=== PATIENT | female | born 1950 | race Caucasian/White ===

== ENCOUNTER → 2019-08-25 07:18 | Outpatient (CLI) | payer MEDICARE, OTHER, SELFPAY ==
--- NOTE | 2019-08-25 07:25 | CT_ITS ---
STUDY: CT BRAIN WITHOUT CONTRAST REASON FOR EXAM: Female, 69 years old patient with change in vision, headache and near syncope one week ago. RADIATION DOSAGE (If Supplied By Facility): CTDIvol = ( 44.99 ) mGy, DLP = ( 812.98 ) mGycm TECHNIQUE: Transaxial CT imaging of the brain was performed without administration of intravenous contrast material. Multiplanar reformations are submitted for interpretation. Individualized dose optimization techniques were used for this CT. COMPARISON: No relevant priors. FINDINGS: Normal soft tissue structures. Normal calvarium. Normal size ventricles and extra-axial spaces for the patient''s age. Normal white matter tracts of the cerebral hemispheres. There are small punctate calcifications of the basal ganglia which are seen in the aging brain as a normal variant. Normal brainstem. Normal cerebellum. There is no intracranial hemorrhage. There is mild atherosclerotic calcification of the intracranial arteries. Normal visualized paranasal sinuses. CT/Brain/Head without Contrast IMPRESSION: No CT evidence of acute intracranial hemorrhage. Electronically Signed: Fay Sr MD at 8:01 EST , Service support ,
== END ==
PROVIDERS: Family Provider Student in an Organized Health Care Education/Training Program; PCP Student in an Organized Health Care Education/Training Program; Referring Provider Nurse Practitioner Family; Visit Provider Nurse Practitioner Family
DX: H53.9 Unspecified visual disturbance (principal); R51 Headache
CPT/HCPCS: 70450

== ENCOUNTER 2020-07-18 15:00 | Outpatient (RCR) | payer MEDICARE, OTHER, SELFPAY ==
--- NOTE | 2020-05-09 15:07 | HP.PTEVAL_ITS ---
Patient's Visit Information LELA SHETH is a 70 year old F referred to Physical Therapy by Dr. Rory Russo DO with a diagnosis of R TKR 05-06-2020. Date of Evaluation: 05/09/20 Physical Therapist: BARB Wilkerson - Visit Plan Frequency: 3x /Week Duration: 6 Weeks Plan: 3X/ week for 6 weeks for gait training, R knee AROM, R hip and knee strength, stairs, functional activities, sit to stand with HEP and modlaities as needed. - Subjective L TKR was 12/17/2018 and R TKR was 05/06/2020. She came home and did it at [facility] in surgical wing. She is in a lot of pain right now. She tok the Oxy at 1:00. SHe is on CPM machine at home for 6 hours per day. She is walking on a rolling walker. 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 SHe has stairs with a railing ( up with good leg and down with the bad leg). Once s he is up, she stays up. She is sleeping but the leg blow up things are uncomfortable. She walks 10 min every 1/2 hour. She hold on and able to get into the shower. She feels better on the R knee than her L coming out of surgery. - Pain R knee pain Pain Intensity (Out of 10): 8 Pain Intensity Range: 6 Comment: with Oxy - Objective Gait: walks with a rolling walke wtih decrease stride length and decrease weight shift to the R. R knee AROM: 0-92 degrees R knee flexion. L knee AROM: 0-125 degrees R knee flexon. Pt has a good quad set contraction. -Greta sign on the R. SLR able X 10.... Nu-step L1 X 5 in at seat #9 to increase ROM. R knee very brusied and swollen. - Goals Goal 1:: I HEP Goal Time Frame: 6-8 Weeks Goal 2:: Increase R knee AROM 0-120 degrees flexion Goal Time Frame: 6-8 Weeks Goal 3:: Walk with no AD and no antalgic gait Goal Time Frame: 4-6 Weeks Goal 4:: Go up and down the stairs recip with 1 hand rail with not antalgic gait Goal Time Frame: 4-6 Weeks Goal 5:: Get up out of a chair without using UE support 5/5 times Goal Time Frame: 6-8 Weeks - Rehabilitation Potential Rehabilitation Potential: Good - Anticipated Interventions Patient/Client Instruction: Educate patient on: Condition, Plan of Care For the Purpose of:: To decrease pain, To decrease swelling/inflammation, To increase ROM, To improve nutrient delivery to tissue, To increase oxygenation perfusion, To improve muscle performance and motor function, To improve ability to perform ADL's, To increase tolerance to activity/condition/position, To improve performance and independence with ADL's, To decrease level of supervision to perform tasks, To improve ability of physical actions for home /community/work/leisure, To improve gait and locomotor functions, To improve health of tissue, To decrease soft tissue restriction, To increase flexibility/ROM Therapeutic Exercise to Include: Strength training, Endurance training, Balance training, Postural training, Flexibilty training, Gait and locomotor training For the Purpose of:: To decrease pain, To decrease swelling/inflammation, To increase ROM, To improve nutrient delivery to tissue, To increase oxygenation perfusion, To improve muscle performance and motor function, To improve ability to perform ADL's, To increase tolerance to activity/condition/position, To improve performance and independence with ADL's, To decrease level of supervision to perform tasks, To improve ability of physical actions for home/community/work/leisure, To improve gait and locomotor functions, To improve health of tissue, To decrease soft tissue restriction, To increase flexibility/ROM, To improve safety with gait Functional Training to Include: Gait training For the Purpose of:: To improve gait and locomotor functions, To improve safety with gait Cryotherapy (ice pack, ice massage): Yes For the Purpose of:: To decrease pain, To decrease swelling/inflammation Thank you for the opportunity to evaluate your patient. For Medicare and Medicare HMO plans, please review the plan of care and approve it. It will need to be FAXED BACK to us at [phone] for Medicare purposes. For Medicare only, by signing this I certify the plan of care. Please let me know if there are questions or concerns regarding this plan of care. Physician Signature: Date:
--- NOTE | 2020-05-30 14:50 | HP.PTREVAL_ITS ---
Dr. Rory Russo, DO, It has been my pleasure to treat LELA SHETH over the last 10 visits for R TKR 05-06-2020. Please see the progress note below for an update on the physical therapy plan of care! Subjective: Pt goes back to Nov 12-15. Pt went back to on and they thought that she looked good. No more SOLA hose. Walking with a straight cane. Her pain is good... trying to wean off the OXY... She feels better the more she moves it. Objective/Function: 0-107 degrees. Stairs; Up and down recip with 1 handrail with verbal cues to push off the step with her R foot. Gait: walks with decrease stance time on the R LE. Pt is able to correct with verbal cues. Plan Plan: Encourage increase in flexon AROM... 3X/ week for 6 weeks for gait training, R knee AROM, R hip and knee strength, stairs, functional activities, sit to stand with HEP and modlaities as needed. Goals Goal 1:: I HEP Goal Time Frame: 6-8 Weeks Goal 2:: Increase R knee AROM 0-120 degrees flexion Goal Time Frame: 6-8 Weeks Goal 3:: Walk with no AD and no antalgic gait Goal Time Frame: 4-6 Weeks Goal 4:: Go up and down the stairs recip with 1 hand rail with not antalgic gait Goal Time Frame: 4-6 Weeks Goal 5:: Get up out of a chair without using UE support 5/5 times Goal Time Frame: 6-8 Weeks Anticipated Interventions Patient/Client Instruction: Educate patient on: Condition, Plan of Care For the Purpose of:: To decrease pain, To decrease swelling/inflammation, To increase ROM, To improve nutrient delivery to tissue, To increase oxygenation perfusion, To improve muscle performance and motor function, To improve ability to perform ADL's, To increase tolerance to activity/condition/position, To improve performance and independence with ADL's, To decrease level of supervision to perform tasks, To improve ability of physical actions for home/community/work/leisure, To improve gait and locomotor functions, To improve health of tissue, To decrease soft tissue restriction, To increase flexibility/ROM Therapeutic Exercise to Include: Strength training, Endurance training, Balance training, Postural training, Flexibilty training, Gait and locomotor training For the Purpose of:: To decrease pain, To decrease swelling/inflammation, To increase ROM, To improve nutrient delivery to tissue, To increase oxygenation perfusion, To improve muscle performance and motor function, To improve ability to perform ADL's, To increase tolerance to activity/condition/position, To improve performance and independence with ADL's, To decrease level of supervision to perform tasks, To improve ability of physical actions for home/community/work/leisure, To improve gait and locomotor functions, To improve health of tissue, To decrease soft tissue restriction, To increase flexibility/ROM, To improve safety with gait Functional Training to Include: Gait training For the Purpose of:: To improve gait and locomotor functions, To improve safety with gait Cryotherapy (ice pack, ice massage): Yes For the Purpose of:: To decrease pain, To decrease swelling/inflammation Please do not hesitate to contact me at [phone] by phone or if you have questions or concerns regarding this new plan of care! Sincerely, Luzmaria Cavazos MPT
--- NOTE | 2020-06-22 17:39 | HP.PTREVAL ---
Dr. Rory Russo, DO, It has been my pleasure to treat LELA SHETH over the last 20 visits for R TKR 05-06-2020. Please see the progress note below for an update on the physical therapy plan of care! Subjective: Pt reports that the lateral part of her R knee is still painful and she can not seem to get it to loosen up. She is doing her exercises multiple times a day. Objective/Function: R knee AROM 0- 115 degrees (with green strap). Stairs; up and down recip with 2 hand rails with decreased ability to control descned with R knee bent Plan Plan: Encourage increase in flexon AROM... 3X/ week for 4 additional weeks for gait training, R knee AROM, R hip and knee strength, stairs, functional activities, sit to stand with HEP and modlaities as needed. Goals Goal 1:: I HEP Goal Time Frame: 6-8 Weeks Goal Progress: Goal Met Goal 2:: Increase R knee AROM 0-120 degrees flexion Goal Time Frame: 6-8 Weeks Goal Progress: Progressing Goal 3:: Walk with no AD and no antalgic gait Goal Time Frame: 4-6 Weeks Goal Progress: Progressing Goal 4:: Go up and down the stairs recip with 1 hand rail with not antalgic gait Goal Time Frame: 4-6 Weeks Goal Progress: Progressing Goal 5:: Get up out of a chair without using UE support 5/5 times Goal Time Frame: 6-8 Weeks Goal Progress: Progressing Anticipated Interventions Patient/Client Instruction: Educate patient on: Condition, Plan of Care For the Purpose of:: To decrease pain, To decrease swelling/inflammation, To increase ROM, To improve nutrient delivery to tissue, To increase oxygenation perfusion, To improve muscle performance and motor function, To improve ability to perform ADL's, To increase tolerance to activity/condition/position, To improve performance and independence with ADL's, To decrease level of supervision to perform tasks, To improve ability of physical actions for home/community/work/leisure, To improve gait and locomotor functions, To improve health of tissue, To decrease soft tissue restriction, To increase flexibility/ROM Therapeutic Exercise to Include: Strength training, Endurance training, Balance training, Postural training, Flexibilty training, Gait and locomotor training For the Purpose of:: To decrease pain, To decrease swelling/inflammation, To increase ROM, To improve nutrient delivery to tissue, To increase oxygenation perfusion, To improve muscle performance and motor function, To improve ability to perform ADL's, To increase tolerance to activity/condition/position, To improve performance and independence with ADL's, To decrease level of supervision to perform tasks, To improve ability of physical actions for home/community/work/leisure, To improve gait and locomotor functions, To improve health of tissue, To decrease soft tissue restriction, To increase flexibility/ROM, To improve safety with gait Functional Training to Include: Gait training For the Purpose of:: To improve gait and locomotor functions, To improve safety with gait Cryotherapy (ice pack, ice massage): Yes For the Purpose of:: To decrease pain, To decrease swelling/inflammation Please do not hesitate to contact me at [phone] by phone or if you have questions or concerns regarding this new plan of care! Sincerely, Luzmaria Cavazos, MPT
--- NOTE | 2020-07-18 15:43 | HP.PTREVAL_ITS ---
Dr. Rory Russo, DO, It has been my pleasure to treat LELA SHETH over the last 31 visits for R TKR 05-06-2020. Please see the progress note below for an update on the physical therapy plan of care! 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 Then she is off a lot of days in Aug. She is worried about being on her feet so long. She still has the lateral knee pain most of the time. She felt it when she rolled over in her bed. She does the same exercises on her R leg and her L. She feels comfortable wtih her exercises. She still has to take Tylenol every 6 hours for the pain.... the still hurts. Objective/Function: R knee AROM 0-120 degrees. Stairs: up and down stairs recip with 1 hand rail. Gait: walk with decrease stance time on the R LE. Plan Plan: Hold PT until after Dr appointment. She was given H&W paper work and exercise sheet if the Dr thinks she is ready for DC Goals Goal 1:: I HEP Goal Time Frame: 6-8 Weeks Goal Progress: Goal Met Goal 2:: Increase R knee AROM 0-120 degrees flexion Goal Time Frame: 6-8 Weeks Goal Progress: Goal Met Goal 3:: Walk with no AD and no antalgic gait Goal Time Frame: 4-6 Weeks Goal Progress: Progressing Goal 4:: Go up and down the stairs recip with 1 hand rail with not antalgic gait Goal Time Frame: 4-6 Weeks Goal Progress: Goal Met Goal 5:: Get up out of a chair without using UE support 5/5 times Goal Time Frame: 6-8 Weeks Goal Progress: Goal Met Anticipated Interventions Patient/Client Instruction: Educate patient on: Condition, Plan of Care For the Purpose of:: To decrease pain, To decrease swelling/inflammation, To increase ROM, To improve nutrient delivery to tissue, To increase oxygenation perfusion, To improve muscle performance and motor function, To improve ability to perform ADL's, To increase tolerance to activity/condition/position, To improve performance and independence with ADL's, To decrease level of supervision to perform tasks, To improve ability of physical actions for home/community/work/leisure, To improve gait and locomotor functions, To improve health of tissue, To decrease soft tissue restriction, To increase flexibility/ROM Therapeutic Exercise to Include: Strength training, Endurance training, Balance training, Postural training, Flexibilty training, Gait and locomotor training For the Purpose of:: To decrease pain, To decrease swelling/inflammation, To increase ROM, To improve nutrient delivery to tissue, To increase oxygenation perfusion, To improve muscle performance and motor function, To improve ability to perform ADL's, To increase tolerance to activity/condition/position, To improve performance and independence with ADL's, To decrease level of supervision to perform tasks, To improve ability of physical actions for home/community/work/leisure, To improve gait and locomotor functions, To improve health of tissue, To decrease soft tissue restriction, To increase flexibility/ROM, To improve safety with gait Functional Training to Include: Gait training For the Purpose of:: To improve gait and locomotor functions, To improve safety with gait Cryotherapy (ice pack, ice massage): Yes For the Purpose of:: To decrease pain, To decrease swelling/inflammation Please do not hesitate to contact me at [phone] by phone or if you have questions or concerns regarding this new plan of care! Sincerely, Luzmaria Cavazos, MPT
--- NOTE | 2020-09-20 10:43 | HP.PTDCSUM ---
It has been my pleasure to treat LELA SHETH referred by Dr. Rory Russo DO, with the diagnosis of R TKR 05-06-2020 for a total of 31 visit(s). Discharge Date: 09/20/20 Please see the following information for a summary of their discharge status. 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 Then she is off a lot of days in Aug. She is worried about being on her feet so long. She still has the lateral knee pain most of the time. She felt it when she rolled over in her bed. She does the same exercises on her R leg and her L. She feels comfortable wtih her exercises. She still has to take Tylenol every 6 hours for the pain.... the still hurts. R knee pain Pain Intensity (Out of 10): 6 % Improvement: 100 Objective/Function: R knee AROM 0-120 degrees. Stairs: up and down stairs recip with 1 hand rail. Gait: walk with decrease stance time on the R LE. Goal 1:: I HEP Goal Progress: Goal Met Goal 2:: Increase R knee AROM 0-120 degrees flexion Goal Progress: Goal Met Goal 3:: Walk with no AD and no antalgic gait Goal Progress: Progressing Goal 4:: Go up and down the stairs recip with 1 hand rail with not antalgic gait Goal Progress: Goal Met Goal 5:: Get up out of a chair without using UE support 5/5 times Goal Progress: Goal Met Plan: DC PT She was given H&W paper work and exercise sheet if the Dr thinks she is ready for DC Discharge Comments: DC PT to HEP If there are questions or concerns regarding this patient's physical therapy, please feel free to call me at [phone]. Thank you for the referral of this patient. Sincerely, Luzmaria Cavazos, MPT
== END 2020-07-18 19:00 | disposition home or self-care (01) ==
LOC: PT 15:00
PROVIDERS: PCP Student in an Organized Health Care Education/Training Program; Referring Provider Orthopaedic Surgery; Visit Provider Orthopaedic Surgery
DX: Z47.1 Aftercare following joint replacement surgery (principal); M17.11 Unilateral primary osteoarthritis, right knee; M21.061 Valgus deformity, not elsewhere classified, right knee; Z96.651 Presence of right artificial knee joint; M25.561 Pain in right knee
CPT/HCPCS: 97110; 97161; 97530

== ENCOUNTER → 2021-07-25 08:19 | Outpatient (CLI) | payer MEDICARE, OTHER, SELFPAY ==
--- NOTE | 2021-07-25 08:28 | BD_ITS ---
STUDY: DUAL ENERGY X-RAY ABSORPTIOMETRY / DXA REASON FOR EXAM: Female, 71 years old. M810. The patient is postmenopausal. TECHNIQUE: Bone Mineral Density (BMD) measurements of lumbar spine and bilateral hips were obtained. COMPARISON: Comparison is made with prior study of 10/16/2016. FINDINGS: Lumbar Spine (L1-L4): g/cm2 (0.679) / T-score (-3.3) / Z-score (-1.3) Findings are suggestive of osteoporosis with a high fracture risk. Left Femur Total: g/cm2 (0.659) / T-score (-2.3) / Z-score (-0.9) Left Femoral Neck: g/cm2 (0.553) / T-score (-2.7) / Z-score (-0.9) Right Femur Total: g/cm2 (0.649) / T-score (-2.4) / Z-score (-0.9) Right Femoral Neck: g/cm2 (0.5-4) / T-score (-2.9) / Z-score (-1.2) The T-Scores on the most recent prior examination were: Lumbar Spine (L1-L4): There has been worsening of bone density since the previous examination. Left Femur Total: which represents an improvement of 1.1%. Right Femur Total: which represents a worsening of 6.9%. BD/Dexa Bone Density Study IMPRESSION: The patient is considered osteoporotic as outlined below according to World [place] Organization (WHO) criteria with a high fracture risk. There has been worsening of bone density since the previous examination. Reference Information: The T-score is the number of standard deviations above or below the standard which is normal for young adults at their peak bone mineral density. The World Health Organization (WHO) interprets the T-scores as follows: Above -1 Normal bone density Between -1 and -2.5 Osteopenia Equal to / or below -2.5 Osteoporosis As a practical clinical guideline, osteopenia may be graded as follows: Mild -1 through -1.5 Moderate -1.6 through -2.0 Severe -2.1 through -2.4 The Z-score is the number of standard deviations above or below age-matched controls. A Z-score of less than -1.5 would be considered abnormal. References: 1. NIH Osteoporosis and Related Bone Diseases www osteo.org 2. International Society for Clinical Densitometry www iscd.org 3. National Osteoporosis Foundation www nof.org Electronically Signed: Estuardo Esquivel MD at 10:25 EST , Service support ,
== END ==
PROVIDERS: PCP Student in an Organized Health Care Education/Training Program; Visit Provider Student in an Organized Health Care Education/Training Program
DX: M81.0 Age-related osteoporosis without current pathological fracture (principal)
CPT/HCPCS: 77080

== ENCOUNTER 2021-10-26 11:31 | Outpatient (CLI) | payer MEDICARE, OTHER, SELFPAY ==
--- NOTE | 2021-10-26 11:45 | RAD_ITS ---
INDICATION: shortness of breath EXAMINATION/TECHNIQUE: X-RAY - XR Chest 2 Views COMPARISON: None. FINDINGS: Support devices: None Mild bilateral pulmonary vascular congestion. No focal consolidations. No sizable pleural effusion or pneumothorax. Cardia mediastinal silhouette is within normal limits. Surgical clips in the soft tissues overlying the lower chest/breasts and upper abdominal wall. No other acute findings in the bones or soft tissues. RAD/Chest PA and Lateral IMPRESSION: Mild bilateral pulmonary vascular congestion. Otherwise, no other acute findings. Electronically Signed: Taiwo Kumar, at 12:11 EDT ,
== END 2021-10-26 23:59 | disposition home or self-care (01) ==
LOC: RAD 11:40
PROVIDERS: PCP Student in an Organized Health Care Education/Training Program; Referring Provider Internal Medicine Cardiovascular Disease; Visit Provider Internal Medicine Cardiovascular Disease
DX: R06.02 Shortness of breath (principal); I34.1 Nonrheumatic mitral (valve) prolapse; R00.2 Palpitations; E78.2 Mixed hyperlipidemia
CPT/HCPCS: 71046

== ENCOUNTER 2021-10-31 10:53 | Outpatient (CLI) | payer MEDICARE, OTHER, SELFPAY | END 2021-10-31 23:59 | disposition home or self-care (01) | LOC: PSN 10:55 | PROVIDERS: PCP Student in an Organized Health Care Education/Training Program; Referring Provider Internal Medicine Cardiovascular Disease; Visit Provider Internal Medicine Cardiovascular Disease | DX: I34.1 Nonrheumatic mitral (valve) prolapse (principal); R00.2 Palpitations; R06.02 Shortness of breath; E78.2 Mixed hyperlipidemia | CPT/HCPCS: 93225; 93226 ==

== ENCOUNTER 2021-11-27 06:31 | Outpatient (CLI) | payer MEDICARE, OTHER, SELFPAY ==
--- NOTE | 2021-11-27 06:34 | ECHOD_ITS ---
Version 2 Reason For Study: Palpitations Procedure This was a 2D Doppler, Color Flow transthoracic echocardiogram. The exam was of adequate technical quality. Exam performed in department. Left Ventricle Normal LV size. Left ventricular systolic function is normal. The estimated ejection fraction is 65 %. No evidence for diastolic dysfunction. No regional wall motion abnormalities noted. Right Ventricle Normal RV size. Normal systolic function. Atria Normal left atrium. Normal right atrium. No doppler evidence for ASD. Mitral Valve There is mild to moderate mitral annular calcification. Extension of the mitral annular calcification of the base of the posterior mitral valve leaflet. Trivial mitral valve insufficiency. Tricuspid Valve Normal tricuspid valve. Mild tricuspid valve insufficiency. Right ventricular systolic pressure estimated to be 30 mmHg. Aortic Valve Trisinus/trileaflet aortic valve. Mild focal aortic valve calcification. Trivial aortic valve insufficiency. Pulmonic Valve The pulmonic valve is not well visualized. Trivial pulmonic valve insufficiency. Great Vessels Normal sized aortic root. Pericardium/Pleural No pericardial effusion. MMode/2D Measurements & Calculations LVIDd: 3.9 cm IVSd: 1.2 cm Ao root diam: 3.5 cm LVIDs: 1.8 cm LVPWd: 1.1 cm RVDd: 4.1 cm FS: 55.5 % LAV(MOD-bp): 43.6 ml LVAd ap4: 24.7 cm2 SV(MOD-sp4): 42.5 ml LAV(MOD-bp) Indexed: 22.8 ml/m2 LVLd ap4: 7.9 cm LAV(MOD-sp2): 61.4 ml EDV(MOD-sp4): 63.6 ml LAV(MOD-sp4): 28.2 ml EDV(sp4-el): 65.5 ml LVAs ap4: 12.4 cm2 LVLs ap4: 6.5 cm ESV(MOD-sp4): 21.1 ml ESV(sp4-el): 20.1 ml EF(MOD-sp4): 66.8 % EF(sp4-el): 69.3 % SV(sp4-el): 45.3 ml LA A4 area: 12.2 cm2 LA dimension(2D): 3.4 cm RA A4 area: 12.3 cm2 Doppler Measurements & Calculations MV E max rupert: 61.1 cm/sec Lat Peak E' Rupert: 7.0 cm/sec Med Peak E' Rupert: 4.9 cm/sec MV A max rupert: 89.1 cm/sec E/E' lat: 8.7 E/E' med: 12.5 MV E/A: 0.69 Ao V2 max: 149.5 cm/sec LV V1 max: 137.4 cm/sec PA V2 max: 85.7 cm/sec Ao max P.9 mmHg LV V1 max P.6 mmHg Ao V2 mean: 102.6 cm/sec Ao mean P.6 mmHg Ao V2 VTI: 31.0 cm PI end-d rupert: 85.7 cm/sec TR max rupert: 259.5 cm/sec TR max P.9 mmHg ECHO/Echo Complete Interpretation Summary Left ventricular systolic function is normal. The estimated ejection fraction is 65 %. There is mild to moderate mitral annular calcification. Extension of the mitral annular calcification of the base of the posterior mitr al valve leaflet. Trivial mitral valve insufficiency. Mild tricuspid valve insufficiency. Mild focal aortic valve calcification. Trivial aortic valve insufficiency. Trivial pulmonic valve insufficiency. Right ventricular systolic pressure estimated to be 30 mmHg. No evidence for diastolic dysfunction. Ordering Physician: Romario Thurston Referring Physician: Reynaldo Sullivan Performed By: Micaela Ferrer, JOSÉ MIGUEL, RVT
--- NOTE | 2021-11-27 08:45 | STRESSREP_ITS ---
Stress Test Report Date: 11-27-2021 Procedure: Pharmacologic stress nuclear imaging study Indications: Dyspnea on exertion; mitral valve prolapse; status post bilateral knee replacement Consent: Per the patient Procedure: The patient underwent pharmacologic (Regadenoson 0.4mg ) evaluation with a peak heart rate of 110 beats per minute (72%predicted maximal heart rate) and a peak blood pressure of 152/92 mmHg. The baseline ECG demonstrated normal sinus rhythm. The peak pharmacologic ECG demonstrated no obvious ECG changes. There were no cardiac dysrhythmias pretest, during pharmacologic infusion, or recovery. There was no complaint of chest discomfort during pharmacologic infusion or recovery. The examination was discontinued secondary to completion of protocol. Impression: 1. Pharmacologic (Regadenoson) evaluation 2. Peak pharmacologic ECG with no obvious ECG changes. 3. There were no cardiac dysrhythmias pretest, during pharmacologic infusion, or recovery. 4. Nuclear images pending Myocardial perfusion imaging study: Technique: The patient was injected with 11.5 millicuries of technetium 99m Cardiolite and subsequently rest SPECT Cardiolite nuclear imaging was obtained in the horizontal long, vertical long, and short axis views. The patient underwent pharmacologic (Regadenoson) evaluation with a peak heart rate of 110 beats per minute (72% percent predicted maximal heart rate) and a peak blood pressure of 152/92 mmHg. The patient was injected with 33.8 millicuries of technetium 99m Cardiolite and subsequently stress SPECT Cardiolite nuclear imaging was obtained in the horizontal long, vertical long, and short axis views. A gated Cardiolite study at peak stress was obtained. Interpretation: Rest and stress SPECT Cardiolite nuclear imaging status post realignment, normalization, and attenuation correction demonstrate relative uniform tracer uptake and myocardial perfusion appearing within normal limits. There is end systolic thickening and brightening. The gated Cardiolite study demonstrates myocardial thickening and inward wall motion. The reported LVEF is 81%. Impression: 1. Rest and stress SPECT Cardiolite nuclear imaging demonstrate relative uniform tracer uptake and myocardial perfusion appearing within normal limits. 2. The gated Cardiolite study reports an LVEF of 81%. This note was generated with [employer] software. It may contain incorrect words, spelling, and punctuation that were not noted in checking the note before signing.
== END 2021-11-27 23:59 | disposition home or self-care (01) ==
LOC: CVS 06:32
PROVIDERS: PCP Student in an Organized Health Care Education/Training Program; Referring Provider Internal Medicine Cardiovascular Disease; Visit Provider Internal Medicine Cardiovascular Disease
DX: R06.02 Shortness of breath (principal); I34.1 Nonrheumatic mitral (valve) prolapse; R00.2 Palpitations; E78.2 Mixed hyperlipidemia
CPT/HCPCS: 78452; 93017; 93306; A9500; A4216; J2785

== ENCOUNTER → 2022-01-26 | Outpatient (CLI) | payer MEDICARE, OTHER, SELFPAY ==
--- NOTE | 2022-01-26 11:17 | RAD_ITS ---
STUDY: X-RAY CHEST REASON FOR EXAM: Female, 71 years old. shortness of breath TECHNIQUE: XR Chest 2 Views COMPARISON: 3 FINDINGS: There is no demonstrated pleural abnormality. Metal clips overlying the lower chest epigastric region. This is stable. Normal size heart. Normal mediastinum and cate. Normal visualized pulmonary arteries. There is atherosclerotic calcification of the aortic arch with tortuosity. There are diffuse degenerative changes of the visualized thoracic spine. There is degenerative osteoarthritis of the bilateral shoulders. There is no demonstrated abnormality of the visualized soft tissue structures of the upper abdomen. RAD/Chest PA and Lateral IMPRESSION: There are no acute findings. Electronically Signed: Quintin Jennings MD at 17:04 EDT ,
== END | disposition home or self-care (01) ==
LOC: RAD 11:12
PROVIDERS: PCP Student in an Organized Health Care Education/Training Program; Referring Provider Internal Medicine Cardiovascular Disease; Visit Provider Internal Medicine Cardiovascular Disease
DX: R06.02 Shortness of breath (principal)
CPT/HCPCS: 71046

== ENCOUNTER → 2022-02-14 | Outpatient (CLI) | payer MEDICARE, OTHER, SELFPAY ==
--- NOTE | 2022-02-14 09:22 | EKG12_ITS ---
Test Reason : PREOP Blood Pressure : / mmHG Vent. Rate : 070 BPM Atrial Rate : 070 BPM P-R Int : 132 ms QRS Dur : 084 ms QT Int : 392 ms P-R-T Axes : 043 001 037 degrees QTc Int : 423 ms Normal sinus rhythm Normal ECG Confirmed by DEMIAN OLSON, STEPAN ([id number]), features editor DOMENICO BURNS ([id number]) on 02/15/2022 7:24:07 AM Referred By: Leobardo Adams Confirmed By:STEPAN ARCINIEGA MD
== END | disposition home or self-care (01) ==
LOC: PSN 09:21
PROVIDERS: PCP Student in an Organized Health Care Education/Training Program; Referring Provider Surgery; Visit Provider Surgery
DX: Z01.812 Encounter for preprocedural laboratory examination (principal); Z01.810 Encounter for preprocedural cardiovascular examination
CPT/HCPCS: 36415; 80048; 85027; 93005

== ENCOUNTER → 2022-02-14 | Outpatient (CLI) | payer MEDICARE, OTHER, SELFPAY ==
[2022-02-14 10:04] LABS: Hematocrit 42.3 % (37-47); Hemoglobin 13.9 g/dL (12.0-15.0); Mean Corp Hgb Conc 32.9 g/dL (32-36); Mean Corpuscular Hgb 28.5 pg (27.0-32.0); Mean Corpuscular Volume 86.7 fL (81-99); Mean Platelet Vol. 9.8 fl (6.2-12.0); Platelet Count 235 K/mm3 (150-450); RBC Distribution Width CV 13.5 % (11.6-14.6); Red Blood Count 4.88 M/mm3 (4.2-5.4); White Blood Count 4.6 K/mm3 (4.4-11.0)
[2022-02-14 10:58] LABS: Anion Gap 6 (5-15); BUN 17 mg/dL (7-18); BUN/Creat Ratio 22.2 RATIO (10-20); Calcium,Total 9.1 mg/dL (8.5-10.1); Chloride 109 mmol/L (98-107); Creatinine, Serum 0.77 mg/dL (0.55-1.02); EST Glomerular Filtration Rate 79 mL/min (>60); Est Glom Filt Rate - Afr Amer 96 mL/min (>60); Glucose 100 mg/dL (74-106); Potassium 3.7 mmol/L (3.5-5.1); Sodium Level 141 mmol/L (136-145)
== END | disposition home or self-care (01) ==
PROVIDERS: PCP Student in an Organized Health Care Education/Training Program; Visit Provider Surgery
DX: Z01.812 Encounter for preprocedural laboratory examination (principal)
CPT/HCPCS: 36415; 80048; 85027

== ENCOUNTER → 2022-08-29 | Outpatient (CLI) | payer MEDICARE, OTHER, SELFPAY ==
--- NOTE | 2022-08-29 07:55 | US_ITS ---
STUDY: ULTRASOUND BREAST - RIGHT REASON FOR EXAM: Female, 72 years old. Prior right mastectomy and breast reconstruction. Breast pain. TECHNIQUE: Axial and longitudinal images of the RIGHT breast were performed with a high resolution ultrasound transducer. # OF IMAGES: 75 COMPARISON: None. FINDINGS: RIGHT Breast: Heterogeneously dense fibroglandular tissue. No sonographic abnormality is seen. IMPRESSION: No sonographic abnormality is seen. ASSESSMENT CATEGORY: BIRADS Category 1: Negative. A letter regarding these results will be sent to the patient by the facility within 30 days. Electronically Signed: Estuardo Esquivel MD at 9:31 EST , STUDY: ULTRASOUND BREAST - LEFT REASON FOR EXAM: Female, 72 years old. Prior mastectomy with breast reconstruction. Breast pain. TECHNIQUE: Axial and longitudinal images of the LEFT breast were performed with a high resolution ultrasound transducer. # OF IMAGES: 75 COMPARISON: None. FINDINGS: LEFT Breast: Heterogeneously dense breast tissue. No sonographic abnormality is seen. US/Breast Complete Unilateral IMPRESSION: No sonographic abnormality is seen. ASSESSMENT CATEGORY: BIRADS Category 1: Negative. A letter regarding these results will be sent to the patient by the facility within 30 days. Electronically Signed: Estuardo Esquivel MD at 9:32 EST ,
== END | disposition home or self-care (01) ==
LOC: OPUS 07:52
PROVIDERS: PCP Student in an Organized Health Care Education/Training Program; Visit Provider Student in an Organized Health Care Education/Training Program
DX: N64.4 Mastodynia (principal)
CPT/HCPCS: 76641

== ENCOUNTER → 2022-10-03 | Outpatient (CLI) | payer MEDICARE, OTHER, SELFPAY ==
--- NOTE | 2022-10-03 14:19 | US_ITS ---
STUDY: RENAL ULTRASOUND - COMPLETE REASON FOR EXAM: Female, 72 years old. UTI TECHNIQUE: Ultrasound evaluation of the kidneys was performed with real-time and static metzger-scale imaging. COMPARISON: None. FINDINGS: RIGHT KIDNEY: Normal location of the right kidney, which is normal in size. The right kidney measures 8.6 cm x 5.4 cm x 4.3 cm. There is a normal cortex of the right kidney. The renal cortex measures 1.2 cm. There is no right renal mass or cyst. There are no right renal calculi. There is no right hydronephrosis. DISTAL RIGHT URETER: There is non-visualization of the distal right ureter. There is no demonstrated right ureterovesical junction calculus. There is no demonstrated right ureteral jet. LEFT KIDNEY: Normal location of the left kidney, which is normal in size. The left kidney measures 10.9 cm x 4.8 cm x 4.5 cm. There is a normal cortex of the left kidney. The renal cortex measures 1.3 cm. There is no left renal mass or cyst. There are no left renal calculi. There is mild hydronephrosis of the left kidney. DISTAL LEFT URETER: There is non-visualization of the distal left ureter. There is no demonstrated left ureterovesical junction calculus. There is no demonstrated left ureteral jet. BLADDER: The distended urinary bladder has a volume of 51 ml. There is a normal wall thickness of the distended urinary bladder. There is no demonstrated mass within the urinary bladder. There are no demonstrated bladder calculi. US/Kidney and Bladder IMPRESSION: Mild degree of left hydronephrosis. Electronically Signed: Estuardo Esquivel MD at 8:58 EST ,
== END | disposition home or self-care (01) ==
LOC: US 14:17
PROVIDERS: PCP Student in an Organized Health Care Education/Training Program; Visit Provider Urology
DX: N39.0 Urinary tract infection, site not specified (principal)
CPT/HCPCS: 76770

== ENCOUNTER → 2022-10-25 | Outpatient (CLI) | payer MEDICARE, OTHER, SELFPAY ==
--- NOTE | 2022-10-25 14:11 | CT_ITS ---
STUDY: CT ABDOMEN AND PELVIS WITH AND WITHOUT CONTRAST REASON FOR EXAM: Female, 72 years old. Flank pain, fever RADIATION DOSAGE (If Supplied By Facility): CTDIvol = ( 18.93 ) mGy, DLP = ( 3094.41 ) mGycm TECHNIQUE: Transaxial images were obtained from the dome of the diaphragm to the symphysis pubis without oral contrast. IV 100mL Isovue-300 was administered. Sagittal and coronal images were reconstructed. Individualized dose optimization techniques were used for this CT. COMPARISON: None. FINDINGS: The visualized lung bases are unremarkable. The visualized portions of the heart are within normal limits. Normal liver. Normal gallbladder and extrahepatic biliary system. There are multiple benign calcified granulomata of the spleen. Normal pancreas. Normal bilateral adrenal glands. No obstructive uropathy, extrarenal pelves noted in the left kidney. Normal visualized stomach. Normal small intestine. Retained stool noted in the colon. There is non-visualization of the appendix. Normal abdominal aorta. Normal inferior vena cava. Normal retroperitoneum. Normal urinary bladder. Uterus is present, the endometrium cannot be accurately evaluated with CT. The coronal recon images suggest endometrial stripe thickening and fluid in the endometrium, dedicated pelvic ultrasound is recommended for further evaluation Normal abdominal wall. There are diffuse degenerative changes of the visualized lumbar spine, and pelvis. CT/CT Abd/Pelvis W/WO Contrast IMPRESSION: No suspicious solid organ abnormality, extrarenal pelves noted in the left kidney. Uterus is present with CT evidence to suspect endometrial thickening and fluid within the endometrium. Recommend dedicated pelvic ultrasound for further evaluation No free peritoneal fluid, air, or suspicious adenopathy Degenerative bony changes Electronically Signed: Alexei Olivier MD at 14:44 EDT ,
[2022-10-25 14:25] LABS: CREATININE FINGERSTICK < 0.9 mg/dL (0.55-1.02); EGFR FINGERSTICK > 60.0000 mL/min (>60)
== END | disposition home or self-care (01) ==
LOC: CT 13:50
PROVIDERS: PCP Student in an Organized Health Care Education/Training Program; Referring Provider Urology; Visit Provider Urology
DX: R93.41 Abnormal radiologic findings on diagnostic imaging of renal pelvis, ureter, or bladder (principal)
CPT/HCPCS: 74178; Q9967

== ENCOUNTER → 2022-11-05 | Outpatient (CLI) | payer MEDICARE, OTHER, SELFPAY ==
[2022-11-09 14:47] LABS: HPV APTIMA, High Risk Negative (Negative)
== END | disposition home or self-care (01) ==
LOC: LABSPEC 13:12
PROVIDERS: PCP Student in an Organized Health Care Education/Training Program; Referring Provider Obstetrics & Gynecology; Visit Provider Obstetrics & Gynecology
DX: Z12.4 Encounter for screening for malignant neoplasm of cervix (principal)
CPT/HCPCS: 87624; 88175; G0145

== ENCOUNTER → 2022-11-09 | Outpatient (CLI) | payer MEDICARE, OTHER, SELFPAY ==
--- NOTE | 2022-11-09 12:56 | US_ITS ---
STUDY: ULTRASOUND OF THE FEMALE PELVIS - COMPLETE REASON FOR EXAM: Female, 72 years old. Thickened endometrium LMP: Patient is postmenopausal. TECHNIQUE: Transabdominal and Transvaginal TECHNICAL QUALITY: Adequate. COMPARISON: Comparison is made with prior CT scan the abdomen and pelvis dated October 25, 2022. FINDINGS: The uterus is anteverted and is in a midline position. The uterus measures 7.1 cm x 4.5 cm x 3.9 cm. Normal uterine cervix. The endometrium measures 13 mm in thickness, and is fluid distended. There is no demonstrated endometrial mass. There is no demonstrated myometrial mass. I.U.D. - The patient does not have an I.U.D. The right ovary is visualized. The right ovary measures 1.8 cm x 1.2 cm x 1.3 cm. There is no right ovarian cyst or ovarian mass. There is no visualized right adnexal mass or complex lesion. There is normal arterial and normal venous vascularity. The left ovary is non-visualized. There is no fluid in the cul-de-sac. The pre void volume of the bladder was 122 ml. US/Pelvic (Non ) IMPRESSION: Fluid distention of the endometrium measuring 1.3 cm clinical correlation recommended. Electronically Signed: Estuardo Esquivel MD at 15:24 EDT ,
== END | disposition home or self-care (01) ==
LOC: US 12:49
PROVIDERS: PCP Student in an Organized Health Care Education/Training Program; Referring Provider Obstetrics & Gynecology; Visit Provider Obstetrics & Gynecology
DX: R93.89 Abnormal findings on diagnostic imaging of other specified body structures (principal)
CPT/HCPCS: 76830; 76856

== ENCOUNTER 2022-12-25 13:45 | Day surgery (SDC) | payer MEDICARE, OTHER, SELFPAY ==
--- NOTE | 2022-12-24 08:19 | EKG12_ITS ---
Test Reason : PRE-OP Blood Pressure : / mmHG Vent. Rate : 086 BPM Atrial Rate : 086 BPM P-R Int : 126 ms QRS Dur : 082 ms QT Int : 358 ms P-R-T Axes : 024 -11 017 degrees QTc Int : 428 ms Normal sinus rhythm Inferior infarct , age undetermined Abnormal ECG Confirmed by ANAI OLSON, CRISTOPHER ([id number]), marketing editor DOMENICO BURNS ([id number]) on 12/24/2022 1:49:30 PM Referred By: Renee Hoang Confirmed By:CRISTOPHER OSPINA MD
[2022-12-24 09:38] LABS: Absolute Lymphocyte Count 0.93 X10^3/uL (0.83-4.51); Absolute Neutrophil Count 3.5 X10^3/uL (2.0-7.7); Basophil# 0.06 X10^3/uL; Basophil% 1.1 % (0-1); Eosinophil# 0.12 X10^3/uL; Eosinophils% 2.3 % (0-5); Hematocrit 43.4 % (37-47); Lymphocyte # 0.93 X10^3/ul (0.83-4.51); Lymphocyte % 17.8 % (19-41); Mean Corp Hgb Conc 32.3 g/dL (32-36); Mean Corpuscular Hgb 28.6 pg (27.0-32.0); Mean Corpuscular Volume 88.6 fL (81-99); Mean Platelet Vol. 9.8 fl (6.2-12.0); Monocyte# 0.56 X10^3/uL; Monocyte% 10.7 % (0-10); NRBC Flagged by Analyzer 0 % (0-5); Neutrophil # 3.53 X10^3/uL (2.7-7.7); Neutrophil % 67.7 % (47-70); Platelet Count 238 K/mm3 (150-450); RBC Distribution Width CV 13.5 % (11.6-14.6); RBC Distribution Width SD 43.8 fl (35.1-43.9); White Blood Count 5.2 K/mm3 (4.4-11.0)
[2022-12-24 09:56] LABS: ALB/GLOB Ratio 0.9 RATIO (0.9-2.4); AST(SGOT) 16 U/L (15-37); Alanine Aminotransfer ALT/SGPT 20 U/L (13-56); Albumin, Serum 3.6 g/dL (3.2-5.0); Alkaline Phosphatase 86 U/L (45-117); Anion Gap 6 (5-15); BUN 19 mg/dL (7-18); BUN/Creat Ratio 24.4 RATIO (10-20); Calcium,Total 8.9 mg/dL (8.5-10.1); Chloride 109 mmol/L (98-107); Creatinine, Serum 0.78 mg/dL (0.55-1.02); EST Glomerular Filtration Rate 78 mL/min (>60); Est Glom Filt Rate - Afr Amer 94 mL/min (>60); Globulin 3.8 g/dL (2.2-4.2); Glucose 96 mg/dL (74-106); Potassium 3.8 mmol/L (3.5-5.1); Protein, Total 7.4 g/dL (6.4-8.2); Sodium Level 143 mmol/L (136-145)
--- NOTE | 2022-12-25 | EMB_PTH ---
PATIENT: LELA SHETH LOC: [facility] [place] U#:[id number] AGE/SX: 72/F ROOM: RE12/25/[address]: Dr. Renee Hoang MD : 1950 BED: DIS: 12/25/2022 SPEC #: [id number] RECD: 12/26/22 09:07 STATUS: RENATE MARSAbad #: [id number] RANJANA: 12/25/22 00:[address]: Renee Hoang DEPT: SURGICAL PATHOLOGY RECD BY: Phu Mora ENTERED: 12/26/22 09:09 SP TYPE: ENDOM BX/C WILL DR: Dr. Reynaldo Sullivan DO Tissues: Endometrium, NOS Procedures: Surgery Specimen Level IV HEADER OPERATION: Hysteroscopy, dilation and curettage PRE-OP DIAGNOSIS: Thickened endometrium TISSUE SUBMITTED: Endometrial curettings MICROSCOPIC DIAGNOSIS Endometrium, curettings: Benign superficial endometrium. Fragments of ectocervix, endocervix and benign epithelial cyst. AM:xavier 12/27/2022 MICROSCOPIC DESCRIPTION Slides are reviewed. GROSS DESCRIPTION Received in fixative is one container labeled with the patient's name and designated endometrial curettings. The specimen consists of multiple fragments of hemorrhagic mucoid tissue that in aggregate measure 2.5 x 1.5 x 0.1 cm. The specimen is totally submitted in one cassette. / SJ:xavier 12/26/2022 TC:5 CPT: 52272
--- NOTE | 2022-12-25 06:10 | PCM.HP.BLA ---
History and Physical Date of Admission: 12/25/22 Intake Vital Signs ? 12/07/2314:02 12/07/2314:09 Height 5 ft 5 in 5 ft 5 in Weight: 186 lb 3 oz ? BMI 30.9 ? BP 144/81 H ? 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 Required: No Is patient in pain?: No Allergies Sulfa (Sulfonamide Antibiotics) Allergy (Unknown, Verified 12/07/22 15:01) Hives Medications cranberry 400 mg capsule 400 mg PO DAILY 10/10/21 [History Confirmed 12/07/22] omeprazole 20 mg capsule,delayed release 20 mg PO DAILY 10/10/21 [History Confirmed 12/07/22] acetaminophen 325 mg tablet (Tylenol) 650 mg PO ONCE PRN 10/26/21 [History Confirmed 12/07/22] cephalexin 250 mg tablet 250 mg PO DAILY PRN UTI Prevention 10/26/21 [History Confirmed 12/07/22] balsalazide 750 mg capsule 2,250 mg PO TID 01/26/22 [History Confirmed 12/07/22] calcium carbonate 500 mg calcium (1,250 mg) chewable tablet (Calcium 500) 500 mg PO DAILY 07/31/22 [History Confirmed 12/07/22] ascorbic acid (vitamin C) 500 mg tablet 500 mg PO DAILY 11/05/22 [History Confirmed 12/07/22] vibegron 75 mg tablet (Gemtesa) 75 mg PO DAILY 11/05/22 [History Confirmed 12/07/22] metoprolol succinate 50 mg tablet,extended release 24 hr 50 mg PO DAILY #90 tabs 11/27/22 [Rx Confirmed 12/07/22] Is last menstrual period known: No Post menopausal: Yes Patient : No : No [facility] Medical History?(Updated 12/07/22 @ 15:[address] Renee Hoang MD) Breast cancer GERD (gastroesophageal reflux disease) Mitral valve prolapse Mixed hyperlipidemia Osteoporosis Shortness of breath Ulcerative colitis Umbilical mass Surgical History?(Updated 12/07/22 @ 15:[address] Renee Hoang MD) H/O LEEP History of arthroscopy of knee (~2008) History of breast reconstruction (~2009) History of knee replacement (~2019) History of knee replacement (~2018) History of mastectomy (~11/2009) History of vein stripping (~2010) Family History? Other Cancer Social History? current occupational status:? retired pets and animals:? No history of recent travel:? No Smoking Status:? Never smoker alcohol intake:? never substance use type:? does not use caffeine:? No seatbelt use:? always do you feel safe at home:? Yes HPI Pre-OP Details: LELA SHETH is a 72 year old who presents for preop appointment thickened endometrium recommmend d and c hysteroscopy Female Reproductive History Menopausal Symptoms: No night sweats History Past Pregnancies Del. Date Name GA/Weeks Outcome Route Bth Weight Infant Gen Labor Lgth Anesthesia Del Locatn Provider FOB Unknown Victoriano 1977 ? Unknown Hero 1980 ? Unknown Rock 1983 ? ROS Const Constitutional: Denies fatigue, night sweats, weight gain or weight loss ENT ENT: Reports system reviewed and no additional complaints, except as documented Cardio Card: Denies chest pain Resp Resp: Denies cough or dyspnea GI GI: Reports as per HPI; Denies abdominal pain, constipation, nausea or vomiting : Denies nipple discharge, urinary frequency, urinary incontinence, urinary hesitancy, urinary urgency, vaginal discharge, vaginal dryness, vaginal odor or vaginal pruritus Musc Musc: Denies arthralgias, back pain or muscle weakness Skin Skin/Breast: Denies alopecia, change in hair, dry skin, breast mass, breast pain, breast skin changes or nipple discharge Neuro Neuro: Reports system reviewed and no additional complaints, except as documented Psych Psych: Reports system reviewed and no additional complaints, except as documented Endo Endo: Denies cold intolerance, excessive sweating, heat intolerance or polydipsia Irving/Lymph Hematologic/Lymphatic: Denies easy bleeding, Denies easy bruising and Denies lymphadenopathy Exam Const General: cooperative, healthy appearing, comfortable and no acute distress Orientation: alert [facility] Head: normal to inspection and normocephalic Ears: hearing grossly normal bilaterally and external ears normal Nose: external nose normal and nares normal Face and sinus: normal facial exam Neck Neck: normal visual inspection and no lymphadenopathy Thyroid: thyroid normal Chest Chest palpation & inspection: normal inspection of the chest Resp Effort & Inspection: normal respiratory effort Auscultation: clear to auscultation bilaterally Cardio Rate: regular rate Rhythm: regular rhythm Heart Sounds: S1 normal and S2 normal GI Inspection: normal to inspection and non-distended Palpation: soft and no hepatosplenomegaly Musc Other: gross motor intact no deficits, full bilateral strength Skin General: no rashes or lesions noted Neuro General: patient alert, patient awake, moves all extremities and no focal motor deficits Motor: muscle tone normal throughout Extrem General: normal to inspection and no pedal edema Psych Appearance: grossly normal Mental Status: mental status grossly normal Affect: normal affect Speech and Movement: speech and movement normal Coding Level of Care Code No Charge Diagnoses Thickened endometrium? R93.89 Cervical stenosis (uterine cervix)? N88.2 Assessment and Plan Assessment and Plan (1) Thickened endometrium: ?Status:?Acute ?Comment: d and c hysteroscopy (2) Cervical stenosis (uterine cervix): ?Status:?Acute Plan After discussing the patient's diagnosis and treatment plan options, patient wishes to proceed with surgical management.? I have discussed with the patient the risks, benefits, and alternatives of the procedure which include but are not limited to risks of anesthesia, bleeding, infection, possible damage to bowel, bladder, or surrounding vasculature which could lead to additional surgery to evaluate any complications.? Patient agrees to procedure and wishes to proceed.? ACOG/uptodate references given for additional information regarding procedure.? UPDATE- I have seen the patient and performed any clinically relevant updates to the history and physical exam. Renee Hoang MD
[2022-12-25 14:08] VITALS: BP 132/94; PULSE 87; RESP 16; TEMP 37.2; O2SAT 97; BMI 28.8
[2022-12-25] MEDS: Lactated Ringers 1,000 ML 15 ML IV (14:25)
[2022-12-25] MEDS: Lidocaine 1% (30 ml sdv) 30 ML Vial (17:50)
[2022-12-25 18:02] VITALS: BP 121/83; BP 132/94; PULSE 67; RESP 16; TEMP 36.3; O2SAT 93
[2022-12-25 18:05] VITALS: BP 120/73; BP 132/94; PULSE 67; RESP 16; O2SAT 96
[2022-12-25 18:10] VITALS: BP 117/78; BP 132/94; PULSE 63; RESP 16; O2SAT 93
[2022-12-25 18:15] VITALS: BP 123/82; BP 132/94; PULSE 63; RESP 16; O2SAT 97
[2022-12-25 18:19] VITALS: BP 128/78; BP 132/94; PULSE 61; RESP 16; TEMP 36.6; O2SAT 98
--- NOTE | 2022-12-25 18:27 | OP.PCM_ITS ---
Problems Associated Problem List Diagnoses (1) Thickened endometrium: Report of Operation Date of Procedure: 12/25/22 Pre-Operative Diagnosis: see problem list Post-Operative Diagnosis: same Surgery/Procedure Performed:: D&C hysteroscopy Description of Surgical Findings:: thin atrophic lining Surgeon: Renee Hoang licensed massage therapist: None Type of Anesthesia: Local MAC Special Medications: none Specimen's removed: EMC Drains: none Estimated Blood Loss (mL): 50 Fluids Replaced: crystalloid Description of Procedure: Patient was prepped and draped in a normal sterile fashion under MAC anesthesia. A weighted speculum was placed in the vagina and the anterior lip of the cervix was grasped with a single-tooth tenaculum. A paracervical block was placed with 1% lidocaine. Cervix was progressively dilated to allow passage of a 5 mm hysteroscope. The lining was fully visualized and noted to have thin atrophic lining . Uterine sounded to 7 cm. Curettage was performed and tissue removed , sent to pathology. All instruments were removed from the vagina and excellent hemostasis was noted. Patient was awoken and taken to recovery in stable condition. Grafts/Implants Used: none Complications none Admit VTE Documentation VTE Present on Admission: No VTE Mechan Device Prophylaxis: SCD's Multi Select Codes Urinary/Genital Urinary/Genital CPT Codes: 13386 Hysteroscopy,EMC, Polypectomy
--- NOTE | 2022-12-25 18:29 | DCINST_ITS ---
Discharge Instructions Procedure D&C Diet Discharge Diet: No restrictions Activity Discharge Activity: Return to Normal Activity, May Shower and May Take a Tub Bath (after 1 week) May resume sexual activity in: 1-2 weeks Weight Bearing Status: Weight bearing as tolerated Lifting Restrictions: none Dressing / Incision Call your doctor if you observe: Fever of 101 or Higher, Using more than 1 pad per hour, Shortness of breath and Uncontrolled pain Follow Up Care Please Follow Up With: Renee Hoang MD When: Call [phone] to schedule appointment. Test Results: Test results from this visit will be discussed in further detail at your follow- up appointment, if applicable. Discharge Plan Admission Attending Provider: Renee Hoang Primary Care Provider: Reynaldo Sullivan Discharge Orders/Prescriptions Prescriptions: No Action acetaminophen [Tylenol] 325 mg tablet 650 mg PO ONCE PRN (Reason: Pain) cephalexin 250 mg tablet 250 mg PO DAILY PRN (Reason: UTI Prevention) cranberry 400 mg capsule 400 mg PO DAILY Rx Instructions: administer with a meal omeprazole 20 mg capsule,delayed release(DR/EC) 20 mg PO DAILY balsalazide 750 mg capsule 2,250 mg PO TID ascorbic acid (vitamin C) 500 mg tablet 500 mg PO DAILY Gemtesa 75 mg tablet 75 mg PO DAILY metoprolol succinate 50 mg tablet extended release 24 hr 50 mg PO DAILY Qty: 90 3RF Referrals / Follow Up: Reynaldo Sullivan DO [Primary Care Provider] - Disposition Disposition (needs filled in before D/C Order can be placed): Home, Self Care
== END 2022-12-25 18:51 | disposition home or self-care (01) ==
LOC: SDC 13:46 → AC 13:47
PROVIDERS: PCP Student in an Organized Health Care Education/Training Program; Referring Provider Obstetrics & Gynecology; Visit Provider Obstetrics & Gynecology
PROC: 0UDB8ZZ Extraction of Endometrium, Via Natural or Artificial Opening Endoscopic (ICD-10-PCS; CPT 58558; principal; 2022-12-25 15:25)
DX: L72.0 Epidermal cyst (principal); R93.89 Abnormal findings on diagnostic imaging of other specified body structures; K21.9 Gastro-esophageal reflux disease without esophagitis; I10 Essential (primary) hypertension; Z79.899 Other long term (current) drug therapy
CPT/HCPCS: 58558; 00952; 36415; 80053; 85025; 86850; 86900; 86901; 88305; 93005; J7120; J2405

== ENCOUNTER 2023-08-09 09:00 | Outpatient (RCR) | payer MEDICARE, OTHER, SELFPAY ==
--- NOTE | 2023-04-25 17:57 | HP.PTEVAL ---
Patient's Visit Information Visit Information Visit Information: LELA SHETH is a 73 year old F referred to Physical Therapy by DARWIN MEREDITH with a diagnosis of LOW BACK PAIN. Date of Evaluation: 04/24/23 Physical Therapist: Jean-Claude Winkler, PT, Cert MDT, OCS Visit Plan Frequency: 2x /Week Duration: 4 Weeks Plan: PT INTERVENTIONS DLS ,POSTURAL EX'S , LUMBAR ROM( FLEXION) ,AND MODALITIES Subjective Subjective: This 73 y/o female presents to physical therapy with LBP . Patient has had lumbar pain since February .Etiology of pain with predisposing factors. Patient waited to see if symptoms get ,needed to use cane because free of falling. Location symmetrical left buttock and hamstring . Seen Dr. sood x-rays showed DDD and tried prednisone pack ,muscle spasm and pain medication. Medication has been helping. Aggravating factors standing ,walking ,bending ,lifting affects ADL's thus needs to use . Alleviating factors sitting and medication. Patient pain affects sleeping . Coughing/sneezing -. C/O paresthesia/tingling right leg. Patient pain affects QOL and function . Patient goal to decrease pain. SOCAIL: VOCATION: retired Pain Bilateral Back: Pain Intensity (Out of 10): 8 Pain Intensity Range: 10 Right Lower Extremity: Pain Intensity (Out of 10): 8 Pain Intensity Range: 10 Objective Objective: POSTURE: mild forward posture GAIT: 2point gait with cane slow jose manuel antalgic gait PALAPTION: tender LS/SI GAIT: reciprocal pattern antalgic gait with cane slow jose manuel SYMMTRIES: asymmetries pelvis LUMBAR ROM: flexion mod/severe pain ,extension mod/severe loss pain ,side glides mod loss MMT: quads/hams 4/5 ,hip flexion 4-/5 ,ankle 4/5 Special Tests L/S Slump test left side: Negative L/S Slump test right side: Negative L/S Left Straight Leg Raise: Negative L/S Right Straight Leg Raise: Negative Lumbar Standing: Flexion - Mechanical Response: No effect Lumbar Standing: Flexion - Symptoms During Testing: Increases Lumbar Standing: Flexion - Symptoms After Testing: Worse Lumbar Standing: Extension - Mechanical Response: No effect Lumbar Standing: Extension - Symptoms During Testing: Increases Lumbar Standing: Extension - Symptoms After Testing: Worse Lumbar Standing: Right Side Glides - Mechanical Response: No effect Lumbar Standing: Right Side [place] - Symptoms During Testing: No effect Lumbar Standing: Right Side [place] - Symptoms After Testing: No effect Lumbar Standing: Left Side [place] - Mechanical Response: No effect Lumbar Standing: Left Side [place] - Symptoms During Testing: No effect Lumbar Standing: Left Side [place] - Symptoms After Testing: No effect Lumbar Lying: Flexion - Mechanical Response: No effect Lumbar Lying: Flexion - Symptoms During Testing: Increases Lumbar Lying: Flexion - Symptoms After Testing: No worse Comments:: when putting feet back down Comments:: seated back fleixon decrease symptoms Balance/Special Test Scores Oswestry Low Back Score: 37 Goals Goal 1:: Patient to be I with HEP for back Goal Time Frame: 4-6 Weeks Goal 2:: Patient to demonstrate 50% improvement with less pain and improved function. Goal Time Frame: 4-6 Weeks Goal 3:: Patient to improve lumbar ROM with function of recovery to tie shoes and ADLS Goal Time Frame: 4-6 Weeks Goal 4:: Patient to normalize gait with cane Goal Time Frame: 4-6 Weeks Goal 5:: Patient improve back oswestry score by 5 points or> to improve QOL and function Goal Time Frame: 4-6 Weeks Rehabilitation Potential Physical Therapy Diagnosis: This patient has lumbar pain with possible stenosis right worse with positioning and movement walking standing thus needs cane ,poor lumbar ROM with pain affects ADLS and housework tasks due to pain thus benefit from skilled PT Rehabilitation Potential: Good Anticipated Interventions Patient/Client Instruction: Educate patient on: Condition and Plan of Care For the Purpose of:: To decrease pain, To increase ROM, To improve muscle performance and motor function, To increase tolerance to activity/condition/position, To improve ability of physical actions for home/community/work/leisure, To improve gait and locomotor functions, To improve health of tissue, To decrease soft tissue restriction, To increase flexibility/ROM, To reduce risk of recurrence, To prevent re-injury and To improve tolerance to ADL's Therapeutic Exercise to Include: Strength training, Body mechanics, Postural training, Flexibilty training and Dynamic Lumbar Stabilization For the Purpose of:: To decrease pain, To increase ROM, To improve muscle performance and motor function, To increase tolerance to activity/condition/position, To improve ability of physical actions for home/community/work/leisure, To improve health of tissue, To decrease soft tissue restriction, To increase flexibility/ROM, To reduce risk of recurrence, To prevent re-injury and To improve tolerance to ADL's TENS: Yes IF ES: Yes Thermo therapy (hot pack): Yes Ultrasound (thermal/non thermal): Yes For the Purpose of:: To decrease pain, To increase ROM, To improve nutrient delivery to tissue, To increase oxygenation perfusion, To improve health of tissue and To decrease soft tissue restriction Text: Thank you for the opportunity to evaluate your patient. For Medicare and Medicare HMO plans, please review the plan of care and approve it. It will need to be FAXED BACK to us at [phone] for Medicare purposes. For Medicare only, by signing this I certify the plan of care. Please let me know if there are questions or concerns regarding this plan of care. Physician Signature: Date:
--- NOTE | 2023-05-23 09:45 | HP.PTREVAL_ITS ---
Re-Evaluation Intro: DARWIN MEREDITH, It has been my pleasure to treat LELA SHETH over the last 10 visits for LOW BACK PAIN. Please see the progress note below for an update on the physical therapy plan of care! Subjective Subjective: Doing well.. Doing alot better ex's are helping Objective Objective/Function: Objective: POSTURE: mild forward posture PALAPTION: unremarkable GAIT: reciprocal pattern mild slow jose manuel SYMMTRIES: WNL LUMBAR ROM: flexion mod/severe pain ,extension mod/severe loss pain ,side glides mod loss MMT: quads/hams 4/5 ,hip flexion 4-/5 ,ankle 4/5 Plan Plan Plan: CONT WITH POC PT INTERVENTIONS DLS ,POSTURAL EX'S , LUMBAR ROM( FLEXION) ,AND MODALITIES Balance/Gait/Functional tests Balance/Special Test Scores Oswestry Low Back Score: 15 Goals Goals Goal 1:: Patient to be I with HEP for back Goal Time Frame: 4-6 Weeks Goal Progress: Progressing Goal 2:: Patient to demonstrate 80% improvement with less pain and improved function.( NEW GOAL) Goal Time Frame: 4-6 Weeks Goal 3:: Patient to improve lumbar ROM with function of recovery to tie shoes and ADLS Goal Time Frame: 4-6 Weeks Goal Progress: Progressing Goal 4:: Patient to normalize gait ( new goal) Goal Time Frame: 4-6 Weeks Goal 5:: Patient improve back oswestry score by 5 points or> to improve QOL and function( new goal) Goal Time Frame: 4-6 Weeks Anticipated Interventions Anticipated Interventions Patient/Client Instruction: Educate patient on: Condition and Plan of Care For the Purpose of:: To decrease pain, To increase ROM, To improve muscle performance and motor function, To increase tolerance to activity/condition/posi tion, To improve ability of physical actions for home/community/work/leisure, To improve gait and locomotor functions, To improve health of tissue, To decrease soft tissue restriction, To increase flexibility/ROM, To reduce risk of recurrence, To prevent re-injury and To improve tolerance to ADL's Therapeutic Exercise to Include: Strength training, Body mechanics, Postural training, Flexibilty training and Dynamic Lumbar Stabilization For the Purpose of:: To decrease pain, To increase ROM, To improve muscle performance and motor function, To increase tolerance to activity/condition/position, To improve ability of physical actions for home/community/work/leisure, To improve health of tissue, To decrease soft tissue restriction, To increase flexibility/ROM, To reduce risk of recurrence, To prevent re-injury and To improve tolerance to ADL's TENS: Yes IF ES: Yes Thermo therapy (hot pack): Yes Ultrasound (thermal/non thermal): Yes For the Purpose of:: To decrease pain, To increase ROM, To improve nutrient delivery to tissue, To increase oxygenation perfusion, To improve health of tissue and To decrease soft tissue restriction Re-Evaluation Ending Re-evaluation ending: Please do not hesitate to contact me at [phone] by phone or if you have questions or concerns regarding this new plan of care! Sincerely, Jean-Claude Winkler, PT, Cert MDT, OCS
--- NOTE | 2023-07-17 09:59 | HP.PTREVAL ---
Re-Evaluation Intro: DARWIN MEREDITH, It has been my pleasure to treat LELA SHETH over the last 22 visits for LOW BACK PAIN. Please see the progress note below for an update on the physical therapy plan of care! Subjective Subjective: Doing well feeling good Objective Objective/Function: Objective: POSTURE: mild forward posture PALAPTION: unremarkable GAIT: reciprocal pattern mild slow jose manuel SYMMTRIES: WNL LUMBAR ROM: flexion mod/severe pain ,extension mod/severe loss pain ,side glides mod loss MMT: quads/hams 4/5 ,hip flexion 4-/5 ,ankle 4/5 Plan Plan Plan: CONT WITH POC PT INTERVENTIONS DLS ,POSTURAL EX'S , LUMBAR ROM( FLEXION) ,AND MODALITIES Balance/Gait/Functional tests Balance/Special Test Scores Oswestry Low Back Score: 15 Goals Goals Goal 1:: Patient to be I with HEP for back Goal Time Frame: 4-6 Weeks Goal Progress: Progressing Goal 2:: Patient to demonstrate 80% improvement with less pain and improved function.( NEW GOAL) Goal Time Frame: 4-6 Weeks Goal 3:: Patient to improve lumbar ROM with function of recovery to tie shoes and ADLS Goal Time Frame: 4-6 Weeks Goal Progress: Progressing Goal 4:: Patient to normalize gait ( new goal) Goal Time Frame: 4-6 Weeks Goal 5:: Patient improve back oswestry score by 5 points or> to improve QOL and function( new goal) Goal Time Frame: 4-6 Weeks Anticipated Interventions Anticipated Interventions Patient/Client Instruction: Educate patient on: Condition and Plan of Care For the Purpose of:: To decrease pain, To increase ROM, To improve muscle performance and motor function, To increase tolerance to activity/condition/position, To improve ability of physical actions for home/community/work/leisure, To improve gait and locomotor functions, To improve health of tissue, To decrease soft tissue restriction, To increase flexibility/ROM, To reduce risk of recurrence, To prevent re-injury and To improve tolerance to ADL's Therapeutic Exercise to Include: Strength training, Body mechanics, Postural training, Flexibilty training and Dynamic Lumbar Stabilization For the Purpose of:: To decrease pain, To increase ROM, To improve muscle performance and motor function, To increase tolerance to activity/condition/position, To improve ability of physical actions for home/community/work/leisure, To improve health of tissue, To decrease soft tissue restriction, To increase flexibility/ROM, To reduce risk of recurrence, To prevent re-injury and To improve tolerance to ADL's TENS: Yes IF ES: Yes Thermo therapy (hot pack): Yes Ultrasound (thermal/non thermal): Yes For the Purpose of:: To decrease pain, To increase ROM, To improve nutrient delivery to tissue, To increase oxygenation perfusion, To improve health of tissue and To decrease soft tissue restriction Re-Evaluation Ending Re-evaluation ending: Please do not hesitate to contact me at [phone] by phone or if you have questions or concerns regarding this new plan of care! Sincerely, Jean-Claude Winkler, PT, Cert MDT, OCS
--- NOTE | 2023-08-09 09:49 | HP.PTDCSUM ---
Discharge Summary D/C summary: It has been my pleasure to treat LELA SHETH referred by DARWIN MEREDITH, with the diagnosis of LOW BACK PAIN for a total of 29 visit(s). Discharge Date: 08/09/23 Please see the following information for a summary of their discharge status. Subjective Subjective: Doing good Pain Bilateral Back: Pain Intensity (Out of 10): 1 Right Lower Extremity: Pain Intensity (Out of 10): 0 Overall Improvement % Improvement: 75 Objective Objective/Function: bjective: POSTURE: mild forward posture PALAPTION: unremarkable GAIT: reciprocal pattern mild slow jose manuel SYMMTRIES: WNL LUMBAR ROM: flexion min ,extension mod loss pain ,side glides mod loss MMT: quads/hams 4/5 ,hip flexion 4-/5 ,ankle 4/5 Goals Goal 1:: Patient to be I with HEP for back Goal Progress: Goal Met Goal 2:: Patient to demonstrate 80% improvement with less pain and improved function.( NEW GOAL) Goal Progress: Goal Met Goal 3:: Patient to improve lumbar ROM with function of recovery to tie shoes and ADLS Goal Progress: Goal Met Goal 4:: Patient to normalize gait ( new goal) Goal Progress: Goal Met Goal 5:: Patient improve back oswestry score by 5 points or> to improve QOL and function( new goal) Goal Progress: Goal Met Plan Plan: D/C D/C Information Discharge Comments: HEP AND GYM d/c sentence: If there are questions or concerns regarding this patient's physical therapy, please feel free to call me at [phone]. Thank you for the referral of this patient. Sincerely, Jean-Claude Winkler, PT, Cert MDT, OCS Balance/Gait/Functional tests Balance/Special Test Scores Oswestry Low Back Score: 3 Improvement % Improvement: 75
== END 2023-08-09 10:00 | disposition home or self-care (01) ==
LOC: PT 09:00
PROVIDERS: PCP Student in an Organized Health Care Education/Training Program
DX: M54.50 Low back pain, unspecified (principal)
CPT/HCPCS: 97110; 97162

== ENCOUNTER → 2023-10-02 | Outpatient (CLI) | payer MEDICARE, OTHER, SELFPAY ==
--- NOTE | 2023-10-02 14:59 | BD_ITS ---
STUDY: DUAL ENERGY X-RAY ABSORPTIOMETRY / DXA REASON FOR EXAM: Female, 73 years old. Z780 TECHNIQUE: Bone Mineral Density (BMD) measurements of lumbar spine and bilateral hips were obtained. COMPARISON: Comparison is made with prior study dated July 25, 2021. FINDINGS: Lumbar Spine (L1-L4): g/cm2 (0.688) / T-score (-3.3) / Z-score (-1.1) Findings are suggestive of osteoporosis with a high fracture risk. Left Femur Total: g/cm2 (0.628) / T-score (-2.6) / Z-score (-1.0) Left Femoral Neck: g/cm2 (0.516) / T-score (-3.0) / Z-score (-1.1) Right Femur Total: g/cm2 (0.675) / T-score (-2.2) / Z-score (-0.6) Right Femoral Neck: g/cm2 (0.533) / T-score (-2.8) / Z-score (-1.0) BD/Dexa Bone Density Study IMPRESSION: The patient is considered osteoporotic as outlined below according to World [place] Organization (WHO) criteria with a high fracture risk. There has been worsening of bone density since the previous examination. Reference Information: The T-score is the number of standard deviations above or below the standard which is normal for young adults at their peak bone mineral density. The World Health Organization (WHO) interprets the T-scores as follows: Above -1 Normal bone density Between -1 and -2.5 Osteopenia Equal to / or below -2.5 Osteoporosis As a practical clinical guideline, osteopenia may be graded as follows: Mild -1 through -1.5 Moderate -1.6 through -2.0 Severe -2.1 through -2.4 The Z-score is the number of standard deviations above or below age-matched controls. A Z-score of less than -1.5 would be considered abnormal. References: 1. NIH Osteoporosis and Related Bone Diseases www osteo.org 2. International Society for Clinical Densitometry www iscd.org 3. National Osteoporosis Foundation www nof.org Electronically Signed: Estuardo Esquivel MD at 15:13 EST ,
--- OUTSIDE RECORDS SUMMARY | 2023-10-02 19:15 | XMS RPT_ITS | CCD ---
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 Name Role Phone DR MIKE GARCIA DO Primary Care Physician [phone] Farideh PEÑA, Cara Unavailable Unavailable RADHA MCLEAN, DR MCKEON Primary Care Unavailable RADHA MCLEAN, DR MCKEON Attending Unavailable RADHA MCLEAN, DR MCKEON Attending Unavailable RADHA MCLEAN, DR MCKEON Primary Care Unavailable Allergies Allergy Classification Reported Allergen(s) Allergy Type Date of Onset Reaction(s) Facility (2 sources) Sulfonamides (Antibiotic); Translations: [sulfa drugs] Drug allergy [facility] Medications Current Medications Medication Drug Class(es) Dates Sig (Normalized) Sig (Original) acetaminophen 500 mg oral tablet (2 sources) Start: 04-27-2020 Tylenol Extra Strength 500 mg oral tablet Dose : 1,000 mg = 2 tab(s), Oral, BID, PRN as needed for pain, # 120 tab(s), 0 Refill(s) Start Date: 04/27/20 Status: Ordered balsalazide disodium 750 mg oral capsule (2 sources) Aminosalicylate Start: 06-03-2019 balsalazide 750 mg oral capsule Dose : 1,500 mg = 2 cap(s), Oral, TID, 0 Refill(s) Start Date: 06/03/19 Status: Ordered cephalexin 250 mg oral capsule (1 source) Cephalosporin Antibacterial Start: 05-26-2021 cephalexin 250 mg oral capsule 0 Refill(s), 81.6 Start Date: 05/26/21 Status: Ordered clotrimazole 10 mg oral lozenge (1 source) Azole Antifungal Start: 05-26-2021 End: 06-05-2021 take 1 dose by mouth once clotrimazole 10 mg oral lozenge Dose : 10 mg = 1 lozenge(s), Oral, 5x/Day, X 10 day(s), # 50 lozenge(s), 0 Refill(s), 06/05/21 13:07:00 EDT, Pharmacy: [id number], cm, 05/26/21 9:33:00 EDT, Height, kg, 05/26/21 9:33:00 EDT, Dosing Weight Start Date: 05/26/21 Stop Date: 06/05/21 Status: Ordered Cranberry preparation (3 sources) Non-Standardized Food Allergenic Extract, Non-Standardized Plant Allergenic Extract Start: 05-26-2021 take 1 capsule by mouth twice daily cranberry oral capsule Dose = 1 cap(s), Oral, BID, 0 Refill(s) Start Date: 05/26/21 Status: Ordered Completed/Discontinued Medications Medication Drug Class(es) Dates Sig (Normalized) Sig (Original) nystatin 100 unt/mg topical powder (1 source) Polyene Antifungal Start: 04-12-2023 End: 05-12-2023 nystatin 100,000 units/g topical powder Apply 1 yan, Topical, BID, PRN Rash, # 60 gram(s), 0 Refill(s), Pharmacy: [id number], Powder, 166.5, cm, 04/12/23 13:57:00 EDT, Height, 85.7, kg, 04/12/23 13:57:00 EDT, Dosing Weight Start Date: 04/12/23 Stop Date: 05/12/23 Status: Ordered Problems Problem Classification Problem Date Documented Da te Episodic/Chronic Cancer of breast (2 sources) History of ductal carcinoma in situ of breast 09-02-2019 Episodic Cardiac dysrhythmias (2 sources) Palpitations 04-27-2020 Episodic Chronic kidney disease (1 source) Chronic kidney disease stage 2 06-05-2021 Chronic Conditions associated with dizziness or vertigo (2 sources) Dizziness 09-02-2019 Episodic Disorders of lipid metabolism (2 sources) Mixed hyperlipidemia 09-02-2019 Chronic Esophageal disorders (2 sources) Gastroesophageal reflux disease 10-13-2013 Chronic Gastrointestinal hemorrhage (2 sources) Hematochezia 09-02-2019 Episodic Genitourinary symptoms and ill-defined conditions (2 sources) Increased frequency of urination 09-02-2019 Episodic Heart valve disorders (2 sources) Mitral valve prolapse 09-30-2013 Chronic Hemorrhoids (2 sources) Hemorrhoids 09-02-2019 Episodic Mycoses (1 source) Candidiasis of mouth 06-05-2021 Episodic Nutritional deficiencies (1 source) Vitamin D deficiency 04-03-2023 Chronic Open wounds of extremities (2 sources) Open wound of hand 10-28-2020 Episodic Osteoarthritis (2 sources) Arthritis 09-30-2013 Chronic Osteoporosis (2 sources) Osteoporosis 09-02-2019 Chronic Other ear and sense organ disorders (1 source) Excessive cerumen in ear canal 07-23-2022 Episodic Other female genital disorders (2 sources) History of abnormal cervical Papanicolaou smear 09-02-2019 Episodic Other gastrointestinal disorders (2 sources) Umbilical mass 04-27-2020 Episodic Other inflammatory condition of skin (1 source) Intertrigo 04-03-2023 Episodic Other nutritional; endocrine; and metabolic disorders (1 source) 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 Results Test Name Value Interpretation Reference Range Facil ity Encounters Encounter Date Encounter Type Care Provider Facility Start: 07-18-2023 End: 07-19-[address] MIKE GARICA DO Facility:[facility] Start: 07-18-2023 End: 07-18-[address] MIKE GARCIA DO [facility] Start: 07-26-2022 End: 07-27-[address] MIKE GARCIA DO Facility:[facility] Start: 06-01-2021 End: 06-01-[address] MIKE GARCIA DO [facility] Procedures Date Procedure Procedure Detail Performing Clinician Start: 12-25-[address] MIKE KINSEY DO Immunizations Immunization Date Immunization Notes Care Provider Fa cili 05-24-2022 influenza virus vaccine, unspecified formulation DR MIKE GARCIA DO [facility] 06-09-2021 SARS-CoV-2 mRNA (tozinameran) vaccine DR MIKE GARCIA DO [facility] Payers Date Payer Category Payer Medicare [id number] 2022 Unknown [id number] 1950 Unknown [id number] 1950 Unknown [id number] Social History Date Type Detail Facility Start: 06-03-2019 Never smoked tobacco (f inding) [facility] Evaluation + Plan note Radiology Note Date & Type Note Facility Evaluation + Plan note Future Appointments Appointment Date:07/07/2021 09:00:00 AM Scheduled Provider:MIKE GARCIA DO Location:[facility] Appointment Type:PC OV Follow Up Future Scheduled TestsBD Bone Density DEXA Axial Skeleton 05/26/21 [facility] Evaluation + Plan note Note Date & Type Note Facility Evaluation + Plan note Future Appointments Appointment Date:07/24/2023 09:00:00 AM Scheduled Provider:MIKE GARCIA DO Location:[facility] Appointment Type:PC Wellness Medicare [facility] Hospital course Narrative Note Date & Type Note Facility Hospital course Narrative No data available for this section [facility] Hospital Discharge instructions Note Date & Type Note Facility Hospital Discharge instructions No data available for this section [facility] Progress note Note Date & Type Note Facility Progress note No data available for this section [facility] Summary Purpose Family History No Family History Records FoundNo Family History Records FoundNo Family History Records Found No data available for this section No Family History Records Found Advance Directives No Advanced Directives Records FoundNo Advanced Directives Records FoundNo Advanced Directives Records FoundNo Advanced Directives Records Found Additional Source Comments INFORMATION SOURCE (unrecogn ized section and content) DATE CREATED AUTHOR AUTHOR'S ORGANIZ ATION 10/27/2019 [facility] DATE CREATED AUTHOR AUTHOR'S ORGANIZ ATION 10/27/2019 [employer] DATE CREATED AUTHOR AUTHOR'S ORGANIZ ATION 07/20/2023 [facility] ([place]) Patient Care team informatio n (unrecognized section and content) Care Team Personnel Name: Farideh Senior Lead Project Manager Cara PT Position: P3 Scheduling - Counselor Aide Advanced Member Role: Other Name: SAQIB SOTO MD Member Role: OBGYN Address: Address: [address] [place], [place] [address] Name: MIKE GARCIA DO Position: P4 Physician - Primary Care Member Role: Primary Care Physician Address: Address: [address] [place] [address] [place] [address]- [place] Care Team Related Persons Name: BASHIR SHETH FOR RECORDS PERTAINING TO PATIENTS WHO ARE OR HAVE BEEN ENROLLED IN A CHEMICAL DEPENDENCY/SUBSTANCEABUSE PROGRAM, SOME INFORMATION MAY BE OMITTED. This clinical summary was aggregated from multiple sources. Caution should be exercised in using it in the provision of clinical care. This summary normalizes information from multiple sources, and as a consequence, information in this document may materially change the coding, format and clinical context of patient data. In addition, data may be omitted in some cases. CLINICAL DECISIONS SHOULD BE BASED ON THE PRIMARY CLINICAL RECORDS. [facility] provides no warranty or guarantee of the accuracy or completeness of information in this document.
== END | disposition home or self-care (01) ==
LOC: OPBD 14:48
PROVIDERS: PCP Student in an Organized Health Care Education/Training Program; Referring Provider Student in an Organized Health Care Education/Training Program; Visit Provider Student in an Organized Health Care Education/Training Program
DX: Z78.0 Asymptomatic menopausal state (principal)
CPT/HCPCS: 77080

== ENCOUNTER → 2024-04-07 | Outpatient (CLI) | payer MEDICARE, OTHER, SELFPAY ==
--- NOTE | 2024-04-07 13:18 | RAD_ITS ---
STUDY: X-RAY CHEST REASON FOR EXAM: Female, 74 years old. Shortness of breath. TECHNIQUE: Frontal and lateral views of the chest. COMPARISON: January 26, 2022 FINDINGS: Stable hyperinflation and hyperlucency. There is no demonstrated pleural abnormality. Cardiomegaly with left ventricular contour unchanged. Normal mediastinum and cate. Prominent central pulmonary arteries unchanged. Aortic tortuosity with calcification unchanged. Thoracic osteopenia with mild diffuse thoracic spondylosis unchanged. Normal visualized ribs, clavicles, and shoulders. Postsurgical changes over the anterior abdominal wall and lower anterior chest, unaltered. RAD/Chest PA and Lateral IMPRESSION: Stable cardiomegaly with hyperinflation and no acute or active cardiopulmonary disease. Electronically Signed: Romie Chapa MD at 13:33 EDT ,
== END | disposition home or self-care (01) ==
LOC: RAD 13:12
PROVIDERS: PCP Student in an Organized Health Care Education/Training Program; Referring Provider Student in an Organized Health Care Education/Training Program; Visit Provider Student in an Organized Health Care Education/Training Program
DX: R06.02 Shortness of breath (principal)
CPT/HCPCS: 71046

== ENCOUNTER → 2024-06-30 | Outpatient (CLI) | payer MEDICARE, OTHER, SELFPAY | END | disposition home or self-care (01) | LOC: PSN 10:25 | PROVIDERS: PCP Student in an Organized Health Care Education/Training Program; Referring Provider Student in an Organized Health Care Education/Training Program; Visit Provider Student in an Organized Health Care Education/Training Program | DX: R06.02 Shortness of breath (principal) | CPT/HCPCS: 94060; 94726; 94729 ==

== ENCOUNTER → 2024-10-28 | Outpatient (CLI) | payer MEDICARE, OTHER, SELFPAY ==
--- NOTE | 2024-10-28 07:54 | US_ITS ---
PROCEDURE: EXT NON VASC LIMITED/SOFT TISS REASON FOR EXAM: LEFT LOWER LEG SOFT TISSUE MASS TECHNIQUE: Ultrasound imaging of the area of interest in the left lower extremity.. COMPARISON: None. FINDINGS: No sonographic abnormality is seen at the level of the palpable lump. There is evidence of varicose veins. US/Ext Non Vasc Limited/Soft Tiss IMPRESSION: No sonographic abnormality is present at the level of the palpable lump. Varicose veins. Reading Location: [place] [id number]
== END | disposition home or self-care (01) ==
LOC: OPUS 07:50
PROVIDERS: PCP Student in an Organized Health Care Education/Training Program; Referring Provider Student in an Organized Health Care Education/Training Program; Visit Provider Student in an Organized Health Care Education/Training Program
DX: M79.89 Other specified soft tissue disorders (principal)
CPT/HCPCS: 76882

== ENCOUNTER → 2025-01-29 | Outpatient (CLI) | payer MEDICARE, OTHER, SELFPAY ==
--- NOTE | 2025-01-29 10:45 | ECHOD_ITS ---
Reason For Study Reason For Study: DYSPNEA Procedure This was a 2D Doppler, Color Flow transthoracic echocardiogram. Exam performed in department. Left Ventricle Normal LV size. The estimated ejection fraction is 65 %. Unable to assess diastolic dysfunction. No regional wall motion abnormalities noted. Right Ventricle Normal RV size. Normal systolic function. Atria The left and right atria are normal. No doppler evidence for ASD. Mitral Valve There is moderate to severe mitral annular calcification. There is no mitral valve stenosis. No mitral valve insufficiency. Tricuspid Valve There is no tricuspid stenosis. Trivial tricuspid valve insufficiency. Pulmonary artery systolic pressure is 40 mmHg. Aortic Valve Trisinus/trileaflet aortic valve. There is no aortic stenosis. No aortic valve insufficiency. Pulmonic Valve There is no pulmonic valvular stenosis. No pulmonic valve insufficiency. Great Vessels Normal sized aortic root. Pericardium/Pleural No pericardial effusion. MMode/2D Measurements & Calculations LVIDd: 4.1 cm IVSd: 1.2 cm LVOT diam: 2.0 cm LVIDs: 2.8 cm LVPWd: 1.1 cm LVOT area: 3.0 cm2 RVDd: 4.5 cm FS: 31.8 % Ao root diam: 3.2 cm LAV(MOD-bp): 37.9 ml LVAd ap4: 25.6 cm2 LAV(MOD-bp) Indexed: 19.7 ml/m2 LVLd ap4: 8.1 cm LAV(MOD-sp2): 37.7 ml EDV(MOD-sp4): 67.6 ml LAV(MOD-sp4): 37.7 ml EDV(sp4-el): 68.7 ml LVAs ap4: 14.6 cm2 LVLs ap4: 6.3 cm ESV(MOD-sp4): 28.4 ml ESV(sp4-el): 28.5 ml EF(MOD-sp4): 58.0 % EF(sp4-el): 58.5 % SV(MOD-sp4): 39.2 ml SV(sp4-el): 40.2 ml LA A4 area: 14.6 cm2 SI(MOD-sp4): 20.4 ml/m2 LA dimension(2D): 3.3 cm RA A4 area: 10.8 cm2 Time Measurements MV dec time: 0.25 sec Doppler Measurements & Calculations MV E max rupert: 60.5 cm/sec Lat Peak E' Rupert: 5.2 cm/sec Med Peak E' Rupert: 4.9 cm/sec MV A max rupert: 75.7 cm/sec E/E' lat: 11.7 E/E' med: 12.2 MV E/A: 0.80 MV V2 max: 93.5 cm/sec Ao V2 max: 129.7 cm/sec MV max P.5 mmHg MV dec slope: 242.7 cm/sec2 Ao max P.7 mmHg MV V2 mean: 59.8 cm/sec Ao V2 mean: 84.9 cm/sec MV mean P.6 mmHg Ao mean P.4 mmHg MV V2 VTI: 27.8 cm Ao V2 VTI: 27.0 cm PA V2 max: 87.9 cm/sec TR max rupert: 299.5 cm/sec PA V2 mean: 59.5 cm/sec TR max P.9 mmHg ECHO/Echo Complete Interpretation Summary The estimated ejection fraction is 65 %. Unable to assess diastolic dysfunction. Ordering Physician: Rakesh Castellano Referring Physician: Rakesh Castellano Performed By: Leonor Chan RCS
== END | disposition home or self-care (01) ==
LOC: CVS 10:45
PROVIDERS: PCP Student in an Organized Health Care Education/Training Program; Referring Provider Internal Medicine Critical Care Medicine; Visit Provider Internal Medicine Critical Care Medicine
DX: R06.02 Shortness of breath (principal)
CPT/HCPCS: 93306

== ENCOUNTER → 2025-02-16 | Outpatient (CLI) | payer MEDICARE, OTHER, SELFPAY ==
[2025-02-16 08:15] VITALS: PULSE 103; PULSE 104; PULSE 105; PULSE 84; PULSE 87; O2SAT 93; O2SAT 94; O2SAT 96
--- NOTE | 2025-02-17 09:34 | PCM.PSN.6M ---
PSN 6 Minute Walk Test 6 Minute Walk Test 6 Minute Walk Test: 6 Minute Walk Test PSN:6-Minute Walk Test Start: 02/16/25 08:27 Freq: Status: Active Protocol: [id number] Document 02/16/25 08:15 AEH (Rec: 02/16/25 08:32 AEH [id number]) 6 Minute Walk Test Date Performed 02/16/25 Time Performed 08:15 Height 5 ft 6 in Weight: 180 lb Weight in Pounds [address]: Sadi Assistive device None used: Pre-test Oxygen Delivery Room Air Method Pulse Ox (%) 96 Pulse Rate (60-100 84 beats/min) Dyspnea Franki Scale ( 0 0-10) Exertion Franki Scale 6 (6-20) 1st minute Oxygen Delivery Room Air Method Pulse Ox (%) 96 Pulse Rate (60-100 104 H beats/min) 2nd minute Oxygen Delivery Room Air Method Pulse Ox (%) 93 Pulse Rate (60-100 103 H beats/min) 3rd minute Oxygen Delivery Room Air Method Pulse Ox (%) 93 Pulse Rate (60-100 105 H beats/min) 4th minute Oxygen Delivery Room Air Method Pulse Ox (%) 94 Pulse Rate (60-100 104 H beats/min) 5th minute Oxygen Delivery Room Air Method Pulse Ox (%) 94 Pulse Rate (60-100 105 H beats/min) 6th minute Oxygen Delivery Room Air Method Pulse Ox (%) 93 Pulse Rate (60-100 104 H beats/min) Dyspnea Franki Scale ( 0 0-10) Exertion Franki Scale 10 (6-20) Post-test Oxygen Delivery Room Air Method Pulse Ox (%) 96 Pulse Rate (60-100 87 beats/min) Full Laps Walked 17 Partial Lap, Number 26 of Tiles Walked Total Distance 1029 Walked (ft) Interpretation Interpretation: The patient ambulated 1029 feet over the course of 6 minutes beginning on room air without assistive devices. Pretesting oxygen saturation was noted to be 96% on room air. With ambulation, the bhavani oxygen saturation was 93%. There was no significant exertional oxygen desaturation. Recommendations Recommendations: There is no indication for the use of supplemental oxygen at this time.
== END | disposition home or self-care (01) ==
LOC: PSN 07:59
PROVIDERS: PCP Student in an Organized Health Care Education/Training Program; Referring Provider Nurse Practitioner Acute Care; Visit Provider Nurse Practitioner Acute Care
DX: R06.02 Shortness of breath (principal)
CPT/HCPCS: 94618

== ENCOUNTER 2025-05-19 22:59 | Emergency (ER) | payer MEDICARE, OTHER, SELFPAY ==
[2025-05-19 23:02] VITALS: BP 147/95; PULSE 90; RESP 18; TEMP 36.3; O2SAT 97
[2025-05-19 23:08] VITALS: BMI 30.5
[2025-05-19 23:31] VITALS: BP 150/89; PULSE 96; RESP 18; TEMP 36.3; O2SAT 97
--- NOTE | 2025-05-19 23:32 | EX.ED.DYSGE1 ---
HPI History of Present Illness Chief Complaint: Wound Check Narrative Narrative: Chief complaint and HPI: 75-year-old female with past medical history of varicose veins, GERD, pulmonary hypertension presents for evaluation of resolved bleeding to the right anterior lower hines. Patient states she was showering when she noticed blood all over her carpet in her leg. Noticed a small abrasion to her right hinse. States she did not have any specific injury that she knows of. Bleeding stopped. Not on blood thinners but does take a baby aspirin. Review of systems: See HPI Medications: As listed on the chart Allergies: As listed on the chart PFSH: Per chart Vital signs: As listed on the chart. Reviewed. Physical exam: Gen: Alert and oriented ENT: Moist mucous membranes CV: Regular rate Resp: Nonlabored respiration Musc: Full ROM of the right lower extremity, no deformity, patient has a small abrasion located over a vricose vein on her right anterior lower hines-no active bleeding, dried blood on the extremity, DP/PT pulse +2, good capillary refill, sensation intact, extremity nontender to palpation without swelling or cellulitis Psych: Cooperative, appropriate mood and affect PFSH PFSH Medical History Preop cardiovascular exam Status post hysteroscopy (~12/25/22) Wears glasses Post-menopausal Anxiety Arthritis Bladder disease Excessive bleeding Easy bruising Restless legs History of ulceration Non-smoker History of edema History of stress test History of echocardiogram History of irregular heartbeat Cardiology follow-up encounter Shortness of breath GERD (gastroesophageal reflux disease) Umbilical mass Ulcerative colitis Breast cancer Osteoporosis Mitral valve prolapse Mixed hyperlipidemia Home Medications ?Medication ?Instructions ?Recorded ?Last Taken ?Type omeprazole 20 mg capsule,delayed 20 mg PO DAILY 10/10/21 12/25/22 History release acetaminophen 325 mg tablet 650 mg PO ONCE PRN Pain 10/26/21 Unknown History (Tylenol) cephalexin 250 mg tablet 250 mg PO DAILY PRN UTI Prevention 10/26/21 Unknown History balsalazide 750 mg capsule 2,250 mg PO TID COLON 01/26/22 Unknown History ascorbic acid (vitamin C) 500 mg 500 mg PO DAILY 11/05/22 Unknown History tablet vibegron 75 mg tablet (Gemtesa) 75 mg PO DAILY OAB 11/05/22 Unknown History atorvastatin 20 mg tablet 20 mg PO QDAY 01/30/24 Unknown History cholecalciferol (vitamin D3) 50 100 mcg PO QDAY 01/30/24 Unknown History mcg (2,000 unit) tablet cranberry fruit 400 mg capsule 800 mg PO DAILY 01/30/24 Unknown History aspirin 81 mg tablet,delayed 81 mg PO QDAY #90 tabs 01/13/25 Unknown Rx release (Adult Aspirin Regimen) mecobalamin (vitamin B12) 500 mcg mcg PO DAILY 01/13/25 Unknown History chewable tablet turmeric root extract [Curica PO DAILY 01/13/25 Unknown History Turmeric] metoprolol succinate 50 mg 50 mg PO QDAY this is a dose 01/21/25 Unknown Rx tablet,extended release 24 hr DECREASE #90 tabs Allergy/AdvReac Type Severity Reaction Status Date / Time Sulfa (Sulfonamide Allergy Unknown Hives Verified 05/19/25 23:02 Antibiotics) Family History Other Cancer Surgical History H/O foot surgery H/O dilation and curettage History of tonsillectomy H/O LEEP History of arthroscopy of knee (~2008) History of breast reconstruction (~2009) History of mastectomy (~11/2009) History of vein stripping (~2010) History of knee replacement (~2018) History of knee replacement (~2019) Social History current occupational status: retired pets and animals: No history of recent travel: No Smoking Status: Never smoker alcohol intake: never substance use type: does not use caffeine: No seatbelt use: always do you feel safe at home: Yes EXAM Physical Exam Const Vital Signs: 05/19/25 23:02 Temperature 97.4 F L Temperature Source Temporal Pulse Rate 90 Respiratory Rate 18 Blood Pressure 147/95 H Blood Pressure Mean 112 Pulse Ox 97 Oxygen Delivery Method Room Air MDM MDM MDM Narrative Medical decision making narrative: 75-year-old female with past medical history of varicose veins, GERD, pulmonary hypertension presents for evaluation of resolved bleeding to the right anterior lower hines. Patient states she was showering when she noticed blood all over her carpet in her leg. Noticed a small abrasion to her right hines. States she did not have any specific injury that she knows of. Bleeding stopped. Not on blood thinners but does take a baby aspirin. See physical exam findings. Patient had bleeding from a small varicose vein on her right anterior hines. This area was cleaned and dried blood was removed. No active bleeding. No laceration that needs repaired. Patient is neurovascularly intact. Did apply bandage. Patient was educated if she has rebleeding to apply pressure. Return back to the ED if pressure does not resolve bleeding. Follow-up with primary care physician. She confirmed understand the plan. Patient able to discharge home. Impression: 1. Resolved bleeding from varicose vein on RLE Discharge Plan Triage Chief Complaint: Wound Check ED Provider: Rudy Armstrong Dx/Rx/DC Orders Prescriptions: No Action acetaminophen [Tylenol] 325 mg tablet 650 mg PO ONCE PRN (Reason: Pain) cephalexin 250 mg tablet 250 mg PO DAILY PRN (Reason: UTI Prevention) omeprazole 20 mg capsule,delayed release(DR/EC) 20 mg PO DAILY cranberry fruit 400 mg capsule 800 mg PO DAILY Rx Instructions: administer with a meal balsalazide 750 mg capsule 2,250 mg PO TID ascorbic acid (vitamin C) 500 mg tablet 500 mg PO DAILY Gemtesa 75 mg tablet 75 mg PO DAILY atorvastatin 20 mg tablet 20 mg PO QDAY cholecalciferol (vitamin D3) 50 mcg (2,000 unit) tablet 100 mcg PO QDAY mecobalamin (vitamin B12) 500 mcg tablet,chewable PO DAILY turmeric root extract [Curica Turmeric] PO DAILY aspirin [Adult Aspirin Regimen] 81 mg tablet,delayed release (DR/EC) 81 mg PO QDAY Qty: 90 3RF metoprolol succinate 50 mg tablet extended release 24 hr 50 mg PO QDAY Qty: 90 3RF Primary Care Provider: Reynaldo Sullivan Referrals: Reynaldo Sullivan DO [Primary Care Provider, Family Practice] Print Language: Japanese
== END 2025-05-19 23:38 | disposition home or self-care (01) ==
PROVIDERS: Emergency Provider Surgery; PCP Student in an Organized Health Care Education/Training Program; Visit Provider Surgery
DX: I83.891 Varicose veins of right lower extremity with other complications (principal); I27.20 Pulmonary hypertension, unspecified; K51.90 Ulcerative colitis, unspecified, without complications; S80.811A Abrasion, right lower leg, initial encounter; X58.XXXA Exposure to other specified factors, initial encounter; E78.2 Mixed hyperlipidemia; I34.1 Nonrheumatic mitral (valve) prolapse; K21.9 Gastro-esophageal reflux disease without esophagitis; F41.9 Anxiety disorder, unspecified; M81.0 Age-related osteoporosis without current pathological fracture; Z79.82 Long term (current) use of aspirin; Z79.899 Other long term (current) drug therapy
CPT/HCPCS: 99282

== ENCOUNTER → 2025-06-24 | Outpatient (CLI) | payer MEDICARE, OTHER, SELFPAY ==
[2025-06-24 16:58] LABS: AST(SGOT) 21 U/L (<=31); Alanine Aminotransfer ALT/SGPT 15 U/L (<=34); Albumin, Serum 4.2 g/dL (3.4-4.8); Alkaline Phosphatase 71 U/L (35-104); Anion Gap 10 (5-15); BUN 22 mg/dL (4-19); BUN/Creat Ratio 27.2 RATIO (10-20); Calcium,Total 9.7 mg/dL (7.6-11.0); Carbon Dioxide 26.0 mmol/L (21.0-32.0); Chloride 106 mmol/L (98-108); Globulin 3.2 g/dL (2.2-4.2); Glucose 109 mg/dL (70-99); Potassium 3.9 mmol/L (3.3-5.1)
[2025-06-24 17:02] LABS: Prothrombin Time (Protime)PT. 13.4 SECONDS (11.7-14.9)
[2025-06-24 17:12] LABS: CRP < 3.00 mg/L (0.0-3.0)
[2025-06-29 08:09] LABS: Anti-Chromatin <0.2 AI (0.0-0.9); Anti-Jo <0.2 AI (0.0-0.9); Anti-dsDNA Ab 1 IU/mL (0-9); SJOGREN'S Anti-SS-A test < 0.2 AI (0.0-0.9); SJOGREN'S Anti-SS-B test < 0.2 AI (0.0-0.9)
[2025-06-29 15:08] LABS: Anti-Smooth Muscle ABS 9 Units (0-19); Cytoplasmic Ab (C-ANCA) <1:20 titer (Neg:<1:20); Immunoglobulin A 155 mg/dL (64-422); Perinuclear Ab (P-ANCA) <1:20 titer (Neg:<1:20)
== END | disposition home or self-care (01) ==
LOC: LAB 15:51
PROVIDERS: PCP Student in an Organized Health Care Education/Training Program; Referring Provider Internal Medicine Gastroenterology; Visit Provider Internal Medicine Gastroenterology
DX: D68.9 Coagulation defect, unspecified (principal); R79.89 Other specified abnormal findings of blood chemistry
CPT/HCPCS: 36415; 80053; 82784; 83516; 85610; 85652; 86037; 86140; 86225; 86235; 86255

== ENCOUNTER → 2025-06-30 | Outpatient (CLI) | payer MEDICARE, OTHER, SELFPAY ==
--- NOTE | 2025-06-30 08:55 | US_ITS ---
PROCEDURE: ABD LIMITED W/ ELASTOGRAPHY REASON FOR EXAM: ELEVATED LFTS COMPARISON: None TECHNIQUE: Procedure Code: [id number] Modality: US Procedure: ABD LIMITED W/ ELASTOGRAPHY Right upper quadrant abdominal ultrasound. [facility] ElastQ Imaging shear wave elastography for non-invasive assessment of liver tissue stiffness. [facility] EPIQ Elite. FINDINGS: LIVER: Size: Unremarkable Length: 13.9 cm Echotexture: Diffusely echogenic suggesting fatty infiltration Contour: Normal Lesions: There is a 1.3 cm 1.6 cm x 0.9 cm cyst in the left lobe of the liver. Elastography: EQI Med: 6.2 kPa EQI Med Rupert: 1.42 m/s IQR/Med: 15.9 %* GALLBLADDER: Normal COMMON BILE DUCT: Normal measuring 5 mm.. PANCREAS: Normal Visualized portions of the right kidney are unremarkable. No right upper quadrant ascites. US/ABD Limited w/ Elastography IMPRESSION: Moderate hepatic fibrosis. Small cyst in the left lobe of the liver. Reference Values: SRU <1.37 m/s (5.7kPa): No to mild fibrosis 1.37 m/s - 2.2 m/s: Moderate to severe fibrosis >2.2 m/s (15kPa): Significant fibrosis / cirrhosis METAVIR Score F2 or higher: 1.34 m/s (5.7kPa) F3 or higher: 1.55 m/s (7.3kPa) F4: 1.80 m/s (10kPa) * If the IQR/Med is >30%, the variance in the measurements is a large and the a ccuracy of the measurement may be in question. Reading Location: [id number]
--- OUTSIDE RECORDS SUMMARY | 2025-06-30 09:39 | XMS RPT_ITS | CCD ---
Author Organization [facility] Care Team Providers Care Pastoral Worker Name Role Phone DR REYNALDO GARCIA DO Primary Care Physician [phone] Cara Gong PT Unavailable Unavailable Dr. Reynaldo Garcia Primary Care Provider 1([facility])[phone] Heavenly Peña Attending Provider Unavailable Dr. Reynaldo Garcia Referring Provider 1([facility])[phone] Romario Thurston Attending Provider 1([facility]) [phone] Dr. Romario Thurston Referring Provider 1([facility]) [phone] Dr. Romario Thurston Other Provider 1([facility])[phone] Dr. Reynaldo Garcia Primary Care Provider 1([facility])[phone] Romario Thurston Referring Provider 1([facility]) 570 Dr. Reynaldo Garcia Primary Care Provider 1([facility])[phone] Reynaldo Garcia Referring Provider 1([facility])[phone] Roof TEXTILE SLITTING MACHINE OPERATOR, TEXTILE SLITTING MACHINE OPERATOR-Joseph Dutton Attending Provider [phone] Dr. Reynaldo Garcia Primary Care Provider 1([facility])[phone] Reynaldo Garcia Referring Provider 1([facility])[phone] Roof TEXTILE SLITTING MACHINE OPERATOR, TEXTILE SLITTING MACHINE OPERATOR-Joseph Dutton Attending Provider Dr. Renee Hoang Attending Provider [phone] RADHA MCLEAN, DR JACOBS Attending Unavailable ROMAR DO, DR JACOBS Primary Care Unavailable ROMAR DO, DR JACOBS Attending Unavailable ROMAR DO, DR JACOBS Primary Care Unavailable ROMAR DO, DR JACOBS Attending Unavailable ROMAR DO, DR JACOBS Primary Care Unavailable ROMAR DO, DR JACOBS Attending Unavailable ROMAR DO, DR JACOBS Primary Care Unavailable ROMAR DO, DR JACOBS Attending Unavailable ROMAR DO, DR JACOBS Primary Care Unavailable Romar DO, Dr. Jacobs Primary Care Provider Radha MCLEAN, Dr. Jacobs Attending Provider [phone] Radha MCLEAN, Dr. Jacobs Referring Provider [phone] Gray MCLEAN, Dr. Cameron Attending Provider Sam OLSON, Dr. Vidal Attending Provider Gray MCLEAN, Dr. Cameron Referring Provider Shauna OLSON, Dr. Ying Attending Provider Kayla TEXTILE SLITTING MACHINE OPERATOR-C, Judy Attending Provider Kayla TEXTILE SLITTING MACHINE OPERATOR-C, Judy Referring Provider Kayla TEXTILE SLITTING MACHINE OPERATOR-C, Judy Other Provider RADHA MCLEAN, DR JACOBS Attending Unavailable ROMAR DO, DR JACOBS Primary Care Unavailable ROMAR DO, DR JACOBS Attending Unavailable ROMAR DO, DR JACOBS Primary Care Unavailable ROMAR DO, DR JACOBS Attending Unavailable ROMAR DO, DR JACOBS Primary Care Unavailable ROMAR DO, DR JACOBS Attending Unavailable ROMAR DO, DR JACOBS Primary Care Unavailable ROMAR DO, DR JACOBS Attending Unavailable ROMAR DO, DR JACOBS Primary Care Unavailable Romar DO, Dr. Jacobs Primary Care Physician Gray MCLEAN, Dr. Cameron Attending Physician [phone] Shauna OLSON, Dr. Ying Attending Physician Radha MCLEAN, Dr. Jacobs Referring Provider Kayla TEXTILE SLITTING MACHINE OPERATOR-C, Judy Attending Physician [phone] Ran OLSON, Dr. Lockwood Attending Physician Kayla TEXTILE SLITTING MACHINE OPERATOR-C, Judy Nurse Practitioner Nathaniel MCLEAN, [facility] Deonna Villatoro Attending Unavailabl e Romar, Reynaldo Primary Care Unavailable Garza TEXTILE SLITTING MACHINE OPERATOR, Judy Attending Unavailable Romar, Reynaldo Primary Care Unavailable RomarReynaldo Referring Unavailable Romar, Reynaldo Primary Care Unavailable Garza TEXTILE SLITTING MACHINE OPERATOR, Judy Attending Unavailable Romar, Reynaldo Referring Unavailable Romar, Reynaldo Primary Care Unavailable Klusty-Papo, Rudy Attending Unavailabl e Romar, Reynaldo Primary Care Unavailable Romar, Reynaldo Attending Unavailable Romar, Reynaldo Referring Unavailable Romar, Reynaldo Primary Care Unavailable Romar, Reynaldo Attending Unavailable Romar, Reynaldo Referring Unavailable Romar, Reynaldo Primary Care Unavailable Rakesh Castellano Attending Unavailable Brown, Rakesh Referring Unavailable Garza TEXTILE SLITTING MACHINE OPERATOR, Judy Attending Unavailable Garza TEXTILE SLITTING MACHINE OPERATOR, Judy Referring Unavailable Romar, Reynaldo Primary Care Unavailable Romar, Reynaldo Primary Care Unavailable BrownRakesh Attending Unavailable Romar, Reynaldo Referring Unavailable Romar, Reynaldo Primary Care Unavailable Young Vargas Attending Unavailable Romar, Reynaldo Referring Unavailable Romar, Reynaldo Primary Care Unavailable Rakesh Castellano Attending Unavailable Romar, Reynaldo Referring Unavailable Romar, Reynaldo Primary Care Unavailable Kayla TEXTILE SLITTING MACHINE OPERATOR, Judy Referring Unavailable Kayla TEXTILE SLITTING MACHINE OPERATOR, Judy Consulting Unavailable Rakesh Castellano Attending Unavailable Allergies Allergy Classification Reported Allergen(s) Allergy Type Date of Onset Reaction(s) Facility Sulfonamides (antibiotic) (1 source) Sulfonamide; Translations: [sulfa drugs] Drug Allergy [facility] (10 sources) Sulfonamides (Antibiotic); Translations: [sulfa drugs] Drug allergy [facility] (13 sources) Sulfonamides (Antibiotic) Allergy to substance 2 [facility] (1 source) Sulfonamides (Antibiotic) Drug allergy (disorder) 5 [facility] Repository Medications Current Medications Medication Drug Class(es) Dates Sig (Normalized) Sig (Original) acetaminophen 325 mg oral tablet (20 sources) Start: 10-26-2021 take 2 tablets by mouth once as needed for pain Start: 04-27-2020 End: 10-26-2021 take 1 tablet by mouth every six hours as needed Acetaminophen 500 mg tablet Discontinued 500 mg PO EVERY 6 HOURS as needed October 10, 2021 1:00am October 26, 2021 10:37am ascorbic acid 500 mg oral tablet (20 sources) Vitamin C Start: 11-05-2022 take 1 tablet by amanda th once daily Start: 10-10-2021 take 1 g by mouth once daily A scorbic Acid (Vitamin C) Active 1 GM PO DAILY October 10, 2021 10:04am Start: 10-10-2021 End: 01-26-2022 take 1 g by mouth once daily Ascorbic Acid (Vitamin C) 1,000 mg tablet Discontinued 1 g PO DAILY October 10, 2021 1:00am January 26, 2022 10:22am Start: 10-10-2021 End: 01-26-2022 take 1 g by mouth once daily Ascorbic Acid (Vitamin C) Discontinued 1 GM PO DAILY October 10, 2021 12:00am January 26, 2022 9:22am Start: 10-10-2021 End: 01-26-2022 take 1 g by mouth once daily Ascorbic Acid (Vitamin C) Discontinued 1 GM PO DAILY October 10, 2021 1:00am January 26, 2022 10:22am aspirin 81 mg delayed release oral tablet (9 sources) Platelet Aggregation Inhibitor, Nonsteroidal Anti-inflammatory Drug Start: 01-13-2025 aspirin 81 mg ora l delayed release tablet Dose : 81 mg = 1 tab(s), Oral, Daily, 0 Refill(s) Start Date: 04/20/25 Status: Ordered Medication Dispense Status: Completed Total Allowed Fills: 1 Fills Dispensed: 0 Start: 06-16-2024 aspirin 81 mg oral delayed release tablet Dose : 81 mg = 1 tab(s), Oral, Daily, 10 tablets left then discontinue, 0 Refill(s) Start Date: 06/16/24 Status: Ordered Repeat number: 1 atorvastatin 20 mg oral tablet (14 sources) HMG-CoA Reductase Inhibitor Start: 01-17-2024 End: 11-06-2025 take 1 tablet by mouth once daily balsalazide disodium 750 mg oral capsule (20 sources) Aminosalicylate Start: 01-26-2022 take 1 capsule by mouth three times daily Start: 01-26-2022 take 2250 mg by mout h three times daily Balsalazide Active 2250 MG PO THREE TIMES A DAY January 25, 2022 11:00pm Start: 10-10-2021 End: 10-26-2021 take 1500 mg by mouth three times daily Balsalazide Discontinued 1500 MG PO THREE TIMES A DAY October 10, 2021 12:00am October 26, 2021 9:38am Start: 06-03-2019 End: 10-26-2021 take 1 capsule by mouth three times daily Balsalazide 750 mg capsule Discontinued 1500 mg PO THREE TIMES A DAY October 10, 2021 1:00am October 26, 2021 10:38am calcium carbonate 1500 mg or al tablet (8 sources) Start: 10-10-2023 End: 04-07-2024 calcium (as carbonate) 600 m g oral tablet Dose : 600 mg = 1 tab(s), Oral, BIDM, # 180 tab(s), 1 Refill(s), Pharmacy: [facility], 166.5, cm, 10/10/23 8:02:00 EST, Height, kg, 10/10/23 8:02:00 EST, Dosing Weight Start Date: 10/10/23 Stop Date: 04/07/24 Status: Ordered Start: 07-31-2022 take 1 tablet by amanda once daily Calcium Carbonate (Calcium 500) 500 mg calcium (1,250 mg) tablet,chewable Active 500 MG PO DAILY July 31, 2022 1:00am cholecalciferol 0.05 mg oral tablet (13 sources) Vitamin D Start: 01-30-2024 take 1 tablet by amanda th once daily Start: 01-09-2024 End: 04-12-2025 cholecalciferol 100 mcg (400 0 intl units) oral tablet Dose : 100 mcg = 1 tab(s), Oral, qDayAC, with food, # 100 tab(s), 2 Refill(s), Pharmacy: [facility], 166.5, cm, 06/16/24 8:19:00 EST, Height, kg, 06/16/24 8:11:00 EST, Dosing Weight Start Date: 06/16/24 Stop Date: 04/12/25 Status: Ordered Quantity: 100.0 Unit: tab(s) Repeat number: 3 clotrimazole 10 mg oral lozenge (1 source) Azole Antifungal Start: 05-26-2021 End: 06-05-2021 take 1 dose by mouth once clotrimazole 10 mg oral lozenge Dose : 10 mg = 1 lozenge(s), Oral, 5x/Day, X 10 day(s), # 50 lozenge(s), 0 Refill(s), 06/05/21 13:07:00 EDT, Pharmacy: [id number], 167, cm, 05/26/21 9:33:00 EDT, Height, kg, 05/26/21 9:33:00 EDT, Dosing Weight Start Date: 05/26/21 Stop Date: 06/05/21 Status: Ordered Cranberry Fruit (20 sources) Non-Standardized Food Allergenic Extract, Non-Standardized Plant Allergenic Extract Start: 01-30-2024 take 1 capsule by mouth once daily Start: 01-30-2024 take 1 capsule by mo uth once daily Cranberry Fruit 400 mg capsule Active 800 mg PO DAILY January 30, 2024 9:03am administer with a meal Start: 10-10-2021 take 400 mg by mouth once jamari y Cranberry Active 400 MG PO DAILY October 10, 2021 10:05am administer with a meal Start: 10-10-2021 End: 01-30-2024 take 1 capsule by mouth once daily Cranberry Fruit 400 mg capsule Discontinued 400 mg PO DAILY October 10, 2021 1:00am January 30, 2024 9:04am administer with a meal Start: 10-10-2021 take 400 mg by mouth once jamari y Cranberry Active 400 MG PO DAILY October 10, 2021 12:00am administer with a meal Start: 10-10-2021 take 400 mg by mouth once jamari y Cranberry Active 400 MG PO DAILY October 10, 2021 1:00am administer with a meal Start: 05-26-2021 take 1 capsule by mo uth twice daily cranberry oral capsule Dose = 1 cap(s), Oral, BID, 0 Refill(s) Start Date: 05/26/21 Status: Ordered Start: 04-27-2020 take 1 capsule by mo ut once daily cranberry oral capsule Dose = 1 cap(s), Oral, Daily, 0 Refill(s) Start Date: 04/27/20 Status: Ordered Medication Dispense Status: Completed Total Allowed Fills: 1 Fills Dispensed: 0 Start: 04-27-2020 take 1 capsule by mo uth once daily cranberry oral capsule Dose = 1 cap(s), Oral, Daily, 0 Refill(s) Start Date: 04/27/20 Status: Ordered Repeat number: 1 Start: 04-27-2020 take 1 capsule by mo uth once daily cranberry oral capsule Dose = 1 cap(s), Oral, Daily, 0 Refill(s) Start Date: 04/27/20 Status: Ordered 1 ml denosumab 60 mg/ml prefilled syringe (9 sources) RANK Ligand Inhibitor Start: 12-16-2024 Prolia 60 mg/mL subcutaneous solution Dose : 60 mg = 1 mL, Subcutaneous, q6mo, Dx: M81.0. Ordered on 12/16/2024 at 1222, # 1 mL, 1 Refill(s), Osteoporosis Start Date: 12/16/24 Status: Ordered Medication Dispense Status: Completed Quantity: 1.0 Unit: mL Total Allowed Fills: 2 Fills Dispensed: 0 Indications: Age-related osteoporosis without current pathological fracture; Start: 06-16-2024 Prolia 60 mg/m L subcutaneous solution Dose : 60 mg = 1 mL, Subcutaneous, q6mo, Dx: M81.0. Ordered on 06/16/2024 at 0858, # 1 mL, 1 Refill(s), Osteoporosis Start Date: 06/16/24 Status: Ordered Quantity: 1.0 Unit: mL Repeat number: 2 Indication: Age-related osteoporosis without current pathological fracture Start: 04-10-2024 Prolia 60 mg/m L subcutaneous solution Dose : 60 mg = 1 mL, Subcutaneous, q6mo, Dx: M81.0. Ordered on 04/10/2024 at 1606., # 1 mL, 1 Refill(s), Osteoporosis Start Date: 04/10/24 Status: Ordered Start: 10-10-2023 Prolia 60 mg/m L subcutaneous solution Dose : 60 mg = 1 mL, Subcutaneous, q6mo, Dx: M81.0. Ordered on 10/10/2023 at 0830., # 1 mL, 0 Refill(s), Osteoporosis Start Date: 10/10/23 Status: Ordered mecobalamin (5 sources) Start: 01-13-2025 Mecobalamin (V itamin B12) 500 mcg tablet,chewable Active ug PO DAILY January 13, 2025 12:00am nutritional supplement (9 sources) Start: 07-24-2023 take 1 capsule into the eye(s) once daily nutritional supplement eye supplement - 1 capsule daily, 0 Refill(s) Start Date: 07/24/23 Status: Ordered Medication Dispense Status: Completed Total Allowed Fills: 1 Fills Dispensed: 0 Start: 07-24-2023 take 1 capsule into the eye(s) once daily nutritional supplement eye supplement - 1 capsule daily, 0 Refill(s) Start Date: 07/24/23 Status: Ordered Repeat number: 1 Start: 07-24-2023 take 1 capsule into the eye(s) once daily nutritional supplement eye supplement - 1 capsule daily, 0 Refill(s) Start Date: 07/24/23 Status: Ordered nystatin [id number] unt/ml topical cream (9 sources) Polyene Antifungal Start: 03-09-2025 End: 06-07-2025 nystatin 100,000 units/g topical cream Apply 1 yan, Topical, BID, PRN Rash, Apply to the affected area twice daily until healing complete., # 60 gram(s), 0 Refill(s), Pharmacy: [facility], Cream, 166.5, cm, 10/06/24 7:55:00 EST, Height, 83.5, kg, 10/06/24 7:55:00 EST, Dosing Weight Start Date: 03/09/25 Stop Date: 06/07/25 Status: Ordered Medication Dispense Status: Completed Quantity: 60.0 Unit: g Total Allowed Fills: 1 Fills Dispensed: 0 Start: 01-09-2024 End: 07-07-2024 nystatin 100,000 units/g top ical cream Apply 1 yna, Topical, BID, PRN Rash, Apply to the affected area twice daily until healing complete., # 60 gram(s), 1 Refill(s), Pharmacy: [facility], Cream, 166.5, cm, 01/09/24 8:25:00 EDT, Height, 83.6, kg, 01/09/24 8:25:00 EDT, Dosing Weight Start Date: 01/09/24 Stop Date: 07/07/24 Status: Ordered Quantity: 60.0 Unit: g Repeat number: 2 Start: 04-12-2023 End: 05-12-2023 nystatin 100,000 units/g top ical powder Apply 1 yan, Topical, BID, PRN Rash, # 60 gram(s), 0 Refill(s), Pharmacy: [facility] #[id number], Powder, 166.5, cm, 04/12/23 13:57:00 EDT, Height, 85.7, kg, 04/12/23 13:57:00 EDT, Dosing Weight Start Date: 04/12/23 Stop Date: 05/12/23 Status: Ordered omeprazole 20 mg delayed release oral capsule (20 sources) Proton Pump Inhibitor Start: 10-10-2021 take 1 capsule by mouth once daily Start: 06-03-[facility] 0 mg oral delayed release tablet Dose : 20 mg = 1 tab(s), Oral, qDay, 0 Refill(s) Start Date: 06/03/19 Status: Ordered Medication Dispense Status: Completed Total Allowed Fills: 1 Fills Dispensed: 0 turmeric extract 500 mg oral capsule (8 sources) Start: 01-09-2024 turmeric 500 m g oral capsule Dose : 500 mg = 1 cap(s), Oral, Daily, 0 Refill(s) Start Date: 01/09/24 Status: Ordered Medication Dispense Status: Completed Total Allowed Fills: 1 Fills Dispensed: 0 turmeric root extract (Curic a Turmeric) (6 sources) Start: 01-13-2025 Start: 01-13-2025 turmeric root extract (Curica Turmeric) Active PO DAILY January 13, 2025 12:00am Vibegron (10 sources) Start: 11-05-2022 take 1 tablet by mouth once da devon Start: 11-05-2022 take 1 tablet by amanda th once daily Vibegron (Gemtesa) 75 mg tablet Active 75 mg PO DAILY November 05, 2022 12:00am OAB Start: 11-05-2022 take 1 tablet by amanda th once daily Vibegron (Gemtesa) 75 mg tablet Active 75 mg PO DAILY November 05, 2022 12:00am Start: 11-05-2022 take 1 tablet by amanda th once daily Vibegron (Gemtesa) 75 mg tablet Active 75 MG PO DAILY November 04, 2022 11:00pm Start: 11-05-2022 take 1 tablet by amanda th once daily Vibegron (Gemtesa) 75 mg tablet Active 75 MG PO DAILY November 05, 2022 12:00am vibegron 75 MG Oral Tablet [Gemtesa] (10 sources) Start: 04-03-2023 take 1 tablet by mouth once daily Gemtesa 75 mg oral tablet TAKE 1 TABLET BY MOUTH DAILY Start Date: 04/03/23 Status: Ordered Medication Dispense Status: Completed Total Allowed Fills: 1 Fills Dispensed: 0 Start: 04-03-2023 take 1 tablet by mouth once da devon Gemtesa 75 mg oral tablet TAKE 1 TABLET BY MOUTH DAILY Start Date: 04/03/23 Status: Ordered Repeat number: 1 Start: 04-03-2023 take 1 tablet by mouth once da devon Gemtesa 75 mg oral tablet TAKE 1 TABLET BY MOUTH DAILY Start Date: 04/03/23 Status: Ordered vitamin b12 0.5 mg chewable tablet (1 source) Vitamin B12 Start: 01-13-2025 Vitamin C 1000 mg oral tablet (9 sources) Start: 09-30-2013 Vitamin C 1000 mg oral tablet Dose : 1,000 mg = 1 tab(s), Oral, Daily, 0 Refill(s) Start Date: 09/30/13 Status: Ordered Repeat number: 1 Start: 09-30-2013 Vitamin C 1000 mg oral tablet Dose : 1,000 mg = 1 tab(s), Oral, Daily, 0 Refill(s) Start Date: 09/30/13 Status: Ordered Vitamin C 500 mg oral tablet (2 sources) Start: 04-20-2025 Vitamin C 500 mg oral tablet Dose : 500 mg = 1 tab(s), Oral, qDay, # 30 tab(s), 0 Refill(s) Start Date: 04/20/25 Status: Ordered Medication Dispense Status: Completed Quantity: 30.0 Unit: tab(s) Total Allowed Fills: 1 Fills Dispensed: 0 Vitamin D3 50 mcg (2000 intl units) oral capsule (2 sources) Start: 04-20-2025 End: 05-25-2026 Vitamin D3 50 mcg (2000 intl units) oral capsule Dose : 100 mcg = 2 cap(s), Oral, qDayM, with food, # 200 cap(s), 3 Refill(s), Pharmacy: [facility], 166, cm, 04/20/25 8:32:00 EDT, Height, kg, 04/20/25 8:32:00 EDT, Dosing Weight Start Date: 04/20/25 Stop Date: 05/25/26 Status: Ordered Medication Dispense Status: Completed Quantity: 200.0 Unit: cap(s) Total Allowed Fills: 4 Fills Dispensed: 0 Vitamin D3 50 mcg (2000 intl units) oral tablet (1 source) Start: 10-10-2023 End: 01-08-2024 Vitamin D3 50 mcg (2000 intl units) oral tablet Dose : 2,000 unit(s) = 1 tab(s), Oral, qDayAC, with food, # 90 tab(s), 0 Refill(s), Pharmacy: [facility], 166.5, cm, 10/10/23 8:02:00 EST, Height, kg, 10/10/23 8:02:00 EST, Dosing Weight Start Date: 10/10/23 Stop Date: 01/08/24 Status: Ordered Completed/Discontinued Medications Medication Drug Class(es) Dates Sig (Normalized) Sig (Original) cephalexin 250 mg oral capsule (20 sources) Cephalosporin Antibacterial Start: 04-20-2025 cephalexin 250 mg oral capsule See Instructions, 1 cap(s) Oral QID, 0 Refill(s), 83.5 Start Date: 04/20/25 Status: Ordered Medication Dispense Status: Completed Total Allowed Fills: 1 Fills Dispensed: 0 Start: 10-26-2021 take 1 tablet by amanda once daily as needed for urinary tract infection Start: 05-26-2021 cephalexin 250 mg oral capsule 0 Refill(s), 81.6 Start Date: 05/26/21 Status: Ordered 24 hr metoprolol succinate 50 mg extended release oral tablet (20 sources) beta-Adrenergic Curtis Start: 01-13-2025 End: 01-21-2025 take 1 tablet by mouth once daily Metoprolol Succinate 100 mg tablet extended release 24 hr Discontinued 100 mg PO daily 90 January 13, 2025 12:00am January 21, 2025 8:54am Start: 11-02-2021 End: 01-21-2025 take 1 tablet by mouth once daily Metoprolol Succinate 50 mg tablet extended release 24 hr Discontinued 50 mg PO daily January 21, 2025 12:00am January 21, 2025 8:55am this is a dose DECREASE 24 hr mirabegron 50 mg extended release oral tablet (20 sources) beta3-Adrenergic Agonist Start: 10-26-2021 End: 11-05-2022 take 1 tablet by mouth once daily Mirabegron 50 mg tablet extended release 24 hr Discontinued 100 mg PO DAILY October 26, 2021 10:39am November 05, 2022 10:31am Start: 10-10-2021 End: 10-26-2021 take 1 tablet by mouth once daily Mirabegron 50 mg tablet extended release 24 hr Discontinued 50 mg PO DAILY October 10, 2021 1:00am October 26, 2021 10:39am Start: 10-22-2019 Myrbetriq 50 m g oral tablet, extended release Dose : 50 mg = 1 tab(s), Oral, qDay, # 30 tab(s), 0 Refill(s) Start Date: 10/22/19 Status: Ordered Problems Active Problems Problem Classification Problem Date Documented Date Episodic/Chronic Cancer of breast (11 sources) History of ductal carcinoma in situ of breast 09-02-2019 Episodic Cardiac dysrhythmias (20 sources) Palpitations; Translations: [Palpitations] 04-27-2020 Episodic Chronic kidney disease (10 sources) Chronic kidney disease stage 2 06-05-2021 Chronic Conditions associated with dizziness or vertigo (11 sources) Dizziness 09-02-2019 Episodic Disorders of lipid metabolism (20 sources) Mixed hyperlipidemia; Translations: [Mixed hyperlipidemia] Onset: 5 09-02-2019 Chronic Comment on above: 08/03 ascvd risk 10. 2% 01/02 ascvd risk 8.5% Esophageal disorders (20 sources) Gastroesophageal reflux disease; Translations: [Gastro-esophageal reflux disease without esophagitis] Onset: 5 10-13-2013 Chronic Comment on above: PER PT, CONTROLLED O N MEDS Essential hypertension (12 sources) Hypertensive disorder; Translations: [Essential (primary) hypertension] Onset: 5 01-13-2025 Chronic Gastrointestinal hemorrhage (11 sources) Hematochezia 09-02-2019 Episodic Genitourinary symptoms and ill-defined conditions (11 sources) Increased frequency of urination 09-02-2019 Episodic Heart valve disorders (20 sources) Mitral valve prolapse; Translations: [Nonrheumatic mitral (valve) prolapse] 09-30-2013 Chronic Hemorrhoids (11 sources) Hemorrhoids 09-02-2019 Episodic Mycoses (10 sources) Candidiasis of mouth 06-05-2021 Episodic Nutritional deficiencies (14 sources) Vitamin D deficiency; Translations: [Vitamin D deficiency, unspecified] Onset: 4 04-03-2023 Chronic Open wounds of extremities (3 sources) Open wound of hand 10-28-2020 Episodic Osteoarthritis (11 sources) Arthritis 09-30-2013 Chronic Osteoporosis (13 sources) Osteoporosis; Translations: [Age-related osteoporosis without current pathological fracture] Onset: 5 09-02-2019 Chronic Other and ill-defined heart disease (5 sources) Cardiomegaly 06-16-2024 Chronic Other ear and sense organ disorders (10 sources) Excessive cerumen in ear canal 07-23-2022 Episodic Other female genital disorders (11 sources) History of abnormal cervical Papanicolaou smear 09-02-2019 Episodic Other female genital disorders (9 sources) Stenosis of cervix; Translations: [Stricture and stenosis of cervix uteri] 11-10-2022 Episodic Other female genital disorders (1 source) Stricture and stenosis of cervix uteri; Translations: [Stricture and stenosis of cervix] 11-05-2022 Episodic Other gastrointestinal disorders (11 sources) Umbilical mass 04-27-2020 Episodic Other inflammatory condition of skin (10 sources) Intertrigo 04-03-2023 Episodic Other lower respiratory disease (20 sources) Dyspnea; Translations: [Shortness of breath] Onset: 4 10-26-2021 Episodic Other lower respiratory disease (8 sources) Shortness of breath; Translations: [Shortness of breath] Onset: 4 Episodic Other lower respiratory disease (1 source) Dyspnea on exertion 04-07-2024 Episodic Other lower respiratory disease (5 sources) Air trapping 06-16-2024 Episodic Other nutritional; endocrine; and metabolic disorders (10 sources) 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 Comment on above: 08/02 ascvd risk 8.1 % Other nutritional; endocrine; and metabolic disorders (2 sources) Hyperbilirubinemia 04-20-2025 Chronic Other screening for suspected conditions (not mental disorders or infectious disease) (10 sources) Endometrium thickened; Translations: [Abnormal findings on diagnostic imaging of other specified body structures] 11-10-2022 Chronic Comment on above: d and c hysteroscopy , normal pathology Other skin disorders (11 sources) Dry skin dermatitis 09-02-2019 Episodic Other skin disorders (11 sources) Senile hyperkeratosis 09-02-2019 Episodic Peripheral and visceral atherosclerosis (12 sources) Disorder of aorta; Translations: [Atherosclerosis of aorta] Onset: 5 01-13-2025 Chronic Pulmonary heart disease (16 sources) Pulmonary hypertension; Translations: [Pulmonary hypertension, unspecified] Onset: 5 12-01-2024 Chronic Comment on above: PASP 40 mmHg Pulmonary heart disease (5 sources) Dilatation of pulmonary artery 06-16-2024 Episodic Regional enteritis and ulcerative colitis (11 sources) Ulcerative colitis 04-27-2020 Chronic Residual codes; unclassified (11 sources) Postmenopausal state 05-26-2021 Episodic Residual codes; unclassified (8 sources) History of loop electrosurgical excision procedure; Translations: [Other specified postprocedural states] 12-07-2022 Episodic Superficial injury; contusion (12 sources) Contusion of hand; Translations: [Abrasion, right lower leg, initial encounter] Onset: 5 09-02-2019 Episodic Unclassified (11 sources) Eye glasses, device (physical object) 09-30-2013 Unclassified (5 sources) Patient encounter status 04-27-2020 Urinary tract infections (11 sources) Recurrent urinary tract infection 09-02-2019 Episodic Varicose veins of lower extremity (12 sources) Venous varices; Translations: [Ruptured varicose veins] 05-26-2021 Episodic Past or Other Problems Problem Classification Problem Date Documented Da te Episodic/Chronic Other connective tissue disease (1 source) Other specified soft tissue disorders; Translations: [Other specified soft tissue disorders] Onset: 11-05-2024 Episodic Results Test Name Value Interpretation Reference Range Facility Emergency Department Summary on 05-19-2025 Emergency Department Summary [facility] Medical Records Department [address] [place] [address] Emergency Department Summary 05/19/25 MR#: [id number] Acct: [id number] Name: LELA SHETH Rep #: [id number] : 1950 75 From: Rudy Armstrong DO PCP: Dr. Reynaldo Garcia DO Status:REG ER Location: ED HPI History of Present Illness Chief Complaint: Wound Check Narrative Narrative: Chief complaint and HPI: 75-year-old female with past medical history of varicose veins, GERD, pulmonary hypertension presents for evaluation of resolved bleeding to the right anterior lower hines. Patient states she was showering when she noticed blood all over her carpet in her leg. Noticed a small abrasion to her right hines. States she did not have any specific injury that she knows of. Bleeding stopped. Not on blood thinners but does take a baby aspirin. Review of systems: See HPI Medications: As listed on the chart Allergies: As listed on the chart PFSH: Per chart Vital signs: As listed on the chart. Reviewed. Physical exam: Gen: Alert and oriented ENT: Moist mucous membranes CV: Regular rate Resp: Nonlabored respiration Musc: Full ROM of the right lower extremity, no deformity, patient has a small abrasion located over a vricose vein on her right anterior lower hines-no active bleeding, dried blood on the extremity, DP/PT pulse +2, good capillary refill, sensation intact, extremity nontender to palpation without swelling or cellulitis Psych: Cooperative, appropriate mood and affect PFSH PFSH Medical History Preop cardiovascular exam Status post hysteroscopy ( 12/25/22) Wears glasses Post-menopausal Anxiety Arthritis Bladder disease Excessive bleeding Easy bruising Restless legs History of ulceration Non-smoker History of edema History of stress test History of echocardiogram History of irregular heartbeat Cardiology follow-up encounter Shortness of breath GERD (gastroesophageal reflux disease) Umbilical mass Ulcerative colitis Breast cancer Osteoporosis Mitral valve prolapse Mixed hyperlipidemia Home Medications ???Medication ???Instructions ???Recorded ???Last Taken ???Type omeprazole 20 mg capsule,delayed 20 mg PO DAILY 10/10/21 12/25/22 H istory release acetaminophen 325 mg tablet 650 mg PO ONCE PRN Pain 10/26/21 U nknown History (Tylenol) cephalexin 250 mg tablet 250 mg PO DAILY PRN UTI Prevention 10/26/21 Unknown History balsalazide 750 mg capsule 2,250 mg PO TID COLON 01/26/22 Unk nown History ascorbic acid (vitamin C) 500 mg 500 mg PO DAILY 11/05/22 Unknown H istory tablet vibegron 75 mg tablet (Gemtesa) 75 mg PO DAILY OAB 11/05/22 Unknow n History atorvastatin 20 mg tablet 20 mg PO QDAY 01/30/24 Unknown His tory cholecalciferol (vitamin D3) 50 100 mcg PO QDAY 01/30/24 Unknown H istory mcg (2,000 unit) tablet cranberry fruit 400 mg capsule 800 mg PO DAILY 01/30/24 Unknown H istory aspirin 81 mg tablet,delayed 81 mg PO QDAY #90 tabs 01/13/25 Un known Rx release (Adult Aspirin Regimen) mecobalamin (vitamin B12) 500 mcg mcg PO DAILY 01/13/25 Unknown His tory chewable tablet turmeric root extract [Curica PO DAILY 01/13/25 Unknown History Turmeric] metoprolol succinate 50 mg 50 mg PO QDAY this is a dose 01/21 Unknown Rx tablet,extended release 24 hr DECREASE #90 tabs Allergy/AdvReac Type Severity Reaction Status Date / Time Sulfa (Sulfonamide Allergy Unknown Hives Verified 05/19/25 23:02 Antibiotics) Family History Other Cancer Surgical History H/O foot surgery H/O dilation and curettage History of tonsillectomy H/O LEEP History of arthroscopy of knee ( 2008) History of breast reconstruction ( 2009) History of mastectomy ( 11/2009) History of vein stripping ( 2010) History of knee replacement ( 2018) History of knee replacement ( 2019) Social History current occupational status: retired pets and animals: No history of recent travel: No Smoking Status: Never smoker alcohol intake: never substance use type: does not use caffeine: No seatbelt use: always do you feel safe at home: Yes EXAM Physical Exam Const Vital Signs: 05/19/25 23:02 Temperature 97.4 F L Temperature Source Temporal Pulse Rate 90 Respiratory Rate 18 Blood Pressure 147/95 H Blood Pressure Mean 112 Pulse Ox 97 Oxygen Delivery Method Room Air MDM MDM MDM Narrative Medical decision making narrative: 75-year-old female with past medical history of varicose veins, GERD, pulmonary hypertension presents for evaluation of resolved bleed (more content not included)... Normal [facility] HFPon 05-14-2025 Bili Indirect 0.9 mg/dL Normal [facility] Comment on above: Performed By: #### H FP #### [address] [address] Albumin Level 3.6 G/dL Normal 3.4-4.8 [facility] Comment on above: Performed By: #### H FP #### [address] [address] Albumin/Globulin [Mass ratio] 1.0 {ratio} Low 1.1-2.5 [facility] Comment on above: Performed By: #### H FP #### [place] [id number] ALP [Catalytic activity/Vol] 72 U/L Normal 40-135 [facility] Comment on above: Performed By: #### H FP #### [place] [id number] ALT [Catalytic activity/Vol] 22 U/L Normal 14-59 [facility] Comment on above: Performed By: #### H FP #### [address] [address] AST [Catalytic activity/Vol] 26 U/L Normal 10-40 [facility] Comment on above: Performed By: #### H FP #### [address] [address] Bili Direct 0.2 mg/dL Normal 0.0-0.2 [facility] Comment on above: Result Comment: Use of this assay is not recommended for patients undergoing treatment with eltrombopag due to the potential for falsely elevated results. Performed By: #### H FP #### [place] [id number] Bili Total 1.1 mg/dL High 0.2-1.0 [facility] Comment on above: Result Comment: Use of this assay is not recommended for patients undergoing treatment with eltrombopag due to the potential for falsely elevated results. Performed By: #### H FP #### [place] [place], [place] [address] Globulin 3.5 G/dL Normal 2.7-4.4 [facility] Comment on above: Performed By: #### H FP #### [address] [place] [place], [place] [address] Total Protein 7.1 G/dL Normal 6.4-8.2 [facility] Comment on above: Performed By: #### H FP #### [place] [address] [place], [place] [address] LABORATORYOrdered By: SYSTEM SYSTEM on 05-14-2025 Albumin BCP dye [Mass/Vol] 3.6 G/dL Normal 3.4 - 4.8 G/dL AO ADM SS Albumin/Globulin [Mass ratio] 1.0 {ratio} Low 1.1 - 2.5 ratio AO ADM SS ALP [Catalytic activity/Vol] 72 U/L Normal 40 - 135 U/L AO ADM SS ALT With P-5'-P [Catalytic activity/Vol] 22 U/L Normal 14 - 59 U/L AO ADM SS AST With P-5'-P [Catalytic activity/Vol] 26 U/L Normal 10 - 40 U/L AO ADM SS Bilirubin [Mass/Vol] 1.1 mg/dL High 0.2 - 1.0 mg/dL AO ADM SS Comment on above: Interpretive Data: U se of this assay is not recommended for patients undergoing treatment with eltrombopag due to the potential for falsely elevated results. Bilirubin.direct [Mass/Vol] 0.9 mg/dL Invalid Interpretation Code AO Chemistry S Bilirubin.direct [Mass/Vol] 0.2 mg/dL Normal 0.0 - 0.2 mg/dL AO ADM SS Comment on above: Interpretive Data: U se of this assay is not recommended for patients undergoing treatment with eltrombopag due to the potential for falsely elevated results. Globulin 3.5 G/dL Normal 2.7 - 4.4 G/dL AO ADM SS Protein [Mass/Vol] 7.1 G/dL Normal 6.4 - 8.2 G/dL AO ADM SS .GFRon 04-20-2025 Estimated Glomerular Filtration Rate 72 ml/min/1.73sqm Normal [facility] Comment on above: Result Comment: Stages of Chronic Kidney Disease (CKD) Stage Description eGFR(ml/min/1.73 sq.m.) CKD 1 Normal kidney function or >=90 normal kindney function with possible kidney damage (ex. Proteinuria) CKD 2 Kidney damage with mild loss 60-89 of kidney function CKD 3a Mild to moderate loss of kidney 45-59 function CKD 3b Moderate to severe loss of 30-44 of kindey function CKD 4 Severe loss of kidney function 15-29 CKD 5 Kidney failure <15 Note: (go live 2024) the eGFR calculation was updated to the 2020 CKD-EPI creatinine equation without a race factor to calculate the eGFR results. Performed By: #### C MP, GFR, VIDH #### [address] [address] CMPon 04-20-2025 Albumin Level 3.8 G/dL Normal 3.4-4.8 [facility] Comment on above: Performed By: #### C MP, GFR, VIDH #### [address] [address] Albumin/Globulin [Mass ratio] 1.0 {ratio} Low 1.1-2.5 [facility] Comment on above: Performed By: #### C MP, GFR, VIDH #### [address] [address] ALP [Catalytic activity/Vol] 74 U/L Normal 40-135 [facility] Comment on above: Performed By: #### C MP, GFR, VIDH #### [address] [address] ALT [Catalytic activity/Vol] 26 U/L Normal 14-59 [facility] Comment on above: Performed By: #### C MP, GFR, VIDH #### [address] [address] AST [Catalytic activity/Vol] 22 U/L Normal 10-40 [facility] Comment on above: Performed By: #### C MP, GFR, VIDH #### [address] [address] Bili Total 1.1 mg/dL High 0.2-1.0 [facility] Comment on above: Result Comment: Use of this assay is not recommended for patients undergoing treatment with eltrombopag due to the potential for falsely elevated results. Performed By: #### C MP, GFR, VIDH #### [address] [address] BUN/Creatinine Ratio 26 ratio Normal 7-27 [facility] Comment on above: Performed By: #### C MP, GFR, VIDH #### [address] [address] Calcium [Mass/Vol] 9.2 mg/dL Normal 8.4-10.2 [facility] Comment on above: Performed By: #### C MP, GFR, VIDH #### [address] [address] Chloride [Moles/Vol] 104 mmol/L Normal 98-107 [facility] Comment on above: Performed By: #### C MP, GFR, VIDH #### [address] [address] CO2 [Moles/Vol] 29 mmol/L Normal 23-31 [facility] Comment on above: Performed By: #### C MP, GFR, VIDH #### [address] [address] Creatinine [Mass/Vol] 0.85 mg/dL Normal 0.51-0.95 [facility] Comment on above: Performed By: #### C MP, GFR, VIDH #### [address] [address] Electrolyte Balance 8.0 mEq/L Normal 4.0-15.0 [facility] Comment on above: Performed By: #### C MP, GFR, VIDH #### [address] [address] Globulin 3.8 G/dL Normal 2.7-4.4 [facility] Comment on above: Performed By: #### C MP, GFR, VIDH #### [address] [address] Glucose [Mass/Vol] 101 mg/dL Normal 83-110 [facility] Comment on above: Performed By: #### C MP, GFR, VIDH #### [place] [address] [place], [place] [address] Potassium [Moles/Vol] 4.2 mmol/L Normal 3.5-5.1 [facility] Comment on above: Performed By: #### C MP, GFR, VIDH #### [place] [address] [place], [place] [address] Sodium [Moles/Vol] 141 mmol/L Normal 136-145 [facility] Comment on above: Performed By: #### C MP, GFR, VIDH #### [place] [address] [place], [place] [address] Total Protein 7.6 G/dL Normal 6.4-8.2 [facility] Comment on above: Performed By: #### C MP, GFR, VIDH #### [address] [address] Urea nitrogen [Mass/Vol] 22 mg/dL High 7-18 [facility] Comment on above: Performed By: #### C MP, GFR, VIDH #### [place] [address] [place], [place] [address] LABORATORYOrdered By: Tristan Kumar on 04-20-2025 Albumin DL <= 20 mg/L (U) [Mass/Vol] 8.9 mg/L Invalid Interpretation Code AO ADM SS Albumin/Creatinine DL <= 20 mg/L (U) [Mass ratio] 6 mg/G Normal 0 - 30 mg/G AO Chemistry S Creatinine (U) [Mass/Vol] 146.9 mg/dL Invalid Interpretation Code AO ADM SS LABORATORYOrdered By: SYSTEM SYSTEM on 04-20-2025 25-hydroxyvitamin D3 [Mass/Vol] 53.3 ng/mL Invalid Interpretation Code AO ADM SS Comment on above: Interpretive Data: I nterpretive Values Based on Total 25(OH) Vitamin D: Deficient <20 ng/mL Insufficient 20 - <30 ng/mL Sufficient 30-100 ng/mL Albumin BCP dye [Mass/Vol] 3.8 G/dL Normal 3.4 - 4.8 G/dL AO ADM SS Albumin/Globulin [Mass ratio] 1.0 {ratio} Low 1.1 - 2.5 ratio AO ADM SS ALP [Catalytic activity/Vol] 74 U/L Normal 40 - 135 U/L AO ADM SS ALT With P-5'-P [Catalytic activity/Vol] 26 U/L Normal 14 - 59 U/L AO ADM SS AST With P-5'-P [Catalytic activity/Vol] 22 U/L Normal 10 - 40 U/L AO ADM SS Bilirubin [Mass/Vol] 1.1 mg/dL High 0.2 - 1.0 mg/dL AO ADM SS Comment on above: Interpretive Data: U se of this assay is not recommended for patients undergoing treatment with eltrombopag due to the potential for falsely elevated results. Calcium [Mass/Vol] 9.2 mg/dL Normal 8.4 - 10. 2 mg/dL AO ADM SS Chloride [Moles/Vol] 104 mmol/L Normal 98 - 107 mmol/L AO ADM SS CO2 [Moles/Vol] 29 mmol/L Normal 23 - 31 mmol/L AO ADM SS Creatinine [Mass/Vol] 0.85 mg/dL Normal 0.51 - 0.95 mg/dL AO ADM SS Electrolyte Balance 8.0 mEq/L Normal 4.0 - 15 .0 mEq/L AO ADM SS Estimated Glomerular Filtration Rate 72 ml/min/1.73sqm Invalid Interpretation Code AO Chemistry S Comment on above: Interpretive Data: Stages of Chronic Kidney Disease (CKD) Stage Description eGFR(ml/min/1.73 sq.m.) CKD 1 Normal kidney function or >=90 normal kindney function with possible kidney damage (ex. Proteinuria) CKD 2 Kidney damage with mild loss 60-89 of kidney function CKD 3a Mild to moderate loss of kidney 45-59 function CKD 3b Moderate to severe loss of 30-44 of kindey function CKD 4 Severe loss of kidney function 15-29 CKD 5 Kidney failure <15 Note: (go live 2024) the eGFR calculation was updated to the 2020 CKD-EPI creatinine equation without a race factor to calculate the eGFR results. Globulin 3.8 G/dL Normal 2.7 - 4.4 G/dL AO ADM SS Glucose [Mass/Vol] 101 mg/dL Normal 83 - 110 mg/dL AO ADM SS Potassium [Moles/Vol] 4.2 mmol/L Normal 3.5 - 5.1 mmol/L AO ADM SS Protein [Mass/Vol] 7.6 G/dL Normal 6.4 - 8.2 G/dL AO ADM SS Sodium [Moles/Vol] 141 mmol/L Normal 136 - 145 mmol/L AO ADM SS Urea nitrogen [Mass/Vol] 22 mg/dL High 7 - 18 mg/dL AO ADM SS Urea nitrogen/Creatinine [Mass ratio] 26 ratio Normal 7 - 27 ratio AO ADM SS MALBRon 04-20-2025 U Creatinine 146.9 mg/dL Normal [facility] Comment on above: Performed By: #### M ALBR #### [address] [address] U Microalb 8.9 mg/L Normal [facility] Comment on above: Performed By: #### M ALBR #### [address] [address] U Ratio Alb/Cre 6 mg/G Normal 0-30 [facility] Comment on above: Performed By: #### M ALBR #### [address] [address] VIDHon 04-20-2025 Vit. D 25-Hydroxy 53.3 ng/mL Normal [facility] Comment on above: Result Comment: Inte rpretive Values Based on Total 25(OH) Vitamin D: Deficient <20 ng/mL Insufficient 20 - <30 ng/mL Sufficient 30-100 ng/mL Performed By: #### C MP, GFR, VIDH #### [address] [address] Pulmonary Visit Reporton Pulmonary Visit Report [facility] Pulmonary Medicine of [address] [place] [address] OFFICE VISIT Date of Service: 02/23/25 MR#: [id number] Acct: [id number] Name: LELA SHETH Rep #: [id number] : 1950 Provider: MADISON Garza Age/Sex: 74/F [place] [facility] Status: Signed Assessment and Plan Assessment and Plan (1) Pulmonary hypertension: Status: Acute Comment: PASP 40 mmHg Plan: Exertional hypoxia ruled out. I suggested that a Nocturnal Oximetry could reveal hypoxia while sleeping. The patient feels that she rests well and really feels fine. She would like to follow up if she become symptomatic. If she decides to pursue testing, she can call the office and I will order the Noc Ox. Plan Details Additional Comments: This note was generated with [employer] dictation software. It may contain incorrect words, spelling, and punctuation that were not noted in checking the note before signing. HPI 1 W FU Chief Complaint: test results HPI Comments Details: This patient presents to the office today to discuss test results. She is ambulatory and currently on room air. She has not recently been seen in the ED or urgent care for any respiratory illness. She has not required any antibiotics or prednisone for any breathing problems. If you recall, her problems started in March of 2024 when she had a severe URI. She had a very intense cough. The workup that followed included a CXR documenting prominent central pulmonary arteries. She had a PFT that was normal in June of 2024. To be thorough, she then had an echocardiogram January 2025 showing an EF 65% and RVSP 40 mmHg. She reports shortness on breath on extreme exertion. This would occur if she was rushing up the steps. She denies any difficulty with cough, sputum production or hemoptysis. She denies any wheezing, chest tightness, chest pain or palpitations. She has not had any fever, chills or body aches. She continues to be a very active person. She states that she walks a mile and a half daily. Test results personally viewed the patient: Walking oximetry completed on February 16, 2025. She was able to ambulate 1029 feet over 6 minutes. She did not desaturate, she does not qualify for supplemental oxygen. Intake Vital Signs 02/02/25 08:23 02/23/25 07:48 Height 5 ft 7 in 5 ft 6 in Weight: 185 lb 182 lb BMI 29.0 29.3 BP 130/86 H 141/88 H Blood Pressure Location Lt brachial Rt radial Position Sitting Sitting Respiration 18 16 Pulse 74 80 Pulse Source Monitor Monitor Temp 98.5 F 97.4 F L Temperature Source Temporal Artery Temporal Artery Pulse Oximetry (%) 97 95 Oxygen Delivery Method room air room air Intake Visit Reasons: 1 W FU Chief Complaint: Pre-op DME Vendor: N/a Accompanied by: Self Is patient in pain?: No Allergies Sulfa (Sulfonamide Antibiotics) Allergy (Unknown, Verified 02/23/25 07:59) Hives Medications ???Medication ???Instructions ???Recorded ???Confirmed ???Type omeprazole 20 mg capsule,delayed 20 mg PO DAILY 10/10/21 02/23/25 H istory release acetaminophen 325 mg tablet 650 mg PO ONCE PRN Pain 10/26/21 0 02/23/25 History (Tylenol) cephalexin 250 mg tablet 250 mg PO DAILY PRN UTI Prevention 10/26/21 02/23/25 History balsalazide 750 mg capsule 2,250 mg PO TID COLON 01/26/22 History ascorbic acid (vitamin C) 500 mg 500 mg PO DAILY 11/05/22 02/23/25 History tablet vibegron 75 mg tablet (Gemtesa) 75 mg PO DAILY OAB 11/05/22 History atorvastatin 20 mg tablet 20 mg PO QDAY 01/30/24 02/23/25 Hi story cholecalciferol (vitamin D3) 50 100 mcg PO QDAY 01/30/24 02/23/25 History mcg (2,000 unit) tablet cranberry fruit 400 mg capsule 800 mg PO DAILY 01/30/24 02/23/25 History aspirin 81 mg tablet,delayed 81 mg PO QDAY #90 tabs 01/13/25 Rx release (Adult Aspirin Regimen) mecobalamin (vitamin B12) 500 mcg mcg PO DAILY 01/13/25 02/23/25 Hi story chewable tablet turmeric root extract [Curica PO DAILY 01/13/25 02/23/25 History Turmeric] metoprolol succinate 50 mg 50 mg PO QDAY this is a dose 01/2102/23/25 Rx tablet,extended release 24 hr DECREASE #90 tabs Have you fallen in the past year?: No PFSH Medical History Preop cardiovascular exam Status post hysteroscopy ( 12/25/22) Wears glasses Post-menopausal Anxiety Arthritis Bladder disease Excessive bleeding Easy bruising Restless legs History of ulceration Non-smoker History of edema History of stress test History of echocardiogram History of irregular heartbeat Cardiology follow-up encounter Shortness of breath GERD (gastroesophageal reflux disease) Umbilical mass Ulcerative colitis Breast cance (more content not included)... 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 Status: REG CLI Location: PSN Date: Sex: F C PSN 6 Minute Walk Test 6 Minute Walk Test 6 Minute Walk Test: 6 Minute Walk Test PSN:6-Minute Walk Test Start: 02/16/25 08:27 Freq: Status: Active Protocol: [id number] Document 02/16/25 08:15 AEH (Rec: 02/16/25 08:32 AEH [id number]) 6 Minute Walk Test Date Performed 02/16/25 Time Performed 08:15 Height 5 ft 6 in Weight: 180 lb Weight in Pounds [address]: Sadi Assistive device None used: Pre-test Oxygen Delivery Room Air Method Pulse Ox (%) 96 Pulse Rate (60-100 84 beats/min) Dyspnea Franki Scale ( 0 0-10) Exertion Franki Scale 6 (6-20) 1st minute Oxygen Delivery Room Air Method Pulse Ox (%) 96 Pulse Rate (60-100 104 H beats/min) 2nd minute Oxygen Delivery Room Air Method Pulse Ox (%) 93 Pulse Rate (60-100 103 H beats/min) 3rd minute Oxygen Delivery Room Air Method Pulse Ox (%) 93 Pulse Rate (60-100 105 H beats/min) 4th minute Oxygen Delivery Room Air Method Pulse Ox (%) 94 Pulse Rate (60-100 104 H beats/min) 5th minute Oxygen Delivery Room Air Method Pulse Ox (%) 94 Pulse Rate (60-100 105 H beats/min) 6th minute Oxygen Delivery Room Air Method Pulse Ox (%) 93 Pulse Rate (60-100 104 H beats/min) Dyspnea Franki Scale ( 0 0-10) Exertion Franki Scale 10 (6-20) Post-test Oxygen Delivery Room Air Method Pulse Ox (%) 96 Pulse Rate (60-100 87 beats/min) Full Laps Walked 17 Partial Lap, Number 26 of Tiles Walked Total Distance 1029 Walked (ft) Interpretation Interpretation: The patient ambulated 1029 feet over the course of 6 minutes beginning on room air without assistive devices. Pretesting oxygen saturation was noted to be 96% on room air. With ambulation, the bhavani oxygen saturation was 93%. There was no significant exertional oxygen desaturation. Recommendations Recommendations: There is no indication for the use of supplemental oxygen at this time. 02/17/25934 Date Rakesh Castellano DO CC: Date Dictated: 02/17/25933 Date Transcribed: 02/17/25933 Analytical Manager: Dr. Rakesh Castellano DO Signed Normal [facility] Pulmonary Visit Reporton Pulmonary Visit Report [facility] Pulmonary Medicine of [address] [place] [address] OFFICE VISIT Date of Service: 02/02/25 MR#: [id number] Acct: [id number] Name: LELA SHETH Rep #: [id number] : 1950 Provider: MADISON Garza Age/Sex: 74/F [place] [facility] Status: Signed Assessment and Plan Assessment and Plan (1) Pulmonary hypertension: Status: Acute Comment: PASP 40 mmHg Plan: Recently identified mild pulmonary hypertension from an echocardiogram. Sending the patient for pulmonary stress test to evaluate for exertional hypoxia. I explained to the patient the c orrelation between pulmonary hypertension and exertional hypoxia, even though she is not currently experiencing dyspnea. I also instructed patient that if her saturation drops below 89% during the test that supplemental oxygen will be applied and I will be ordering oxygen to be used with any ambulation. She conveys understanding and is agreeable. She will return to the office after the 6- minute walk test to review test results and determine if any additional testing would be beneficial. Orders: Orders Simple Pulmonary Exercise Test 02/16/25 R06.02 - Shortness of breath Plan Details Additional Comments: This note was generated with [employer] dictation software. It may contain incorrect words, spelling, and punctuation that were not noted in checking the note before signing. Follow Up: 3 Weeks HPI 6 wk FU Chief Complaint: Test results HPI Comments Details: This patient presents to the office today to discuss test results. She is ambulatory and currently on room air. She has not recently been seen in the ED or urgent care for any respiratory illness. She has not required any antibiotics or prednisone for any breathing problems. She only experiences shortness on breath if she hurries up the steps and back down. She denies any difficulty with cough, sputum production or hemoptysis. She denies any wheezing, chest tightness, chest pain or palpitations. She has not had any fever, chills or body aches. She continues to be a very active person. She states that she walks a mile and a half daily. 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 Test results personally viewed the patient: Echocardiogram completed on January 29, 2025. Test results are consistent with an EF of 65%. Unable to assess diastolic dysfunction. PASP 40 mmHg. Intake Vital Signs 12/01/24 09:19 02/02/25 08:23 Height 5 ft 7 in 5 ft 7 in Weight: 185 lb BMI 29.0 BP 130/86 H Blood Pressure Location Lt brachial Position Sitting Respiration 18 Pulse 74 Pulse Source Monitor Temp 98.5 F Temperature Source Temporal Artery Pulse Oximetry (%) 97 Oxygen Delivery Method room air Intake Visit Reasons: 6 wk FU Chief Complaint: Pre-op Pharmacy Services Director Required: No Accompanied by: Self Allergies Sulfa (Sulfonamide Antibiotics) Allergy (Unknown, Verified 02/02/25 11:06) Hives Medications ???Medication ???Instructions ???Recorded ???Confirmed ???Type omeprazole 20 mg capsule,delayed 20 mg PO DAILY 10/10/21 02/02/25 H istory release acetaminophen 325 mg tablet 650 mg PO ONCE PRN Pain 10/26/21 0 02/02/25 History (Tylenol) cephalexin 250 mg tablet 250 mg PO DAILY PRN UTI Prevention 10/26/21 02/02/25 History balsalazide 750 mg capsule 2,250 mg PO TID COLON 01/26/22 History ascorbic acid (vitamin C) 500 mg 500 mg PO DAILY 11/05/22 02/02/25 History tablet vibegron 75 mg tablet (Gemtesa) 75 mg PO DAILY OAB 11/05/22 History atorvastatin 20 mg tablet 20 mg PO QDAY 01/30/24 02/02/25 Hi story cholecalciferol (vitamin D3) 50 100 mcg PO QDAY 01/30/24 02/02/25 History mcg (2,000 unit) tablet cranberry fruit 400 mg capsule 800 mg PO DAILY 01/30/24 02/02/25 History aspirin 81 mg tablet,delayed 81 mg PO QDAY #90 tabs 01/13/25 Rx release (Adult Aspirin Regimen) mecobalamin (vitamin B12) 500 mcg mcg PO DAILY 01/13/25 02/02/25 Hi story chewable tablet turmeric root extract [Curica PO DAILY 01/13/25 02/02/25 History Turmeric] metoprolol succinate 50 mg 50 mg PO QDAY this is a dose 01/2102/02/25 Rx tablet,extended release 24 hr DECREASE #90 tabs Have you fallen in the past year?: No PFSH Medical History (Reviewed 02/02/25 @ 11:31 by Judy Garza TEXTILE SLITTING MACHINE OPERATOR, TEXTILE SLITTING MACHINE OPERATOR-C) Preop cardiovascular exam Status post hysteroscopy ( 12/25/22) Wears glasses Post-menopausal Anxiety Arthritis Bladder disease Excessive bleeding Easy bruising Restless legs History of ulceration Non-smoker History of edema History of stress test History of echocardiogram History of irregular heartbeat Cardiology follow-up encounter Shortness of breath GERD (gastroesophageal re (more content not included)... Normal [facility] Echocardiogram study reportO rdered By: Deonna Villatoro on 01-30-2025 Study report [facility] [address] [place] [address] Echo Complete 01/29/25 1056 MR#: [id number] Acct: [id number] Name: LELA SHETH Rep #:[id number] : 1950 74 From: Deonna schulz MD Attending Dr: Dr. Rakesh Castellano DO S tatus: REG CLI Ordering Dr: Rakesh Castellano DO Date: Location: [facility] Sex: F C Admitted: Reason For Study Reason For Study: DYSPNEA Procedure This was a 2D Doppler, Color Flow transthoracic echocardiogram. Exam performed in department. Left Ventricle Normal LV size. The estimated ejection fraction is 65 %. Unable to assess diastolic dysfunction. No regional wall motion abnormalities noted. Right Ventricle Normal RV size. Normal systolic function. Atria The left and right atria are normal. No doppler evidence for ASD. Mitral Valve There is moderate to severe mitral annular calcification. There is no mitral valve stenosis. No mitral valve insufficiency. Tricuspid Valve There is no tricuspid stenosis. Trivial tricuspid valve insufficiency. Pulmonaryartery systolic pressure is 40 mmHg. Aortic Valve Trisinus/trileaflet aortic valve. There is no aortic stenosis. No aortic valve insufficiency. Pulmonic Valve There is no pulmonic valvular stenosis. No pulmonic valve insufficiency. Great Vessels Normal sized aortic root. Pericardium/Pleural No pericardial effusion. MMode/2D Measurements & Calculations LVIDd: 4.1 cm IVSd: 1.2 cm LVOT diam: 2.0 cm LVIDs: 2.8 cm LVPWd: 1.1 cm LVOT area: 3.0 cm2 RVDd: 4.5 cm FS: 31.8 % Ao root diam: 3.2 cm LAV(MOD-bp): 37.9 ml LVAd ap4: 25.6 cm2 LAV(MOD-bp) Indexed: 19.7 ml/m2 LVLd ap4: 8.1 cm LAV(MOD-sp2): 37.7 ml EDV(MOD-sp4): 67.6 ml LAV(MOD-sp4): 37.7 ml EDV(sp4-el): 68.7 ml LVAs ap4: 14.6 cm2 LVLs ap4: 6.3 cm ESV(MOD-sp4): 28.4 ml ESV(sp4-el): 28.5 ml EF(MOD-sp4): 58.0 % EF(sp4-el): 58.5 % SV(MOD-sp4): 39.2 ml SV(sp4-el): 40.2 ml LA A4 area: 14.6 cm2 SI(MOD-sp4): 20.4 ml/m2 LA dimension(2D): 3.3 cm RA A4 area: 10.8 cm2 Time Measurements MV dec time: 0.25 sec Doppler Measurements & Calculations MV E max marquis: 60.5 cm/sec Lat Peak E' Marquis: 5.2 cm/sec Med Peak E' Marquis: 4.9 cm/sec MV A max marquis: 75.7 cm/sec E/E' lat: 11.7 E/E' med: 12.2 MV E/A: 0.80 MV V2 max: 93.5 cm/sec Ao V2 max: 129.7 cm/sec MV max P.5 mmHg MV dec slope: 242.7 cm/sec2 Ao max P.7 mmHg MV V2 mean: 59.8 cm/sec Ao V2 mean: 84.9 cm/sec MV mean P.6 mmHg Ao mean P.4 mmHg MV V2 VTI: 27.8 cm Ao V2 VTI: 27.0 cm PA V2 max: 87.9 cm/sec TR max marquis: 299.5 cm/sec PA V2 mean: 59.5 cm/sec TR max P.9 mmHg ECHO/Echo Complete Interpretation Summary The estimated ejection fraction is 65 %. Unable to assess diastolic dysfunction. Ordering Physician: Rakesh Castellano Referring Physician: Rakesh Castellano Performed By: Leonor Chan RCS 01/30/25 1644 Date ____ _ Deonna Villatoro MD CC: Dr. Rakesh Castellano DO; Dr. Reynaldo Garcia DO ~ Date Dictated: 01/29/25 1056 Date Transcribed: 01/30/25 1646 Analytical Manager: Signed [facility] Work Phone: Echo Completeon 01-29-2025 Echo Complete [facility] [address] [place] [address] Echo Complete 01/29/25 1056 MR#: [id number] Acct: [id number] Name: LELA SHETH Rep #: [id number] : 1950 74 From: Deonna Villatoro MD Attending Dr: Dr. Rakesh Castellano, DO Status: REG C LI Ordering Dr: Rakesh Castellano DO Date: 01/29/25 Location: [facility] Sex: F C Admitted: Reason For Study Reason For Study: DYSPNEA Procedure This was a 2D Doppler, Color Flow transthoracic echocardiogram. Exam performed in department. Left Ventricle Normal LV size. The estimated ejection fraction is 65 %. Unable to assess diastolic dysfunction. No regional wall motion abnormalities noted. Right Ventricle Normal RV size. Normal systolic function. Atria The left and right atria are normal. No doppler evidence for ASD. Mitral Valve There is moderate to severe mitral annular calcification. There is no mitral valve stenosis. No mitral valve insufficiency. Tricuspid Valve There is no tricuspid stenosis. Trivial tricuspid valve insufficiency. Pulmonary artery systolic pressure is 40 mmHg. Aortic Valve Trisinus/trileaflet aortic valve. There is no aortic stenosis. No aortic valve insufficiency. Pulmonic Valve There is no pulmonic valvular stenosis. No pulmonic valve insufficiency. Great Vessels Normal sized aortic root. Pericardium/Pleural No pericardial effusion. MMode/2D Measurements Calculations LVIDd: 4.1 cm IVSd: 1.2 cm LVOT diam: 2.0 cm LVIDs: 2.8 cm LVPWd: 1.1 cm LVOT area: 3.0 cm2 RVDd: 4.5 cm FS: 31.8 % Ao root diam: 3.2 cm LAV(MOD-bp): 37.9 ml LVAd ap4: 25.6 cm2 LAV(MOD-bp) Indexed: 19.7 ml/m2 LVLd ap4: 8.1 cm LAV(MOD-sp2): 37.7 ml EDV(MOD-sp4): 67.6 ml LAV(MOD-sp4): 37.7 ml EDV(sp4-el): 68.7 ml LVAs ap4: 14.6 cm2 LVLs ap4: 6.3 cm ESV(MOD-sp4): 28.4 ml ESV(sp4-el): 28.5 ml EF(MOD-sp4): 58.0 % EF(sp4-el): 58.5 % SV(MOD-sp4): 39.2 ml SV(sp4-el): 40.2 ml LA A4 area: 14.6 cm2 SI(MOD-sp4): 20.4 ml/m2 LA dimension(2D): 3.3 cm RA A4 area: 10.8 cm2 Time Measurements MV dec time: 0.25 sec Doppler Measurements Calculations MV E max marquis: 60.5 cm/sec Lat Peak E' Marquis: 5.2 cm/sec Med Peak E' Marquis: 4.9 cm/sec MV A max marquis: 75.7 cm/sec E/E' lat: 11.7 E/E' med: 12.2 MV E/A: 0.80 MV V2 max: 93.5 cm/sec Ao V2 max: 129.7 cm/sec MV max P.5 mmHg MV dec slope: 242.7 cm/sec2 Ao max P.7 mmHg MV V2 mean: 59.8 cm/sec Ao V2 mean: 84.9 cm/sec MV mean P.6 mmHg Ao mean P.4 mmHg MV V2 VTI: 27.8 cm Ao V2 VTI: 27.0 cm PA V2 max: 87.9 cm/sec TR max marquis: 299.5 cm/sec PA V2 mean: 59.5 cm/sec TR max P.9 mmHg ECHO/Echo Complete Interpretation Summary The estimated ejection fraction is 65 %. Unable to assess diastolic dysfunction. Ordering Physician: Rakesh Castellano Referring Physician: Rakesh Castellano Performed By: Leonor Chan RCS 01/30/25 1644 Date Leónkervin Shauna OLSON CC: Dr. Rakesh Castellano DO; Dr. Reynaldo Garcia DO Date Dictated: 01/29/25 1056 Date Transcribed: 01/30/25 1644 Analytical Manager: Signed Normal [facility] Cardiology Visit Reporton Cardiology Visit Report [facility] [address] [place] [address] OFFICE VISIT Date of Service: 01/13/25 MR#: [id number] Acct: [id number] Name: LELA SHETH Rep #: [id number] : 1950 Provider: Dr. Young Vargas MD Age/Sex: 74/F [place] [facility] Status: Signed HPI HPI History of Present Illness Details: This lady has past medical history significant for dyslipidemia and hypertension. Noted to have calcifications of the thoracic aorta on the chest x-ray done last year. In the past, the patient was told that he had mitral valve prolapse. However on her last echocardiogram, no mitral valve prolapse reported. Denies any chest pains or shortness of breath either at rest or with exertion. She walks about 1.5 miles every day. No orthopnea. No PND. No ankle edema. Intake Vital Signs 12/01/24 09:19 01/13/25 07:53 Height 5 ft 7 in 5 ft 7 in Weight: 185 lb 183 lb BMI 29.0 28.6 BP 133/88 H 135/94 H Blood Pressure Location Lt brachial Lt brachial Position Sitting Sitting Respiration 20 H 18 Pulse 84 73 Pulse Source Monitor NIBP Temp 96.9 F L Temperature Source Temporal Artery Pulse Oximetry (%) 94 Oxygen Delivery Method room air Intake Visit Reasons: 1 Y FU Pharmacy Services Director Required: No Accompanied by: Self Is patient in pain?: No Allergies Sulfa (Sulfonamide Antibiotics) Allergy (Unknown, Verified 01/13/25 11:03) Hives Medications ???Medication ???Instructions ???Recorded ???Confirmed ???Type omeprazole 20 mg capsule,delayed 20 mg PO DAILY 10/10/21 01/13/25 H istory release acetaminophen 325 mg tablet 650 mg PO ONCE PRN Pain 10/26/21 0 01/13/25 History (Tylenol) cephalexin 250 mg tablet 250 mg PO DAILY PRN UTI Prevention 10/26/21 01/13/25 History balsalazide 750 mg capsule 2,250 mg PO TID COLON 01/26/2212/04 History ascorbic acid (vitamin C) 500 mg 500 mg PO DAILY 11/05/22 01/13/25 History tablet vibegron 75 mg tablet (Gemtesa) 75 mg PO DAILY OAB 11/05/22 History atorvastatin 20 mg tablet 20 mg PO QDAY 01/30/24 01/13/25 Hi story cholecalciferol (vitamin D3) 50 100 mcg PO QDAY 01/30/24 01/13/25 History mcg (2,000 unit) tablet cranberry fruit 400 mg capsule 800 mg PO DAILY 01/30/24 01/13/25 History metoprolol succinate 50 mg 50 mg PO DAILY #90 tabs 01/30/24 0 01/13/25 Rx tablet,extended release 24 hr mecobalamin (vitamin B12) 500 mcg mcg PO DAILY 01/13/25 01/13/25 Hi story chewable tablet turmeric root extract [Curica PO DAILY 01/13/25 01/13/25 History Turmeric] Ejection fraction %: 65 Have you fallen in the past year?: No PFSH Medical History (Updated 01/13/25 @ 11:[address] Young Vargas MD) Preop cardiovascular exam Status post hysteroscopy ( 12/25/22) Wears glasses Post-menopausal Anxiety Arthritis Bladder disease Excessive bleeding Easy bruising Restless legs History of ulceration Non-smoker History of edema History of stress test History of echocardiogram History of irregular heartbeat Cardiology follow-up encounter Shortness of breath GERD (gastroesophageal reflux disease) Umbilical mass Ulcerative colitis Breast cancer Osteoporosis Mitral valve prolapse Mixed hyperlipidemia Surgical History (Updated 01/13/25 @ 11:08 by All Martinez RN) H/O foot surgery H/O dilation and curettage History of tonsillectomy H/O LEEP History of arthroscopy of knee ( 2008) History of breast reconstruction ( 2009) History of mastectomy ( 11/2009) History of vein stripping ( 2010) History of knee replacement ( 2018) History of knee replacement ( 2019) Family History Other Cancer Social History current occupational status: retired pets and animals: No history of recent travel: No Smoking Status: Never smoker alcohol intake: never substance use type: does not use caffeine: No seatbelt use: always do you feel safe at home: Yes ROS Const Const: Negative for fatigue, weakness, headache(s) or weight gain ENT ENT: Negative for headache(s), dizziness, Nosebleed/epistaxis or balance problems Cardio Chest Pain: No Palpitations: No Edema: None Muscle aches with walking: None Resp Respiratory: Negative for SOB with activity, SOB at rest or SOB orthopnea SOB lying down GI GI: Negative nausea, vomiting or heartburn Musc Musc: Negative for muscle aches/ myalgia, muscle weakness, joint pain or balance problems Neuro Neuro: Negative for dizziness, lightheadedness, near syncope, syncope, headache(s) or weakness Endo Endo: Negative for fatigue Cardiology Exam Const Appearance: comfortable and no acute distress Nutritional Appearance: well nourish (more content not included)... Normal [facility] Pulmonary Visit Reporton Pulmonary Visit Report [facility] of [address] [place] [address] OFFICE VISIT Date of Service: 12/01/24 MR#: [id number] Acct: [id number] Name: LELA SHETH Rep #: [id number] : 1950 Provider: Dr. Rakesh Castellano DO Age/Sex: 74/F [place] [facility] Status: Signed Assessment and Plan Assessment and Plan (1) Pulmonary hypertension: Status: Suspected Plan: The patient was referred to our office by her primary care provider after chest imaging in March 2024 apparently demonstrated prominent central pulmonary arteries, for which there was concern that the patient could have underlying pulmonary hypertension. Nevertheless, the patient is asymptomatic from a respiratory perspective. She denies any shortness of breath, chest tightness, wheezing or cough. Pulmonary function studies never completed in June 2024 were unremarkable. Will obtain surface echocardiogram to evaluate for underlying pulmonary hypertension. If there is no evidence of such a finding, no additional workup or follow-up is recommended. Orders: Orders Echo Complete Today R06.02 - Shortness of breath HPI HPI Comments Details: The patient is a 74-year-old female who presents to the clinic today in referral for the evaluation of possible pulmonary hypertension. The patient reported that the end of March 2024 she was suffering from an upper respiratory infection which led her to have symptoms that included a cough and shortness of breath. A chest x- ray was completed by her primary care provider which demonstrated cardiomegaly and prominent central pulmonary arteries. Accordingly, the patient was referred to our office to be evaluated for possible pulmonary hypertension. At the present time, the patient reported that all of her prior reported respiratory symptoms have resolved. She denies any shortness of breath, chest tightness, wheezing or cough. She reported that she currently walks, on average, 1.5 miles per day. The patient is a lifelong non-smoker. She did not grow up in a smoking household. The patient has never previously been diagnosed with asthma. 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 Her weight and appetite have been stable. She denies any fevers, chills or night sweats. Intake Vital Signs 01/30/24 08:54 12/01/24 09:19 Height 5 ft 7 in 5 ft 7 in Weight: 185 lb BMI 29.0 BP 133/88 H Blood Pressure Location Lt brachial Position Sitting Respiration 20 H Pulse 84 Pulse Source Monitor Temp 96.9 F L Temperature Source Temporal Artery Pulse Oximetry (%) 94 Oxygen Delivery Method room air Intake Visit Reasons: Pulmonary Hypertension Pharmacy Services Director Required: No DME Vendor: n/a Accompanied by: Self Is patient in pain?: No Allergies Sulfa (Sulfonamide Antibiotics) Allergy (Unknown, Verified 12/01/24 10:57) Hives Medications ???Medication ???Instructions ???Recorded ???Confirmed ???Type omeprazole 20 mg capsule,delayed 20 mg PO DAILY 10/10/21 12/01/24 H istory release acetaminophen 325 mg tablet 650 mg PO ONCE PRN Pain 10/26/21 0 12/01/24 History (Tylenol) cephalexin 250 mg tablet 250 mg PO DAILY PRN UTI Prevention 10/26/21 12/01/24 History balsalazide 750 mg capsule 2,250 mg PO TID COLON 01/26/22 History ascorbic acid (vitamin C) 500 mg 500 mg PO DAILY 11/05/22 12/01/24 History tablet vibegron 75 mg tablet (Gemtesa) 75 mg PO DAILY OAB 11/05/22 History atorvastatin 20 mg tablet 20 mg PO QDAY 01/30/24 12/01/24 Hi story cholecalciferol (vitamin D3) 50 100 mcg PO QDAY 01/30/24 12/01/24 History mcg (2,000 unit) tablet cranberry fruit 400 mg capsule 800 mg PO DAILY 01/30/24 12/01/24 History metoprolol succinate 50 mg 50 mg PO DAILY #90 tabs 01/30/24 0 12/01/24 Rx tablet,extended release 24 hr Have you fallen in the past year?: No PFSH Medical History Preop cardiovascular exam Status post hysteroscopy ( 12/25/22) Wears glasses Post-menopausal Anxiety Arthritis Bladder disease Excessive bleeding Easy bruising Restless legs History of ulceration Non-smoker History of edema History of stress test History of echocardiogram History of irregular heartbeat Cardiology follow-up encounter Shortness of breath GERD (gastroesophageal reflux disease) Umbilical mass Ulcerative colitis Breast cancer Osteoporosis Mitral valve prolapse Mixed hyperlipidemia Surgical History History of tonsillectomy H/O LEEP History of arthroscopy of knee ( 2008) History of breast reconstruction ( 2009) History of mastectomy ( 11/2009) History of vein stripping ( 2010) History of knee replacement ( 2018) Hist (more content not included)... Normal [facility] Ext Non Vasc Limited/Soft Ti sson 10-28-2024 Ext Non Vasc Limited/Soft Tiss [facility] Imaging Services [address] [place], [place] [id number] Ext Non Vasc Limited/Soft Tiss MR#: [id number] Acct: [id number] Name: LELA SHETH Rep #: [id number] : 1950 F 74 From: Estuardo moon MD PCP: Dr. Reynaldo Garcia DO Status: REG CLI Study: Ext Non Vasc Limited/Soft Tiss Date of Exam: 0 10/28/24 Exam# [id number] Ordering Dr: Reynaldo Garcia DO PROCEDURE: EXT NON VASC LIMITED/SOFT TISS REASON FOR EXAM: LEFT LOWER LEG SOFT TISSUE MASS TECHNIQUE: Ultrasound imaging of the area of interest in the left lower extremity.. COMPARISON: None. FINDINGS: No sonographic abnormality is seen at the level of the palpable lump. There is evidence of varicose veins. US/Ext Non Vasc Limited/Soft Tiss IMPRESSION: No sonographic abnormality is present at the level of the palpable lump. Varicose veins. Reading Location: [place] [address] CC: Dr. Reynaldo Garcia DO Analytical Manager: Signed [facility] LABORATORYOrdered By: Khoa Breaux on 10-02-2024 Cholesterol [Mass/Vol] 167 mg/dL Normal 0 - 200 mg/dL AO ADM SS Comment on above: Interpretive Data: C holesterol Reference Interval: Less than 200 Desirable 200-239 Borderline high risk 240 and above High risk Cholesterol in HDL [Mass/Vol] 66 mg/dL High 40 - 60 mg/dL AO ADM SS Cholesterol in LDL [Mass/Vol] 88 mg/dL Normal 0 - 130 mg/dL AO ADM SS Triglyceride [Mass/Vol] 63 mg/dL Normal 0 - 150 mg/dL AO ADM SS Comment on above: Interpretive Data: T riglyceride Reference Interval: Less than 150 Normal 150-199 Borderline high risk 200-499 High risk 500 or higher Very high risk LIPIDon 10-02-2024 Cholesterol [Mass/Vol] 167 mg/dL Normal 0-200 [facility] Comment on above: Result Comment: Chol esterol Reference Interval: Less than 200 Desirable 200-239 Borderline high risk 240 and above High risk Performed By: #### L IPID #### [facility] [address] [place], [place] [address] Cholesterol in HDL [Mass/Vol] 66 mg/dL High 40-60 [facility] Comment on above: Performed By: #### L IPID #### [address] [address] Cholesterol in LDL [Mass/Vol] 88 mg/dL Normal 0-130 [facility] Comment on above: Performed By: #### L IPID #### [address] [address] Triglyceride [Mass/Vol] 63 mg/dL Normal 0-150 [facility] Comment on above: Result Comment: Trig lyceride Reference Interval: Less than 150 Normal 150-199 Borderline high risk 200-499 High risk 500 or higher Very high risk Performed By: #### L IPID #### [address] [address] .Auto Diffon 04-07-2024 Basophil, Absolute 0.1 10 3/mcL Normal 0.0-0.2 [facility] ([place]) Comment on above: Performed By: #### C BC, ADIFF, ANEU, BMP, VIDH, GFR, PBNP #### [address] [address] Basophils/100 WBC (Bld) 1.4 % Normal 0.0-2.5 [facility] ([place]) Comment on above: Performed By: #### C BC, ADIFF, ANEU, BMP, VIDH, GFR, PBNP #### [address] [address] Eosinophil, Absolute 0.1 10 3/mcL Normal 0.0-0.4 [facility] ([place]) Comment on above: Performed By: #### C BC, ADIFF, ANEU, BMP, VIDH, GFR, PBNP #### [address] [address] Eosinophils/100 WBC (Bld) 1.7 % Normal 0.0-7.0 [facility] ([place]) Comment on above: Performed By: #### C BC, ADIFF, ANEU, BMP, VIDH, GFR, PBNP #### [address] [address] Lymphocyte, Absolute 0.8 10 3/mcL Normal 0.8-3.9 [facility] ([place]) Comment on above: Performed By: #### C BC, ADIFF, ANEU, BMP, VIDH, GFR, PBNP #### [address] [address] Lymphocytes/100 WBC (Bld) 14.6 % Normal 10.0-50.0 [facility] ([place]) Comment on above: Performed By: #### C BC, ADIFF, ANEU, BMP, VIDH, GFR, PBNP #### [address] [address] Monocyte, Absolute 0.6 10 3/mcL Normal 0.2-1.0 [facility] ([place]) Comment on above: Performed By: #### C BC, ADIFF, ANEU, BMP, VIDH, GFR, PBNP #### [address] [address] Monocytes/100 WBC (Bld) 10.2 % Normal 1.7-13.0 [facility] ([place]) Comment on above: Performed By: #### C BC, ADIFF, ANEU, BMP, VIDH, GFR, PBNP #### [address] [address] Neutrophils/100 WBC (Bld) 72.1 % Normal 37.0-80.0 [facility] ([place]) Comment on above: Performed By: #### C BC, ADIFF, ANEU, BMP, VIDH, GFR, PBNP #### [address] [address] .GFRon 04-07-2024 GFR 78 ml/min/1.73sqm Normal [facility] ([place]) Comment on above: Result Comment: GFR Population mean for , Non- Americans Ages 20-29 = 116 mL/min/1.73 sq.m. Ages 30-39 = 107 mL/min/1.73 sq.m. Ages 40-49 = 99 mL/min/1.73 sq.m. Ages 50-59 = 93 mL/min/1.73 sq.m. Ages 60-69 = 85 mL/min/1.73 sq.m. Ages 70+ = 75 mL/min/1.73 sq.m. Chronic Kidney Disease: Less than 60 mL/min/1.73 square meters End Stage Renal Disease: Less than 15 mL/min/1.73 square meters Performed By: #### C BC, ADIFF, ANEU, BMP, VIDH, GFR, PBNP #### [address] [address] GFR Non- 64 ml/min/1.73sqm Normal [facility] ([place]) Comment on above: Result Comment: GFR Population mean for , Non- Americans Ages 20-29 = 116 mL/min/1.73 sq.m. Ages 30-39 = 107 mL/min/1.73 sq.m. Ages 40-49 = 99 mL/min/1.73 sq.m. Ages 50-59 = 93 mL/min/1.73 sq.m. Ages 60-69 = 85 mL/min/1.73 sq.m. Ages 70+ = 75 mL/min/1.73 sq.m. Chronic Kidney Disease: Less than 60 mL/min/1.73 square meters End Stage Renal Disease: Less than 15 mL/min/1.73 square meters Performed By: #### C BC, ADIFF, ANEU, BMP, VIDH, GFR, PBNP #### [address] [address] .NEUABSon 04-07-2024 Neutrophil, Absolute 4.0 10 3/mcL Normal 2.9-6.2 [facility] ([place] Comment on above: Performed By: #### C BC, ADIFF, ANEU, BMP, VIDH, GFR, PBNP #### [address] [address] BMPon 04-07-2024 BUN/Creatinine Ratio 20 ratio Normal 03-07 [facility] ([place] Comment on above: Performed By: #### C BC, ADIFF, ANEU, BMP, VIDH, GFR, PBNP #### [address] [address] Calcium [Mass/Vol] 9.3 mg/dL Normal 8.4-10.2 [facility] ([place]) Comment on above: Performed By: #### C BC, ADIFF, ANEU, BMP, VIDH, GFR, PBNP #### [address] [address] Chloride [Moles/Vol] 104 mmol/L Normal 98-107 [facility] ([place] Comment on above: Performed By: #### C BC, ADIFF, ANEU, BMP, VIDH, GFR, PBNP #### [place] [address] CO2 [Moles/Vol] 30 mmol/L Normal 23-31 [facility] ([place] Comment on above: Performed By: #### C BC, ADIFF, ANEU, BMP, VIDH, GFR, PBNP #### [place] [address] Creatinine [Mass/Vol] 0.87 mg/dL Normal 0.55-1.02 [facility] ([place] Comment on above: Performed By: #### C BC, ADIFF, ANEU, BMP, VIDH, GFR, PBNP #### [place] [address] Electrolyte Balance 8.0 mEq/L Normal 4.0-15.0 [facility] ([place]) Comment on above: Performed By: #### C BC, ADIFF, ANEU, BMP, VIDH, GFR, PBNP #### [place] [address] Glucose [Mass/Vol] 102 mg/dL Normal 83-110 [facility] ([place]) Comment on above: Performed By: #### C BC, ADIFF, ANEU, BMP, VIDH, GFR, PBNP #### [place] [address] Potassium [Moles/Vol] 4.1 mmol/L Normal 3.5-5.1 [facility] ([place] Comment on above: Performed By: #### C BC, ADIFF, ANEU, BMP, VIDH, GFR, PBNP #### [place] [address] Sodium [Moles/Vol] 142 mmol/L Normal 136-145 [facility] ([place] Comment on above: Performed By: #### C BC, ADIFF, ANEU, BMP, VIDH, GFR, PBNP #### [address] [address] Urea nitrogen [Mass/Vol] 17 mg/dL Normal 7-18 [facility] ([place] Comment on above: Performed By: #### C BC, ADIFF, ANEU, BMP, VIDH, GFR, PBNP #### [address] [address] CBCon 04-07-2024 Erythrocyte distribution width (RBC) [Ratio] 13.7 % Normal 11.5-14.5 [facility] ([place] Comment on above: Performed By: #### C BC, ADIFF, ANEU, BMP, VIDH, GFR, PBNP #### [address] [address] Hematocrit (Bld) [Volume fraction] 41.0 % Normal 37.0-47.0 [facility] ([place] Comment on above: Performed By: #### C BC, ADIFF, ANEU, BMP, VIDH, GFR, PBNP #### [address] [address] Hgb 13.7 G/dL Normal 12.0-16.0 [facility] ([place] Comment on above: Performed By: #### C BC, ADIFF, ANEU, BMP, VIDH, GFR, PBNP #### [address] [address] MCH (RBC) [Entitic mass] 29.3 pg Normal 27.0-31.2 [facility] ([place] Comment on above: Performed By: #### C BC, ADIFF, ANEU, BMP, VIDH, GFR, PBNP #### [address] [address] MCHC 33.3 G/dL Normal 33.0-37.0 [facility] ([place] Comment on above: Performed By: #### C BC, ADIFF, ANEU, BMP, VIDH, GFR, PBNP #### [address] [address] MCV (RBC) [Entitic vol] 87.9 fL Normal 80.0-94.0 [facility] ([place] Comment on above: Performed By: #### C BC, ADIFF, ANEU, BMP, VIDH, GFR, PBNP #### [address] [address] Platelet 281 10 3/mcL Normal 130-400 [facility] ([place] Comment on above: Performed By: #### C BC, ADIFF, ANEU, BMP, VIDH, GFR, PBNP #### [address] [address] Platelet mean volume (Bld) [Entitic vol] 8.7 fL Normal 7.4-10.4 [facility] ([place] Comment on above: Performed By: #### C BC, ADIFF, ANEU, BMP, VIDH, GFR, PBNP #### [address] [address] RBC 4.67 10 6/mcL Normal 4.20-5.40 [facility] ([place] Comment on above: Performed By: #### C BC, ADIFF, ANEU, BMP, VIDH, GFR, PBNP #### [address] [address] WBC 5.5 10 3/mcL Normal 4.6-10.8 [facility] ([place] Comment on above: Performed By: #### C BC, ADIFF, ANEU, BMP, VIDH, GFR, PBNP #### [address] [address] LABORATORYOrdered By: SYSTEM SYSTEM on 04-07-2024 25-hydroxyvitamin D3 [Mass/Vol] 37.0 ng/mL Invalid Interpretation Code AO ADM SS Comment on above: Interpretive Data: I nterpretive Values Based on Total 25(OH) Vitamin D: Deficient <20 ng/mL Insufficient 20 - <30 ng/mL Sufficient 30-100 ng/mL Basophil, Absolute 0.1 103/mcL Normal 0.0 - 0.2 10^3/mcL AO Workflow SS Basophils/100 WBC (Bld) 1.4 % Normal 0.0 - 2.5 % AO Workflow SS Calcium [Mass/Vol] 9.3 mg/dL Normal 8.4 - 10. 2 mg/dL AO ADM SS Chloride [Moles/Vol] 104 mmol/L Normal 98 - 107 mmol/L AO ADM SS CO2 [Moles/Vol] 30 mmol/L Normal 23 - 31 mmol/L AO ADM SS Creatinine [Mass/Vol] 0.87 mg/dL Normal 0.55 - 1.02 mg/dL AO ADM SS Electrolyte Balance 8.0 mEq/L Normal 4.0 - 15 .0 mEq/L AO ADM SS Eosinophil, Absolute 0.1 103/mcL Normal 0.0 - 0.4 10^3/mcL AO Workflow SS Eosinophils/100 WBC (Bld) 1.7 % Normal 0.0 - 7.0 % AO Workflow SS Erythrocyte distribution width (RBC) [Ratio] 13.7 % Normal 11.5 - 14.5 % AO Workflow SS GFR/1.73 sq M.predicted among blacks MDRD (S/P/Bld) [Vol rate/Area] 78 ml/min/1.73sqm Invalid Interpretation Code AO Chemistry S Comment on above: Interpretive Data: GFR Population mean for , Non- Americans Ages 20-29 = 116 mL/min/1.73 sq.m. Ages 30-39 = 107 mL/min/1.73 sq.m. Ages 40-49 = 99 mL/min/1.73 sq.m. Ages 50-59 = 93 mL/min/1.73 sq.m. Ages 60-69 = 85 mL/min/1.73 sq.m. Ages 70+ = 75 mL/min/1.73 sq.m. Chronic Kidney Disease: Less than 60 mL/min/1.73 square meters End Stage Renal Disease: Less than 15 mL/min/1.73 square meters GFR/1.73 sq M.predicted among non-blacks MDRD (S/P/Bld) [Vol rate/Area] 64 ml/min/1.73sqm Invalid Interpretation Code AO Chemistry S Comment on above: Interpretive Data: GFR Population mean for , Non- Americans Ages 20-29 = 116 mL/min/1.73 sq.m. Ages 30-39 = 107 mL/min/1.73 sq.m. Ages 40-49 = 99 mL/min/1.73 sq.m. Ages 50-59 = 93 mL/min/1.73 sq.m. Ages 60-69 = 85 mL/min/1.73 sq.m. Ages 70+ = 75 mL/min/1.73 sq.m. Chronic Kidney Disease: Less than 60 mL/min/1.73 square meters End Stage Renal Disease: Less than 15 mL/min/1.73 square meters Glucose [Mass/Vol] 102 mg/dL Normal 83 - 110 mg/dL AO ADM SS Hematocrit (Bld) [Volume fraction] 41.0 % Normal 37.0 - 47.0 % AO Workflow SS Hemoglobin (Bld) [Mass/Vol] 13.7 G/dL Normal 12.0 - 16.0 G/dL AO Workflow SS Lymphocyte, Absolute 0.8 103/mcL Normal 0.8 - 3.9 10^3/mcL AO Workflow SS Lymphocytes/100 WBC (Bld) 14.6 % Normal 10.0 - 50.0 % AO Workflow SS MCH (RBC) [Entitic mass] 29.3 pg Normal 27.0 - 31.2 pg AO Workflow SS MCHC 33.3 G/dL Normal 33.0 - 37.0 G/dL AO Workflow SS MCV (RBC) [Entitic vol] 87.9 fL Normal 80.0 - 94.0 fL AO Workflow SS Monocyte, Absolute 0.6 103/mcL Normal 0.2 - 1.0 10^3/mcL AO Workflow SS Monocytes/100 WBC (Bld) 10.2 % Normal 1.7 - 13.0 % AO Workflow SS Natriuretic peptide.B prohormone N-Terminal [Mass/Vol] 91 pg/mL Normal 0 - 125 pg/mL AO ADM SS Comment on above: Interpretive Data: N T-proBNP results of less than 300 pg/mL effectively rules out acute congestive heart failure with 99% negative predictive value. Neutrophil, Absolute 4.0 103/mcL Normal 2.9 - 6.2 10^3/mcL AO Workflow SS Neutrophils/100 WBC (Bld) 72.1 % Normal 37.0 - 80.0 % AO Workflow SS Platelet mean volume (Bld) [Entitic vol] 8.7 fL Normal 7.4 - 10.4 fL AO Workflow SS Platelets (Bld) [#/Vol] 281 103/mcL Normal 130 - 400 10^3/mcL AO Workflow SS Potassium [Moles/Vol] 4.1 mmol/L Normal 3.5 - 5.1 mmol/L AO ADM SS RBC (Bld) [#/Vol] 4.67 106/mcL Normal 4.20 - 5.40 10^6/mcL AO Workflow SS Sodium [Moles/Vol] 142 mmol/L Normal 136 - 145 mmol/L AO ADM SS Urea nitrogen [Mass/Vol] 17 mg/dL Normal 7 - 18 mg/dL AO ADM SS Urea nitrogen/Creatinine [Mass ratio] 20 ratio Normal 7 - 27 ratio AO ADM SS WBC (Bld) [#/Vol] 5.5 103/mcL Normal 4.6 - 10.8 10^3/mcL AO Workflow SS PBNPon 04-07-2024 Natriuretic peptide B (Bld) [Mass/Vol] 91 pg/mL Normal 0-125 [facility] ([place] Comment on above: Result Comment: NT-p roBNP results of less than 300 pg/mL effectively rules out acute congestive heart failure with 99% negative predictive value. Performed By: #### C BC, ADIFF, ANEU, BMP, VIDH, GFR, PBNP #### [address] [address] VIon 04-07-2024 Vit. D 25-Hydroxy 37.0 ng/mL Normal [facility] ([place] Comment on above: Result Comment: Inte rpretive Values Based on Total 25(OH) Vitamin D: Deficient <20 ng/mL Insufficient 20 - <30 ng/mL Sufficient 30-100 ng/mL Performed By: #### C BC, ADIFF, ANEU, BMP, VIDH, GFR, PBNP #### [address] [address] HFPon 04-03-2024 Bili Indirect 0.5 mg/dL Normal [facility] ([place] Comment on above: Performed By: #### H FP #### [address] [address] Albumin Level 3.4 G/dL Normal 3.4-4.8 [facility] ([place] Comment on above: Performed By: #### H FP #### [address] [address] Albumin/Globulin [Mass ratio] 0.9 {ratio} Low 1.1-2.5 [facility] ([place] Comment on above: Performed By: #### H FP #### [address] [address] ALP [Catalytic activity/Vol] 82 U/L Normal 40-135 [facility] ([place] Comment on above: Performed By: #### H FP #### [address] [address] ALT [Catalytic activity/Vol] 27 U/L Normal 14-59 [facility] ([place] Comment on above: Performed By: #### H FP #### [address] [address] AST [Catalytic activity/Vol] 15 U/L Normal 10-40 [facility] ([place] Comment on above: Performed By: #### H FP #### [address] [address] Bili Direct 0.2 mg/dL Normal 0.0-0.2 [facility] ([place] Comment on above: Result Comment: Use of this assay is not recommended for patients undergoing treatment with eltrombopag due to the potential for falsely elevated results. Performed By: #### H FP #### [address] [address] Bili Total 0.7 mg/dL Normal 0.2-1.0 [facility] ([place] Comment on above: Result Comment: Use of this assay is not recommended for patients undergoing treatment with eltrombopag due to the potential for falsely elevated results. Performed By: #### H FP #### [address] [address] Globulin 3.7 G/dL Normal [facility] ([place] Comment on above: Performed By: #### H FP #### [address] [address] Total Protein 7.1 G/dL Normal 6.4-8.2 [facility] ([place] Comment on above: Performed By: #### H FP #### [address] [address] LABORATORYOrdered By: SYSTEM SYSTEM on 04-03-2024 Albumin BCP dye [Mass/Vol] 3.4 G/dL Normal 3.4 - 4.8 G/dL AO ADM SS Albumin/Globulin [Mass ratio] 0.9 {ratio} Low 1.1 - 2.5 ratio AO ADM SS ALP [Catalytic activity/Vol] 82 U/L Normal 40 - 135 U/L AO ADM SS ALT With P-5'-P [Catalytic activity/Vol] 27 U/L Normal 14 - 59 U/L AO ADM SS AST With P-5'-P [Catalytic activity/Vol] 15 U/L Normal 10 - 40 U/L AO ADM SS Bilirubin [Mass/Vol] 0.7 mg/dL Normal 0.2 - 1.0 mg/dL AO ADM SS Comment on above: Interpretive Data: U se of this assay is not recommended for patients undergoing treatment with eltrombopag due to the potential for falsely elevated results. Bilirubin.direct [Mass/Vol] 0.5 mg/dL Invalid Interpretation Code AO Chemistry S Bilirubin.direct [Mass/Vol] 0.2 mg/dL Normal 0.0 - 0.2 mg/dL AO ADM SS Comment on above: Interpretive Data: U se of this assay is not recommended for patients undergoing treatment with eltrombopag due to the potential for falsely elevated results. Globulin 3.7 G/dL Invalid Interpretation Code AO ADM SS Protein [Mass/Vol] 7.1 G/dL Normal 6.4 - 8.2 G/dL AO ADM SS .Auto Diffon 01-09-2024 Basophil, Absolute 0.1 10 3/mcL Normal 0.0-0.2 [facility] ([place]) Comment on above: Performed By: #### V IDH, LIPID #### Edward [address] [address] Basophils/100 WBC (Bld) 1.0 % Normal 0.0-2.5 [facility] ([place] Comment on above: Performed By: #### V IDH, LIPID #### [address] [address] Eosinophil, Absolute 0.1 10 3/mcL Normal 0.0-0.4 [facility] ([place] Comment on above: Performed By: #### V IDH, LIPID #### [address] [address] Eosinophils/100 WBC (Bld) 2.9 % Normal 0.0-7.0 [facility] ([place] Comment on above: Performed By: #### V IDH, LIPID #### [address] [address] Lymphocyte, Absolute 1.0 10 3/mcL Normal 0.8-3.9 [facility] ([place] Comment on above: Performed By: #### V IDH, LIPID #### [address] [address] Lymphocytes/100 WBC (Bld) 19.3 % Normal 10.0-50.0 [facility] ([place] Comment on above: Performed By: #### V IDH, LIPID #### [address] [address] Monocyte, Absolute 0.5 10 3/mcL Normal 0.2-1.0 [facility] ([place] Comment on above: Performed By: #### V IDH, LIPID #### [address] [address] Monocytes/100 WBC (Bld) 10.0 % Normal 1.7-13.0 [facility] ([place] Comment on above: Performed By: #### V IDH, LIPID #### [address] [address] Neutrophils/100 WBC (Bld) 66.8 % Normal 37.0-80.0 [facility] ([place] Comment on above: Performed By: #### V IDH, LIPID #### [address] [address] .GFRon 01-09-2024 GFR 77 ml/min/1.73sqm Normal [facility] ([place] Comment on above: Result Comment: GFR Population mean for , Non- Americans Ages 20-29 = 116 mL/min/1.73 sq.m. Ages 30-39 = 107 mL/min/1.73 sq.m. Ages 40-49 = 99 mL/min/1.73 sq.m. Ages 50-59 = 93 mL/min/1.73 sq.m. Ages 60-69 = 85 mL/min/1.73 sq.m. Ages 70+ = 75 mL/min/1.73 sq.m. Chronic Kidney Disease: Less than 60 mL/min/1.73 square meters End Stage Renal Disease: Less than 15 mL/min/1.73 square meters Performed By: #### V IDH, LIPID #### [address] [address] GFR Non- 63 ml/min/1.73sqm Normal [facility] ([place] Comment on above: Result Comment: GFR Population mean for , Non- Americans Ages 20-29 = 116 mL/min/1.73 sq.m. Ages 30-39 = 107 mL/min/1.73 sq.m. Ages 40-49 = 99 mL/min/1.73 sq.m. Ages 50-59 = 93 mL/min/1.73 sq.m. Ages 60-69 = 85 mL/min/1.73 sq.m. Ages 70+ = 75 mL/min/1.73 sq.m. Chronic Kidney Disease: Less than 60 mL/min/1.73 square meters End Stage Renal Disease: Less than 15 mL/min/1.73 square meters Performed By: #### V IDH, LIPID #### [address] [address] .NEUABSon 01-09-2024 Neutrophil, Absolute 3.4 10 3/mcL Normal 2.9-6.2 [facility] ([place] Comment on above: Performed By: #### V IDH, LIPID #### [address] [address] CBCon 01-09-2024 Erythrocyte distribution width (RBC) [Ratio] 13.8 % Normal 11.5-14.5 [facility] ([place] Comment on above: Performed By: #### V IDH, LIPID #### [address] [address] Hematocrit (Bld) [Volume fraction] 42.2 % Normal 37.0-47.0 [facility] ([place] Comment on above: Performed By: #### V IDH, LIPID #### [address] [address] Hgb 14.5 G/dL Normal 12.0-16.0 [facility] ([place] Comment on above: Performed By: #### V IDH, LIPID #### [address] [address] MCH (RBC) [Entitic mass] 28.8 pg Normal 27.0-31.2 [facility] ([place] Comment on above: Performed By: #### V IDH, LIPID #### [address] [address] MCHC 34.4 G/dL Normal 33.0-37.0 [facility] ([place] Comment on above: Performed By: #### V IDH, LIPID #### [address] [address] MCV (RBC) [Entitic vol] 83.8 fL Normal 80.0-94.0 [facility] ([place] Comment on above: Performed By: #### V IDH, LIPID #### [address] [address] Platelet 218 10 3/mcL Normal 130-400 [facility] ([place] Comment on above: Performed By: #### V IDH, LIPID #### [address] [address] Platelet mean volume (Bld) [Entitic vol] 7.8 fL Normal 7.4-10.4 [facility] ([place] Comment on above: Performed By: #### V IDH, LIPID #### [address] [address] RBC 5.03 10 6/mcL Normal 4.20-5.40 [facility] ([place] Comment on above: Performed By: #### V IDH, LIPID #### [address] [address] WBC 5.1 10 3/mcL Normal 4.6-10.8 [facility] ([place] Comment on above: Performed By: #### V IDH, LIPID #### [address] [address] CMPon 01-09-2024 Albumin Level 3.9 G/dL Normal 3.4-4.8 [facility] ([place] Comment on above: Performed By: #### V IDH, LIPID #### [address] [address] Albumin/Globulin [Mass ratio] 1.1 {ratio} Normal 1.1-2.5 [facility] ([place] Comment on above: Performed By: #### V IDH, LIPID #### [address] [address] ALP [Catalytic activity/Vol] 70 U/L Normal 40-135 [facility] ([place] Comment on above: Performed By: #### V IDH, LIPID #### [address] [address] ALT [Catalytic activity/Vol] 24 U/L Normal 14-59 [facility] ([place] Comment on above: Performed By: #### V IDH, LIPID #### [address] [address] AST [Catalytic activity/Vol] 13 U/L Normal 10-40 [facility] ([place] Comment on above: Performed By: #### V IDH, LIPID #### [address] [address] Bili Total 1.0 mg/dL Normal 0.2-1.0 [facility] ([place] Comment on above: Result Comment: Use of this assay is not recommended for patients undergoing treatment with eltrombopag due to the potential for falsely elevated results. Performed By: #### V IDH, LIPID #### [address] [address] BUN/Creatinine Ratio 22 ratio Normal 7-27 [facility] ([place] Comment on above: Performed By: #### V IDH, LIPID #### [address] [address] Calcium [Mass/Vol] 8.9 mg/dL Normal 8.4-10.2 [facility] ([place] Comment on above: Performed By: #### V IDH, LIPID #### [address] [address] Chloride [Moles/Vol] 105 mmol/L Normal 98-107 [facility] ([place] Comment on above: Performed By: #### V IDH, LIPID #### [address] [address] CO2 [Moles/Vol] 29 mmol/L Normal 23-31 [facility] ([place] Comment on above: Performed By: #### V IDH, LIPID #### [address] [address] Creatinine [Mass/Vol] 0.88 mg/dL Normal 0.55-1.02 [facility] ([place] Comment on above: Performed By: #### V IDH, LIPID #### [address] [address] Electrolyte Balance 9.0 mEq/L Normal 4.0-15.0 [facility] ([place] Comment on above: Performed By: #### V IDH, LIPID #### [address] [address] Globulin 3.7 G/dL Normal [facility] ([place] Comment on above: Performed By: #### V IDH, LIPID #### [address] [address] Glucose [Mass/Vol] 103 mg/dL Normal 83-110 [facility] ([place] Comment on above: Performed By: #### V IDH, LIPID #### [address] [address] Potassium [Moles/Vol] 4.1 mmol/L Normal 3.5-5.1 [facility] ([place] Comment on above: Performed By: #### V IDH, LIPID #### [place] [address] [place], [place] [address] Sodium [Moles/Vol] 143 mmol/L Normal 136-145 [facility] ([place] Comment on above: Performed By: #### V IDH, LIPID #### [place] [address] [place], [place] [address] Total Protein 7.6 G/dL Normal 6.4-8.2 [facility] ([place] Comment on above: Performed By: #### V IDH, LIPID #### [place] [address] [place], [place] [address] Urea nitrogen [Mass/Vol] 19 mg/dL High 7-18 [facility] ([place] Comment on above: Performed By: #### V IDH, LIPID #### [address] [address] LABORATORYOrdered By: SYSTEM SYSTEM on 01-09-2024 25-hydroxyvitamin D3 [Mass/Vol] 23.5 ng/mL Invalid Interpretation Code AO ADM SS Comment on above: Interpretive Data: I nterpretive Values Based on Total 25(OH) Vitamin D: Deficient <20 ng/mL Insufficient 20 - <30 ng/mL Sufficient 30-100 ng/mL Albumin BCP dye [Mass/Vol] 3.9 G/dL Normal 3.4 - 4.8 G/dL AO ADM SS Albumin/Globulin [Mass ratio] 1.1 {ratio} Normal 1.1 - 2.5 ratio AO ADM SS ALP [Catalytic activity/Vol] 70 U/L Normal 40 - 135 U/L AO ADM SS ALT With P-5'-P [Catalytic activity/Vol] 24 U/L Normal 14 - 59 U/L AO ADM SS AST With P-5'-P [Catalytic activity/Vol] 13 U/L Normal 10 - 40 U/L AO ADM SS Basophil, Absolute 0.1 103/mcL Normal 0.0 - 0.2 10^3/mcL AO Workflow SS Basophils/100 WBC (Bld) 1.0 % Normal 0.0 - 2.5 % AO Workflow SS Bilirubin [Mass/Vol] 1.0 mg/dL Normal 0.2 - 1.0 mg/dL AO ADM SS Comment on above: Interpretive Data: U se of this assay is not recommended for patients undergoing treatment with eltrombopag due to the potential for falsely elevated results. Calcium [Mass/Vol] 8.9 mg/dL Normal 8.4 - 10. 2 mg/dL AO ADM SS Chloride [Moles/Vol] 105 mmol/L Normal 98 - 107 mmol/L AO ADM SS CO2 [Moles/Vol] 29 mmol/L Normal 23 - 31 mmol/L AO ADM SS Creatinine [Mass/Vol] 0.88 mg/dL Normal 0.55 - 1.02 mg/dL AO ADM SS Electrolyte Balance 9.0 mEq/L Normal 4.0 - 15 .0 mEq/L AO ADM SS Eosinophil, Absolute 0.1 103/mcL Normal 0.0 - 0.4 10^3/mcL AO Workflow SS Eosinophils/100 WBC (Bld) 2.9 % Normal 0.0 - 7.0 % AO Workflow SS Erythrocyte distribution width (RBC) [Ratio] 13.8 % Normal 11.5 - 14.5 % AO Workflow SS GFR/1.73 sq M.predicted among blacks MDRD (S/P/Bld) [Vol rate/Area] 77 ml/min/1.73sqm Invalid Interpretation Code AO Chemistry S Comment on above: Interpretive Data: GFR Population mean for , Non- Americans Ages 20-29 = 116 mL/min/1.73 sq.m. Ages 30-39 = 107 mL/min/1.73 sq.m. Ages 40-49 = 99 mL/min/1.73 sq.m. Ages 50-59 = 93 mL/min/1.73 sq.m. Ages 60-69 = 85 mL/min/1.73 sq.m. Ages 70+ = 75 mL/min/1.73 sq.m. Chronic Kidney Disease: Less than 60 mL/min/1.73 square meters End Stage Renal Disease: Less than 15 mL/min/1.73 square meters GFR/1.73 sq M.predicted among non-blacks MDRD (S/P/Bld) [Vol rate/Area] 63 ml/min/1.73sqm Invalid Interpretation Code AO Chemistry S Comment on above: Interpretive Data: GFR Population mean for , Non- Americans Ages 20-29 = 116 mL/min/1.73 sq.m. Ages 30-39 = 107 mL/min/1.73 sq.m. Ages 40-49 = 99 mL/min/1.73 sq.m. Ages 50-59 = 93 mL/min/1.73 sq.m. Ages 60-69 = 85 mL/min/1.73 sq.m. Ages 70+ = 75 mL/min/1.73 sq.m. Chronic Kidney Disease: Less than 60 mL/min/1.73 square meters End Stage Renal Disease: Less than 15 mL/min/1.73 square meters Globulin 3.7 G/dL Invalid Interpretation Code AO ADM SS Glucose [Mass/Vol] 103 mg/dL Normal 83 - 110 mg/dL AO ADM SS Hematocrit (Bld) [Volume fraction] 42.2 % Normal 37.0 - 47.0 % AO Workflow SS Hemoglobin (Bld) [Mass/Vol] 14.5 G/dL Normal 12.0 - 16.0 G/dL AO Workflow SS Lymphocyte, Absolute 1.0 103/mcL Normal 0.8 - 3.9 10^3/mcL AO Workflow SS Lymphocytes/100 WBC (Bld) 19.3 % Normal 10.0 - 50.0 % AO Workflow SS MCH (RBC) [Entitic mass] 28.8 pg Normal 27.0 - 31.2 pg AO Workflow SS MCHC 34.4 G/dL Normal 33.0 - 37.0 G/dL AO Workflow SS MCV (RBC) [Entitic vol] 83.8 fL Normal 80.0 - 94.0 fL AO Workflow SS Monocyte, Absolute 0.5 103/mcL Normal 0.2 - 1.0 10^3/mcL AO Workflow SS Monocytes/100 WBC (Bld) 10.0 % Normal 1.7 - 13.0 % AO Workflow SS Neutrophil, Absolute 3.4 103/mcL Normal 2.9 - 6.2 10^3/mcL AO Workflow SS Neutrophils/100 WBC (Bld) 66.8 % Normal 37.0 - 80.0 % AO Workflow SS Platelet mean volume (Bld) [Entitic vol] 7.8 fL Normal 7.4 - 10.4 fL AO Workflow SS Platelets (Bld) [#/Vol] 218 103/mcL Normal 130 - 400 10^3/mcL AO Workflow SS Potassium [Moles/Vol] 4.1 mmol/L Normal 3.5 - 5.1 mmol/L AO ADM SS Protein [Mass/Vol] 7.6 G/dL Normal 6.4 - 8.2 G/dL AO ADM SS RBC (Bld) [#/Vol] 5.03 106/mcL Normal 4.20 - 5.40 10^6/mcL AO Workflow SS Sodium [Moles/Vol] 143 mmol/L Normal 136 - 145 mmol/L AO ADM SS Urea nitrogen [Mass/Vol] 19 mg/dL High 7 - 18 mg/dL AO ADM SS Urea nitrogen/Creatinine [Mass ratio] 22 ratio Normal 7 - 27 ratio AO ADM SS WBC (Bld) [#/Vol] 5.1 103/mcL Normal 4.6 - 10.8 10^3/mcL AO Workflow SS LABORATORYOrdered By: Onur Carter on 01-09-2024 Cholesterol [Mass/Vol] 238 mg/dL High 0 - 200 mg/dL AO ADM SS Comment on above: Interpretive Data: C holesterol Reference Interval: Less than 200 Desirable 200-239 Borderline high risk 240 and above High risk Cholesterol in HDL [Mass/Vol] 58 mg/dL Normal 40 - 60 mg/dL AO ADM SS Cholesterol in LDL [Mass/Vol] 163 mg/dL High 0 - 130 mg/dL AO ADM SS Triglyceride [Mass/Vol] 87 mg/dL Normal 0 - 150 mg/dL AO ADM SS Comment on above: Interpretive Data: T riglyceride Reference Interval: Less than 150 Normal 150-199 Borderline high risk 200-499 High risk 500 or higher Very high risk LIPIDon 01-09-2024 Cholesterol [Mass/Vol] 238 mg/dL High 0-200 [facility] ([place]) Comment on above: Result Comment: Chol esterol Reference Interval: Less than 200 Desirable 200-239 Borderline high risk 240 and above High risk Performed By: #### V [facility], LIPID #### [address] [address] Cholesterol in HDL [Mass/Vol] 58 mg/dL Normal 40-60 [facility] ([place]) Comment on above: Performed By: #### V IDH, LIPID #### [facility] [address] [place], [place] [address] Cholesterol in LDL [Mass/Vol] 163 mg/dL High 0-130 [facility] ([place] Comment on above: Performed By: #### V IDH, LIPID #### [address] [address] Triglyceride [Mass/Vol] 87 mg/dL Normal 0-150 [facility] ([place] Comment on above: Result Comment: Trig lyceride Reference Interval: Less than 150 Normal 150-199 Borderline high risk 200-499 High risk 500 or higher Very high risk Performed By: #### V [facility], LIPID #### [address] [place], [place] [address] VIDHon 01-09-2024 Vit. D 25-Hydroxy 23.5 ng/mL Normal [facility] ([place] Comment on above: Result Comment: Inte rpretive Values Based on Total 25(OH) Vitamin D: Deficient <20 ng/mL Insufficient 20 - <30 ng/mL Sufficient 30-100 ng/mL Performed By: #### V [facility], LIPID #### [place] [id number] LABORATORYOrdered By: [employer] SYSTEM on 07-18-2023 25-hydroxyvitamin D3 [Mass/Vol] 25.8 ng/mL Invalid Interpretation Code AO ADM SS Comment on above: Interpretive Data: I nterpretive Values Based on Total 25(OH) Vitamin D: Deficient <20 ng/mL Insufficient 20 - <30 ng/mL Sufficient 30-100 ng/mL LABORATORYOrdered By: Rolando Sr on 07-18-2023 Cholesterol [Mass/Vol] 242 mg/dL High 0 - 200 mg/dL AO ADM Comment on above: Interpretive Data: C holesterol Reference Interval: Less than 200 Desirable 200-239 Borderline high risk 240 and above High risk Cholesterol in HDL [Mass/Vol] 65 mg/dL High 40 - 60 mg/dL AO ADM SS Cholesterol in LDL [Mass/Vol] 165 mg/dL High 0 - 130 mg/dL AO ADM SS Triglyceride [Mass/Vol] 58 mg/dL Normal 0 - 150 mg/dL AO ADM SS Comment on above: Interpretive Data: T riglyceride Reference Interval: Less than 150 Normal 150-199 Borderline high risk 200-499 High risk 500 or higher Very high risk LIPIDon 07-18-2023 Cholesterol [Mass/Vol] 242 mg/dL High 0-200 [facility] ([place] Comment on above: Result Comment: Chol esterol Reference Interval: Less than 200 Desirable 200-239 Borderline high risk 240 and above High risk Performed By: #### V [facility], LIPID #### [address] [address] Cholesterol in HDL [Mass/Vol] 65 mg/dL High 40-60 [facility] ([place] Comment on above: Performed By: #### V [facility], LIPID #### [address] [address] Cholesterol in LDL [Mass/Vol] 165 mg/dL High 0-130 [facility] ([place] Comment on above: Performed By: #### V [facility], LIPID #### [address] [address] Triglyceride [Mass/Vol] 58 mg/dL Normal 0-150 [facility] ([place] Comment on above: Result Comment: Trig lyceride Reference Interval: Less than 150 Normal 150-199 Borderline high risk 200-499 High risk 500 or higher Very high risk Performed By: #### V [facility], LIPID #### [address] [address] VIDHon 07-18-2023 Vit. D 25-Hydroxy 25.8 ng/mL Normal [facility] ([place] Comment on above: Result Comment: Inte rpretive Values Based on Total 25(OH) Vitamin D: Deficient <20 ng/mL Insufficient 20 - <30 ng/mL Sufficient 30-100 ng/mL Performed By: #### V [facility], LIPID #### [address] [address] Cervical or vagninal specime n microscopic examination by cytology stain (reported asOrdered By: Dr. Hoang on 11-05-2022 Cytology report Cyto stain Doc (Cvx/Vag) Comment . [facility] Comment on above: The Pap smear is a s creening test designed to aid in thedetection of premalignant and malignant conditions of theuterine cervix. It is not a diagnostic procedure andshould not be used as the sole means of detecting cervicalcancer. Both false-positive and false-negative reports dooccur. Detection in cervical specim en of any of human papilloma virus (HPV) 16, 18, 31, 33,Ordered By: Dr. Hoang on 11-05-2022 HPV 16+18+31+33+35+39+4 5+51+52+56+58+59+66 +68 DNA Probe+sig amp Ql (Cvx) Negative Negative [facility] Comment on above: This nucleic acid am plification test detects fourteen high- risk HPV types (16,18,31,33,35,39,45,51,52,56,58,59,66,68)without differentiation. Laboratory - CytologyOrdered By: Dr. Hoang on 11-05-2022 Tents Assembler Cyto stain Nom (Cvx/Vag) [ID] Comment . [facility] Comment on above: Hina Greco, Cyto technologist (ASCP) Laboratory - Miscellaneous t estsOrdered By: Dr. Hoang on 11-05-2022 Service comment (Unsp spec) [Interp] Comment . [facility] Comment on above: This liquid based Th inPrep(R) pap test was screened withthe use of an image guided system. Service comment (Unsp spec) [Interp] . . [facility] Liquid-based cerv Pap + CT/G C by CASH w reflex to high-risk HPV for ASCUSOrdered By: Dr. Hoang on 11-05-2022 Cytology report Cyto stain.thin prep Doc (Cvx/Vag) Comment . [facility] Comment on above: Criteria not met, HP V Genotype not performed.Performed at: [facility] [id number] Director: Barbara Villa MD, Phone: [phone] at: =[place] - [facility] [id number] Director: Barbara Villa MD, Phone: [phone] No Panel InformationOrdered By: Dr. Hoang on 11-05-2022 Pathology report final diagnosis Narrative Comment . [facility] Comment on above: NEGATIVE FOR INTRAEP ITHELIAL LESION OR MALIGNANCY. Basophil percentageOrdered B y: Dr. Tong on 10-25-2022 Basophil percentage < 0.9 mg/dL 0.55-1.02 [facility] No Panel InformationOrdered By: Dr. Tong on 10-25-2022 Bedside Estimated GFR (eGFR) > 60.0000 mL/min >60 [facility] Basophil percentageon 2021 Chloride [Moles/Vol] 109 mmol/L 98-107 [facility] Work Phone: Glucose [Mass/Vol] 100 mg/dL 74-106 [facility] Work Phone: Comment on above: Fasting Glucose resu lt from 100 to 125 mg/dL suggests IMPAIRED HOMEOSTASIS per A.D.A. criteria. Potassium [Moles/Vol] 3.7 mmol/L 3.5-5.1 [facility] Work Phone: Sodium [Moles/Vol] 141 mmol/L 136-145 [facility] Work Phone: WBC (Bld) [#/Vol] 4.6 10*3/uL 4.4-11.0 [facility] Work Phone: Blood erythrocytes count (nu mber/volume)on 02-14-2022 RBC (Bld) [#/Vol] 4.88 10*6/uL 4.2-5.4 [facility] Work Phone: Blood hemoglobin measurement (mass/volume)on 02-14-2022 Hemoglobin (Bld) [Mass/Vol] 13.9 g/dL 12.0-15.0 [facility] Work Phone: Blood platelet mean volumeon 02-14-2022 Platelet mean volume (Bld) [Entitic vol] 9.8 fL 6.2-12.0 [facility] Work Phone: Determination of erythrocyte mean corpuscular volume (MCV)on 02-14-2022 MCV (RBC) [Entitic vol] 86.7 fL 81-99 [facility] Work Phone: Hematocrit Auto (Bld) [Volum e fraction]on 02-14-2022 Hematocrit (Bld) [Volume fraction] 42.3 % 37-47 [facility] Work Phone: Laboratory - Chemistry and C hemistry - challengeon 02-14-2022 CO2 [Moles/Vol] 26.0 mmol/L 21.0-32.0 [facility] Work Phone: Urea nitrogen/Creatinine [Mass ratio] 22.2 mg/mg 10-20 [facility] Work Phone: Laboratory - Hematology and Cell countson 02-14-2022 Erythrocyte distribution width (RBC) [Entitic vol] 43.0 fL 35.1-43.9 [facility] Work Phone: Erythrocyte distribution width (RBC) [Ratio] 13.5 % 11.6-14.6 [facility] Work Phone: MCH (RBC) [Entitic mass] 28.5 pg 27.0-32.0 [facility] Work Phone: MCHC Auto (RBC) [Mass/Vol]on 02-14-2022 MCHC (RBC) [Mass/Vol] 32.9 g/dL 32-36 [facility] Work Phone: No Panel Informationon 02-14 Estimated GFR (MDRD) Amer 96 mL/min >60 [facility] Work Phone: Comment on above: GFR Calc Estimated GFR (MDRD) Non-Af Amer 79 mL/min >60 [facility] Work Phone: Comment on above: Non- GFR Calc Platelets bldon 02-14-2022 Platelets (Bld) [#/Vol] 235 10*3/uL 150-450 [facility] Work Phone: Serum or plasma calcium saad urement (mass/volume)on 02-14-2022 Calcium [Mass/Vol] 9.1 mg/dL 8.5-10.1 [facility] Work Phone: Serum or plasma creatinine m easurement (mass/volume)on 02-14-2022 Creatinine [Mass/Vol] 0.77 mg/dL 0.55-1.02 [facility] Work Phone: Comment on above: The validity of the calculated GFR & GFRAA in patients over 70 years has not been determined. Clinical correlation is essential. Serum or plasma urea nitroge n measurement (mass/volume)on 02-14-2022 Urea nitrogen [Mass/Vol] 17 mg/dL -18 [facility] Work Phone: Thin prep Papanicolaou smear with manual screeningon 02-14-2022 Thin prep Papanicolaou smear with manual screening 01 14-15 [facility] Work Phone: LABORATORYOrdered By: Alesia Martinez on 06-01-2021 Basophil, Absolute 0.10 103/mcL Invalid Interpretation Code 0.00 - 0.19 10^3/mcL AO Auto Heme SS Basophils/100 WBC (Bld) 1.1 % Invalid Interpretation Code 0.0 - 2.5 % AO Auto Heme SS Eosinophil, Absolute 0.10 103/mcL Invalid Interpretation Code 0.00 - 0.40 10^3/mcL AO Auto Heme SS Eosinophils/100 WBC (Bld) 2.1 % Invalid Interpretation Code 0.0 - 7.0 % AO Auto Heme SS Erythrocyte distribution width (RBC) [Ratio] 14.0 % Invalid Interpretation Code 11.5 - 14.5 % AO Auto Heme SS Hematocrit (Bld) [Volume fraction] 42.6 % Invalid Interpretation Code 37.0 - 47.0 % AO Auto Heme SS Hemoglobin (Bld) [Mass/Vol] 14.2 G/dL Invalid Interpretation Code 12.0 - 16.0 G/dL AO Auto Heme SS Lymphocyte, Absolute 1.50 103/mcL Invalid Interpretation Code 0.77 - 3.85 10^3/mcL AO Auto Heme SS Lymphocytes/100 WBC (Bld) 27.1 % Invalid Interpretation Code 10.0 - 50.0 % AO Auto Heme SS MCH (RBC) [Entitic mass] 28.9 pg Invalid Interpretation Code 27.0 - 31.2 pg AO Auto Heme SS MCHC (RBC) [Mass/Vol] 33.4 G/dL Invalid Interpretation Code 33.0 - 37.0 G/dL AO Auto Heme SS MCV (RBC) [Entitic vol] 86.5 fL Invalid Interpretation Code 80.0 - 94.0 fL AO Auto Heme SS Monocyte, Absolute 0.60 103/mcL Invalid Interpretation Code 0.15 - 1.00 10^3/mcL AO Auto Heme SS Monocytes/100 WBC (Bld) 10.3 % Invalid Interpretation Code 1.7 - 13.0 % AO Auto Heme SS Neutrophil, Absolute 3.20 103/mcL Invalid Interpretation Code 2.85 - 6.16 10^3/mcL AO Auto Heme SS Neutrophils/100 WBC (Bld) 59.4 % Invalid Interpretation Code 37.0 - 80.0 % AO Auto Heme SS Platelet mean volume (Bld) [Entitic vol] 8.3 fL Invalid Interpretation Code 7.4 - 10.4 fL AO Auto Heme SS Platelets (Bld) [#/Vol] 242 103/mcL Invalid Interpretation Code 130 - 400 10^3/mcL AO Auto Heme SS RBC (Bld) [#/Vol] 4.93 106/mcL Invalid Interpretation Code 4.20 - 5.40 10^6/mcL AO Auto Heme SS WBC (Bld) [#/Vol] 5.40 103/mcL Invalid Interpretation Code 4.60 - 10.80 10^3/mcL AO Auto Heme SS LABORATORYOrdered By: Tristan Kumar on 06-01-2021 Calcium [Mass/Vol] 9.0 mg/dL Invalid Interpretation Code 8.4 - 10.2 mg/dL AO ADM SS Chloride [Moles/Vol] 106 mmol/L Invalid Interpretation Code 98 - 107 mmol/L AO ADM SS CO2 [Moles/Vol] 30 mmol/L Invalid Interpretation Code 23 - 31 mmol/L AO ADM SS Creatinine [Mass/Vol] 0.79 mg/dL Invalid Interpretation Code 0.55 - 1.02 mg/dL AO ADM SS Electrolyte Balance 8.0 mEq/L Invalid Interpretation Code AO ADM SS Glucose [Mass/Vol] 102 mg/dL Invalid Interpretation Code 80 - 115 mg/dL AO ADM SS Potassium [Moles/Vol] 3.9 mmol/L Invalid Interpretation Code 3.5 - 5.1 mmol/L AO ADM SS Sodium [Moles/Vol] 144 mmol/L Invalid Interpretation Code 136 - 145 mmol/L AO ADM SS TSH Qn 1.71 m[IU]/L Invalid Interpretation Code 0.36 - 3.74 mcIU/mL AO ADM SS Urea nitrogen [Mass/Vol] 14 mg/dL Invalid Interpretation Code 7 - 18 mg/dL AO ADM SS Urea nitrogen/Creatinine [Mass ratio] 18 ratio Invalid Interpretation Code 7 - 27 ratio AO ADM SS LABORATORYOrdered By: SYSTEM SYSTEM on 06-01-2021 GFR 87 ml/min/1.73sqm Invalid Interpretation Code AO Chemistry S GFR Non- 72 ml/min/1.73sqm Invalid Interpretation Code AO Chemistry S Established Visit (Gastroent erology)on 10-27-2019 Established Visit (Gastroenterology) Diagnoses/Problems Assessed Family history of malignant neoplasm of colon (V16.0) (Z80.0) : Mother, Father MOTHER- DX AT AGE 72 FATHER- DX AT AGE 77 Patient Discussion/Summary Impression: 1. Chronic ulcerative proctosigmoiditis 2. GERD 3. Family history of colon cancer-both parents Recommendation: 1. Continue balsalazide 750 mg 2 capsules 3 times a day. He one year prescription was sent to your pharmacy 2. Consider discontinuing omeprazole and only using if you have heartburn type symptoms. 3. Return to office in one year for recheck Chief Complaint Ulcerative proctosigmoiditis, GERD History of Present Illness 69-year-old female has been well-controlled on balsalazide for chronic ulcerative proctosigmoiditis diagnosed by colonoscopy in November 2018. At that time she had a two-month history of bloody diarrhea.. She's taking 2 tablets 3 times a day. She denies any bleeding, abdominal pain, or fever. Bowel movements are about once a day and formed. She has a history of long-standing GERD and been on omeprazole for 8 years. She has not had any dysphagia, regurgitation, or heartburn symptoms for many years. She has a family history of both parents with colon cancer. Review of Systems ROS: Const: Denies fatigue, fever and weight loss. CV: Denies chest pain, pacemaker, palpitations and valvular heart disease. Resp: Denies cough, sleep apnea, SOB and snoring. GI: Denies symptoms other than stated above. Musculo: Denies joint pain and muscle pain. Has pain in left knee after a surgery Skin: Denies hives and rash. Neuro: Denies seizures and stroke. Psych: Denies anxiety and depression. Endocrine: Denies intolerance to cold, hot flashes and impaired glucose tolerance. Irving/Lymph: Denies anemia, blood transfusions, chemotherapy, enlarged lymph nodes and radiation treatment of any kind. Active Problems Problems Constipation (564.00) (K59.00) Overflow diarrhea (787.91) (R19.7) Rectal bleeding (569.3) (K62.5) Ulcerative rectosigmoiditis with rectal bleeding (556.3) (K51.311) Past Medical History Problems History of breast cancer (V10.3) (Z85.3) 2009 History of colon polyps (V12.72) (Z86.010) Denied: History of complications due to general anesthesia History of hemorrhoids (V13.89) (Z87.19) History of mitral valve prolapse (V12.59) (Z86.79) History of osteoarthritis (V13.4) (Z87.39) History of Overactive bladder (596.51) (N32.81) Surgical History Problems History of Breast reconstruction 2009 AND REFINED 2010 History of Colonoscopy 2008- - colon polyps, hemorrhoids , 2011- NORMAL, HEMORRHOIDS, 2016- NORMAL, HEMORRHOIDS- 2019- MODERATE ACTIVE [facility].C. Denied: History of Esophagogastroduodenoscopy History of Foot surgery RIGHT- TOE- 2009 History of Jaw surgery IN SIXTH GRADE History of Knee replacement LEFT --- DECEMBER 17- 2018 History of Knee surgery SCOPE RIGHT - 2008 SCOPE - LEFT - 2014 History of Mastectomy bilateral 2010- CANCER History of Tonsillectomy with adenoidectomy History of Tubal ligation 1983 History of Varicose vein ligation 2010 Family History Mother Family history of BOTH - COLON CANCER Family history of malignant neoplasm of colon (V16.0) (Z80.0) MOTHER- DX AT AGE 72 FATHER- DX AT AGE 77 Father Family history of BOTH - COLON CANCER Family history of malignant neoplasm of colon (V16.0) (Z80.0) MOTHER- DX AT AGE 72 FATHER- DX AT AGE 77 Social History Problems Active advance directive (V49.89) (Z78.9) History of tattoo (709.09) (L81.8) NIPPLES No alcohol use No illicit drug use Non-smoker (V49.89) (Z78.9) Occasional caffeine consumption Well balanced diet (V49.89) (Z78.9) Allergies Medication Sulfa Drugs Recorded By: Sara Luo; 10/27/2018 3:06:59 PM NonMedication No Known Food Allergies Recorded By: Sara Luo; 10/27/2018 3:06:59 PM Current Meds Medication NameInstruction Balsalazide Disodium 750 MG Oral CapsuleTake 2 capsules 3 times a day for colitis Keflex 250 MG Oral CapsulePRN AFTER SEXUAL INTERCOURSE Multi Complete Oral Capsule Myrbetriq 50 MG Oral Tablet Extended Release 24 Hour PriLOSEC 20 MG CPDRone daily Vitamin C TABS Vitals Vital Signs Recorded: 27Oct2019 09:19AM Iyoqackzydj29.7 F Heart Rate92 Ygqsvdhd083 Ncasjbjpe20 Rdflac759 lb BMI Xfccyuvhfy69.61 BSA Calculated1.93 O2 Qeuwdmadhd34 Physical Exam Exam: Const: . Vital signs and weight reviewed. ENMT: Oral mucosa moist with no thrush and no mucositis. Neck: Supple and symmetric. Thyroid is normal in size and texture. Resp: Respiration rate is normal. Clear to auscultation. CV: Rhythm is regular. No heart murmur appreciated. Carotids: 2+ and equal bilaterally, without bruits. Femorals: 2+ and equal bilaterally, without bruits. Abdomen: Positive bowel sounds in all quadrants. No bruits. Normal to percussion. Abdomen is soft, nontender, and nondistended. No abdominal masses. No hernias. No palpable hepatosplenomegaly. Anus/Perineum/Rectum: Exam deferred. Lymph: No visible or palpable cervical lymphadenopathy. Inguinal nodes not palpable. Skin: Dry and warm with no nodularity or rash. Psych: Affect is normal. Alert and oriented x3. Neuro: Cranial nerves intact. No focal motor defects Muscloskeletal: No joint deformity or swelling. Motor strength normal. Signatures Electronically signed by : Michael Khanna DO; Oct 27 2019 9:48AM EST (Author) Normal Pencil You In Established Visit (Gastroent erology)on 05-05-2019 Established Visit (Gastroenterology) Chief Complaint Ulcerative proctosigmoiditis History of Present Illness 69-year-old female seen in recheck for chronic ulcerative proctosigmoiditis. This was diagnosed in November she began having rectal bleeding. She responded very well to mesalamine enemas and currently has been on maintenance balsalazide therapy. Bowel movements are daily and formed. There is no blood in the stool or abdominal pain. Her constipation issue cleared up after being off narcotics from her knee surgery. She denies any heartburn on Prilosec. Been back to work 3 days a week and doing very well at this time. Review of Systems ROS: Const: Denies fatigue, fever and weight loss. CV: Denies chest pain, pacemaker, palpitations and valvular heart disease. Resp: Denies cough, sleep apnea, SOB and snoring. GI: Denies symptoms other than stated above. Active Problems Constipation (564.00) (K59.00) Overflow diarrhea (787.91) (R19.7) Rectal bleeding (569.3) (K62.5) Ulcerative rectosigmoiditis with rectal bleeding (556.3) (K51.311) Past Medical History History of breast cancer (V10.3) (Z85.3) 2009 History of colon polyps (V12.72) (Z86.010) Denied: History of complications due to general anesthesia History of hemorrhoids (V13.89) (Z87.19) History of mitral valve prolapse (V12.59) (Z86.79) History of osteoarthritis (V13.4) (Z87.39) Surgical History History of Breast reconstruction 2009 AND REFINED 2010 History of Colonoscopy 2008- - colon polyps, hemorrhoids , 2011- NORMAL, HEMORRHOIDS, 2016- NORMAL, HEMORRHOIDS- 2019- MODERATE ACTIVE U.C. Denied: History of Esophagogastroduodenoscopy History of Foot surgery RIGHT- TOE- 2009 History of Jaw surgery IN SIXTH GRADE History of Knee replacement LEFT --- DECEMBER 17- 2018 History of Knee surgery SCOPE RIGHT - 2008 SCOPE - LEFT - 2014 History of Mastectomy bilateral 2010- CANCER History of Tonsillectomy with adenoidectomy History of Tubal ligation 1983 History of Varicose vein ligation 2010 Family History Family history of BOTH - COLON CANCER Family history of BOTH - COLON CANCER Family history of malignant neoplasm of colon (V16.0) (Z80.0) MOTHER- DX AT AGE 72 FATHER- DX AT AGE 77 Social History Active advance directive (V49.89) (Z78.9) History of tattoo (709.09) (L81.8) NIPPLES No alcohol use No illicit drug use Non-smoker (V49.89) (Z78.9) Occasional caffeine consumption Well balanced diet (V49.89) (Z78.9) Allergies Sulfa Drugs Recorded By: Sara Luo; 10/27/2018 3:06:59 PM No Known Food Allergies Recorded By: Sara Luo; 10/27/2018 3:06:59 PM Current Meds Gabapentin 300 MG Oral Capsule; one daily; Therapy: (Recorded:05May2019) to Recorded Dispense: 0 Days ; #: Sufficient Capsule; Refill: 0;For: PSH: Knee replacement; LAURA = N; Record; Last Updated By: Sara Luo; 05/05/2019 10:10:11 AM Vitamin C TABS; Therapy: (Recorded:05May2019) to Recorded Dispense: 0 Days ; #: Sufficient; Refill: 0;For: PSH: Knee replacement; LAURA = N; Record; Last Updated By: Sara Luo; 05/05/2019 10:10:11 AM Acetaminophen CAPS; 500 MG EVERY 6 HOURS NEEDED; Therapy: (Recorded:03Feb2019) to Recorded Dispense: 0 Days ; #: Sufficient Each; Refill: 0;For: PSH: Knee surgery; LAURA = N; Record; Last Updated By: Sara Luo; 05/05/2019 10:10:11 AM oxyCODONE HCl - 5 MG Oral Capsule; EVERY 4 HOURS NEEDED- POST OP; Therapy: (Recorded:03Feb2019) to Recorded Dispense: 0 Days ; #: Sufficient Capsule; Refill: 0;For: PSH: Knee surgery; LAURA = N; Record; Last Updated By: Sara Luo; 05/05/2019 10:10:11 AM Balsalazide Disodium 750 MG Oral Capsule; Take 2 capsules 3 times a day for colitis; Therapy: 03Feb2019 to (Evaluate:[id number]) Requested for: 03Feb2019; Last Rx:03Feb2019 Ordered Rx By: Michael Khanna; Dispense: 90 Days ; #:540 Capsule; Refill: 3;For: Ulcerative rectosigmoiditis with rectal bleeding; LAURA = N; Verified Transmission to [address]; Last Updated By: Florinda Alves; 05/05/2019 10:10:11 AM PriLOSEC 20 MG CPDR; one daily; Therapy: (Recorded:05May2019) to Recorded Dispense: 0 Days ; #: Sufficient Each; Refill: 0; LAURA = N; Record; Last Updated By: Sara Luo; 05/05/2019 10:10:10 AM Vitals Vital Signs Recorded: [id number] 10:06AM Heart Rate88 Yazgpvlp746 Dpbhqwbia47 Height5 ft 8 in Ivzcuc170 lb BMI Bhjegqmnsy86.7 BSA Calculated1.9 O2 Brspteltgc58, RA Physical Exam Exam: Const: . Vital signs and weight reviewed. BMI is 25 ENMT: Oral mucosa moist with no thrush and no mucositis. Resp: Respiration rate is normal. Clear to auscultation. CV: Rhythm is regular. No heart murmur appreciated. Carotids: 2+ and equal bilaterally, without bruits. Femorals: 2+ and equal bilaterally, without bruits. Abdomen: Positive bowel sounds in all quadrants. No bruits. Normal to percussion. Abdomen is soft, nontender, and nondistended. No abdominal masses. No hernias. No palpable hepatosplenomegaly. Diagnoses/Problems History of Knee replacement LEFT --- DECEMBER 172018 Orders PSH: Knee surgery Stop: Acetaminophen CAPS Dispense: 0 Days ; #: Sufficient Each; Refill: 0;For: PSH: Knee surgery; LAURA = N; Record; Last Updated By: Sara Luo; 05/05/2019 10:10:11 AM Stop: oxyCODONE HCl - 5 MG Oral Capsule Dispense: 0 Days ; #: Sufficient Capsule; Refill: 0;For: PSH: Knee surgery; LAURA = N; Record; Last Updated By: Sara Luo; 05/05/2019 10:10:11 AM Provider Impressions Impression: 1. Chronic ulcerative proctosigmoiditis-stable 2. GERD without esophagitis Recommendation: 1. Continue balsalazide 750 mg 2 tablets 3 times a day. Medical therapy discussed. 2. Continue Prilosec 20 mg daily for reflux 3. Return to office in 6 months or sooner if needed Patient Discussion/Summary Continue balsalazide 750 mg 2 capsules 3 times a day for your colitis. Continue Prilosec 20 mg daily for reflux. Return to office in 6 months for recheck. Signatures Electronically signed by : Michael Khanna DO; May 05 2019 10:28AM EST (Author) [facility] center Established Visit (Gastroent erology)on 02-03-2019 Established Visit (Gastroenterology) Chief Complaint Ulcerative proctosigmoiditis History of Present Illness 68-year-old female has a history of rectal bleeding and diarrhea dating back to September. She had a colonoscopy examination November 17 that demonstrated ulcerative proctosigmoiditis. She was started on mesalamine 4 g enemas nightly. After about 4 enemas she had no further bleeding. Patient was switched to mesalamine 1.2 g 2 capsules every morning. She underwent a total left knee arthroplasty on December 17. Postoperatively she's been on opioids for control of pain area did she reports her bowel movements are about 2 a day. They're formed. There is no bleeding or abdominal pain. Her GERD is under control with omeprazole. She denies dysphagia, regurgitation, or vomiting. Review of Systems ROS: Const: Denies fatigue, fever and weight loss. CV: Denies chest pain, pacemaker, palpitations and valvular heart disease. Resp: Denies cough, sleep apnea, SOB and snoring. GI: Denies symptoms other than stated above. Musculo: Reports pain from her left knee replacement. Skin: Denies hives and rash. Neuro: Denies seizures and stroke. Psych: Denies anxiety and depression. Endocrine: Denies intolerance to cold, hot flashes and impaired glucose tolerance. Irving/Lymph: Denies anemia, blood transfusions, chemotherapy, enlarged lymph nodes and radiation treatment of any kind. Active Problems Constipation (564.00) (K59.00) Overflow diarrhea (787.91) (R19.7) Rectal bleeding (569.3) (K62.5) Ulcerative rectosigmoiditis with rectal bleeding (556.3) (K51.311) Past Medical History History of breast cancer (V10.3) (Z85.3) 2010 History of colon polyps (V12.72) (Z86.010) Denied: History of complications due to general anesthesia History of hemorrhoids (V13.89) (Z87.19) History of mitral valve prolapse (V12.59) (Z86.79) History of osteoarthritis (V13.4) (Z87.39) Surgical History History of Breast reconstruction 2009 AND REFINED 2010 History of Colonoscopy 2008- mds- colon polyps, hemorrhoids , 2012- NORMAL, HEMORRHOIDS, 2017- NORMAL, HEMORRHOIDS- 2019- MODERATE ACTIVE U.C. Denied: History of Esophagogastroduodenoscopy History of Foot surgery RIGHT- TOE- 2010 History of Jaw surgery IN SIXTH GRADE History of Knee replacement LEFT --- DECEMBER 17- 2018 History of Knee surgery SCOPE RIGHT - 2008 SCOPE - LEFT - 2014 History of Mastectomy bilateral 2010- CANCER History of Tonsillectomy with adenoidectomy History of Tubal ligation 1984 History of Varicose vein ligation 2010 Family History Family history of BOTH - COLON CANCER Family history of BOTH - COLON CANCER Family history of malignant neoplasm of colon (V16.0) (Z80.0) MOTHER- DX AT AGE 72 FATHER- DX AT AGE 77 Social History Active advance directive (V49.89) (Z78.9) History of tattoo (709.09) (L81.8) NIPPLES No alcohol use No illicit drug use Non-smoker (V49.89) (Z78.9) Occasional caffeine consumption Well balanced diet (V49.89) (Z78.9) Allergies Sulfa Drugs Recorded By: Sara Luo; 10/27/2018 3:06:59 PM No Known Food Allergies Recorded By: Sara Luo; 10/27/2018 3:06:59 PM Current Meds Acetaminophen CAPS; 500 MG EVERY 6 HOURS NEEDED; Therapy: (Recorded:03Feb2019) to Recorded Dispense: 0 Days ; #: Sufficient Each; Refill: 0;For: PSH: Knee surgery; LAURA = N; Record; Last Updated By: Sara Luo; 02/03/2019 8:24:10 AM oxyCODONE HCl - 5 MG Oral Capsule; EVERY 4 HOURS NEEDED- POST OP; Therapy: (Recorded:03Feb2019) to Recorded Dispense: 0 Days ; #: Sufficient Capsule; Refill: 0;For: PSH: Knee surgery; LAURA = N; Record; Last Updated By: Sara Luo; 02/03/2019 8:24:10 AM Mesalamine 1.2 GM Oral Tablet Delayed Release; TAKE 2 TABLET Every morning In The Morning; Therapy: 02Dec2018 to (Last Rx:02Dec2018) Requested for: 02Dec2018 Ordered Rx By: Michael Khanna; Dispense: 0 Days ; #:180 Tablet; Refill: 1;For: Ulcerative rectosigmoiditis with rectal bleeding; LAURA = N; Verified Transmission to [facility]; Last Updated By: [employer]; 12/02/2018 9:23:52 AM PriLOSEC 20 MG CPDR; one daily; Therapy: (Recorded:03Feb2019) to Recorded Dispense: 0 Days ; #: Sufficient Each; Refill: 0; LAURA = N; Record; Last Updated By: Sara Luo; 02/03/2019 8:24:10 AM Vitals Vital Signs Recorded: 03Feb2019 08:19AM Heart Rate90 Ovowhlhh116 Yszvillvp83 Height5 ft 8 in Zongnz918 lb BMI Gdiogcfuvx79.78 BSA Calculated1.87 O2 Wdgsijxepg62, RA Physical Exam Exam: Const: . Vital signs and weight reviewed. BMI 24 ENMT: Oral mucosa moist with no thrush and no mucositis. Neck: Supple and symmetric. Thyroid is normal in size and texture. Resp: Respiration rate is normal. Clear to auscultation. CV: Rhythm is regular. No heart murmur appreciated. Carotids: 2+ and equal bilaterally, without bruits. Femorals: 2+ and equal bilaterally, without bruits. Abdomen: Positive bowel sounds in all quadrants. No bruits. Normal to percussion. Abdomen is soft, nontender, and nondistended. No abdominal masses. No hernias. No palpable hepatosplenomegaly. Anus/Perineum/Rectum: Exam deferred. Lymph: No visible or palpable cervical lymphadenopathy. Inguinal nodes not palpable. Skin: Dry and warm with no nodularity or rash. Psych: Affect is normal. Alert and oriented x3. Neuro: Cranial nerves intact. No focal motor defects Muscloskeletal: No joint deformity or swelling. Motor strength normal. Results/Data 11/17/18: Colonoscopy showed ulcerative proctosigmoiditis Diagnoses/Problems History of Knee surgery SCOPE RIGHT - 2008 SCOPE - LEFT - 2013 Provider Impressions Impression: 1. Proctosigmoiditis without complication 2. Recent left knee replacement Recommendation: 1. Continue mesalamine 2.4 g daily. Patient was to check with her pharmacist to see if there is a less expensive alternative of mesalamine for her. She was to call for new prescription. 2. Start Benefiber 2 teaspoons daily as opioids are starting to affect her colonic motility. This should change as she weans off of opioids. 3. Return to office in 3 months for recheck Patient Discussion/Summary Please start Benefiber 2 teaspoons every morning. You should continue mesalamine 1.2 g 2 capsules daily for now. Please check with your pharmacy to see if there is a less expensive alternative, and then call my office this week for a refill. Return to office in 3 months. As you discontinue your pain medication, you may notice a change in your bowels. Signatures Electronically signed by : Michael Khanna DO; Feb 03 2019 1:08PM EST (Author) Normal [employer] BMPon 12-18-2018 Anion gap molar conc 8 mmol/L Normal 5-16 [facility] Comment on above: Order Comment: Campu s: M Performed By: #### L 200.07970, L550.33871 #### [facility] [address] [place] [address] Calcium mass conc 8.7 mg/dL Normal 8.5-10.1 [facility] Comment on above: Order Comment: Campu s: M Performed By: #### L 200.23251, L550.17888 #### [facility] [address] [place] [address] Chloride molar conc 110 mmol/L High 98-107 [facility] Comment on above: Order Comment: Campu s: M Performed By: #### L 200.60913, L550.12878 #### [facility] [address] [place] [address] CO2 molar conc 27 mmol/L Normal 21-32 [facility] Comment on above: Order Comment: Campu s: M Performed By: #### L 200.89219, L550.42878 #### [facility] [place] [address] Creatinine mass conc 0.704 mg/dL Normal 0.510-0.95 0 [facility] Comment on above: Order Comment: Campu s: M Result Comment: Shira ents receiving either N-Acetylcysteine (NAC) or Metamizole prior to venipuncture, may have falsely depressed results. Performed By: #### L 200.82259, L550.26867 #### [facility] [place] [id number] Glucose mass conc 115 mg/dL High 70-100 [facility] Comment on above: Order Comment: Campu s: M Result Comment: 70-1 00- Normal Fasting; 100-125 Impaired Fasting; greater than 126 on more than one result- Diabetes. ADA guidelines. Results may be falsely elevated after the administration of Sulfapyridine. Results may be falsely depressed after the administration of Sulfasalazine. Performed By: #### L 200.51418, L550.39692 #### [facility] [address] [place] [address] Potassium molar conc 3.9 mmol/L Normal 3.5-5.1 [facility] Comment on above: Order Comment: Campu s: M Performed By: #### L 200.33923, L550.50043 #### [facility] [address] [place] [address] Sodium molar conc 145 mmol/L Normal 136-145 [facility] Comment on above: Order Comment: Campu s: M Performed By: #### L 200.73105, L550.16536 #### [facility] [address] [place] [address] Urea nitrogen mass conc 10 mg/dL Normal 7-26 [facility] Comment on above: Order Comment: Campu s: M Performed By: #### L 200.99830, L550.83478 #### [facility] [address] [place], [place] [address] Urea nitrogen/Creatinine mass ratio 15 mg/mg Normal 15-24 [facility] Comment on above: Order Comment: Campu s: M Performed By: #### L 200.45542, L550.36638 #### [facility] [address] [place], [place] [id number] CBCon 12-18-2018 Erythrocyte distribution width Ratio (RBC) 13.2 % Normal 11-14.5 [facility] Comment on above: Order Comment: Campu s: M Performed By: #### L 300.73881, L300.66593 #### [facility] [address] [place] [address] Hematocrit Volume Fraction (Bld) 35.1 % Normal 35.0-47.0 [facility] Comment on above: Order Comment: Campu s: M Performed By: #### L 300.25061, L300.00010 #### [facility] [address] [place] [address] Hemoglobin mass conc (Bld) 11.2 g/dL Low 11.5-15.5 [facility] Comment on above: Order Comment: Campu s: M Performed By: #### L 300.40263, L300.59434 #### [facility] [address] [place] [address] MCHC mass conc (RBC) 31.9 g/dL Low 32.0-36.0 [facility] Comment on above: Order Comment: Campu s: M Performed By: #### L 300.21204, L300.11216 #### [facility] [address] [place] [address] MCV Entitic volume (RBC) 88.0 fL Normal 80.0-99.0 [facility] Comment on above: Order Comment: Campu s: M Performed By: #### L 300.74020, L300.60392 #### [facility] [address] [place], [place] [id number] Nucleated RBC/100 WBC Ratio (Bld) 0.0 % Normal Less than 1 [facility] Comment on above: Order Comment: Campu s: M Performed By: #### L 300.56045, L300.47907 #### [facility] [address] [place] [address] Platelet mean volume Entitic volume (Bld) 9.3 fL Low 9.4-12.4 [facility] Comment on above: Order Comment: Campu s: M Performed By: #### L 300.13504, L300.83099 #### [facility] [address] [place] [address] Platelets #/vol (Bld) 183 K/CU MM Normal 150-450 [facility] Comment on above: Order Comment: Campu s: M Performed By: #### L 300.11778, L300.21410 #### [facility] [address] [place] [address] RBC #/vol (Bld) 3.99 M/CU MM Normal 3.90-5.30 [facility] Comment on above: Order Comment: Campu s: M Performed By: #### L 300.28585, L300.93004 #### [facility] [address] [place] [address] WBC #/vol (Bld) 14.0 K/CUMM High 4.5-11.0 [facility] Comment on above: Order Comment: Campu s: M Performed By: #### L 300.85639, L300.22563 #### [facility] [address] [place] [address] [place] 12-18-2018 FERR 112.8 NG/ML Normal 8.0-307.0 [facility] Comment on above: Order Comment: Campu s: M Performed By: #### L 200.32436, L550.44026 #### [facility] [address] [place] [address] GFR ESTon 12-18-2018 IF AMER Greater than 60 Normal [facility] Comment on above: Order Comment: Campu s: M Performed By: #### L 200.83337, L550.24436 #### [facility] [address] [place] [address] IF non-AFR AMER Greater than 60 Normal [facility] Comment on above: Order Comment: Marilou s: M Performed By: #### L 200.22073, L550.79797 #### [facility] [address] [place] [address] IRON PANELon 12-18-2018 Iron mass conc 22 ug/dL Low 50-170 [facility] Comment on above: Order Comment: Marilou s: M Result Comment: Shira ents treated with metal-binding drugs (e.g.deferoxamine) may have depressed iron values, as chelated iron may not properly react in the Siemens iron assay. Performed By: #### L 200.74518, L550.12727 #### [facility] [address] [place] [address] IRON SAT 10 % Low 22-44 [facility] Comment on above: Order Comment: Marilou s: M Performed By: #### L 200.58942, L550.43319 #### [facility] [address] [place] [address] TIBC 228 UG/DL Normal 221-481 [facility] Comment on above: Order Comment: Marilou s: M Performed By: #### L 200.71218, L550.25473 #### [facility] [address] [place] [address] OTARon 12-18-2018 OT Assessment Report Normal [facility] OTAR Occupational Therapy Inpatient Evaluation Medical Diagnosis: s/p Left TKA performed by Dr. Russo on 12/17/2018 OCCUPATIONAL PROFILE AND HISTORY Therapy Diagnosis: Rank Code Description 1 R26.81 Unsteadiness on feet 2 Z74.1 Need for assistance with personal care Demographics: Age: 68Y Gender: Female Primary Language: [place] Preferred Language: [place] Referring Service/Team: Orthopedics Past Medical History: GERD, tonsils, bilat mastectomy, toe surgery, History of Present Illness: Date of Surgery: 12/17/18 Additional Information: Elective Surery Date of Admission: 12/17/2018 7:45:00 AM Rehabilitation Precautions/Restrictions: WBAT LLE Imaging/Testing Results from Chart: N/A Prior Level of Functioning: Self Care: Patient completed the activities by him/herself, with or without an assistive device, with no assistance from a helper. Functional Cognition: Patient completed the activities by him/herself, with or without an assistive device, with no assistance from a helper. Denies use of AD. Denies falls. INdep with ADL. Indep with cooking and cleaning with assist Patient/Caregiver Goals: Patient's functional goals: To go home Pain: Patient currently without complaints of pain. Home Environment: Patient lives with whom is able to assist , who is able to assist patient at discharge. Patient lives in a single family home. Home is two levels. Patient is required to manage 13 step(s) within the home, with left ascending handrails. First floor half bathroom setup available. Second floor bathroom setup available. There are 4 steps to enter the home, with right ascending handrails. There is no ramp available to enter home. Equipment Owned: ww, cane, Social History: Marital Status: [facility] PATIENT NAME: LELA SHETH [address] [facility] [address] [place] MEDICAL REC #: [id number] [place] [address] ADMIT DATE: SERVICE DATE: 12/18/18 Occupational Therapy Assessment ATTENDING PHY: Rory Russo DO Children: 2 Reside: Local Employment Status: [employer] Recreational Activities/Hobbies: OBJECTIVE/OCCUPATIONAL PERFORMANCE Activities of Daily Living Current Status Previous Status ADLs Feeding Independent - Grooming Modified independent - Bathing-UE Modified independent - Bathing-LE Supervision - Dressing-UE Modified independent - Dressing-LE Minimal assistance - Toileting Supervision - AM-PAC Daily Activities: Putting On/Taking Off Lower Body Clothing: A little help needed Bathing:: A little help needed Toileting: A little help needed Putting On/Taking Off Upper Body Clothing: No help needed Grooming: No help needed Eating a Meal: No help needed Raw Score = 21 , AM-PAC t-Scale Score = 44.27 and G-Code Modifier = CJ Functional Mobility: Bed Mobility: Not assessed. Transfers: Patient transferred sit to/from stand requiring supervision. Locomotion/Gait/Ambulation: Patient was supervision with gait/ambulation for 15' x 2 . Patient requires the following assistive device(s): Rolling walker. pt demo fair reciprocal gait, decreased step length and jose manuel, no overt LOB Range of Motion Upper Extremity: Grossly within functional limits Strength Upper Extremity: Grossly within functional limits Balance: Dynamic balance in a seated position is good. Static balance in a standing position is good. [facility] PATIENT NAME: LELA SHETH [address] [facility] [address] [place] MEDICAL REC #: [id number] [place] [address] ADMIT DATE: SERVICE DATE: 12/18/18 Occupational Therapy Assessment ATTENDING CAREY: Rory Russo DO Dynamic balance in a standing position is good. good- Tone/Spasticity: No relevant impairments. Sensation: Grossly intact. Fine Motor Coordination: Fine motor coordination was not assessed. Gross Motor Coordination: Upper extremity gross motor coordination is intact. Edema: Edema is present. Location: Left lower extremity edema- Minimal. Location: Lower Extremity Function: Pt demo fair post op ROM and wb tolerance Vision: Within functional limits. Cognition: Within functional limits. Perceptual Skills: Within functional limits. Psychosocial: Within normal limits Interventions: Evaluation LOW Complexity Self Care/Home Management: UB and LB dressing, instruction in AE/techs and follow through w/precautions, functional transfer and mobility training w/instruction in ww safety and fall prevention, instruction in home management and safety Pain Reassessment: No significant change in pain during session. Education: The patient's preferred learning method is: Explanation, Demonstration Barriers to Learning: No barriers Learning Needs: Precautions. Plan of care. Rehabilitation techniques and procedures. Safety. Functional activities/mobility. Equipment. Education Provided: Precautions. Plan of care. Activities of daily living. Functional transfers. Equipment. Safety. Audience: Patient. Mode: Explanation. Demonstration. Response: Verbalized understanding. Demonstrated skill. ASSESSMENT Clinical Performance Deficits: Impaired ADLs, Impaired instrumental ADLs, Impaired functional mobility Equipment Recommended: none Rehabilitation Potential: Not applicable Motivation/Commitment to Therapy: Not applicable. Response to Evaluation: Pt tolerated OT assessment and treatment well demonstrating no increase in pain, no fatigue and vitals WFL. Pt was educated in [facility] PATIENT NAME: LELA SHETH [address] [facility] [address] [place] MEDICAL REC #: [id number] [place] [address] ADMIT DATE: SERVICE DATE: 12/18/18 Occupational Therapy Assessment ATTENDING PHY: Rory Russo DO use of adaptive dressing techs and follow through w/precautions during self care tasks, ww safety and fall prevention during transfer and mobility tasks, home management and safety,and HEP. Pt demo ability to perform transfer and mobility tasks at supv level and LB self care at min A-->supv. Pt has supportive spouse at home. Pt has no further OT needs. Recommend home w/supv upon d/c Activity/Participation Problem List and Goals: Functional Impairment: Self Care Modifier: D2263-RM (at least 20%, but less than 40% impaired, limited, or restricted) Goal: n/a Goal Modifier: X7220-RO (at least 20%, but less than 40% impaired, limited, or restricted) Discharge Status for Self Care: Resolved Functional Impairment Discharge Modifier: G7661-CD (at least 20%, but less than 40% impaired, limited, or restricted) as per [facility] Treatment Goals: Not applicable. PLAN Treatment Frequency, Duration and Interventions: Occupational Therapy services are discontinued at this time secondary to: No need for skilled therapy intervention at this time. Recommended Occupational Therapy Follow Up: Upon acute care discharge, the following is currently recommended: Home exercise program. Recommended Consults: None currently. Development of Plan of Care: Patient participated in plan of care development today. If there are any questions regarding this service, please contact the Acute Therapy Department at extension [phone] CARE WILL BE TRANSFERRED TO THE (CHOICE OF ACUTE OR REHAB) OCCUPATIONAL THERAPIST Communication to Nursing: No updates at this time. Location of Patient at End of Therapy Session: In chair, call light within reach Services: Total Billed: 15 minutes (Timed: 15, Untimed: 0) 15.00 Timed: [87673] ADL-HOME MANAGEMENT EA 15 MIN 0.00 Untimed: [72271] OT-EVALUATION LOW COMPLEXITY 0.00 Untimed: [] OT Evaluation ORDER 0.00 Untimed: [G8987] OT-Self Care-CJ [facility] PATIENT NAME: LELA SHETH [address] MEDICAL REC #: [id number] [place] [address] ADMIT DATE: SERVICE DATE: 12/18/18 Occupational Therapy Assessment ATTENDING PHY: Rory Russo DO 0.00 Untimed: [G8988] IP-Ciib-Zjfq Care-CJ 0.00 Untimed: [G8989] OT-DC-Self Care-CJ Signed by: Marisa Garcias, 12/18/2018 16:48:11 [facility] PATIENT NAME: LELA SHETH [address] MEDICAL REC #: [id number] [place] [address] ADMIT DATE: SERVICE DATE: 12/18/18 Occupational Therapy Assessment ATTENDING JAYY: Rory Russo DO Normal [facility] [address] 12-18-2018 Protein mass conc [facility] Patient Name: LELA SHETH [address] Date of : [address] [place] [address] Unit Number: [id number] Progress Note-Hospitalist Patient Status: REG SDC Attending Doctor: Rory Russo DO Service Date: 12/18/18 1333 Subjective S: (2 ROS minimum) Seen and examined. Patient was complaining of having dizziness. I asked the nurse it to check the vitals. Her blood pressure was in 80s. Patient was sitting when she had a symptom. She was laid back on her bed. Order IV bolus. Spoke with charge nurse that patient might benefit from observing overnight. Hypertension most likely related to poor oral intake and pain medicine. Objective (ROS) Nursing Vitals Vital Signs (Last) Result Date Time Pulse Ox 98 12/18 1108 B/P 103/68 12/18 1108 Temp 97.8 12/18 1108 Pulse 90 12/18 1108 Resp 16 12/18 1108 HEENT: normocephalic. PEERL. nonicteric. PULM: no tachypnea. no wheezes. no rales. fair aeration. CV: no significant gallops. no murmur. no edema. RRR. HR normal. ABD: no organomegaly. soft. Nontender. no ascites. EXT: no edema. no cyanosis. Left knee dressing in place with Neuro: Alert awake oriented x3 LN: no gross lymphadenopathy SKIN: no diaphoresis. no jaundice. IandO 24 Hour Summary 12/18 0000 Intake Total 653 Output Total 700 Balance -47 Intake, IV 353 Intake, Oral 300 Output, Stool 0 Output, Urine 700 Patient 168 lb Weight Medications Current Sig/Vale Start time Last Medication Dose Route Stop Time Status Admin Al Hydrox/Mg Hydrox/ 30 ML Q4HPRN PRN 12/17 1500 AC Simethicone PO (MAALOX (ALAMAG)PLUS ORAL LIQ) Bisacodyl 5 MG ONCE ONE 12/18 1500 AC (DULCOLAX TAB.EC) PO 12/18 1501 Bisacodyl 10 MG ONCE ONE 12/18 1500 AC (DULCOLAX RECT) RC 12/18 1501 Celecoxib 200 MG Q12H@12/17 2100 AC 12/18 (CELEBREX CAP) PO 075 Diphenhydramine HCl 25 MG Q6HPRN PRN 12/17 1500 AC (BENADRYL CAP) PO Docusate Calcium 240 MG Q12H@12/17 2100 AC 12/18 (SURFAK CAP) PO 075 Enoxaparin Sodium 30 MG Q12H 12/18 0900 AC 12/18 (LOVENOX D.SYR) SC 0751 Ferrous Sulfate 325 MG BIDAC 12/18 1000 AC (FEOSOL TAB.EC) PO Hydromorphone HCl 2 MG Q3HPRN PRN 12/17 1500 AC (DILAUDID D.SYR) IM Lactated Ringer's 1,000 ML CONT 12/17 1500 AC 12/18 (Lactated Ringers) IV 0101 Ondansetron HCl 4 MG Q6HPRN PRN 12/17 1500 AC (ZOFRAN VIAL) IV Oxycodone/ 1 UDTAB Q3HPRN PRN 12/17 1500 AC Acetaminophen PO (percoCET-5/325 TAB) Oxycodone/ 2 UDTAB Q3HPRN PRN 12/17 1500 AC 12/18 Acetaminophen PO 1318 (percoCET-5/325 TAB) Pantoprazole Sodium 40 MG QDAYAC 12/19 0700 AC (PROTONIX TAB) PO Sodium Chloride 3 ML Q8H 12/17 2200 AC (Sodium Chloride IV 0.9% FLUSH D.SYR) Sodium Chloride 3 ML PRN PRN 12/17 1500 AC (Sodium Chloride IV 0.9% FLUSH D.SYR) Zolpidem Tartrate 5 MG QHSPRN PRN 12/17 1500 AC (AMBIEN TAB) PO Laboratory Tests 12/18 05 Chemistry Sodium (136 - 145 MMOL/L) 145 Potassium (3.5 - 5.1 MMOL/L) 3.9 Chloride (98 - 107 MMOL/L) 110 H Carbon Dioxide (21 - 32 MMOL/L) 27 Anion Gap (5 - 16 MMOL/L) 8 BUN (7 - 26 MG/DL) 10 Creatinine (0.510 - 0.950 MG/DL) 0.704 Est GFR ( Amer) (ML/MIN) Greater than 60 Est GFR (Non-Af Amer) (ML/MIN) Greater than 60 BUN/Creatinine Ratio (15 - 24) 15 Glucose (70 - 100 MG/DL) 115 H Total Calcium (8.5 - 10.1 MG/DL) 8.7 Iron (50 - 170 UG/DL) 22 L TIBC (221 - 481 UG/DL) 228 Iron Saturation (22 - 44 %) 10 L Ferritin (8.0 - 307.0 NG/ML) 112.8 Hematology WBC (4.5 - 11.0 K/CUMM) 14.0 H RBC (3.90 - 5.30 M/CU MM) 3.99 Hgb (11.5 - 15.5 G/DL) 11.2 L Hct (35.0 - 47.0 %) 35.1 MCV (80.0 - 99.0 fl) 88.0 MCHC (32.0 - 36.0 GM/DL) 31.9 L RDW (11 - 14.5) 13.2 Plt Count (150 - 450 K/CU MM) 183 MPV (9.4 - 12.4) 9.3 L Nucleated RBCs (Less than 1 %) 0.0 Assessment and Plan Conclusion 1. Arthritis of left knee 2. Ulcerative colitis 3. GERD (gastroesophageal reflux disease) 4. DVT prophylaxis Left knee Osteoarthritis: Status post left knee arthroplasty. Management per primary team. Ulcerative colitis: resume mesalamine if okay with primary. GERD: Continue with PPI. Dizziness: Hypotension related. Most likely secondary to poor oral intake and pain medication related. DVT prophylaxis: Per primary team. Plan: We will suggest observing patient here in the hospital. Disclaimer This dictation was created using voice recognition software. Phonetic and/or minor grammatical errors may exist. eSign Date and Time Christiano Gallegos MD Verified/Reviewed by 12/18/[address] [facility] Protein mass [facility] PROG.ORTHOon 12-18-2018 Protein mass [facility] Protein mass [facility] Patient Name: LELA SHETH [address] Date of : [address] [id number] Unit Number: [id number] Progress Note-Ortho Patient Status: REG [facility] Attending Doctor: Rory Russo DO Service Date: 12/18/18852 Progress Note - Ortho Subjective S: (2 ROS minimum) Patient seen and examined resting comfortably in bed this morning. Patient has no complaints at this time and pain is well controlled. Patient has been up and ambulating without issue using a walker. Objective Nursing Vitals Vital Signs (Last) Result Date Time Pulse Ox 98 12/19 799 B/P 109/73 12/19 799 Temp 98.5 12/19 799 Pulse 93 12/19 799 Resp 17 12/19 799 General Appearance No acute distress ANO x4 Physical Exam Left lower extremity: Dressing clean dry and intact Neurovascular intact: Motor intact throughout lower extremity with sensation intact to light touch Brisk capillary refill with palpable DP PT pulses Diagnostic Data Lab 24hr (CBC/BMP Fishbone) 12/18/1823: [Embedded Image Not Available] Anion Gap 8, Est GFR ( Amer) Greater than 60, Est GFR (Non-Af Amer) Greater than 60 , BUN/Creatinine Ratio 15, Glucose 115 H, Total Calcium 8.7, Iron 22 L, TIBC 228, Iron Saturation 10 L, Ferritin 112.8, RBC 3.99, MCV 88.0, MCHC 31.9 L, RDW 13.2, MPV 9.3 L, Nucleated RBCs 0.0 12/17/1828: [Embedded Image Not Available] Assessment/Plan Conclusion 1. Arthritis of left knee I discussed with the patient her surgery as well as her current physical complaints. Offered reassurance that at this time she is progressing well she will likely be able to be discharged later this afternoon if she continues dual PT. We will continue to monitor her until physical therapy is concluded. Disclaimer This dictation was created using voice recognition software. Phonetic and/or minor grammatical errors may exist. eSign Date and Time Seymour David DO Verified/Reviewed by 12/18/18 0855 [facility] Inpatient Last Visit Note The inpatient Physical Therapy services are discontinued at this time for the following reasons: Goals Met. INVENTORY CONTROL/SHIPPING RECEIVING has assisted with documenting discharge plan and recommendations under the direction of supervising therapist. Therapist's co-signature denotes agreement with planned discharge from acute physical therapy. Goals Met. INVENTORY CONTROL/SHIPPING RECEIVING has assisted with documenting discharge plan and recommendations under the direction of supervising therapist. Therapist's co-signature denotes agreement with planned discharge from acute physical therapy. AM-PAC Basic Mobility: Turning Over in Bed: No difficulty Sitting/Standing Chair with Arms: A little difficulty Lying on Back to Sitting on Side of Bed: No difficulty Moving To/From Bed to Chair: A little help needed Walking in Hospital Room: A little help needed Climbing 3-5 Steps with Railing: A little help needed Raw Score = 20 , AM-PAC t-Scale Score = 47.67 and G-Code Modifier = CJ Interventions: Gait Training: Bed Mobility:supine to sit w/ Supervision. Good static sitting and standing balance. Functional tx:sit<->stand x several trials from various surface heights all w/ Supervision and no dizziness. Car tx: verbal education and mat table used to simulate w/ pt voicing comfort performing. Gait training:amb. 125' x 2 w/ ww and Supervision w/ step to pattern progressing to step through w/ good balance and vc to look ahead. no dizziness reported. Steps:up/down 2-3 training steps x 2 trials w/ one rail and std cane and SBA. Pt voiced comfort performing for home. Pt education: home safety, walker safety, ice pack usage and discharge planning. Pt voiced understanding and comfort w/ all and is cleared for home from PT standpoint. Therapeutic Exercise: Thex: x 15 reps. ea. seated AP,GS, LAQ and HS, Verbal review supine AP,QS,GS. Written HEP issued for home as well as thex progression. Pt voiced understanding w/ all. Rest breaks as needed and vc for substitution during HS. Education: Education Provided: Precautions. Pain management. Pain scale. Bed mobility. Functional transfers. Car transfers. Safety. Gait. Home exercise/activity plan. Stair/curb/environmental barrier negotiation. Audience: Patient. Mode: Explanation. Demonstration. Printed material provided. Response: Verbalized understanding. Demonstrated skill. Recommendations: Upon acute care discharge, the following is currently [facility] PATIENT NAME: LELA SHETH Dr. Martinez MEDICAL REC #: [id number] [place] [address] ADMIT DATE: SERVICE DATE: 12/18/18 Physical Therapy Discharge Summary ATTENDING PHY: Rory Russo DO recommended: Outpatient Physical Therapy. Activity/Participation Problem List and Goals: No updates at this time. Treatment Goals: Time frame to achieve treatment goal(s): 2 weeks 1. Complete 80 feet supv ww MET 2. Complete transfers supv MET 3. Complete verbalization of HEP indep MET 4. Complete 4 with unilateral hand rial MET Discharge Plan: The patient's status and plan was discussed with patient and agreed upon. If there are any questions regarding this service, please contact the Acute Therapy Department at extension [phone] Services: Total Billed: 38 minutes (Timed: 38, Untimed: 0) 23.00 Timed: [83323] GAIT TRAIN EA 15 MIN 15.00 Timed: [56965] THERAPEUTIC EXERCISE EA 15 MIN 0.00 Untimed: [] PT Treatment- General ORDER Signed by: JOS MONTERO PTA 12/18/2018 14:09:29 - CoSigned By: Sol Castro 12/18/2018 2:39:03 PM [facility] PATIENT NAME: LELA SHETH [address] Martinez MEDICAL REC #: [id number] [place] [address] ADMIT DATE: SERVICE DATE: 12/18/18 Physical Therapy Discharge Summary ATTENDING PHY: [facility]so DO [facility] Hematocrit Volume Fraction (Bld) 40.6 % Normal 35.0-47.0 [facility] Comment on above: Order Comment: Jaceku s: M Performed By: #### L 300.70684, L300.46002 #### [facility] [place] [address] Hemoglobin mass conc (Bld) 13.3 g/dL Normal 11.5-15.5 [facility] Comment on above: Order Comment: Jaceku s: M Performed By: #### L 300.35002, L300.80353 #### [facility] [address] [place] [id number] [address] 12-17-2018 CONSULTATION-H&P Normal [facility] Patient Name: LELA SHETH [address] [facility] Date of : [address] [place], [place] [address] Unit Number: [id number] CONSULTATION-HandP Patient Status: REG [facility] Attending Doctor: Rory Russo DO Service Date: 12/17/18 1726 History of Present Illness Referring Physician Rory Russo DO Reason for Consult Postop medical management History of Present Illness Ms. Sheth is a 68-year-old female with past medical history significant for GERD, ulcerative colitis and breast cancer who is being admitted under Dr. Russo service after left knee arthroplasty. We were consulted for medical management. She was complaining of having nausea and dizziness. She described as having pain which is 8 out of 10. Pain is sharp in nature. Aggravated by movement. Patient has been having this issue for last 5 years. She had a knee injection in the past without any improvement. Regarding her medical history she has been recently diagnosed with ulcerative colitis and was receiving rectal mesalamine until yesterday. She is switched to oral mesalamine from today onwards. She does carry a history of breast cancer with bilateral mastectomy. She also has GERD and takes PPI. Past Medical/Surgical Hx Past Medical History Ulcerative colitis GERD Breast cancer Past Surgical History Bilateral mastectomy Bilateral knee surgery Right toe surgery Family/Social History Family Hx Other/Comment Colon cancer mom and dad. Sister of cancer as well. Social Hx Denies smoking, alcohol or drug abuse. lives with her . Advance Directives Advance Directives Full Code Allergies/Home Medications Allergies Coded Allergies: ADHESIVE (Mild, RASH 11/26/18) SULFA (SULFONAMIDE ANTIBIOTICS) (Mild, RASH 11/26/18) Home Medications Acetaminophen* (Tylenol 500MG Tab*) 500 MG TABLET 500-1,000 MG PO Q6HPRN PRN PAIN, Ref 0 (Reported) Entered as Reported by GALINA FRANCO on 11/27/18 1115 Last Action: Reviewed on 12/17/18 104 by PRATIK CLARKE Ascorbic Acid* (Vitamin C 500MG Tab*) 500 MG CAPSULE.ER 500 MG PO TID, Ref 0 (Reported) STOP 2 WKS PREOP Entered as Reported by BOLA WHITE on 11/26/18 1207 Last Action: Reviewed on 12/17/18 104 by PRATIK CLARKE Ibuprofen* (Motrin 600MG Tab*) 600 MG TABLET 600 MG PO Q8HPRN PRN PAIN, Ref 0 (Reported ) Entered as Reported by BOLA WHITE on 11/26/18 1206 Last Taken: 12/03/18 Last Action: Reviewed on 12/17/18 104 by PRATIK CLARKE Mesalamine 4 GM/60 ML ENEMA 4 GM RC QHS, Ref 0 (Reported) DR KHANNA ORDERED FOR 2 WKS WILL BE FINISHED BEFORE SURGERY DATE Entered as Reported by GALINA FRANCO on 11/27/18 111 Last Action: Reviewed on 12/17/18 104 by PRATIK CLARKE Omeprazole (PrilOSEC TAB) 20 MG TABLET. 20 MG PO QDAY, Ref 0 (Reported) Entered as Reported by BOLA WHITE on 11/26/18 120 Last Taken: 20 mg on 12/17/18 0615 Last Action: Reviewed on 12/17/18 104 by PRATIK CLARKE Review of Systems Constitutional Denies: Fever, Fatigue, Chills, Malaise, Sick Contacts, Sweats, Weakness. EENT Denies: Vision Change, Vision Problems, Sore Throat, Dental Problems, Dysphagia. Cardiovascular Denies: Chest Pain, Pain on Exertion, Dyspnea on Exertion, Orthopnea, Paroxysmal Nocturnal Dsyp, Palpitations, Syncope. Pulmonary Denies: Pleuritic Chest Pain, Dyspnea, Cough, Sputum, Hemoptysis, Wheezing. Gastrointestinal Denies: Abdominal Pain, Nausea, Vomiting, Diarrhea, Constipation, Loss of Appetite, Hematochezia. Genitourinary Denies: Dysuria, Hematuria, Retention, Hesitancy, Urgency, Urinary Incontinence. Neuro Denies: Headache, Syncope, Dizziness, Vertigo, Numbness, Weakness, Tingling, Difficulty with Speech, Blurry Vision. Physical Exam Vital Signs Vital Signs (Last) Result Date Time Pulse Ox 98 12/18 1643 B/P 133/74 12/18 1643 Temp 98.2 12/18 1643 Pulse 73 12/17 1644 Resp 18 12/17 164 HEENT: normocephalic. PEERL. nonicteric. PULM: no tachypnea. no wheezes. no rales. fair aeration. CV: no significant gallops. no murmur. no edema. RRR. HR normal. ABD: no organomegaly. soft. Nontender. no ascites. EXT: no edema. no cyanosis. Left knee dressing in place with Neuro: Alert awake oriented x3 LN: no gross lymphadenopathy SKIN: no diaphoresis. no jaundice. Medications Current Sig/Vale Start time Last Medication Dose Route Stop Time Status Admin Al Hydrox/Mg Hydrox/ 30 ML Q4HPRN PRN 12/17 1500 AC Simethicone PO (MAALOX (ALAMAG)PLUS ORAL LIQ) Bisacodyl 5 MG ONCE ONE 12/18 1500 AC (DULCOLAX TAB.EC) PO 12/18 1501 Bisacodyl 10 MG ONCE ONE 12/18 1500 AC (DULCOLAX RECT) RC 12/18 1501 Cefazolin Sodium 2 GM Q8H@11 12/17 1900 AC (ANCEF VIAL) IV 12/18 0329 Sodium Chloride 50 ML (Sodium Chloride 0.9%) Celecoxib 200 MG Q12H@12/17 2100 AC (CELEBREX CAP) PO Diphenhydramine HCl 25 MG Q6HPRN PRN 12/17 1500 AC (BENADRYL CAP) PO Docusate Calcium 240 MG Q12H@12/17 2100 AC (SURFAK CAP) PO Enoxaparin Sodium 30 MG Q12H 12/18 0900 AC (LOVENOX D.SYR) SC Hydromorphone HCl 2 MG Q3HPRN PRN 12/17 1500 AC (DILAUDID D.SYR) IM Lactated Ringer's 1,000 ML CONT 12/17 1500 AC (Lactated Ringers) IV Ondansetron HCl 4 MG Q6HPRN PRN 12/17 1500 AC (ZOFRAN VIAL) IV Oxycodone/ 1 UDTAB Q3HPRN PRN 12/17 1500 AC Acetaminophen PO (percoCET-5/325 TAB) Oxycodone/ 2 UDTAB Q3HPRN PRN 12/17 1500 AC Acetaminophen PO (percoCET-5/325 TAB) Pantoprazole Sodium 40 MG QDAYAC 12/19 0700 AC (PROTONIX TAB) PO Sodium Chloride 3 ML Q8H 12/17 2200 AC (Sodium Chloride IV 0.9% FLUSH D.SYR) Sodium Chloride 3 ML PRN PRN 12/17 1500 AC (Sodium Chloride IV 0.9% FLUSH D.SYR) Zolpidem Tartrate 5 MG QHSPRN PRN 12/17 1500 AC (AMBIEN TAB) PO Laboratory Tests 12/18 927 Hematology Hgb (11.5 - 15.5 G/DL) 13.3 Hct (35.0 - 47.0 %) 40.6 Conclusion / Plan Conclusion 1. Arthritis of left knee 2. Ulcerative colitis 3. GERD (gastroesophageal reflux disease) 4. DVT prophylaxis Left knee Osteoarthritis: Status post left knee arthroplasty. Management per primary team. Ulcerative colitis: We will resume mesalamine if okay with primary. GERD: Continue with PPI. DVT prophylaxis: Per primary team. I would like to thank dr russo for providing oppotunity to take care of Ms. Sheth. Disclaimer This dictation was created using voice recognition software. Phonetic and/or minor grammatical errors may exist. eSign Date and Time Christiano Gallegos MD Verified/Reviewed by 12/17/18 1745 [facility] Nilesh Rand 12-17-[address] [facility] OR DATE OF SERVICE: 03/2019 TIME: 1 p.m. PREOPERATIVE DIAGNOSIS: Primary end-stage osteoarthritis of the left knee with valgus deformity. POSTOPERATIVE DIAGNOSIS: Primary end-stage osteoarthritis of the left knee with valgus deformity. OPERATION: Total knee replacement arthroplasty, left, utilizing size 5 bicruciate femoral component, size Journey tibial baseplate, a 35-mm patella button, and a 10-mm articular insert. SURGEON: Rory Russo DO COLD STORAGE WORKER: Luisana Boswell PA-C SECOND COLD STORAGE WORKER: Seymour David DO, orthopedic resident. ANESTHESIA: Spinal with peripheral and local for postoperative pain management. BLOOD LOSS: 25 mL COMPLICATIONS: None. INDICATIONS: Lela is a 68-year-old white female who already underwent a total knee on the right and has done well. She has valgus instability and chronic pain of her left knee with significant patellofemoral involvement. She is now ready to have her left knee done. We did discuss her goals, which would be to be able to ambulate pain free without complications. We then discussed the procedure, risks, benefits, postoperative management, rehabilitation efforts required postoperative. She is aware of that, and a consent was signed. PROCEDURE: The patient was brought down to the OR, placed in the supine position with all bony prominences well padded, after induction of spinal anesthetic. A tourniquet was placed on the left proximal thigh and the left leg was sterilely prepped and draped in the usual orthopedic fashion. An Esmarch was used to exsanguinate the limb. The tourniquet was inflated to 280 mmHg for approximately 1 hour. A standard 10-cm incision was made anteriorly followed by a medial arthrotomy. The patella was reflected back. This revealed the underlying severe erosion of the patellofemoral joint and the lateral compartment of the left knee. Intramedullary guides were utilized to make our cuts initially. We then did soft tissue balancing, reamed the patella down to 14-mm of healthy bone, replaced that with a size 35 patella button. Tracking was anatomic with the no-thumbs technique. All trials were then removed. [facility] PATIENT NAME: LELA SHETH J [address] [facility] [address] Martinez MEDICAL REC #: [id number] [place] [id number] ADMIT DATE: DISCHARGE DATE: 12/18/18 OPERATIVE REPORT ATTENDING PHY: Rory Russo DO We then irrigated with Irrisept and saline and injected our local mixture into the deep and superficial tissues and then cemented in our main components. Once the cement hardened, we let the tourniquet down. There was no arterial bleeding encountered. We then went ahead and inserted our [address]. We then irrigated again with Irrisept and saline and then closed the quadriceps with a number 1 [id number] interrupted. We injected 1 g of tranexamic acid intra-articularly to control bleeding and the remainder of the closure was with 0 Vicryl, 3-0 Vicryl, krzysztof, silver dressing and a modified Horvath dressing with the knee in full extension. The patient did tolerate the procedure quite well and was transported to the bed and to the recovery room in a stable condition. Luisana Boswell PA-C assisted with proper preoperative positioning, determining availability of proper implants, prepping and draping of patient, manipulation placement of instruments, protection of ligaments and vital soft tissue structures, assistance in maintaining hemostasis with assistance with closure of wound. Her skills and knowledge of the steps of the operation and the desired outcome of each surgical step was crucial, allowing for an efficient surgical procedure, and closure of the wound which lead to reduced surgical time, less blood loss, and less risk of complications for the patient. Rory Russo DO [id number] SSI File#: [id number] Verified/Reviewed by 12/18/18 1525 TEOI [facility] PATIENT NAME: LELA SHETH Sujata [address] [facility] [address] Martinez MEDICAL REC #: [id number] [place] [address] ADMIT DATE: DISCHARGE DATE: 12/18/18 OPERATIVE REPORT ATTENDING PHY: Rory Russo DO [facility] PTARon 12-17-[address] [facility] PTAR Physical Therapy Inpatient Evaluation Medical Diagnosis: s/p Left TKA performed by Dr. Russo on 12/17/2018 Therapy Diagnosis: Rank Code Description 1 R26.81 Unsteadiness on feet 2 M62.81 Muscle weakness (generalized) Demographics: Age: 68Y Gender: Female Primary Language: [place]dean Preferred Language: [place]dean Referring Service/Team: Orthopedics Past Medical History: GERD, tonsils, bilat mastectomy, toe surgery, History of Present Illness: Date of Surgery: 12/17/2018 Additional Information: Elective Surgery Date of Admission: 12/17/2018 8:47:00 AM Rehabilitation Precautions/Restrictions: WBAT LLE Imaging/Testing Results from Chart: N/A SUBJECTIVE Prior Level of Functioning: Indoor Mobility: Patient completed the activities by him/herself, with or without an assistive device, with no assistance from a helper. Stairs: Patient completed the activities by him/herself, with or without an assistive device, with no assistance from a helper. Denies use of AD. Denies falls. Indep with ADL. Indep with cooking and cleaning with assist Prior Device Use: Performance GG110. Prior Device None of Above Yes Patient/Caregiver Goals: Patient's functional goals: To go home Pain: Patient currently without complaints of pain. Home Environment: Patient lives with whom is able to assist , who is able to assist patient at discharge. Patient lives in a single family home. Home is two levels. Patient is required to manage 13 step(s) within the home, with left ascending handrails. First floor half bathroom setup available. Second floor bathroom setup available. There are 4 steps to enter the home, with right [facility] PATIENT NAME: LELA SHETH [address] [facility] [address] Martinez MEDICAL REC #: [id number] [place] [address] ADMIT DATE: SERVICE DATE: 12/17/18 Physical Therapy Assessment Report ATTENDING PHY: Rory Russo DO ascending handrails. There is no ramp available to enter home. 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 Orientation: Oriented to person, place, time, and situation. Following Commands: Patient is able to follow 3-step commands. Range of Motion Upper Extremity: Grossly within functional limits Lower Extremity: Not within functional limits LLE ROM decrease Strength Upper Extremity: Grossly within functional limits Lower Extremity: Not within functional limits LLE MMT deferred Tone/Spasticity: Within Normal Limits throughout. Sensation: Grossly intact. Balance: Dynamic balance in a standing position is fair. CGA Therapeutic/Functional Activities: Bed Mobility: All bed mobility including supine to sit, rolling, scooting. requiring supervision. Pt able to lift and lower Transfers: Patient transferred sit to/from stand requiring contact guard assistance of 1 person. Patient used the following equipment: Arms of chair. CGA with verbal cues Patient transferred to/from the toilet requiring contact guard assistance of 1 person. Patient used the following equipment: Arms of chair. Verbal cues for hand placement Increase time for transfers with Let me count to 10 before I move Locomotion/Gait/Ambulation: Patient was contact guard with gait/ambulation of 1 person for 230 feet . Patient requires the following assistive device(s): Rolling walker. Initially step to gait pattern progressed to reciprocal gait pattern Gait was completed at: 1645 Gait Deviations: No gait deviations. Stairs: Not assessed. AM-PAC Basic Mobility: Turning Over in Bed: No difficulty Sitting/Standing Chair with Arms: A little difficulty [facility] PATIENT NAME: LELA SHETH [address] [facility] [address] Martinez MEDICAL REC #: [id number] [place] [address] ADMIT DATE: SERVICE DATE: 12/17/18 Physical Therapy Assessment Report ATTENDING PHNupur: Rory Russo DO Lying on Back to Sitting on Side of Bed: No difficulty Moving To/From Bed to Chair: A little help needed Walking in Hospital Room: A little help needed Climbing 3-5 Steps with Railing: A little help needed Raw Score = 20 , AM-PAC t-Scale Score = 47.67 and G-Code Modifier = CJ Vital Signs: Not assessed. Interventions: Evaluation LOW Complexity Therapeutic Activities: AP, LAQ, heel slides, gut sets, quad sets, educated on PT plan of care, educated on mobility benefits, educated on discharge recommendation Pain Reassessment: Increase in pain during session. Increase pain Education: The patient's preferred learning method is: Explanation, Demonstration Barriers to Learning: Acuity of illness Learning Needs: Precautions. Pain management. Plan of care. Rehabilitation techniques and procedures. Safety. Education Provided: No education provided this session. ASSESSMENT Problem List: Decreased endurance, Impaired ambulation, Impaired balance, Impaired stair/curb negotiation Strengths: Independent premorbid function Rehabilitation Potential: Good Pt agreeable Motivation/Commitment to Therapy: Fair. Response to Evaluation: Patient tolerated PT evaluation fair due to nausea. Educated patient on knee precautions, weight bearing status, functional transfer training, safety awareness, and therapeutic exercise. Patient completed functional mobility of transfers and gait with CGA along with verbal cues for sequencing and safety concerns. Implement acute care physical therapy interventions to address gait and steps in preparations for home going. Recommend home with OP PT upon acute care discharge. Activity/Participation Problem List and Goals: Functional Impairment: Mobility: Walking and Moving Around. Modifier: [id number] (at least 20%, but less than 40% impaired, limited, or restricted) Goal: Complete 80 feet supv w Goal Modifier: K9878-OM (at least 1%, but less than 20% impaired, limited or restricted) Treatment Goals: Time frame to achieve treatment goal(s): 2 weeks [facility] PATIENT NAME: LELA SHETH [address] MEDICAL REC #: [id number] [place] [address] ADMIT DATE: SERVICE DATE: 12/17/18 Physical Therapy Assessment Report ATTENDING PHY: Rory Russo DO 1. Complete 80 feet supv ww 2. Complete transfers supv 3. Complete verbalization of HEP indep 4. Complete 4 with unilateral hand rial PLAN Treatment Frequency, Duration and Interventions: Physical Therapy is recommended for BID for three days Physical Therapy treatment is to include: Gait training, transfer training, balance, functional tasks, HEP, thera act, thera exercise, steps, education on home going safety/recommendations, educated on fall risk, education on mobility benefits, educate on ice management, educate on car transfer Recommended Physical Therapy Follow Up: Upon acute care discharge, the following is currently recommended: Outpatient Physical Therapy. Recommended Equipment: Rolling walker. ww . Rolling walker. Recommended Consults: Occupational Therapy. Development of Plan of Care: Patient participated in plan of care development today. Pt agreeable If there are any questions regarding this service, please contact the Acute Therapy Department at extension [phone] Communication to Nursing: Walking: CGA Location of Patient at End of Therapy Session: In chair, call light within reach Services: Total Billed: 8 minutes (Timed: 8, Untimed: 0) 8.00 Timed: [92535] THER ACTIVITIES / 15 MIN 0.00 Untimed: [24314] PT-EVALUATION LOW COMPLEXITY 0.00 Untimed: [] PT Evaluation ORDER 0.00 Untimed: [] PT Treatment- General ORDER 0.00 Untimed: [G8978] PT-Mobility: Walking and Moving Around-CJ 0.00 Untimed: [G8979] BW-Ddfi-Ezcywzhp: Walking and Moving Around-CI Signed by: Sol Castro, 12/17/2018 17:39:16 [facility] PATIENT NAME: LELA SHETH [facility] [address] [place] MEDICAL REC #: [id number] [place] [address] ADMIT DATE: SERVICE DATE: 12/17/18 Physical Therapy Assessment Report ATTENDING PHY: Rory Russo DO Normal [facility] TSon 12-17-2018 ABO and Rh group Nom (Bld) A POSITIVE [facility] Comment on above: Order Comment: Marilou s: M Established Visit (Gastroent erology)on 12-02-2018 Established Visit (Gastroenterology) Chief Complaint Ulcerative proctosigmoiditis History of Present Illness 68-year-old female has a history of rectal bleeding and diarrhea dating back to September. She had a colonoscopy examination November 17 that demonstrated ulcerative proctosigmoiditis. She was started on mesalamine 4 g enemas nightly. After about 4 enemas she had no further bleeding. She still has about 3 bowel movements occurring early in the morning. These are usually formed but soft. She does wake up about 5 AM with gas and bloating sensation and has usually a explosive bowel movement. Her rectal urgency is also better but still present. She denies any abdominal cramping. She is scheduled for a knee replacement December 17 and was told to stop or medications prior to surgery. She is concerned about that. Review of Systems ROS: Const: Denies fatigue, fever and weight loss. CV: Denies chest pain, pacemaker, palpitations and valvular heart disease. Resp: Denies cough, sleep apnea, SOB and snoring. GI: Denies symptoms other than stated above. Musculo: Denies joint pain and muscle pain. Skin: Denies hives and rash. Neuro: Denies seizures and stroke. Psych: Denies anxiety and depression. Endocrine: Denies intolerance to cold, hot flashes and impaired glucose tolerance. 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 Denied: History of Esophagogastroduodenoscopy History of Foot surgery RIGHT- TOE- 2009 History of Jaw surgery IN SIXTH GRADE History of Knee surgery SCOPE RIGHT - 2008 SCOPE - LEFT - 2014 History of Mastectomy bilateral 2010- CANCER History of Tonsillectomy with adenoidectomy History of Tubal ligation 1983 History of Varicose vein ligation 2010 Family History Family history of BOTH - COLON CANCER Family history of BOTH - COLON CANCER Family history of malignant neoplasm of colon (V16.0) (Z80.0) MOTHER- DX AT AGE 72 FATHER- DX AT AGE 77 Social History Active advance directive (V49.89) (Z78.9) History of tattoo (709.09) (L81.8) NIPPLES No alcohol use No illicit drug use Non-smoker (V49.89) (Z78.9) Occasional caffeine consumption Well balanced diet (V49.89) (Z78.9) Allergies Sulfa Drugs Recorded By: Sara Luo; 10/27/2018 3:06:59 PM No Known Food Allergies Recorded By: Sara Luo; 10/27/2018 3:06:59 PM Current Meds Mesalamine 4 GM Rectal Enema; Use one enema at bedtime daily for colitis; Therapy: 17Nov2018 to (Evaluate:[id number]) Requested for: 17Nov2018; Last Rx:17Nov2018 Ordered Rx By: Michael Khanna; Dispense: 14 Days ; #:14 X 60 ML Bottle; Refill: 2;For: Ulcerative rectosigmoiditis with rectal bleeding; LAURA = N; Verified Transmission to [facility]; Last Updated By: Florinda Alves; 11/17/2018 2:22:29 PM Motrin 600 MG TABS; take 3 po daily as needed; Therapy: (Recorded:28Oct2018) to Recorded Dispense: 0 Days ; #: Sufficient Each; Refill: 0; LAURA = N; Record; Last Updated By: Reina Perkisn; 10/28/2018 7:46:37 AM PriLOSEC 20 MG CPDR; Therapy: (Recorded:28Oct2018) to Recorded Dispense: 0 Days ; #: Sufficient; Refill: 0; LAURA = N; Record; Last Updated By: Reina Perkins; 10/28/2018 7:46:37 AM Vitamin C 1000 MG Oral Tablet; Therapy: (Recorded:28Oct2018) to Recorded Dispense: 0 Days ; #: Sufficient; Refill: 0; LAURA = N; Record; Last Updated By: Reina Perkins; 10/28/2018 7:46:37 AM Vitals Vital Signs Recorded: 02Dec2018 08:43AM Heart Rate96 Fatfwpve390, LUE, Sitting Qqugcopow89, LUE, Sitting Blood Pressure Cuff SizeAdult Height5 ft 8 in Kixfnp471 lb 2 oz BMI Rbqryatoxa81.02 BSA Calculated1.91 O2 Wqwmfyzvdi54 Physical Exam Exam: Const: . Vital signs and weight reviewed. ENMT: Oral mucosa moist with no thrush and no mucositis. Neck: Supple and symmetric. Thyroid is normal in size and texture. Resp: Respiration rate is normal. Clear to auscultation. CV: Rhythm is regular. No heart murmur appreciated. Carotids: 2+ and equal bilaterally, without bruits. Femorals: 2+ and equal bilaterally, without bruits. Abdomen: Positive bowel sounds in all quadrants. No bruits. Normal to percussion. Abdomen is soft, nontender, and nondistended. No abdominal masses. No hernias. No palpable hepatosplenomegaly. Anus/Perineum/Rectum: Exam deferred. Lymph: No visible or palpable cervical lymphadenopathy. Inguinal nodes not palpable. Skin: Dry and warm with no nodularity or rash. Psych: Affect is normal. Alert and oriented x3. Neuro: Cranial nerves intact. No focal motor defects Muscloskeletal: No joint deformity or swelling. Motor strength normal. Results/Data 11/17/18: Colonoscopy showed ulcerative proctosigmoiditis Diagnoses/Problems History of Colonoscopy 2008- mds- colon polyps, hemorrhoids , 2011- NORMAL, HEMORRHOIDS, 2017- NORMAL, HEMORRHOIDS- 2019- MODERATE ACTIVE U.C. 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; Last Updated By: [id number]; 12/02/2018 9:20:45 AM Provider Impressions Impression: 1. 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 2. Family history of colon cancer Recommendation: 1. Continue mesalamine 4 g enemas every night for one week and then taper to every other night. 2. Start Lialda 2.4 g 2 tablets every morning Rx sent 3. Education including websites to use was discussed with the patient. She had numerous questions about colitis and over 50% of the office visit was spent in counseling her on ulcerative colitis. 4. Patient is having a knee replacement December 17. I will see her back in the office at the end of January. Patient Discussion/Summary Continue mesalamine 4 g enema nightly for one week and then use every other night for one week or until your knee surgery. Start Lialda 2.4 g 2 capsules every morning which is the same medication that is in the enemas. You should take this daily even through your knee surgery. You may use Vaseline or Preparation H for your external hemorrhoids. You should review [facility].org or GI.org/patients which are websites to help understand your colitis and medications. I will see you back in January Signatures Electronically signed by : Michael Khanna DO; Dec 02 2018 9:26AM EST (Author) Normal [facility] URINE CULTUREon 11-29-2018 Bacteria identified Cx Nom (U) URINE RESULT LESS THAN 10,000 COLONIES PER ML Normal [facility] Comment on above: Order Comment: Campu s: M Performed By: #### L 300.75289, L300.03267 #### [facility] [address] [place] [address]99 ABO/RH NCon 11-27-2018 ABO and Rh group Nom (Bld) A POSITIVE Normal [facility] Comment on above: Order Comment: Campu s: M Is This Patient Going To Surgery? Y Surgery Date: 12/17/18 BMPon 11-27-2018 Anion gap molar conc 6 mmol/L Normal 5-16 [facility] Comment on above: Order Comment: Campu s: M Performed By: #### L 500.37498, L500.41810, L500.95657, L500.77784 #### [facility] [address] [place], [place] [id number] Calcium mass conc 8.4 mg/dL Low 8.5-10.1 [facility] Comment on above: Order Comment: Campu s: M Performed By: #### L 500.68522, L500.11093, L500.05922, L500.77481 #### [facility] [address] [place] [address]8475 Chloride molar conc 110 mmol/L High 98-107 [facility] Comment on above: Order Comment: Campu s: M Performed By: #### L 500.48194, L500.82496, L500.90213, L500.62004 #### [facility] [place] [address] CO2 molar conc 25 mmol/L Normal 21-32 [facility] Comment on above: Order Comment: Campu s: M Performed By: #### L 500.60915, L500.59684, L500.43325, L500.34643 #### [facility] [place] [address] Creatinine mass conc 0.708 mg/dL Normal 0.510-0.95 0 [facility] Comment on above: Order Comment: Campu s: M Result Comment: Shira ents receiving either N-Acetylcysteine (NAC) or Metamizole prior to venipuncture, may have falsely depressed results. Performed By: #### L 500.09687, L500.16866, L500.48410, L500.45230 #### [facility] [place] [address] Glucose mass conc 89 mg/dL Normal 70-100 [facility] Comment on above: Order Comment: Campu s: M Result Comment: 70-1 00- Normal Fasting; 100-125 Impaired Fasting; greater than 126 on more than one result- Diabetes. ADA guidelines. Results may be falsely elevated after the administration of Sulfapyridine. Results may be falsely depressed after the administration of Sulfasalazine. Performed By: #### L 500.37907, L500.51234, L500.13804, L500.78139 #### [facility] [address] [place] [address] Potassium molar conc 4.0 mmol/L Normal 3.5-5.1 [facility] Comment on above: Order Comment: Campu s: M Performed By: #### L 500.98960, L500.62820, L500.11526, L500.20778 #### [facility] [place] [address] Sodium molar conc 141 mmol/L Normal 136-145 [facility] Comment on above: Order Comment: Campu s: M Performed By: #### L 500.72263, L500.36510, L500.09553, L500.15847 #### [facility] [address] [place] [address] Urea nitrogen mass conc 16 mg/dL Normal 7-26 [facility] Comment on above: Order Comment: Campu s: M Performed By: #### L 500.93746, L500.18335, L500.57651, L500.55065 #### [facility] [address] [place] [address] Urea nitrogen/Creatinine mass ratio 23 mg/mg Normal 15-24 [facility] Comment on above: Order Comment: Campu s: M Performed By: #### L 500.79635, L500.40890, L500.80246, L500.90572 #### [facility] [address] [place] [address] CBC W/DIFFon 11-27-2018 BASO ABS 0.10 K/CU MM Normal 0-0.2 [facility] Comment on above: Order Comment: Campu s: M Performed By: #### L 200.74235, L550.25844 #### [facility] [address] [place] [address] Basophils/100 WBC (Bld) 1.0 % Normal 0-2 [facility] Comment on above: Order Comment: Campu s: M Performed By: #### L 200.98094, L550.49429 #### [facility] [address] [place] [address] EOS ABS 0.20 K/CU MM Normal 0-0.5 [facility] Comment on above: Order Comment: Campu s: M Performed By: #### L 200.54134, L550.99610 #### [facility] [address] [place] [address] Eosinophils/100 WBC (Bld) 3.4 % Normal 0-5 [facility] Comment on above: Order Comment: Campu s: M Performed By: #### L 200.61064, L550.88255 #### [facility] [address] [place] [address] Erythrocyte distribution width Ratio (RBC) 13.2 % Normal 11-14.5 [facility] Comment on above: Order Comment: Campu s: M Performed By: #### L 200.45292, L550.61954 #### [facility] [address] [place] [address] Hematocrit Volume Fraction (Bld) 38.2 % Normal 35.0-47.0 [facility] Comment on above: Order Comment: Campu s: M Performed By: #### L 200.95739, L550.61346 #### [facility] [address] [place] [address] Hemoglobin mass conc (Bld) 12.5 g/dL Normal 11.5-15.5 [facility] Comment on above: Order Comment: Campu s: M Performed By: #### L 200.51556, L550.74465 #### [facility] [address] [place] [address] IMMATR GRAN ABS 0.00 K/CU MM Normal Less than 2 [facility] Comment on above: Order Comment: Campu s: M Performed By: #### L 200.89950, L550.59101 #### [facility] [address] [place] [address] IMMATURE GRAN % 0.3 % Normal Less than 2 [facility] Comment on above: Order Comment: Campu s: M Performed By: #### L 200.90159, L550.36141 #### [facility] [address] [place] [address] Lymphocytes #/vol (Bld) 1.30 K/CU MM Normal 0.9-4.4 [facility] Comment on above: Order Comment: Campu s: M Performed By: #### L 200.28728, L550.83157 #### [facility] [address] [place] [address] Lymphocytes/100 WBC (Bld) 18.5 % Low 20-40 [facility] Comment on above: Order Comment: Campu s: M Performed By: #### L 200.45252, L550.19679 #### [facility] [address] [place] [address] MCHC mass conc (RBC) 32.7 g/dL Normal 32.0-36.0 [facility] Comment on above: Order Comment: Campu s: M Performed By: #### L 200.77304, L550.00755 #### [facility] [address] [place] [address] MCV Entitic volume (RBC) 86.0 fL Normal 80.0-99.0 [facility] Comment on above: Order Comment: Campu s: M Performed By: #### L 200.52317, L550.23803 #### [facility] [address] [place] [address] MONO ABS 0.60 K/CU MM Normal 0.1-1.1 [facility] Comment on above: Order Comment: Campu s: M Performed By: #### L 200.40769, L550.98241 #### [facility] [address] [place] [address] Monocytes/100 WBC (Bld) 8.7 % Normal 2-10 [facility] Comment on above: Order Comment: Campu s: M Performed By: #### L 200.91753, L550.95187 #### [facility] [address] [place] [address] NEUTROPHIL ABS 4.80 K/CU MM Normal 2.0-8.3 [facility] Comment on above: Order Comment: Campu s: M Performed By: #### L 200.29973, L550.32878 #### [facility] [address] [place] [address] Neutrophils/100 WBC (Bld) 68.1 % Normal 45-75 [facility] Comment on above: Order Comment: Campu s: M Performed By: #### L 200.65185, L550.57002 #### [facility] [address] [place] [address] Nucleated RBC/100 WBC Ratio (Bld) 0.0 % Normal Less than 1 [facility] Comment on above: Order Comment: Campu s: M Performed By: #### L 200.56509, L550.48375 #### [facility] [address] [place] [address] Platelet mean volume Entitic volume (Bld) 9.1 fL Low 9.4-12.4 [facility] Comment on above: Order Comment: Campu s: M Performed By: #### L 200.20933, L550.62493 #### [facility] [address] [place] [address] Platelets #/vol (Bld) 301 K/CU MM Normal 150-450 [facility] Comment on above: Order Comment: Campu s: M Performed By: #### L 200.83240, L550.80727 #### [facility] [address] [place] [address] RBC #/vol (Bld) 4.44 M/CU MM Normal 3.90-5.30 [facility] Comment on above: Order Comment: Campu s: M Performed By: #### L 200.63468, L550.18577 #### [facility] [address] [place] [address] WBC #/vol (Bld) 7.1 K/CUMM Normal 4.5-11.0 [facility] Comment on above: Order Comment: Campu s: M Performed By: #### L 200.04194, L550.79723 #### [facility] [address] [place] [address] Kennedy 11-27-2018 FERR 64.9 NG/ML Normal 8.0-307.0 [facility] Comment on above: Order Comment: Campu s: M Performed By: #### L 500.69984, L500.53621, L500.47382, L500.22060 #### [facility] [address] [place] [address] GFR ESTon 11-27-2018 IF AMER Greater than 60 Normal [facility] Comment on above: Order Comment: Marilou s: M Performed By: #### L 500.09381, L500.17652, L500.67407, L500.40287 #### [facility] [address] [place] [address] IF non-AFR AMER Greater than 60 Normal [facility] Comment on above: Order Comment: Marilou carlisle: M Performed By: #### L 500.98715, L500.19091, L500.96100, L500.08074 #### [facility] [address] [place], [place] [address] HGB A1C GLYCOHBon 11-27-2018 Hemoglobin A1c/Hemoglobin.tota l mass fraction (Bld) 5.7 % Normal 4.3-6.0 [facility] Comment on above: Order Comment: Marilou carlisle: M Performed By: #### L 200.55520, L550.27118 #### [facility] [address] [place] [address] IRON PANELon 11-27-2018 Iron mass conc 71 ug/dL Normal 50-170 [facility] Comment on above: Order Comment: Marilou s: M Result Comment: Shira ents treated with metal-binding drugs (e.g.deferoxamine) may have depressed iron values, as chelated iron may not properly react in the Siemens iron assay. Performed By: #### L 500.34952, L500.07888, L500.05091, L500.42569 #### [facility] [place] [address] IRON SAT 23 % Normal 22-44 [facility] Comment on above: Order Comment: Marilou s: M Performed By: #### L 500.50031, L500.31285, L500.72557, L500.10468 #### [facility] [address] [place] [address] TIBC 307 UG/DL Normal 221-481 [facility] Comment on above: Order Comment: Marilou s: M Performed By: #### L 500.99928, L500.79179, L500.08122, L500.16388 #### [facility] [address] [place] [address] MRSA PCRon 11-27-2018 MRSA PCR Negative Normal NEGATIVE [facility] Comment on above: Order Comment: Marilou carlisle: Leticia Result Comment: PLEA SE NOTE: TESTING DONE BY [employer]. The SA Nasal complete MRSA assay on the [employer] GeneXpert has not been validated for use on patients under 21 years of age. All patients under 21 years of age, run on the GeneXpert will be confirmed by a Blood [place] plate, followed by an LENNOX, to confirm MRSA. Performed By: #### L 300.70103, L300.48845 #### [facility] [address] [place] [address] SA PCR Negative Normal NEGATIVE [facility] Comment on above: Order Comment: Marilou s: M Result Comment: PLEA SE NOTE: TESTING DONE BY [employer]. Performed By: #### L 300.87599, L300.22465 #### [facility] [address] [place] [address] PATIENT RETYPEon 11-27-2018 RETYPE INTERP Positive Normal [facility] Comment on above: Order Comment: Marilou Kelly Is This Patient Going To Surgery? Y Surgery Date: 12/17/18 PTon 11-27-2018 INR Coag RelTime (PPP) 0.94 {INR} Normal 0.9-1.1 [facility] Comment on above: Order Comment: Marilou carlisle: Leticia Result Comment: Ricky mmended PT INR therapeutic range for manager intermediate and prophylactic therapy is 2.0 - 3.0. For heart valve and shunt patients the range is 2.5 - 3.5. Performed By: #### L [id number], [id number] #### [facility] [address] [place] [address] Prothrombin time (PT) Coag time (PPP) 10.0 s Normal 9.5-12.0 [facility] Comment on above: Order Comment: Marilou carlisle: Leticia Performed By: #### L [id number], [id number] #### [facility] [address] [place] [address] PTTon 11-27-2018 aPTT Coag time (Bld) 23.4 s Normal 22.0-31.5 [facility] Comment on above: Order Comment: Marilou carlisle: Leticia Result Comment: Ther apeutic Heparin Reference Range: High Dose: 46-75 seconds (DVT/PE) Low Dose: 39-60 seconds (Acute Coronary Syndrome) For low molecular weight heparin or danaparoid, monitoring is often NOT necessary, but the heparin assay, Xa inhibition assay (send-out) may be used in certain circumstances, as the PTT is generally insensitive to the effect of these agents. Direct thrombin inhibitors are becoming more widely utilized and these drugs are often monitored using the PTT. Performed By: #### L [id number], [id number] #### [facility] [address] [place] [id number] [facility] Surgical Pathology Depar tmenton 11-17-2018 [facility] Surgical Pathology Department Name LELA SHETH Pathologist: AWILDA TIRADO MD Date of Procedure: 11/17/2018 Date Received: 11/17/2018 Date Reported 11/19/2018 Submitting Physician: MICHAEL KHANNA DO Location: [facility] Other External # FINAL DIAGNOSIS A. RIGHT COLON, BIOPSY: -- COLONIC MUCOSA WITHIN NORMAL LIMITS. B. MID COLON, BIOPSY: -- COLONIC MUCOSA WITHIN NORMAL LIMITS. C. RECTUM SIGMOID, BIOPSY: -- MILDLY ACTIVE CHRONIC COLITIS. -- NO GRANULOMAS OR DYSPLASIA. Interpretation performed at: [facility] Department of Pathology [address] [address] Electronically Signed Out By AWILDA TIRADO MD/ROHAN By the signature on this report, the individual or group listed as making the Final Interpretation/Diagnosis certifies that they have reviewed this case. Clinical History: Rectal bleeding changing bowel habits K62.5; K19.4 Specimens Submitted As: A: RIGHT COLON BIOPSY B: MID COLON BIOPSY C: RECTUM SIGMOID BIOPSY Gross Description: A: Received in formalin, labeled with the patient's name and hospital number and right colon, are Multiple fragments of nguyen, soft tissue aggregating to 0.9 x 0.2 x 0.1 cm. The specimen is submitted in toto in one cassette. DPG B: Received in formalin, labeled with the patient's name and hospital number and mid colon, are multiple fragments of nguyen, soft tissue aggregating to 1.0 x 0.2 x 0.1 cm. The specimen is submitted in toto in one cassette. DPG C: Received in formalin, labeled with the patient's name and hospital number and rectal sigmoid colon, are multiple fragments of nguyen, soft tissue aggregating to 1.5 x 0.2 x 0.1 cm. The specimen is submitted in toto in one cassette. DPG dpg/11/18/2018 Normal [facility] Comment on above: Performed By: #### [facility] #### [facility] Surgical Pathology Department [id number] [facility] [address] Established Visit (Gastroent erology)on 11-06-2018 Established Visit (Gastroenterology) Active Problems Constipation (564.00) (K59.00) Overflow diarrhea (787.91) (R19.7) Rectal bleeding (569.3) (K62.5) Past Medical History History of breast cancer (V10.3) (Z85.3) 2009 History of colon polyps (V12.72) (Z86.010) Denied: History of complications due to general anesthesia History of hemorrhoids (V13.89) (Z87.19) History of mitral valve prolapse (V12.59) (Z86.79) History of osteoarthritis (V13.4) (Z87.39) Surgical History History of Breast reconstruction 2009 AND REFINED 2010 History of Colonoscopy 2009- mds- colon polyps, hemorrhoids , 2011- NORMAL, HEMORRHOIDS, 2016- NORMAL, HEMORRHOIDS Denied: History of Esophagogastroduodenoscopy History of Foot surgery RIGHT- TOE- 2010 History of Jaw surgery IN SIXTH GRADE History of Knee surgery SCOPE RIGHT - 2009 SCOPE - LEFT - 2014 History of Mastectomy bilateral 2010- CANCER History of Tonsillectomy with adenoidectomy History of Tubal ligation 1984 History of Varicose vein ligation 2010 Family History Family history of BOTH - COLON CANCER Family history of BOTH - COLON CANCER Family history of malignant neoplasm of colon (V16.0) (Z80.0) MOTHER- DX AT AGE 72 FATHER- DX AT AGE 77 Social History Active advance directive (V49.89) (Z78.9) History of tattoo (709.09) (L81.8) NIPPLES No alcohol use No illicit drug use Non-smoker (V49.89) (Z78.9) Occasional caffeine consumption Well balanced diet (V49.89) (Z78.9) Allergies Sulfa Drugs Recorded By: Sara Luo; 10/27/2018 3:06:59 PM No Known Food Allergies Recorded By: Sara Luo; 10/27/2018 3:06:59 PM Current Meds Anucort-HC 25 MG Rectal Suppository; INSERT 1 SUPPOSITORY RECTALLY 2 TIMES DAILY; Therapy: 28Oct2018 to (Evaluate:25Nov2018) Requested for: 28Oct2018; Last Rx:28Oct2018 Ordered Rx By: Ruth Aranda; Dispense: 14 Days ; #:28 Suppository; Refill: 1;For: Rectal bleeding; LAURA = N; Verified Transmission to [facility]; Last Updated By: Long Parsotalisha; 10/28/2018 8:56:47 AM Motrin 600 MG TABS (Ibuprofen); take 3 po daily as needed; Therapy: (Recorded:28Oct2018) to Recorded Dispense: 0 Days ; #: Sufficient Each; Refill: 0; LAURA = N; Record; Last Updated By: Reina Perkins; 10/28/2018 7:46:37 AM PriLOSEC 20 MG CPDR (Omeprazole); Therapy: (Recorded:28Oct2018) to Recorded Dispense: 0 Days ; #: Sufficient; Refill: 0; LAURA = N; Record; Last Updated By: Reina Perkins; 10/28/2018 7:46:37 AM Vitamin C 1000 MG Oral Tablet; Therapy: (Recorded:28Oct2018) to Recorded Dispense: 0 Days ; #: Sufficient; Refill: 0; LAURA = N; Record; Last Updated By: Reina Perkins; 10/28/2018 7:46:37 AM Message Recorded as Task Date: 11/06/2018 08:49 AM, Created By: Sara Luo Task Name: Callback Medical Advice Assigned To: Sara Luo Regarding Patient: LELA SHETH, Status: Active Comment: Sara Luo - 06 Nov 2018 8:49 AM TASK CREATED PATIENT CALLED AND CONSTIPATION AND BLEEDING HAS GOTTEN WORSE. SHE WOULD LIKE A CALL BACK # [phone]- FOR ADVISE- THANK Ruth Pena - 06 Nov 2018 11:50 AM TASK REPLIED TO: Previously Assigned To Ruth Aranda Spoke with patient over the phone. She states she has been taking MiraLAX one capful every day as well as Benefiber 1 tablespoon daily. She is no longer having constipation but she recently began having looser stool. She does continue to take Anucort suppositories twice daily which has improved her bleeding but was concerned as she had light pink blood in the commode yesterday morning. Advised patient to increase Benefiber to twice daily and decrease MiraLAX to one half capful every other day. Instructed to continue Anucort suppositories twice daily and contact office in one week. If bleeding persists, will schedule flexible sigmoidoscopy. Signatures Electronically signed by : Ruth Aranda PA-C; Nov 06 2018 11:52AM EST (Author) Normal Pencil You In Established Visit (Gastroent erology)on 10-28-2018 Established Visit (Gastroenterology) Chief Complaint Rectal bleeding History of Present Illness 68-year-old female presents today as a referral for evaluation of rectal bleeding. Patient reports a sudden change in her bowels 5 weeks ago in association with gross blood per rectum. Prior to this, patient reports a regular, formed bowel movement every morning. Currently, her stools are small, hard catarino requiring mild straining followed by loose stool. She reports one stool early in the morning and occasionally a second in the evening however stool quantity is decreased. There has been some white mucus per rectum as well. Her rectal bleeding began at the same time and is bright red in color located on the toilet tissue after wiping and small amounts within the toilet water. There is no blood within the stool or blood clots. She is not having any pain with defecation or anal/rectal discomfort. She has noticed more bowel gas recently. There is a family history of colon cancer and she has a history of polyps but colonoscopy in 2017 was normal. Patient was given a prescription for Anusol rectal cream without improvement in rectal bleeding. She also started eating oatmeal but did not notice an improvement in bowel function. She drinks 10x 8 ounce glasses of water daily but is unsure of her daily fiber intake. Recent CBC and CMP this month were both normal without evidence of anemia or thrombocytopenia. Patient takes Prilosec 20 mg once daily for chronic GERD and denies breakthrough heartburn, regurgitation, dysphagia, or dyspepsia. Her appetite is good and has been no recent unexplained weight loss. Patient is scheduled for a left knee replacements on December 17. Review of Systems Const: Denies fatigue, fever and weight loss. CV: Reports MVP but denies chest pain, pacemaker, palpitations. Resp: Denies cough, sleep apnea, SOB and snoring. GI: Denies symptoms other than stated above. Musculo: Reports joint pain but denies muscle pain. Skin: Denies hives and rash. Neuro: Denies seizures and stroke. Psych: Denies anxiety and depression. Endocrine: Denies intolerance to cold, hot flashes and impaired glucose tolerance. Irving/Lymph: Denies anemia, blood transfusions, chemotherapy, enlarged lymph nodes and radiation treatment of any kind. Active Problems Rectal bleeding (569.3) (K62.5) Past Medical History History of breast cancer (V10.3) (Z85.3) 2009 History of colon polyps (V12.72) (Z86.010) Denied: History of complications due to general anesthesia History of hemorrhoids (V13.89) (Z87.19) History of mitral valve prolapse (V12.59) (Z86.79) History of osteoarthritis (V13.4) (Z87.39) Surgical History History of Breast reconstruction 2009 AND REFINED 2010 History of Colonoscopy 2009- mds- colon polyps, hemorrhoids , 2011- NORMAL, HEMORRHOIDS, 2016- NORMAL, HEMORRHOIDS Denied: History of Esophagogastroduodenoscopy History of Foot surgery RIGHT- TOE- 2010 History of Jaw surgery IN SIXTH GRADE History of Knee surgery SCOPE RIGHT - 2009 SCOPE - LEFT - 2014 History of Mastectomy bilateral 2010- CANCER History of Tonsillectomy with adenoidectomy History of Tubal ligation 1984 History of Varicose vein ligation 2010 Family History Family history of BOTH - COLON CANCER Family history of BOTH - COLON CANCER Family history of malignant neoplasm of colon (V16.0) (Z80.0) MOTHER- DX AT AGE 72 FATHER- DX AT AGE 77 Social History Active advance directive (V49.89) (Z78.9) History of tattoo (709.09) (L81.8) NIPPLES No alcohol use No illicit drug use Non-smoker (V49.89) (Z78.9) Occasional caffeine consumption Well balanced diet (V49.89) (Z78.9) Allergies Sulfa Drugs Recorded By: Sara Luo; 10/27/2018 3:06:59 PM No Known Food Allergies Recorded By: Sara Luo; 10/27/2018 3:06:59 PM Current Meds Motrin 600 MG TABS; take 3 po daily as needed; Therapy: (Recorded:28Oct2018) to Recorded Dispense: 0 Days ; #: Sufficient Each; Refill: 0; LAURA = N; Record; Last Updated By: Reina Perkins; 10/28/2018 7:46:37 AM PriLOSEC 20 MG CPDR; Therapy: (Recorded:28Oct2018) to Recorded Dispense: 0 Days ; #: Sufficient; Refill: 0; LAURA = N; Record; Last Updated By: Reina Perkins; 10/28/2018 7:46:37 AM Vitamin C 1000 MG Oral Tablet; Therapy: (Recorded:28Oct2018) to Recorded Dispense: 0 Days ; #: Sufficient; Refill: 0; LAURA = N; Record; Last Updated By: Reina Perkins; 10/28/2018 7:46:37 AM Vitals Vital Signs Recorded: 28Oct2018 08:02AM Heart Rate86 Galmbnvl435, LUE, Sitting Rxpavnfre66, LUE, Sitting Blood Pressure Cuff SizeAdult Height5 ft 8 in Hjkiwn452 lb BMI Azaregistj14.3 BSA Calculated1.92 O2 Khivgylfoo84 Physical Exam Const: Vital signs reviewed. ENMT: Oral mucosa moist with no thrush and no mucositis. Neck: Supple and symmetric. Thyroid is normal in size and texture. Resp: Respiration rate is normal. Clear to auscultation. CV: Rhythm is regular. No heart murmur appreciated. Carotids 2+ and equal bilaterally, without bruits. Femorals 2+ and equal bilaterally, without bruits. Abdomen: Positive bowel sounds in all quadrants. No bruits. Normal to percussion. Palpation of the abdomen reveals softness but no tenderness, distension or fluid wave. No abdominal masses. No hernias. No palpable hepatosplenomegaly. Anus/Perineum/Rectum: 2 small, noninflamed, non-bleeding hemorrhoids. Normal internal exam. Lymph: No visible or palpable cervical lymphadenopathy. Inguinal nodes not palpable. Skin: Dry and warm with no nodularity or rash. Psych: Affect is normal. Alert and oriented x3. Neuro: Cranial nerves intact. No focal motor defects. Results/Data 1. Colonoscopy 07/09/17: Normal colon, hemorrhoids. Recall 2021. 2. Lab studies 10/22/18: WBC 5.7, hemoglobin 14.1, hematocrit 41.8, MCV 86.6, platelet 279. Sodium 142, potassium 4.3, glucose 100, BUN 16, chronic 0.84. Total bilirubin 0.7, alkaline phosphatase 81, ALT 26, AST 15. Diagnoses/Problems Rectal bleeding (569.3) (K62.5) History of colon polyps (V12.72) (Z86.010) Family history of malignant neoplasm of colon (V16.0) (Z80.0) : Other MOTHER- DX AT AGE 72 FATHER- DX AT AGE 77 Constipation (564.00) (K59.00) Overflow diarrhea (787.91) (R19.7) Orders Rectal bleeding Start: Anucort-HC 25 MG Rectal Suppository; INSERT 1 SUPPOSITORY RECTALLY 2 TIMES DAILY Rx By: Ruth Aranda; Dispense: 14 Days ; #:28 Suppository; Refill: 1;For: Rectal bleeding; LAURA = N; Verified Transmission to [facility]; Last Updated By: LongCar reviews; 10/28/2018 8:56:47 AM Patient Discussion/Summary 1. Begin using one heaping tablespoon of Benefiber in 8 ounces of water daily by mixing and drinking quickly. This product is [id number]. 2. Begin using MiraLAX 1/2 - 1 capful in 8 ounces of water, juice, or Gatorade daily. This products is [id number]-vtkuhpe. You can adjust this product if you are having severe constipation by increasing it to twice a day. If you are experiencing loose stool, decrease amount to one half capful daily or one capful every other day. 3. Insert 1 Anucort suppository twice daily for 2 weeks. 4. Contact office in 2 weeks with update. 5. Discussed patient in detail with Dr. Khanna who is in agreement with current recommendations. Patient's bleeding most likely secondary to hemorrhoidal irritation with new onset constipation and straining. Pending 2 week follow-up with new bowel regimen and suppositories, may schedule a flexible sigmoidoscopy if bleeding persists. This would be done prior to her knee replacement. Normal [facility] Vital Signs Date Time Vital Sign Value Performing Clinician Facility 05-19-2025 23:31-0400 Body temperature 97.4 [degF] Dr. Reynaldo Garcia DO Work Phone: [facility] 05-19-2025 23:31-0400 Diastolic blood pressure 89 mm[Hg] Dr. Reynaldo Garcia DO Work Phone: [facility] 05-19-2025 23:31-0400 Heart rate 96 /min Dr. Reynaldo Garcia DO Work Phone: [facility] 05-19-2025 23:31-0400 Respiratory rate 18 /min Dr. Reynaldo Garcia DO Work Phone: [facility] 05-19-2025 23:31-0400 SaO2% (BldA) [Mass fraction] 97 % Dr. Reynaldo Garcia DO Work Phone: [facility] 05-19-2025 23:31-0400 Systolic blood pressure 150 mm[Hg] Dr. Reynaldo Garcia DO Work Phone: [facility] 05-19-2025 23:08-0400 Body mass index (BMI) [Ratio] 30.5 kg/m2 Dr. Reynaldo Garcia DO Work Phone: [facility] 05-19-2025 23:08-0400 Body weight 85.[address] Reynaldo Garcia DO Work Phone: [facility] 05-19-2025 23:02-0400 Body height 167.[address] Reynaldo Garcia DO Work Phone: [facility] 02-23-2025 07:48-0400 Body mass index (BMI) [Ratio] 29.3 kg/m2 Dr. Reynaldo Garcia DO Work Phone: [facility] 02-23-2025 07:48-0400 Body temperature 97.4 [degF] Dr. Reynaldo Garcia DO Work Phone: [facility] 02-23-2025 07:48-0400 Body weight 82.[address] Reynaldo Garcia DO Work Phone: [facility] 02-23-2025 07:48-0400 Diastolic blood pressure 88 mm[Hg] Dr. Reynaldo Garcia DO Work Phone: [facility] 02-23-2025 07:48-0400 Heart rate 80 /min Dr. Reynaldo Garcia DO Work Phone: [facility] 02-23-2025 07:48-0400 Respiratory rate 16 /min Dr. Reynaldo Garcia DO Work Phone: [facility] 02-23-2025 07:48-0400 SaO2% (BldA) [Mass fraction] 95 % Dr. Reynaldo Garcia DO Work Phone: [facility] 02-23-2025 07:48-0400 Systolic blood pressure 141 mm[Hg] Dr. Reynaldo Garcia DO Work Phone: [facility] 02-16-2025 08:15-0400 Body height 167.[address] Reynaldo Garcia DO Work Phone: [facility] 02-16-2025 08:15-0400 Body weight 81.[address] Reynaldo Garcia DO Work Phone: [facility] 02-16-2025 08:15-0400 Heart rate 84 /min Dr. Reynaldo Garcia DO Work Phone: [facility] 02-16-2025 08:15-0400 SaO2% (BldA) [Mass fraction] 96 % Dr. Reynaldo Garcia DO Work Phone: [facility] 02-02-2025 08:23-0400 Body mass index (BMI) [Ratio] 29 kg/m2 Dr. Reynaldo Garcia DO Work Phone: [facility] 02-02-2025 08:23-0400 Body temperature 98.5 [degF] Dr. Reynaldo Garcia DO Work Phone: [facility] 02-02-2025 08:23-0400 Body weight 83.[address] Reynaldo Garcia DO Work Phone: [facility] 02-02-2025 08:23-0400 Diastolic blood pressure 86 mm[Hg] Dr. Reynaldo Garcia DO Work Phone: [facility] 02-02-2025 08:23-0400 Heart rate 74 /min Dr. Reynaldo Garcia DO Work Phone: [facility] 02-02-2025 08:23-0400 Respiratory rate 18 /min Dr. Reynaldo Garcia DO Work Phone: [facility] 02-02-2025 08:23-0400 SaO2% (BldA) [Mass fraction] 97 % Dr. Reynaldo Garcia DO Work Phone: [facility] 02-02-2025 08:23-0400 Systolic blood pressure 130 mm[Hg] Dr. Reynaldo Garcia DO Work Phone: [facility] 01-13-2025 07:53-0400 Body mass index (BMI) [Ratio] 28.6 kg/m2 Dr. Reynaldo Garcia DO Work Phone: [facility] 01-13-2025 07:53-0400 Body weight [address] Reynaldo Garcia DO Work Phone: [facility] 01-13-2025 07:53-0400 Diastolic blood pressure 94 mm[Hg] Dr. Reynaldo Garcia DO Work Phone: [facility] 01-13-2025 07:53-0400 Heart rate 73 /min Dr. Reynaldo Garcia DO Work Phone: [facility] 01-13-2025 07:53-0400 Respiratory rate 18 /min Dr. Reynaldo Garcia DO Work Phone: [facility] 01-13-2025 07:53-0400 Systolic blood pressure 135 mm[Hg] Dr. Reynaldo Garcia DO Work Phone: [facility] 12-01-2024 09:19-0400 Body mass index (BMI) [Ratio] 29 kg/m2 Dr. Reynaldo Garcia DO Work Phone: [facility] 12-01-2024 09:19-0400 Body temperature 96.9 [degF] Dr. Reynaldo Garcia DO Work Phone: [facility] 12-01-2024 09:19-0400 Body weight 83.[address] Reynaldo Garcia DO Work Phone: [facility] 12-01-2024 09:19-0400 Diastolic blood pressure 88 mm[Hg] Dr. Reynaldo Garcia DO Work Phone: [facility] 12-01-2024 09:19-0400 Heart rate 84 /min Dr. Reynaldo Garcia DO Work Phone: [facility] 12-01-2024 09:19-0400 Respiratory rate 20 /min Dr. Reynaldo Garcia DO Work Phone: [facility] 12-01-2024 09:19-0400 SaO2% (BldA) [Mass fraction] 94 % Dr. Reynaldo Garcia DO Work Phone: [facility] 12-01-2024 09:19-0400 Systolic blood pressure 133 mm[Hg] Dr. Reynaldo Garcia DO Work Phone: [facility] 06-25-2024 12:59-0500 Body temperature 98.24 [degF] DR REYNALDO GARCIA DO [facility] 06-25-2024 12:59-0500 Diastolic Blood Pressure Non-Invasive 83 mm[Hg] DR REYNALDO GARCIA DO [facility] 06-25-2024 12:59-0500 Heart rate 80 /min DR REYNALDO GARCIA DO [facility] 06-25-2024 12:59-0500 Reason For Taking VItal Signs DR REYNALDO GARCIA DO [facility] 06-25-2024 12:59-0500 Respiratory rate 16 /min DR REYNALDO GARCIA DO [facility] 06-25-2024 12:59-0500 Systolic Blood Pressure Non-Invasive 136 mm[Hg] DR REYNALDO GARCIA DO [facility] 10-31-2023 12:01-0400 Body temperature 97.88 [degF] DR REYNALDO GARCIA DO [facility] 10-31-2023 12:01-0400 Diastolic Blood Pressure Non-Invasive 90 mm[Hg] DR REYNALDO GARCIA DO [facility] 10-31-2023 12:01-0400 Heart rate 78 /min DR REYNALDO GARCIA DO [facility] 10-31-2023 12:01-0400 Respiratory rate 18 /min DR REYNALDO GARCIA DO [facility] 10-31-2023 12:01-0400 Systolic Blood Pressure Non-Invasive 128 mm[Hg] DR REYNALDO GARCIA DO [facility] 11-05-2022 10:13-0400 Body height 165.[address] Reynaldo Garcia Work Phone: [facility] 11-05-2022 10:13-0400 Body mass index (BMI) [Ratio] 30.8 kg/m2 Dr. Reynaldo Garcia Work Phone: [facility] 11-05-2022 10:13-0400 Body weight 84.[address] Reynaldo Garcia Work Phone: [facility] 11-05-2022 10:13-0400 Diastolic blood pressure 87 mm[Hg] Dr. Reynaldo Garcia Work Phone: [facility] 11-05-2022 10:13-0400 Systolic blood pressure 142 mm[Hg] Dr. Reynaldo Garcia Work Phone: [facility] 07-31-2022 10:25-0500 Body height 165.[address] Reynaldo Garcia Work Phone: [facility] 07-31-2022 10:25-0500 Body mass index (BMI) [Ratio] 30.9 kg/m2 Dr. Reynaldo Garcia Work Phone: [facility] 07-31-2022 10:25-0500 Body weight 84.[address] Reynaldo Garcia Work Phone: [facility] 07-31-2022 10:25-0500 Diastolic blood pressure 93 mm[Hg] Dr. Reynaldo Garcia Work Phone: [facility] 07-31-2022 10:25-0500 Heart rate 95 /min Dr. Reynaldo Garcia Work Phone: [facility] 07-31-2022 10:25-0500 Respiratory rate 18 /min Dr. Reynaldo Garcia Work Phone: [facility] 07-31-2022 10:25-0500 SaO2% (BldA) [Mass fraction] 92 % Dr. Reynaldo Garcia Work Phone: [facility] 07-31-2022 10:25-0500 Systolic blood pressure 138 mm[Hg] Dr. Reynaldo Garcia Work Phone: [facility] 01-26-2022 10:21-0400 Body height 165.[address] Reynaldo Garcia Work Phone: [facility] Work Phone: 01-26-2022 10:21-0400 Body mass index (BMI) [Ratio] 31.1 kg/m2 Dr. Reynaldo Garcia Work Phone: [facility] Work Phone: 01-26-2022 10:21-0400 Body weight 84.[address] Reynaldo Garcia Work Phone: [facility] Work Phone: 01-26-2022 10:21-0400 Diastolic blood pressure 74 mm[Hg] Dr. eRynaldo Garcia Work Phone: [facility] Work Phone: 01-26-2022 10:21-0400 Heart rate 76 /min Dr. Reynaldo Garcia Work Phone: [facility] Work Phone: 01-26-2022 10:21-0400 Respiratory rate 16 /min Dr. Reynaldo Garcia Work Phone: [facility] Work Phone: 01-26-2022 10:21-0400 Systolic blood pressure 118 mm[Hg] Dr. Reynaldo Garcia Work Phone: [facility] Work Phone: 10-26-2021 10:36-0400 Body mass index (BMI) [Ratio] 30.2 kg/m2 Dr. Reynaldo Garcia Work Phone: [facility] [facility] Work Phone: 10-26-2021 10:36-0400 Body weight 82.[address] Reynaldo Garcia Work Phone: [facility] Work Phone: 10-26-2021 10:36-0400 Diastolic blood pressure 88 mm[Hg] Dr. Reynaldo Garcia Work Phone: [facility] Work Phone: 10-26-2021 10:36-0400 Heart rate 76 /min Dr. Reynaldo Garcia Work Phone: [facility] Work Phone: 10-26-2021 10:36-0400 Respiratory rate 16 /min Dr. Reynaldo Garcia Work Phone: [facility] Work Phone: 10-26-2021 10:36-0400 Systolic blood pressure 134 mm[Hg] Dr. Reynaldo Garcia Work Phone: [facility] Work Phone: 10-26-2021 10:36-0400 Body height 165.[address] Reynaldo Garcia Work Phone: [facility] Work Phone: 10-26-2021 10:36-0400 Body mass index (BMI) [Ratio] 30.2 kg/m2 Dr. Reynaldo Garcia Work Phone: [facility] Work Phone: 10-26-2021 10:36-0400 Body weight 82.[address] Reynaldo Garcia Work Phone: [facility] Work Phone: 10-26-2021 10:36-0400 Diastolic blood pressure 88 mm[Hg] Dr. Reynaldo Garcia Work Phone: [facility] Work Phone: 10-26-2021 10:36-0400 Heart rate 76 /min Dr. Reynaldo Garcia Work Phone: [facility] Work Phone: 10-26-2021 10:36-0400 Respiratory rate 16 /min Dr. Reynaldo Garcia Work Phone: [facility] Work Phone: 10-26-2021 10:36-0400 Systolic blood pressure 134 mm[Hg] Dr. Reynaldo Garcia Work Phone: [facility] Work Phone: Encounters Encounter Date Encounter Type Care Provider Facility Start: 05-19-2025 End: 05-19-2025 Emergency department patient visit Dr. Reynaldo Garcia DO Work Phone: -Emergency Department Work Phone: Start: 05-14-2025 End: 05-14-[address] REYNALDO GARCIA DO Facility:[facility] Start: 05-14-2025 End: 05-14-[address] REYNALDO GARCIA DO [facility] Start: 04-20-2025 End: 04-24-[address] REYNALDO GARCIA DO Facility:[facility] Start: 04-20-2025 End: 04-24-[address] REYNALDO GARCIA DO [facility] Start: 02-23-2025 End: 02-23-2025 Patient encounter procedure Judy WALLACE -[facility] Work Phone: Start: 02-23-2025 End: 02-23-[address] Reynaldo Garcia DO Work Phone: -[facility] Start: 02-17-2025 ambulatory Reynaldo Garcia Facility:[facility] Start: 02-17-2025 Non-patient / Non-visit Dr. Rakesh Castellano DO -[facility] Start: 02-16-2025 End: 02-16-[address] 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 Reynaldo Garcia DO Work Phone: [facility] Work Phone: Start: 01-29-2025 Non-patient / Non-visit Dr. Deonna Villatoro MD -[facility] Start: 01-29-2025 End: 01-29-[address] Reynaldo Garcia DO Work Phone: [facility] Work Phone: Start: 01-29-2025 End: 01-29-[address] Rakesh Castellano DO -Cardiovascular Services Work Phone: Start: 01-29-2025 End: 01-29-2025 ambulatory Reynaldo Garcia Facility:[facility] Start: 01-14-2025 End: 01-14-[address] REYNALDO GARCIA DO Facility:[facility] Start: 01-14-2025 End: 01-14-[address] REYNALDO GARCIA DO [facility] Start: 01-13-2025 End: 01-13-[address] Young Vargas MD -[facility] Work Phone: Start: 01-13-2025 End: 01-13-[address] Reynaldo Garcia DO Work Phone: [facility] Work Phone: Start: 12-01-2024 End: 12-01-[address] Rakesh Castellano DO -[facility] Work Phone: Start: 12-01-2024 End: 12-01-2024 ambulatory Reynaldo Garcia Facility[place] Start: 10-28-2024 End: 10-28-[address] Reynaldo Garcia DO Work Phone: [facility] Work Phone: Start: 10-28-2024 End: 10-28-[address] Reynaldo Garcia DO -[facility] Work Phone: Start: 10-28-2024 End: 10-28-2024 ambulatory Reynaldo Garcia Facility:[facility] Start: 10-02-2024 End: 10-02-[address] REYNALDO GARCIA DO Facility:[facility] Start: 10-02-2024 End: 10-02-[address] REYNALDO GARCIA DO [facility] Start: 06-30-2024 ambulatory Reynaldo Garcia Facility:[facility] Start: 06-30-2024 End: 06-30-2024 ambulatory Reynaldo Garcia Facility:[facility] Start: 06-25-2024 End: 06-25-[address] REYNALDO GARCIA DO Facility:[facility] Start: 06-25-2024 End: 06-25-[address] REYNALDO GARCIA DO [facility] Start: 04-07-2024 End: 04-11-[address] REYNALDO GARCIA DO Facility:[facility] Start: 04-07-2024 End: 04-11-[address] REYNALDO GARCIA DO [facility] Start: 04-03-2024 End: 04-03-[address] REYNALDO GARCIA DO Facility:[facility] Start: 04-03-2024 End: 04-03-[address] REYNALDO GARCIA DO [facility] Start: 01-30-[address] Reynaldo Garcia DO Work Phone: [facility] Comment on above: Removal of hardware right middle toe later this summer Start: 01-09-2024 End: 01-09-[address] REYNALDO GARCIA DO Facility:[facility] Start: 01-09-2024 End: 01-09-[address] REYNALDO GARCIA DO [facility] Start: 10-31-2023 End: 10-31-[address] REYNALDO GARCIA DO Facility:[facility] Start: 10-31-2023 End: 10-31-[address] REYNALDO GARCIA DO [facility] Start: 08-09-2023 End: 08-09-2023 ambulatory [facility] Work Phone: Start: 08-09-2023 End: 08-09-2023 Discharged Recurring [facility]-Physical Therapy Work Phone: Start: 07-18-2023 End: 07-18-[address] REYNALDO GARCIA DO Facility:[facility] Start: 07-18-2023 End: 07-18-[address] REYNALDO GARCIA DO [facility] Start: 11-09-2022 End: 11-09-[address] Reynaldo Garcia Work Phone: [facility] Work Phone: Start: 11-09-2022 End: 11-09-[address] Reynaldo Garcia Work Phone: [facility]-Ultrasound, [facility] Start: 11-05-2022 End: 11-05-[address] Reynaldo Garcia Work Phone: [facility] Work Phone: Start: 11-05-2022 End: 11-05-[address] Reynaldo Garcia Work Phone: [facility]-Laboratory, Specimen Start: 11-05-2022 End: 11-05-[address] Reynaldo Garcia Work Phone: [facility] Start: 10-25-2022 End: 10-25-[address] Reynaldo Garcia Work Phone: [facility] Work Phone: Start: 10-25-2022 End: 10-25-[address] Reynaldo Garcia Work Phone: [facility]-Cat Scan, [facility] Start: 10-03-2022 End: 10-03-[address] Reynaldo Garcia Work Phone: [facility] Work Phone: Start: 10-03-2022 End: 10-03-[address] Reynaldo Garcia Work Phone: [facility]-Ultrasound, [facility] Start: 08-29-2022 End: 08-29-[address] Reynaldo Garcia Work Phone: [facility] Work Phone: Start: 08-29-2022 End: 08-29-[address] Reynaldo Garcia Work Phone: [facility] Start: 07-31-2022 End: 07-31-[address] Reynaldo Garcia Work Phone: [facility] Start: 02-14-2022 End: 02-14-[address] Reynaldo Garcia Work Phone: [facility]-Laboratory Start: 01-26-2022 End: 01-26-[address] Reynaldo Garcia Work Phone: [facility] Start: 11-27-2021 Non-patient / Non-visit Dr. Reynaldo Garcia Work Phone: [facility] Start: 11-27-2021 End: 11-27-[address] Reynaldo Garcia Work Phone: [facility]-Cardiovascular Services Start: 11-27-2021 Non-patient / Non-visit Dr. Reynaldo Garcia Work Phone: [facility] Start: 10-31-2021 End: 10-31-[address] Reynaldo Garcia Work Phone: [facility]-Pulmonary Services/Neurology Start: 10-26-2021 End: 10-26-[address] Reynaldo Garcia Work Phone: [facility]-Radiology, [facility] Start: 10-26-2021 End: 10-26-[address] Reynaldo Garcia Work Phone: [facility] Start: 10-10-2021 Non-patient / Non-visit Dr. Reynaldo Garcia Work Phone: [facility] Start: 07-25-[address] Reynaldo Garcia Work Phone: [facility]-Outpatient Bone Densitometry Start: 06-01-2021 End: 06-01-[address] REYNALDO GARCIA DO [facility] Procedures Date Procedure Procedure Detail Performing Clinician Start: 10-28-[address] Reynaldo Garcia DO Work Phone: Start: 12-25-[address] REYNALDO KINSEY DO Comment on above: D&C hysteroscpy Start: 11-09-[address] Sujata Garcia Work Phone: Start: 11-09-[address] Reynaldo Garcia Work Phone: Start: 10-25-2022 Computed tomography of abdomen and pelvis with contrast Dr. Reynaldo Garcia Work Phone: Start: 10-03-[address] eRnetta Garcia Work Phone: Start: 01-26-2022 Plain chest X-ray Dr. Sujata Garcia Work Phone: Start: 11-27-2021 Cardiovascular stres s test using pharmacologic stress agent Dr. Reynaldo Garcia Work Phone: Start: 10-26-2021 Plain chest X-ray Dr. Sujata Garcia Work Phone: Start: 07-25-2021 Dual energy X-ray absorptiometry Dr. Reynaldo Garcia Work Phone: Start: 08-12-[address] REYNALDO GARCIA DO Comment on above: right Start: 12-17-2018 Antibody screen Comment on above: Order Comment: Campu s: M Result Comment: Shira ent was NOT transfused or in the past 3 months. Antibody screen not indicated. Start: 11-27-2018 Antibody screen Comment on above: Order Comment: Jaceku s: M Start: 11-27-2018 Ecg routine ecg w/le ast 12 lds i&r only Start: 08-12-[address] REYNALDO GARCIA DO Comment on above: left Start: 08-12-2012 Structure of joint o f toe (body structure) DR REYNALDO GARCIA DO Start: 08-12-[address] RENETTA GARCIA DO Start: 11-10-2009 Excision of breast tissue DR REYNALDO GARCIA DO Comment on above: BILATERAL FOR SUSPIC IOUS GROWTH AND RECONSTRUCTION Start: 08-12-2009 ft (qualifier value) DR REYNALDO GARCIA DO Start: 08-12-[address] REYNALDO KINSEY DO Start: 08-12-[address] REYNALDO GARCIA DO Comment on above: RIGHT Destructive procedure DR TODD GARCIA DO Comment on above: CERVIX FOR PRECANCER OUS CELLS Plan of Treatment Date Care Activity Detail Author Start: 05-19-2025 [facility] Patient Education Spider Varicos e Vein Self Care ED Varicose Veins [facility] Work Phone: [facility] Walking distance 6 minutes [facility] Immunizations Immunization Date Immunization Notes Care Provider Fa [facility] 05-14-2025 influenza virus vacc ine, unspecified formulation DR REYNALDO GARCIA DO [facility] 05-14-2025 SARS-CoV-2 (COVID-19 ) Ad26 vaccine, recombinant DR REYNALDO GARCIA DO [facility] 10-21-2024 Pneumococcal conjuga te PCV20, polysaccharide [id number] conjugate, adjuvant, PF; Translations: [Prevnar 20] DR REYNALDO GARCIA DO [facility] 10-21-2024 influenza, high dose seasonal, preservative-free; Translations: [Fluad PF Prefilled Syringe ] DR REYNALDO GARCIA DO [facility] 06-29-2024 RSV vaccine preF3, recombinant DR REYNALDO GARCIA DO [facility] 06-16-2024 SARS-CoV-2 (COVID-19 ) [id number] DR REYNALDO GARCIA DO [facility] 07-12-2023 influenza virus vacc ine, unspecified formulation DR REYNALDO GARCIA DO [facility] 07-12-2023 SARS-CoV-2 (COVID-19 ) [id number] DR REYNALDO GARCIA DO [facility] 05-24-2022 influenza virus vacc ine, unspecified formulation DR REYNALDO GARCIA DO [facility] 06-09-2021 SARS-CoV-2 mRNA (tozinameran) vaccine DR REYNALDO GARCIA DO [facility] Comment on above: Result Comment: 2021: [id number] 05-15-2021 influenza virus vacc ine, unspecified formulation DR REYNALDO GRACIA DO [facility] 10-20-2020 SARS-CoV-2 (COVID-19 ) Ad26 vaccine, recombinant DR REYNALDO GARCIA DO [facility] Comment on above: Result Comment: 2020: [id number] 03-29-2020 influenza virus vacc ine, unspecified formulation DR REYNALDO GARCIA DO [facility] 03-29-[address] REYNALDO GARCIA DO [facility] 12-29-2019 pneumococcal polysaccharide vaccine, [address] REYNALDO GARCIA DO [facility] 12-29-[address] REYNALDO GARCIA DO [facility] 05-15-2019 influenza virus vacc ine, unspecified formulation DR REYNALDO GARCIA DO [facility] 05-29-2018 influenza virus vacc ine, unspecified formulation DR REYNALDO GARCIA DO [facility] 07-25-2017 pneumococcal conjuga te vaccine, [address] REYNALDO GARCIA DO [facility] 05-27-2017 influenza virus vacc ine, unspecified formulation DR REYNALDO GARCIA DO [facility] 05-22-2016 influenza virus vacc ine, unspecified formulation DR REYNALDO GARCIA DO [facility] 05-22-2016 tetanus and diphther ia toxoids, adsorbed, preservative free, for adult use (5 Lf of tetanus toxoid and 2 Lf of diphtheria toxoid) DR REYNALDO GARCIA DO [facility] 05-20-2015 influenza virus vacc ine, unspecified formulation DR REYNALDO GARCIA DO [facility] 08-18-2014 influenza virus vacc ine, unspecified formulation DR REYNALDO GARCIA DO [facility] 05-07-2013 influenza virus vacc ine, unspecified formulation DR REYNALDO GARCIA DO [facility] 05-08-2012 influenza virus vacc ine, unspecified formulation DR REYNALDO GARCIA DO [facility] 04-24-2012 zoster vaccine, live DR REYNALDO GARCIA DO [facility] Payers Date Payer Category Payer Private Health Insurance [id number] 2024 Unknown [id number] 2024 Self-pay [id number] 2023 Medicare [id number] 2023 Unknown [id number] 2019 Medicare [id number] 2016 Unknown [id number] 1950 Unknown [id number] 2.16.8 40.1.353331.3.579.2.62 1950 Unknown [id number] 2.16.8 40.1.665462.3.579.2.627 1950 Unknown [id number] 2.16.8 40.1.365436.3.579.2.627 1950 Unknown [id number] 2.16.8 40.1.245604.3.579.2.627 1950 Unknown [id number] 2.16.8 40.1.166711.3.579.2.627 1950 Unknown [id number] 2.16. 840.1.237665.3.579.2.627 1950 Unknown [id number] 2.16. 840.1.055530.3.579.2.627 1950 Unknown [id number] 2.16. 840.1.054213.3.579.2.62 1950 Unknown [id number] 2.16.8 40.1.561980.3.579.2.627 1950 Unknown [id number] 2.16.8 40.1.339606.3.579.2.627 Unknown [id number] 2.16.8 40.1.606632.3.579.2.462 Unknown [id number] 2.16.8 40.1.087950.3.579.2.462 Unknown [id number] 2.16.8 40.1.815182.3.579.2.462 Unknown [id number] 2.16.8 40.1.808898.3.579.2.462 Unknown [id number] 2.16.8 40.1.496839.3.579.2.462 Unknown [id number] 2.16.8 40.1.977209.3.579.2.462 Unknown [id number] 2.16.8 40.1.947558.3.579.2.462 Unknown [id number] 2.16.8 40.1.660193.3.579.2.462 Unknown [id number] 2.16.8 40.1.954339.3.579.2.462 Unknown [id number] 2.16.8 40.1.782370.3.579.2.462 Unknown [id number] 2.16.8 40.1.543451.3.579.2.462 Unknown [id number] 2.16.8 40.1.784406.3.579.2.462 Social History Date Type Detail Facility Start: 06-03-2019 End: 05-19-2025 Never smoked tobacco (finding) [facility] Comment on above: tobacco/smoke exposu re: none Start: 1950 Sex Assigned At Female A [facility] Start: 10-26-2021 End: 02-07-2023 Tobacco smoking status NHIS Unknown if ever smoked [facility] Sexual Orientation [facility] Start: 02-04-2019 End: 11-05-2024 Sex Female (finding) [facility] Sex Female [facility] Clinical Notes 11-05-2022 to 05-19-2025 Note Date & Type Note Facility 05-19-2025 Discharge summary [facility] 05-19-2025 Discharge summary Note Date/Time May 19, 2025 11:34pm [facility] Medical Records Department [address] [place] [address] Emergency Department Summary 05/19/25 MR#: [id number] Acct: [id number] Name: LELA SHETH Rep #:[id number] : 1950 75 From: Rudy machado DO PCP: Dr. Reynaldo Garcia DO Status:[facility] ER Location: ED HPI History of Present Illness Chief Complaint: Wound Check Narrative Narrative: Chief complaint and HPI: 75-year-old female with past medical history of varicose veins, GERD, pulmonary hypertension presents for evaluation of resolvedbleeding to the right anterior lower hines. Patient states she was showering whenshe noticed blood all over her carpet in her leg. Noticed a small abrasion to her right hines. States she did not have any specific injury that she knows of. Bleeding stopped. Not on blood thinners but does take a baby aspirin. Review of systems: See HPI Medications: As listed on the chart Allergies: As listed on the chart PFSH: Per chart Vital signs: As listed on the chart. Reviewed. Physical exam: Gen: Alert and oriented ENT: Moist mucous membranes CV: Regular rate Resp: Nonlabored respiration Musc: Full ROM of the right lower extremity, no deformity, patient has a small abrasion located over a vricose vein on her right anterior lower hines-no active bleeding, dried blood on the extremity, DP/PT pulse +2, good capillary refill, sensation intact, extremity nontender to palpation without swelling or cellulitis Psych: Cooperative, appropriate mood and affect [facility] Medical History Preop cardiovascular exam Status post hysteroscopy (~12/25/22) Wears glasses Post-menopausal Anxiety Arthritis Bladder disease Excessive bleeding Easy bruising Restless legs History of ulceration Non-smoker History of edema History of stress test History of echocardiogram History of irregular heartbeat Cardiology follow-up encounter Shortness of breath GERD (gastroesophageal reflux disease) Umbilical mass Ulcerative colitis Breast cancer Osteoporosis Mitral valve prolapse Mixed hyperlipidemia Home Medications ?Medication ?Instructions ?Recorded ?Last Taken ?Type omeprazole 20 mg capsule,delayed 20 mg PO DAILY 12/25/22 History release acetaminophen 325 mg tablet 650 mg PO ONCE PRN Pain Unknown History (Tylenol) cephalexin 250 mg tablet 250 mg PO DAILY PRN UTI Prev ention 10/26/21 Unknown History balsalazide 750 mg capsule 2,250 mg PO TID COLON 01/26 Unknown History ascorbic acid (vitamin C) 500 mg 500 mg PO DAILY 11/05 Unknown History tablet vibegron 75 mg tablet (Gemtesa) 75 mg PO DAILY OAB Unknown History atorvastatin 20 mg tablet 20 mg PO QDAY 01/30/24 Unkno wn History cholecalciferol (vitamin D3) 50 100 mcg PO QDAY Unknown History mcg (2,000 unit) tablet cranberry fruit 400 mg capsule 800 mg PO DAILY 4 Unknown History aspirin 81 mg tablet,delayed 81 mg PO QDAY #90 tabs Unknown Rx release (Adult Aspirin Regimen) mecobalamin (vitamin B12) 500 mcg mcg PO DAILY 5 Unknown History chewable tablet turmeric root extract [Curica PO DAILY 01/13/25 Unknow n History Turmeric] metoprolol succinate 50 mg 50 mg PO QDAY this is a dos e 01/21/25 Unknown Rx tablet,extended release 24 hr DECREASE #90 tabs Allergy/AdvReac Type Severity Reaction Status Date / Time Sulfa (Sulfonamide Allergy Unknown Hives Verified 05/19/25 23:02 Antibiotics) Family History Other Cancer Surgical History H/O foot surgery H/O dilation and curettage History of tonsillectomy H/O LEEP History of arthroscopy of knee (~2008) History of breast reconstruction (~2009) History of mastectomy (~11/2009) History of vein stripping (~2010) History of knee replacement (~2018) History of knee replacement (~2019) Social History current occupational status: retired pets and animals: No history of recent travel: No Smoking Status: Never smoker alcohol intake: never substance use type: does not use caffeine: No seatbelt use: always do you feel safe at home: Yes EXAM Physical Exam Const Vital Signs: 05/19/25 23:02 Temperature 97.4 F L Temperature Source Temporal Pulse Rate 90 Respiratory Rate 18 Blood Pressure 147/95 H Blood Pressure Mean 112 Pulse Ox 97 Oxygen Delivery Method Room Air MDM MDM MDM Narrative Medical decision making narrative: 75-year-old female with past medical history of varicose veins, GERD, pulmonary hypertension presents for evaluation of resolved bleeding to the right anterior lower hines. Patient states she was showering when she noticed blood all over hercarpet in her leg. Noticed a small abrasion to her right hines. States she did not have any specific injury that she knows of. Bleeding stopped. Not on bloodthinners but does take a baby aspirin. See physical exam findings. Patient hadbleeding from a small varicose vein on her right anterior hines. This area was cleaned and dried blood was removed. No active bleeding. No laceration that needs repaired. Patient is neurovascularly intact. Did apply bandage. Patientwas educated if she has rebleeding to apply pressure. Return back to the ED if pressure does not resolve bleeding. Follow-up with primary care physician. Sheconfirmed understand the plan. Patient able to discharge home. Impression: 1. Resolved bleeding from varicose vein on RLE Discharge Plan Triage Chief Complaint: Wound Check ED Provider: Rudy Armstrong Dx/Rx/DC Orders Prescriptions: No Action acetaminophen [Tylenol] 325 mg tablet 650 mg PO ONCE PRN (Reason: Pain) cephalexin 250 mg tablet 250 mg PO DAILY PRN (Reason: UTI Prevention) omeprazole 20 mg capsule,delayed release(DR/EC) 20 mg PO DAILY cranberry fruit 400 mg capsule 800 mg PO DAILY Rx Instructions: administer with a meal balsalazide 750 mg capsule 2,250 mg PO TID ascorbic acid (vitamin C) 500 mg tablet 500 mg PO DAILY Gemtesa 75 mg tablet 75 mg PO DAILY atorvastatin 20 mg tablet 20 mg PO QDAY cholecalciferol (vitamin D3) 50 mcg (2,000 unit) tablet 100 mcg PO QDAY mecobalamin (vitamin B12) 500 mcg tablet,chewable PO DAILY turmeric root extract [Curica Turmeric] PO DAILY aspirin [Adult Aspirin Regimen] 81 mg tablet,delayed release (DR/EC) 81 mg PO QDAY Qty: 90 3RF metoprolol succinate 50 mg tablet extended release 24 hr 50 mg PO QDAY Qty: 90 3RF Primary Care Provider: Reynaldo Garcia Referrals: Reynaldo Garcia DO [Primary Care Provider, Family Practice] Print Language: Cape Verdean What to do if you have Problems For any increased pain, shortness of breath, bleeding, nausea or vomiting, chestpain, or any unexpected problems, contact your Primary Care Provider. Call [facility] ([phone]) or report to the closest Emergency Room. Call 911 if necessary. 05/19/25 0565 <Electronically signed by Rudy Armstrong DO> Cosigner Signature (if applicable): CC: Dr. 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 Status: REG CLI Location: PSN Date: Sex: F C PSN 6 Minute Walk Test 6 Minute Walk Test 6 Minute Walk Test: 6 Minute Walk Test PSN:6-Minute Walk Test Start: 02/16/25 08:27 Freq: Status: Active Protocol: RESP.6MINW Document 02/16/25 08:15 AE (Rec: 02/16/25 08:32 AE [id number]) 6 Minute Walk Test Date Performed 02/16/25 Time Performed 08:15 Height 5 ft 6 in Weight: 180 lb Weight in Pounds 180.[address]: Sadi Assistive device None used: Pre-test Oxygen Delivery Room Air Method Pulse Ox (%) 96 Pulse Rate (60-100 84 beats/min) Dyspnea Franki Scale ( 0 0-10) Exertion Franki Scale 6 (6-20) 1st minute Oxygen Delivery Room Air Method Pulse Ox (%) 96 Pulse Rate (60-100 104 H beats/min) 2nd minute Oxygen Delivery Room Air Method Pulse Ox (%) 93 Pulse Rate (60-100 103 H beats/min) 3rd minute Oxygen Delivery Room Air Method Pulse Ox (%) 93 Pulse Rate (60-100 105 H beats/min) 4th minute Oxygen Delivery Room Air Method Pulse Ox (%) 94 Pulse Rate (60-100 104 H beats/min) 5th minute Oxygen Delivery Room Air Method Pulse Ox (%) 94 Pulse Rate (60-100 105 H beats/min) 6th minute Oxygen Delivery Room Air Method Pulse Ox (%) 93 Pulse Rate (60-100 104 H beats/min) Dyspnea Franki Scale ( 0 0-10) Exertion Franki Scale 10 (6-20) Post-test Oxygen Delivery Room Air Method Pulse Ox (%) 96 Pulse Rate (60-100 87 beats/min) Full Laps Walked 17 Partial Lap, Number 26 of Tiles Walked Total Distance 1029 Walked (ft) Interpretation Interpretation: The patient ambulated 1029 feet over the course of 6 minutes beginning on room air without assistive devices. Pretesting oxygen saturation was noted to be 96%on room air. With ambulation, the bhavani oxygen saturation was 93%. There was no significant exertional oxygen desaturation. Recommendations Recommendations: There is no indication for the use of supplemental oxygen at this time. 02/17/25 0935 O> Date _ Rakesh Castellano DO CC: ~ Date Dictated: 02/17/25933 Date Transcribed: 02/17/25933 Analytical Manager: Dr. Rakesh Castellano, Signed [facility]06-24-2025 Evaluation note* Diagnosis Onset Date Resolution Status Admit Date Pulmonary hypertension acute Ju ne 2024 10:56am Pulmonary hypertension acute Ju ly 2024 7:54am [facility] Work Phone: 1(478) 972-785306-05-2025 Nurse Progress note patient tolerated prolia injection without signs or symptoms of a reaction Digitally Signed by Judy Villalpando RN on 01/14/2025 12:41 PM [facility]06-04-2025 [facility] [address] [place], [place] [address] OFFICE VISIT Date of Service: 01/13/25 MR#: [id number] Acct: [id number] Name: LELA SHETH Rep #: [id number] : 1950 Provider: Dr. Charly Vargas MD Age/Sex: 74/F [place] [facility] Status: Signed HPI HPI History of Present Illness Details: This lady has past medical history significant for dyslipidemia and hypertension. Noted to have calcifications of the thoracic aorta on the chest x- ray done last year. In the past, the patient was told that he had mitral valve prolapse. However on her last echocardiogram, no mitral valve prolapse reported. Denies any chest pains or shortness of breath either at rest or with exertion. She walks about 1.5 miles every day. No orthopnea. No PND. No ankle edema. Intake Vital Signs 12/01/24 09:19 01/13/25 07:53 Height 5 ft 7 in 5 ft 7 in Weight: 185 lb 183 lb BMI 29.0 28.6 BP 133/88 H 135/94 H Blood Pressure Location Lt brachial Lt brachial Position Sitting Sitting Respiration 20 H 18 Pulse 84 73 Pulse Source Monitor NIBP Temp 96.9 F L Temperature Source Temporal Artery Pulse Oximetry (%) 94 Oxygen Delivery Method room air Intake Visit Reasons: 1 Y FU Pharmacy Services Director Required: No Accompanied by: Self Is patient in pain?: No Allergies Sulfa (Sulfonamide Antibiotics) Allergy (Unknown, Verified 01/13/25 11:03) Hives Medications ?Medication ?Instructions ?Recorded ?Confirmed ?Type omeprazole 20 mg capsule,delayed 20 mg PO DAILY 01/13/25 History release acetaminophen 325 mg tablet 650 mg PO ONCE PRN Pain 01/13/25 History (Tylenol) cephalexin 250 mg tablet 250 mg PO DAILY PRN UTI Prev ention 10/26/21 01/13/25 History balsalazide 750 mg capsule 2,250 mg PO TID COLON 01/2601/13/25 History ascorbic acid (vitamin C) 500 mg 500 mg PO DAILY 11/0501/13/25 History tablet vibegron 75 mg tablet (Gemtesa) 75 mg PO DAILY OAB 01/13/25 History atorvastatin 20 mg tablet 20 mg PO QDAY 01/30/2401/13 History cholecalciferol (vitamin D3) 50 100 mcg PO QDAY 01/13/25 History mcg (2,000 unit) tablet cranberry fruit 400 mg capsule 800 mg PO DAILY 4 01/13/25 History metoprolol succinate 50 mg 50 mg PO DAILY #90 tabs 01/13/25 Rx tablet,extended release 24 hr mecobalamin (vitamin B12) 500 mcg mcg PO DAILY 5 01/13/25 History chewable tablet turmeric root extract [Curica PO DAILY 01/13/25 History Turmeric] Ejection fraction %: 65 Have you fallen in the past year?: No PFSH Medical History (Updated 01/13/25 @ 11:[address] Young Vargas MD) Preop cardiovascular exam Status post hysteroscopy (~12/25/22) Wears glasses Post-menopausal Anxiety Arthritis Bladder disease Excessive bleeding Easy bruising Restless legs History of ulceration Non-smoker History of edema History of stress test History of echocardiogram History of irregular heartbeat Cardiology follow-up encounter Shortness of breath GERD (gastroesophageal reflux disease) Umbilical mass Ulcerative colitis Breast cancer Osteoporosis Mitral valve prolapse Mixed hyperlipidemia Surgical History (Updated 01/13/25 @ 11:08 by All Martinez RN) H/O foot surgery H/O dilation and curettage History of tonsillectomy H/O LEEP History of arthroscopy of knee (~2008) History of breast reconstruction (~2009) History of mastectomy (~11/2009) History of vein stripping (~2010) History of knee replacement (~2018) History of knee replacement (~2019) Family History Other Cancer Social History current occupational status: retired pets and animals: No history of recent travel: No Smoking Status: Never smoker alcohol intake: never substance use type: does not use caffeine: No seatbelt use: always do you feel safe at home: Yes ROS Const Const: Negative for fatigue, weakness, headache(s) or weight gain ENT ENT: Negative for headache(s), dizziness, Nosebleed/epistaxis or balance problems Cardio Chest Pain: No Palpitations: No Edema: None Muscle aches with walking: None Resp Respiratory: Negative for SOB with activity, SOB at rest or SOB orthopneaundefinedSOB lying down GI GI: Negative nausea, vomiting or heartburn Musc Musc: Negative for muscle aches/ myalgia, muscle weakness, joint pain or balanceproblems Neuro Neuro: Negative for dizziness, lightheadedness, near syncope, syncope, headache(s) or weakness Endo Endo: Negative for fatigue Cardiology Exam Const Appearance: comfortable and no acute distress Nutritional Appearance: well nourished Neck Neck: no JVD Carotids: Negative bruit Chest Auscultation: Bilateral: Clear to Auscultation Cardio Rate: regular rate Rhythm: regular rhythm Heart sounds: S1 normal and S2 normal Neuro General: patient alert, patient awake and patient oriented x3 Extremities Lower Extremity Edema: None: Bilateral Supplemental Info Supplemental Information Echocardiogram 11/27/2021: Interpretation Summary Left ventricular systolic function is normal. The estimated ejection fraction is 65 %. There is mild to moderate mitral annular calcification. Extension of the mitral annular calcification of the base of the posterior mitral valve leaflet. Trivial mitral valve insufficiency. Mild tricuspid valve insufficiency. Mild focal aortic valve calcification. Trivial aortic valve insufficiency. Trivial pulmonic valve insufficiency. Right ventricular systolic pressure estimated to be 30 mmHg. No evidence for diastolic dysfunction. Stress Test Report 11/27/2021 Procedure: Pharmacologic stress nuclear imaging study? Indications: Dyspnea on exertion; mitral valve prolapse; status post bilateral knee replacement Consent: Per the patient Procedure: The patient underwent pharmacologic (Regadenoson 0.4mg ) evaluation with a peak heart rate of 110 beats per minute (72%predicted maximal heart rate) and a peak blood pressure of 152/92 mmHg. The baseline ECG demonstrated normal sinus rhythm.? The peak pharmacologic ECG demonstrated no obvious ECG changes. There were no cardiac dysrhythmias pretest, during pharmacologic infusion, or recovery. There was no complaint of chest discomfort during pharmacologic infusion or recovery. The examination was discontinued secondary to completion of protocol. Impression: 1.? Pharmacologic (Regadenoson) evaluation 2.? Peak pharmacologic ECG with no obvious ECG changes. 3.? There were no cardiac dysrhythmias pretest, during pharmacologic infusion, or recovery. 4.? Nuclear images pending Myocardial perfusion imaging study: Technique: The patient was injected with 11.5 millicuries of technetium 99m Cardiolite and subsequently rest SPECT Cardiolite nuclear imaging was obtained in the horizontal long, vertical long, and short axis views. The patient underwent pharmacologic (Regadenoson) evaluation with a peak heart rate of 110 beats per minute (72% percent predicted maximal heart rate) and a peak blood pressure of 152/92 mmHg. The patient was injected with 33.8 millicuries of technetium 99m Cardiolite and subsequently stress SPECT Cardiolite nuclear imaging was obtainedin the horizontal long, vertical long, and short axis views.? A gated Cardiolitestudy at peak stress was obtained. Interpretation: Rest and stress SPECT Cardiolite nuclear imaging status post realignment, normalization, and attenuation correction demonstrate relative uniform tracer uptake and myocardial perfusion appearing within normal limits.? There is end systolic thickening and brightening.? The gated Cardiolite study demonstrates myocardial thickening and inward wall motion.? The reported LVEF is 81%. Impression: 1.? Rest and stress SPECT Cardiolite nuclear imaging demonstrate relative uniform tracer uptake andmyocardial perfusion appearing within normal limits. 2.? The gated Cardiolite study reports an LVEF of 81%. Holter: 10/31/2021 Sinus rhythm PACs/PVCs Ectopic atrial rhythm/tachycardia No wide complex runs CXR: 10/26/2021 FINDINGS: Support devices: None Mild bilateral pulmonary vascular congestion.? No focal consolidations.? No sizable pleural effusion or pneumothorax. Cardia mediastinal silhouette is within normal limits. Surgical clips in the soft tissues overlying the lower chest/breasts and upper abdominal wall.? No other acute findings in the bones or soft tissues. IMPRESSION: ? Mild bilateral pulmonary vascular congestion.? Otherwise, no other acute findings. Assessment and Plan Assessment and Plan (1) Aortic calcification: Status: Chronic Plan: Calcification of the aorta reported on chest x-ray. Patient counseled. Recommend enteric-coated aspirin 81 mg daily. Continue statins. (2) Hypertension: Status: Chronic Plan: Blood pressure above goal. Increase metoprolol ER to 100 mg daily. (3) Dyslipidemia: Status: Chronic Plan: Atorvastatin. Recommend target LDL cholesterol less than 100 mg/dL. PCP following. (4) GERD (gastroesophageal reflux disease): Status: Acute Comment: PER PT, CONTROLLED ON MEDS Plan: On omeprazole. Plan Details Follow Up: 12 Months Coding Level of Care Code Off vis,est,level 4 Diagnoses Aortic calcification I70.0 Hypertension I10 Dyslipidemia E78.5 GERD (gastroesophageal reflux disease) K21.9 Coding Level of Care Code Off vis,est,level 4 Diagnoses Aortic calcification I70.0 Hypertension I10 Dyslipidemia E78.5 GERD (gastroesophageal reflux disease) K21.9 Clinical Quality Measures Falls Risk Screening/Assistive Devices Have you fallen in the past year?: No Cardiac Ejection fraction %: 65 01/13/25 1130 > Date _ Young Vargas MD Cosigner Signature: Date (if applicable) CC: ~ [facility]04-22-2025 Evaluation note* Diagnosis Onset Date Resolution Status Admit Date Pulmonary hypertension suspected Ap ril 2024 10:53am GERD (gastroesophageal reflu x disease) acute January 13, 2025 1 0:28am Aortic calcification chronic January 13, 2025 10:28am Dyslipidemia chronic January 13 10:28am Hypertension chronic January 13 10:28am [facility] [employer] Work Phone: 1(744) 156-928504-22-2025 Evaluation note* Diagnosis Onset Date Resolution Status Admit Date Pulmonary hypertension acute Ap ril 2024 10:53am GERD (gastroesophageal reflu x disease) acute January 13, 2025 1 0:28am Aortic calcification chronic January 13, 2025 10:28am Dyslipidemia chronic January 13 10:28am Hypertension chronic January 13 10:28am Pulmonary hypertension acute Ju ne 2024 10:56am [facility] [employer] Work Phone: 1(210) 357-662003-19-2025 Radiology Diagnostic study note [facility] Imaging Services [address] [place], [place] [address] Ext Non Vasc Limited/Soft Tiss MR#: [id number] Acct: [id number] Name: LELA SHETH Rep #: [id number] : 1950 F 74 From: Bill Esquivel MD PCP: Dr. Reynaldo Garcia DO Status: REG CLI Study:Ext Non Vasc Limited/Soft Tiss Date of Exam: 10/28/24 Exam# [id number] Ordering Dr: Renetta Garcia DO PROCEDURE: EXT NON VASC LIMITED/SOFT TISS REASON FOR EXAM: LEFT LOWER LEG SOFT TISSUE MASS TECHNIQUE: Ultrasound imaging of the area of interest in the left lower extremity.. COMPARISON: None. FINDINGS: No sonographic abnormality is seen at the level of the palpable lump. There is evidence of varicoseveins. US/Ext Non Vasc Limited/Soft Tiss IMPRESSION: No sonographic abnormality is present at the level of the palpable lump. Varicose veins. Reading Location: [facility]--[facility] CC: Dr. Reynaldo Garcia DO ~ Analytical Manager: Signed [facility]11-14-2024 Nurse Progress note patient tolerated prolia injection without signs or symptoms of a reaction Digitally Signed by Judy Villalpando RN on 06/25/2024 01:33 PM [facility]12-29-2023 Discharge summary Author Jean-Claude Winkler [facility] August 09, 2023 9:50am Note Date/Time August 09, 2023 9:50am [facility] Physical Therapy [facility] [address] [place] [address] / REHABILITATION SERVICES DISCHARGE SUMMARY MR#: [id number] Acct: [id number] Name: LELA SHETH Rep #: [id number] : 1950 73 From: Cert. JUSTIN Smith, OCS Referring DrErick: Status: REG RCR Insurance: MEDICARE PART A B [employer] Discharge Summary D/C summary: It has been my pleasure to treat LELA SHETH referred by DARWIN MEREDITH, with the diagnosis of LOW BACK PAIN for a total of 29 visit(s). Discharge Date: 08/09/23 Please see the following information for a summary of their discharge status. Subjective Subjective: Doing good Pain Bilateral Back: Pain Intensity (Out of 10): 1 Right Lower Extremity: Pain Intensity (Out of 10): 0 Overall Improvement % Improvement: 75 Objective Objective/Function: bjective: POSTURE: mild forward posture PALAPTION: unremarkable GAIT: reciprocal pattern mild slow jose manuel SYMMTRIES: WNL LUMBAR ROM: flexion min ,extension mod loss pain ,side glides mod loss MMT: quads/hams 4/5 ,hip flexion 4-/5 ,ankle 4/5 Goals Goal 1:: Patient to be I with HEP for back Goal Progress: Goal Met Goal 2:: Patient to demonstrate 80% improvement with less pain and improved function.( NEW GOAL) Goal Progress: Goal Met Goal 3:: Patient to improve lumbar ROM with function of recovery to tie shoes and ADLS Goal Progress: Goal Met Goal 4:: Patient to normalize gait ( new goal) Goal Progress: Goal Met Goal 5:: Patient improve back oswestry score by 5 points or> to improve QOL and function( new goal) Goal Progress: Goal Met Plan Plan: D/C D/C Information Discharge Comments: HEP AND GYM d/c sentence: If there are questions or concerns regarding this patient's physical therapy, please feel free to call me at [phone]. Thank you for the referral of thispatient. Sincerely, Jean-Claude Winkler PT, Cert MDT, OCS Balance/Gait/Functional tests Balance/Special Test Scores Oswestry Low Back Score: 3 Improvement % Improvement: 75 <Electronically signed by Amanda Mcfarland PT. MDT, OCS> 08/09/23 0950 CC: DARWIN MERDEITH; Dr. Reynaldo Garcia, DO ~ JLA Signed [facility] Work Phone: 1(263) 106-953803-27-2023 NotePap Smear Specimen AdequacyMarch 2022 1:28pmComment.Satisfactory for evaluation. No endocervical component is identified.[facility] A#[id number] Defiance Regional HospitalComment on above:Satisfactory for evaluation. No endocervical component is identified. 11-05-2022 NotePap Smear Specimen AdequacyMarch 2022 1:28pmComment. Satisfactory for evaluation. No endocervical component is identified.[facility] A#[id number] Defiance Regional HospitalComment on above:Satisfactory for evaluation. No endocervical component is identified.Evaluation + Plan note Future Appointments Appointment Date:07/07/2021 09:00:00 AM Scheduled Provider:REYNALDO GRACIA DO Location:[facility] Appointment Type: OV Follow Up Future Scheduled Tests Radiology* BD Bone Density DEXA Axial Skeleton 05/26/21 [facility] Evaluation + Plan note Future Appointments Appointment Date:07/24/2023 09:00:00 AM Scheduled Provider:REYNALDO GARCIA DO Location:[facility] Appointment Type: Wellness Medicare [facility] Evaluation + Plan note Future Appointments Appointment Date:01/09/2024 08:30:00 AM Scheduled Provider:REYNALDO GARCIA DO Location:[facility] Appointment Type: OV Future Scheduled Tests Laboratory* Lipid Profile 11/07/23 * Vitamin D Level 11/07/23 [facility] Evaluation + Plan note Future Appointments Appointment Date:04/07/2024 09:00:00 AM Scheduled Provider:REYNALDO GARCIA DO Location:[facility] Appointment Type: Office Procedure Foreign Body Removal [facility] evaluation + Plan note Future Appointments Appointment Date:06/11/2024 09:00:00 AM Scheduled Provider:REYNALDO GARCIA DO Location:[facility] Appointment Type:PC OV Future Scheduled Tests Laboratory* Lipid Profile 05/19/24 Radiology* XR Chest 2 Views (PA & Lateral) 04/07/24 [facility] Evaluation + Plan note Future Appointments Appointment Date:09/01/2024 08:30:00 AM Scheduled Provider:REYNALDO GARCIA DO Location:[facility] Appointment Type:PC Wellness Medicare Future Scheduled Tests Laboratory* Lipid Profile 06/16/24 Radiology* XR Chest 2 Views (PA & Lateral) 04/07/24 [facility] Evaluation + Plan note Future Appointments Appointment Date:10/06/2024 08:00:00 AM Scheduled Provider:REYNALDO GARCIA DO Location:[facility] Appointment Type:PC Wellness Medicare [facility] evaluation + Plan note Future Appointments Appointment Date:04/06/2025 08:00:00 AM Scheduled Provider:REYNALDO GARCIA DO Location:[facility] Appointment Type: OV Future Scheduled Tests Radiology* MA Mammo Screening Bilateral w/ Antonio 10/06/24 * US Soft Tissue Mass of LT Arm or Leg 10/06/24 [facility] Invaluablealuation + Plan note Future Appointments Appointment Date:10/08/2025 08:00:00 AM Scheduled Provider:REYNALDO GARCIA DO Location:[facility] Appointment Type:PC Wellness Medicare Future Scheduled Tests Laboratory* Hepatic Function Panel 05/25/25 Radiology* MA Mammo Screening Bilateral w/ Antonio 10/06/24 [facility] Invaluablealuation + Plan note Future Appointments Appointment Date:10/08/2025 08:00:00 AM Scheduled Provider:REYNALDO GARCIA DO Location:[facility] Appointment Type:PC Wellness Medicare Future Scheduled Tests Radiology* MA Mammo Screening Bilateral w/ Antonio 10/06/24 [facility] Evwsbation note* Diagnosis Onset Date Resolution Status Mitral valve prolapse acute Mixed hyperlipidemia acute Palpitations acute Shortness of breath acute [facility] Work Phone: Evaluation note* Diagnosis Onset Date Resolution Status Mitral valve prolapse acute Mixed hyperlipidemia acute Palpitations acute Shortness of breath acute Mitral valve prolapse acute Mixed hyperlipidemia acute Palpitations acute Shortness of breath acute [facility] Work Phone: Evaluation note* Diagnosis Onset Date Resolution Status Mitral valve prolapse chroni c Mixed hyperlipidemia chronic Palpitations chronic [facility] Work Phone: Evaluation note* Diagnosis Onset Date Resolution Status Mitral valve prolapse chroni c Mixed hyperlipidemia chronic Palpitations chronic Cervical stenosis (uterine cervix) acute Thickened endometrium acute [facility] Work Phone: Evaluation noteNo assessment information available [facility] Work Phone: Hospital course Narrative No data available for this section [facility] Hospital Discharge instructions No data available for this section [facility] Hospital Discharge instructionsAdditional Instructions If rebleeding occurs apply pressure. Return back to ED if symptoms change or worsen. Follow-up with primary care physician.[facility] Work Phone: Progress note No data available for this section [facility] Progress note Author Young Vargas [facility] Note Date/Time January 13, 2025 11:30 am [facility] [address] [place] [address] OFFICE VISIT Date of Service: 01/13/25 MR#: [id number] Acct: [id number] Name: LELA SHETH Rep #: [id number] : 1950 Provider: Dr. Charly Vargas MD Age/Sex: 74/F [place] [facility] Status: Signed HPI HPI History of Present Illness Details: This lady has past medical history significant for dyslipidemia and hypertension. Noted to have calcifications of the thoracic aorta on the chest x-ray done last year. In the past, the patient was told that he had mitral valve prolapse. However on her last echocardiogram, no mitral valve prolapse reported. Denies any chest pains or shortness of breath either at rest or with exertion. She walks about 1.5 miles every day. No orthopnea. No PND. No ankle edema. Intake Vital Signs 12/01/24 09:19 01/13/25 07:53 Height 5 ft 7 in 5 ft 7 in Weight: 185 lb 183 lb BMI 29.0 28.6 BP 133/88 H 135/94 H Blood Pressure Location Lt brachial Lt brachial Position Sitting Sitting Respiration 20 H 18 Pulse 84 73 Pulse Source Monitor NIBP Temp 96.9 F L Temperature Source Temporal Artery Pulse Oximetry (%) 94 Oxygen Delivery Method room air Intake Visit Reasons: 1 Y FU Pharmacy Services Director Required: No Accompanied by: Self Is patient in pain?: No Allergies Sulfa (Sulfonamide Antibiotics) Allergy (Unknown, Verified 01/13/25 11:03) Hives Medications ?Medication ?Instructions ?Recorded ?Confirmed ?Type omeprazole 20 mg capsule,delayed 20 mg PO DAILY 01/13/25 History release acetaminophen 325 mg tablet 650 mg PO ONCE PRN Pain 01/13/25 History (Tylenol) cephalexin 250 mg tablet 250 mg PO DAILY PRN UTI Prev ention 10/26/21 01/13/25 History balsalazide 750 mg capsule 2,250 mg PO TID COLON 01/2601/13/25 History ascorbic acid (vitamin C) 500 mg 500 mg PO DAILY 11/0501/13/25 History tablet vibegron 75 mg tablet (Gemtesa) 75 mg PO DAILY OAB 01/13/25 History atorvastatin 20 mg tablet 20 mg PO QDAY 01/30/2401/13 History cholecalciferol (vitamin D3) 50 100 mcg PO QDAY 01/13/25 History mcg (2,000 unit) tablet cranberry fruit 400 mg capsule 800 mg PO DAILY 4 01/13/25 History metoprolol succinate 50 mg 50 mg PO DAILY #90 tabs 01/13/25 Rx tablet,extended release 24 hr mecobalamin (vitamin B12) 500 mcg mcg PO DAILY 5 01/13/25 History chewable tablet turmeric root extract [Curica PO DAILY 01/13/25 History Turmeric] Ejection fraction %: 65 Have you fallen in the past year?: No PFSH Medical History (Updated 01/13/25 @ 11:[address] Young Vargas MD) Preop cardiovascular exam Status post hysteroscopy (~12/25/22) Wears glasses Post-menopausal Anxiety Arthritis Bladder disease Excessive bleeding Easy bruising Restless legs History of ulceration Non-smoker History of edema History of stress test History of echocardiogram History of irregular heartbeat Cardiology follow-up encounter Shortness of breath GERD (gastroesophageal reflux disease) Umbilical mass Ulcerative colitis Breast cancer Osteoporosis Mitral valve prolapse Mixed hyperlipidemia Surgical History (Updated 01/13/25 @ 11:08 by All Martinez RN) H/O foot surgery H/O dilation and curettage History of tonsillectomy H/O LEEP History of arthroscopy of knee (~2008) History of breast reconstruction (~2009) History of mastectomy (~11/2009) History of vein stripping (~2010) History of knee replacement (~2018) History of knee replacement (~2019) Family History Other Cancer Social History current occupational status: retired pets and animals: No history of recent travel: No Smoking Status: Never smoker alcohol intake: never substance use type: does not use caffeine: No seatbelt use: always do you feel safe at home: Yes ROS Const Const: Negative for fatigue, weakness, headache(s) or weight gain ENT ENT: Negative for headache(s), dizziness, Nosebleed/epistaxis or balance problems Cardio Chest Pain: No Palpitations: No Edema: None Muscle aches with walking: None Resp Respiratory: Negative for SOB with activity, SOB at rest or SOB orthopneaundefinedSOB lying down GI GI: Negative nausea, vomiting or heartburn Musc Musc: Negative for muscle aches/ myalgia, muscle weakness, joint pain or balanceproblems Neuro Neuro: Negative for dizziness, lightheadedness, near syncope, syncope, headache(s) or weakness Endo Endo: Negative for fatigue Cardiology Exam Const Appearance: comfortable and no acute distress Nutritional Appearance: well nourished Neck Neck: no JVD Carotids: Negative bruit Chest Auscultation: Bilateral: Clear to Auscultation Cardio Rate: regular rate Rhythm: regular rhythm Heart sounds: S1 normal and S2 normal Neuro General: patient alert, patient awake and patient oriented x3 Extremities Lower Extremity Edema: None: Bilateral Supplemental Info Supplemental Information Echocardiogram 11/27/2021: Interpretation Summary Left ventricular systolic function is normal. The estimated ejection fraction is 65 %. There is mild to moderate mitral annular calcification. Extension of the mitral annular calcification of the base of the posterior mitral valve leaflet. Trivial mitral valve insufficiency. Mild tricuspid valve insufficiency. Mild focal aortic valve calcification. Trivial aortic valve insufficiency. Trivial pulmonic valve insufficiency. Right ventricular systolic pressure estimated to be 30 mmHg. No evidence for diastolic dysfunction. Stress Test Report 11/27/2021 Procedure: Pharmacologic stress nuclear imaging study? Indications: Dyspnea on exertion; mitral valve prolapse; status post bilateral knee replacement Consent: Per the patient Procedure: The patient underwent pharmacologic (Regadenoson 0.4mg ) evaluation with a peak heart rate of 110 beats per minute (72%predicted maximal heart rate) and a peak blood pressure of 152/92 mmHg. The baseline ECG demonstrated normal sinus rhythm.? The peak pharmacologic ECG demonstrated no obvious ECG changes. There were no cardiac dysrhythmias pretest, during pharmacologic infusion, or recovery. There was no complaint of chest discomfort during pharmacologic infusion or recovery. The examination was discontinued secondary to completion of protocol. Impression: 1.? Pharmacologic (Regadenoson) evaluation 2.? Peak pharmacologic ECG with no obvious ECG changes. 3.? There were no cardiac dysrhythmias pretest, during pharmacologic infusion, or recovery. 4.? Nuclear images pending Myocardial perfusion imaging study: Technique: The patient was injected with 11.5 millicuries of technetium 99m Cardiolite and subsequently rest SPECT Cardiolite nuclear imaging was obtained in the horizontal long, vertical long, and short axis views. The patient underwent pharmacologic (Regadenoson) evaluation with a peak heart rate of 110 beats per minute (72% percent predicted maximal heart rate) and a peak blood pressure of 152/92 mmHg. The patient was injected with 33.8 millicuries of technetium 99m Cardiolite and subsequently stress SPECT Cardiolite nuclear imaging was obtainedin the horizontal long, vertical long, and short axis views.? A gated Cardiolitestudy at peak stress was obtained. Interpretation: Rest and stress SPECT Cardiolite nuclear imaging status post realignment, normalization, and attenuation correction demonstrate relative uniform tracer uptake and myocardial perfusion appearing within normal limits.? There is end systolic thickening and brightening.? The gated Cardiolite study demonstrates myocardial thickening and inward wall motion.? The reported LVEF is 81%. Impression: 1.? Rest and stress SPECT Cardiolite nuclear imaging demonstrate relative uniform tracer uptake and myocardial perfusion appearing within normal limits. 2.? The gated Cardiolite study reports an LVEF of 81%. Holter: 10/31/2021 Sinus rhythm PACs/PVCs Ectopic atrial rhythm/tachycardia No wide complex runs CXR: 10/26/2021 FINDINGS: Support devices: None Mild bilateral pulmonary vascular congestion.? No focal consolidations.? No sizable pleural effusion or pneumothorax. Cardia mediastinal silhouette is within normal limits. Surgical clips in the soft tissues overlying the lower chest/breasts and upper abdominal wall.? No other acute findings in the bones or soft tissues. IMPRESSION: ? Mild bilateral pulmonary vascular congestion.? Otherwise, no other acute findings. Assessment and Plan Assessment and Plan (1) Aortic calcification: Status: Chronic Plan: Calcification of the aorta reported on chest x-ray. Patient counseled. Recommend enteric-coated aspirin 81 mg daily. Continue statins. (2) Hypertension: Status: Chronic Plan: Blood pressure above goal. Increase metoprolol ER to 100 mg daily. (3) Dyslipidemia: Status: Chronic Plan: Atorvastatin. Recommend target LDL cholesterol less than 100 mg/dL. PCP following. (4) GERD (gastroesophageal reflux disease): Status: Acute Comment: PER PT, CONTROLLED ON MEDS Plan: On omeprazole. Plan Details Follow Up: 12 Months Coding Level of Care Code Off vis,est,level 4 Diagnoses Aortic calcification I70.0 Hypertension I10 Dyslipidemia E78.5 GERD (gastroesophageal reflux disease) K21.9 Coding Level of Care Code Off vis,est,level 4 Diagnoses Aortic calcification I70.0 Hypertension I10 Dyslipidemia E78.5 GERD (gastroesophageal reflux disease) K21.9 Clinical Quality Measures Falls Risk Screening/Assistive Devices Have you fallen in the past year?: No Cardiac Ejection fraction %: 65 01/13/25 1130 <Electronically signed by Young Vargas MD> Date _ Young Vargas MD Cosigner Signature: Date (if applicable) CC: ~ [employer] Work Phone: Reason for referral (narrative)No reason for referral information availableWFisher-[facility] Work Phone: Summary Purpose Family History No Family History Records Found Relationship Condition Age at Onset Recorded Date/T eric Not Specified Malignant neoplasm Unknown Advance Directives No Advanced Directives Records Found Advance Directive Response Recorded Date/ Time Living Will No December 21, 2022 1 :31pm Power of Sap Technical Developer No December 21, 2022 1:31pm Advance Directive Response Recorded Date/ Time Do you have a Healthcare Power of Sap Technical Developer? Yes May 19, 2025 11:08pm Chief Complaint and Reason for Visit Chief Complaint POST DEMOND Amb Documentation MVP, PALPS (REYNALDO ROMAR) Reason for Visit Mitral valve prolaps e Mixed hyperlipidemia Palpitations Shortness of breath Chief Complaint POST DEMOND Amb Documentation MVP, PALPS (REYNALDO ROMAR) PALPITATIONS, MITRAL VALVE PROLAPSE Reason for Visit Mitral valve prolaps e Mixed hyperlipidemia Palpitations Shortness of breath Chief Complaint Amb Documentation MVP, PALPS (REYNALDO ROMAR) PALPITATIONS, MITRAL VALVE PROLAPSE amato amato Reason for Visit Mitral valve prolaps e Mixed hyperlipidemia Palpitations Shortness of breath Chief Complaint MVP, PALPS (REYNALDO ROM AR) PALPITATIONS, MITRAL VALVE PROLAPSE amato amato amato 3 M FU SOB PREPROCEDURAL Reason for Visit Mitral valve prolaps e Mixed hyperlipidemia Palpitations Shortness of breath Mitral valve prolapse Mixed hyperlipidemia Palpitations Shortness of breath Chief Complaint 6 m fu HX BREAST CANCER W/MASTECTOMY Reason for Visit Mitral valve prolaps e Mixed hyperlipidemia Palpitations Chief Complaint 6 m fu HX BREAST CANCER W/MASTECTOMY UTI Reason for Visit Mitral valve prolaps e Mixed hyperlipidemia Palpitations Chief Complaint 6 m fu HX BREAST CANCER W/MASTECTOMY UTI ABNORMAL FINDINGS ON US Reason for Visit Mitral valve prolaps e Mixed hyperlipidemia Palpitations Chief Complaint 6 m fu HX BREAST CANCER W/MASTECTOMY UTI ABNORMAL FINDINGS ON US Endometrial thickening, ref by Dr. Tong THICKENED ENDOMETRIUM Reason for Visit Mitral valve prolaps e Mixed hyperlipidemia Palpitations Chief Complaint 6 m fu HX BREAST CANCER W/MASTECTOMY UTI ABNORMAL FINDINGS ON US Endometrial thickening, ref by Dr. Tong THICKENED ENDOMETRIUM Reason for Visit Mitral valve prolaps e Mixed hyperlipidemia Palpitations Cervical stenosis (uterine cervix) Thickened endometrium Chief Complaint LBP PT HAS RX Chief Complaint Admit Date LEFT LEG MASS October 28, 2024 7:4 9am Chief Complaint Admit Date LEFT LEG MASS October 28, 2024 7:4 9am Pulmonary Hypertension December 01, 2024 10:53am 1 Y FU January 13, 2025 10:28 am Reason for Visit Admit Date Pulmonary hypertension December 01, 2024 10:53am GERD (gastroesophageal reflux disease) J 2024 10:28am Aortic calcification January 13, 2025 10:2 8am Dyslipidemia January 13, 2025 10:28 am Hypertension January 13, 2025 10:28 am Chief Complaint Admit Date LEFT LEG MASS October 28, 2024 7:4 9am Pulmonary Hypertension December 01, 2024 10:53am 1 Y FU January 13, 2025 10:28 am DYSPNEA, SOB January 29, 2025 10:4 4am 6 wk FU February 02, 2025 10:5 6am Chief Complaint Admit Date LEFT LEG MASS October 28, 2024 7:4 9am Pulmonary Hypertension December 01, 2024 10:53am 1 Y FU January 13, 2025 10:28 am DYSPNEA, SOB January 29, 2025 10:4 4am 6 wk FU February 02, 2025 10:5 6am R06.02 - Shortness of breath February 16 025 7:58am R06.02 - Shortness of breath February 17 025 9:34am 1 W February 23, 2025 7:54 am Reason for Visit Admit Date Pulmonary hypertension December 01, 2024 10:53am GERD (gastroesophageal reflux disease) J 2024 10:28am Aortic calcification January 13, 2025 10:2 8am Dyslipidemia January 13, 2025 10:28 am Hypertension January 13, 2025 10:28 am Pulmonary hypertension February 02, 2025 1 0:56am Chief Complaint Admit Date DYSPNEA, SOB January 29, 2025 10:4 4am 6 wk FU February 02, 2025 10:5 6am R06.02 - Shortness of breath February 16 7:58am R06.02 - Shortness of breath February 17 9:34am 1 W FU February 23, 2025 7:54 am wound check May 19, 2025 10 :59pm Reason for Visit Admit Date Pulmonary hypertension February 02, 2025 1 0:56am Pulmonary hypertension February 23, 2025 7 :54am Additional Source Comments INFORMATION SOURCE (unrecogn ized section and content) DATE CREATED AUTHOR 01/16/2019 [facility] [place] DATE CREATED AUTHOR AUTHOR'S ORGANIZ ATION 10/27/2019 [facility] DATE CREATED AUTHOR AUTHOR'S ORGANIZ ATION 10/27/2019 [employer] DATE CREATED AUTHOR AUTHOR'S ORGANIZ ATION 04/12/2024 [facility] ([place]) DATE CREATED AUTHOR AUTHOR'S ORGANIZ ATION 05/18/2025 [facility] DATE CREATED AUTHOR AUTHOR'S ORGANIZ ATION 05/29/2025 [facility] Goals (unrecognized section and content) Goals may be documented in a n alternate section Care Teams (unrecognized sec tion and content) Team Status: Active Member Role Status Dates Dr. Reynaldo Garcia DO Family Provider Active Dr. Reynaldo Garcia DO Primary Care Provider Active Team Status: Inactive Member Role Status Dates Dr. Reynaldo Garcia DO Primary Care Provider, Referring Jared gong Active Serafin Ferrer TEXTILE SLITTING MACHINE OPERATOR, TEXTILE SLITTING MACHINE OPERATOR-C Attending Provider Active Team Status: Inactive Member Role Status Dates Dr. Reynaldo Garcia DO Primary Care Provider, Attending Jared gong Active Team Status: Inactive Member Role Status Dates Dr. Reynaldo Garcia DO Primary Care Provider Active Dr. Mandie Tong MD Attending Provider Active Team Status: Inactive Member Role Status Dates Dr. Reynaldo Garcia DO Primary Care Provider Active Dr. Mandie Tong MD Attending Provider, Referring P rovider Active Team Status: Inactive Member Role Status Dates Dr. Reynaldo Garcia DO Primary Care Provider, Referring P rovider Active Dr. Renee Hoang MD Attending Provider Active Team Status: Active Member Role Status Dates Dr. Reynaldo Garcia DO Primary Care Provider Active Dr. Renee Hoang MD Attending Provider, Referr ing Provider Active Team Status: Inactive Member Role Status Dates Dr. Reynaldo Garcia DO Primary Care Provider Active Dr. Renee Hoang MD Attending Provider, Referr ing Provider Active Team Status: Inactive Member Role Status Dates Dr. Reynaldo Garcia DO Primary Care Provider Active MASOUD GRANADOS Attending Provider, Referring Provider Active Team Status: Active Member Role Status Dates Dr. Reynaldo Garcia DO Primary Care Provider Active Team Status: Inactive Member Role Status Dates Dr. Reynaldo Garcia DO Primary Care Provider Active Start: October 28, 2024 End: October 28, 2024 Dr. Reynaldo Garcia DO Attending Provider Active St art: October 28, 2024 End: October 28, 2024 Dr. Reynaldo Garcia DO Referring Provider Active St art: October 28, 2024 End: October 28, 2024 Team Status: Inactive Member Role Status Dates Dr. Reynaldo Garcia DO Primary Care Provider Active Start: December 01, 2024 End: December 01, 2024 Dr. Reynaldo Garcia DO Referring Provider Active St art: December 01, 2024 End: December 01, 2024 Dr. Rakesh Castellano DO Attending Provider Active S tart: December 01, 2024 End: December 01, 2024 Team Status: Inactive Member Role Status Dates Dr. Reynaldo Garcia DO Primary Care Provider Active Start: January 13, 2025 End: January 13, 2025 Dr. Reynaldo Garcia DO Referring Provider Active St art: January 13, 2025 End: January 13, 2025 Dr. Young Vargas MD Attending Provider Active Start: January 13, 2025 End: January 13, 2025 Team Status: Inactive Member Role Status Dates Dr. Reynaldo Garcia DO Primary Care Provider Active Start: January 29, 2025 End: January 29, 2025 Dr. Rakesh Castellano , Attending Provider Active S tart: January 29, 2025 End: January 29, 2025 Dr. Rakesh Castellano , Referring Provider Active S tart: January 29, 2025 End: January 29, 2025 Team Status: Active Member Role Status Dates Dr. Reynaldo Garcia DO Primary Care Provider Active Start: January 29, 2025 Dr. Deonna Villatoro MD Attending Provider Activ e Start: January 29, 2025 Team Status: Active Member Role Status Dates Dr. Reynaldo Garcia DO Primary Care Provider Active Start: February 02, 2025 Dr. Reynaldo Garcia DO Referring Provider Active St art: February 02, 2025 Judy Garza TEXTILE SLITTING MACHINE OPERATOR, TEXTILE SLITTING MACHINE OPERATOR-C Attending Provider Active Start: February 02, 2025 Team Status: Inactive Member Role Status Dates Dr. Reynaldo Garcia DO Primary Care Provider Active Start: February 02, 2025 End: February 02, 2025 Dr. Reynaldo Garcia DO Referring Provider Active St art: February 02, 2025 End: February 02, 2025 Judy Garza TEXTILE SLITTING MACHINE OPERATOR, TEXTILE SLITTING MACHINE OPERATOR-C Attending Provider Active Start: February 02, 2025 End: February 02, 2025 Team Status: Active Member Role/Relationship Status Dates Dr. Reynaldo Garcia DO Primary Care Provider Active Team Status: Inactive Member Role/Relationship Status Dates Dr. Reynaldo Garcia DO Primary Care Provider Active Start: October 28, 2024 End: October 28, 2024 Dr. Reynaldo Gracia DO Attending Provider Active St art: October 28, 2024 End: October 28, 2024 Dr. Reynaldo Garcia DO Referring Provider Active St art: October 28, 2024 End: October 28, 2024 Team Status: Inactive Member Role/Relationship Status Dates Dr. Reynaldo Garcia DO Primary Care Provider Active Start: December 01, 2024 End: December 01, 2024 Dr. Reynaldo Garcia DO Referring Provider Active St art: December 01, 2024 End: December 01, 2024 Dr. Rakesh Castellano , Attending Provider Active S tart: December 01, 2024 End: December 01, 2024 Team Status: Inactive Member Role/Relationship Status Dates Dr. Reynaldo Garcia DO Primary Care Provider Active Start: January 13, 2025 End: January 13, 2025 Dr. Reynaldo Garcia DO Referring Provider Active St art: January 13, 2025 End: January 13, 2025 Dr. Young Vargas MD Attending Provider Active Start: January 13, 2025 End: January 13, 2025 Team Status: Inactive Member Role/Relationship Status Dates Dr. Reynaldo Garcia DO Primary Care Provider Active Start: January 29, 2025 End: January 29, 2025 Dr. Rakesh Castellano DO Attending Provider Active S tart: January 29, 2025 End: January 29, 2025 Dr. Rakesh Castellano DO Referring Provider Active S tart: January 29, 2025 End: January 29, 2025 Team Status: Active Member Role/Relationship Status Dates Dr. Reynaldo Garcia DO Primary Care Provider Active Start: January 29, 2025 Dr. Deonna Villatoro MD Attending Provider Activ e Start: January 29, 2025 Team Status: Inactive Member Role/Relationship Status Dates Dr. Reynaldo Garcia DO Primary Care Provider Active Start: February 02, 2025 End: February 02, 2025 Dr. Reynaldo Garcia DO Referring Provider Active St art: February 02, 2025 End: February 02, 2025 Judy Garza TEXTILE SLITTING MACHINE OPERATOR, TEXTILE SLITTING MACHINE OPERATOR-C Attending Provider Active Start: February 02, 2025 End: February 02, 2025 Team Status: Active Member Role/Relationship Status Dates Dr. Reynaldo Garcia DO Primary Care Provider Active Start: February 16, 2025 Judy Garza TEXTILE SLITTING MACHINE OPERATOR, TEXTILE SLITTING MACHINE OPERATOR-C Attending Provider Active Start: February 16, 2025 Judy Garza TEXTILE SLITTING MACHINE OPERATOR, TEXTILE SLITTING MACHINE OPERATOR-C Referring Provider Active Start: February 16, 2025 Team Status: Active Member Role/Relationship Status Dates Dr. Reynaldo Garcia DO Primary Care Provider Active Start: February 17, 2025 Judy Garza TEXTILE SLITTING MACHINE OPERATOR, TEXTILE SLITTING MACHINE OPERATOR-C Referring Provider Active Start: February 17, 2025 Judy Garza TEXTILE SLITTING MACHINE OPERATOR, TEXTILE SLITTING MACHINE OPERATOR-C Other Provider Active Start: February 17, 2025 Dr. Rakesh Castellano DO Attending Provider Active S tart: February 17, 2025 Team Status: Inactive Member Role/Relationship Status Dates Dr. Reynaldo Garcia DO Primary Care Provider Active Start: February 23, 2025 End: February 23, 2025 Dr. Reynaldo Garcia DO Referring Provider Active St art: February 23, 2025 End: February 23, 2025 Judy Garza TEXTILE SLITTING MACHINE OPERATOR, TEXTILE SLITTING MACHINE OPERATOR-C Attending Provider Active Start: February 23, 2025 End: February 23, 2025 Team Status: Inactive Member Role/Relationship Status Dates Dr. Reynaldo Garcia DO Primary Care Provider Active Start: February 16, 2025 End: February 16, 2025 Judy Garza TEXTILE SLITTING MACHINE OPERATOR, TEXTILE SLITTING MACHINE OPERATOR-C Attending Provider Active Start: February 16, 2025 End: February 16, 2025 Judy Garza TEXTILE SLITTING MACHINE OPERATOR, TEXTILE SLITTING MACHINE OPERATOR-C Referring Provider Active Start: February 16, 2025 End: February 16, 2025 Team Status: Active Member Role/Relationship Status Dates Dr. Reynaldo Garcia DO Primary care physician Active Team Status: Inactive Member Role/Relationship Status Dates Dr. Reynaldo Garcia DO Primary care physician Active Start: January 29, 2025 End: January 29, 2025 Dr. Rakesh Castellano DO Attending physician Active Start: January 29, 2025 End: January 29, 2025 Dr. Rakesh Castellano DO Referring Provider Active S tart: January 29, 2025 End: January 29, 2025 Team Status: Active Member Role/Relationship Status Dates Dr. Reynaldo Garcia DO Primary care physician Active Start: January 29, 2025 Dr. Deonna Villatoro MD Attending physician Acti ve Start: January 29, 2025 Team Status: Inactive Member Role/Relationship Status Dates Dr. Reynaldo Garcia DO Primary care physician Active Start: February 02, 2025 End: February 02, 2025 Dr. Reynaldo Garcia DO Referring Provider Active St art: February 02, 2025 End: February 02, 2025 Judy Garza NP, TEXTILE SLITTING MACHINE OPERATOR-C Attending physician Active Start: February 02, 2025 End: February 02, 2025 Team Status: Inactive Member Role/Relationship Status Dates Dr. Reynaldo Garcia DO Primary care physician Active Start: February 09, 2025 Dr. Mandie Tong MD Attending physician Active Start: February 09, 2025 Team Status: Inactive Member Role/Relationship Status Dates Dr. Reynaldo Garcia DO Primary care physician Active Start: February 16, 2025 End: February 16, 2025 Judy Garza TEXTILE SLITTING MACHINE OPERATOR, TEXTILE SLITTING MACHINE OPERATOR-C Attending physician Active Start: February 16, 2025 End: February 16, 2025 Judy Garza TEXTILE SLITTING MACHINE OPERATOR, TEXTILE SLITTING MACHINE OPERATOR-C Referring Provider Active Start: February 16, 2025 End: February 16, 2025 Team Status: Active Member Role/Relationship Status Dates Dr. Reynaldo Garcia , DO Primary care physician Active Start: February 17, 2025 Judy Garza TEXTILE SLITTING MACHINE OPERATOR, TEXTILE SLITTING MACHINE OPERATOR-C Referring Provider Active Start: February 17, 2025 Judy Garza TEXTILE SLITTING MACHINE OPERATOR, TEXTILE SLITTING MACHINE OPERATOR-C Nurse Practitioner Active Start: February 17, 2025 Dr. Rakesh Castellano , DO Attending physician Active Start: February 17, 2025 Team Status: Inactive Member Role/Relationship Status Dates Dr. Reynaldo Garcia , Primary care physician Active Start: February 23, 2025 End: February 23, 2025 Dr. Reynaldo Garcia DO Referring Provider Active St art: February 23, 2025 End: February 23, 2025 Judy Garza TEXTILE SLITTING MACHINE OPERATOR, TEXTILE SLITTING MACHINE OPERATOR-C Attending physician Active Start: February 23, 2025 End: February 23, 2025 Team Status: Inactive Member Role/Relationship Status Dates Dr. Reynaldo Garcia DO Primary care physician Active Start: May 19, 2025 End: May 19, 2025 Dr. Rudy Armstrong , DO Emergency Department Physician Active Start: May 19, 2025 End: May 19, 2025 FOR RECORDS PERTAINING TO PATIENTS WHO ARE [...] BE BASED ON THE PRIMARY CLINICAL RECORDS. [employer] [employer] provides no warranty or [phone] [id number] the accuracy [phone] completeness of information in this [id number]
== END | disposition home or self-care (01) ==
LOC: OPUS 08:55
PROVIDERS: PCP Student in an Organized Health Care Education/Training Program; Referring Provider Internal Medicine Gastroenterology; Visit Provider Internal Medicine Gastroenterology
DX: R79.89 Other specified abnormal findings of blood chemistry (principal)
CPT/HCPCS: 76705; 76981